=== PATIENT | male | born 1935 | race Hispanic/Latino ===

== ENCOUNTER 2017-02-07 17:46 | Inpatient (IN) | payer MEDICARE ==
--- NOTE | 2017-02-07 18:12 | ED PDOC ---
Arrival/HPI - General Chief Complaint: Abdominal Pain Time Seen by Provider: 02/07/17 17:48 Historian: Patient - History of Present Illness Narrative History of Present Illness (Text): 02/07/17 18:01 A 81 year old male, whose past medical history includes colon cancer with resection, chemotherapy, now in remission, peptic ulcer and B12 insufficiency, presents to the emergency department for difficulty eating over the past 9 months. Patient reports he has been experiencing difficulty swallowing. He notes pain down his esophagus and states his food does not go down easily. Patient reports he has attempted to stay hydrated and nourished but has not been successful. He has lost 55 pounds over this course. Patient notes generalized weakness and nausea. He denies any fever, chills, vomiting, diarrhea , abdominal pain, chest pain, shortness of breath or any other complaints at this time. PMD: Jefferson Tovar Time/Duration: Other (9 months) Symptom Course: Worsening Context: Home Past Medical History - Provider Review Nursing Documentation Reviewed: Yes - Infectious Disease Hx of Infectious Diseases: None - Tetanus Immunization Tetanus Immunization: Unknown - Cardiac Hx Pacemaker: No - Pulmonary Hx Respiratory Disorders: No - Neurological Hx Neurological Disorder: No (NEUROPATHY) - HEENT Hx HEENT Disorder: (WEARS RX GLASSES) Hx Glaucoma: Yes - Renal Hx Renal Disorder: No - Endocrine/Metabolic Hx Endocrine Disorders: No - Hematological/Oncological Hx Blood Transfusions: No Hx Blood Transfusion Reaction: No - Integumentary Hx Dermatological Disorder: Yes (THROMBOPLEBITIS LEFT LEG) - Musculoskeletal/Rheumatological Hx Musculoskeletal Disorders: Yes Hx Falls: No - Gastrointestinal Hx Gastrointestinal Disorders: No (COLON SURGERY,CONSTIPATION) Hx Gastrointestinal Ulcer: Yes (1978) Other/Comment: Colon CA Hx - Genitourinary/Gynecological Hx Genitourinary Disorders: No - Psychiatric Hx Depression: No Hx Emotional Abuse: No Hx Physical Abuse: No Hx Substance Use: No - Anesthesia Hx Anesthesia Reactions: No Hx Malignant Hyperthermia: No - Suicidal Assessment Feels Threatened In Home Enviroment: No Family/Social History - Physician Review Nursing Documentation Reviewed: Yes Family/Social History: No Known Family HX Smoking Status: Former Smoker Hx Alcohol Use: No Hx Substance Use: No Hx Substance Use Treatment: No Allergies/Home Meds Allergies/Adverse Reactions: Allergies No Known Allergies Allergy (Verified 02/07/17 18:00) Home Medications: Home Meds Medication Instructions Recorded Confirmed Brinzolamide/Brimonidine Tart 1 drop OU BID 06/21/16 07/12/16 [Simbrinza 0.2%-1% 8 ml] Travoprost [Travatan Z 5 ml] 1 drop OU HS 06/21/16 07/12/16 traMADol [Ultram] 50 mg PO DAILY PRN 06/21/16 07/12/16 Furosemide [Lasix] 20 mg PO 07/12/16 Review of Systems - Physician Review All systems were reviewed & negative as marked: Yes - Review of Systems Constitutional: absent: Fevers, Night Sweats ENT: Other (Difficultly swallowing and pain in esophagus) Respiratory: absent: SOB Cardiovascular: absent: Chest Pain Gastrointestinal: Nausea, Appetite Changes (Difficulty eating). absent: Abdominal Pain, Diarrhea, Vomiting Physical Exam Vital Signs Temp Pulse Resp BP Pulse Ox 02/07/17 17:48 98.1 F 72 18 164/83 H 100 Temperature: Afebrile Blood Pressure: Hypotensive Pulse: Regular Respiratory Rate: Normal Appearance: Positive for: Cachectic, Other (Well hydrated) - Systems Exam Head: Present: Atraumatic, Normocephalic Pupils: Present: PERRL Extroacular Muscles: Present: EOMI Conjunctiva: Present: Normal Mouth: Present: Moist Mucous Membranes Pharnyx: Present: Normal. No: ERYTHEMA, EXUDATE, TONSILS ENLARGED, Peritonsilar Swelling, Uvular Deviation, Muffled/Hoarse Voice, Strider, Soft Palate/Uvular Edema Neck: Present: Normal Range of Motion Respiratory/Chest: Present: Clear to Auscultation, Good Air Exchange. No: Respiratory Distress, Accessory Muscle Use Cardiovascular: Present: Regular Rate and Rhythm, Normal S1, S2. No: Murmurs Abdomen: Present: Normal Bowel Sounds. No: Tenderness, Distention, Peritoneal Signs Back: Present: Normal Inspection Upper Extremity: Present: Normal Inspection. No: Cyanosis, Edema Lower Extremity: Present: Normal Inspection. No: Edema Neurological: Present: GCS=15, CN II-XII Intact, Speech Normal Skin: Present: Warm, Dry, Normal Color. No: Rashes Psychiatric: Present: Alert, Oriented x 3, Normal Insight, Normal Concentration Medical Decision Making ED Course and Treatment: 02/07/17 18:01 Impression: A 81 year old male with difficulty eating/swallowing. Patient notes pain, nausea and weight loss. Differential Diagnosis included but are not limited to: Failure to thrive vs. Dehydration vs. Electrolyte abnormalities vs. Esophageal structure Plan: -- Labs -- Urinalysis -- Reassess and disposition Prior Visits: Notes and results from previous visits were reviewed. Patient last seen in the ED on 07/12/16 and hospitalized for shortness of breath and lung nodule Progress Notes: 02/07/17 18:20 EKG shows sinus tachycardia at [address]-segment elevations in V3 measuring less than 1 ml, ST-segment depressions in lateral leads. Interpreted by me. 02/07/17 19:03 Labs pending. Signed out case to Dr. Russell to f/u labs, and admit to Dr. Gaines's service. - Lab Interpretations I have reviewed the lab results: Yes - Scribe Statement The provider has reviewed the documentation as recorded by the Scribe Keisha Pro Provider Scribe Attestation: All medical record entries made by the Scribe were at my direction and personally dictated by me. I have reviewed the chart and agree that the record accurately reflects my personal performance of the history, physical exam, medical decision making, and the department course for this patient. I have also personally directed, reviewed, and agree with the discharge instructions and disposition. Disposition/Present on Arrival - Present on Arrival Any Indicators Present on Arrival: No History of DVT/PE: No History of Uncontrolled Diabetes: No Urinary Catheter: No History of Decub. Ulcer: No History Surgical Site Infection Following: None - Disposition Have Diagnosis and Disposition been Completed?: Yes Diagnosis: Dysphagia, FTT (failure to thrive) in adult Disposition Time: 19:04 Condition: FAIR Forms: [employer] (Malaysian)
[2017-02-07 18:57] LABS: HEMOGLOBIN 14.1 gm/dL (14.0-18.0); MEAN CORPUSCULAR HEMOGLOBIN 31.6 pg (25.0-35.0); MEAN PLATELET VOLUME 11.8 fl (7.0-11.0); RBC 4.46 10^6/uL (3.5-6.1); RED CELL DISTRIBUTION WIDTH 14.5 % (11.5-14.5); WHITE BLOOD COUNT 9.4 10^3/ul (4.5-11.0)
[2017-02-07 19:05] LABS: CALCIUM 9.7 mg/dL (8.4-10.5); MAGNESIUM 2.1 mg/dL (1.7-2.2)
[2017-02-07 19:06] LABS: PLATELET COUNT 209 10^3/uL (120.0-450.0)
[2017-02-07 19:15] LABS: URINE BILIRUBIN NEGATIVE (NEGATIVE); URINE BLOOD NEGATIVE (NEGATIVE); URINE GLUCOSE (UA) NEGATIVE (NEGATIVE); URINE LEUKOCYTE ESTERASE NEGATIVE Leu/uL (NEGATIVE); URINE NITRATE NEGATIVE (NEGATIVE); URINE PROTEIN NEGATIVE mg/dL (<30 mg/dL); URINE UROBILINOGEN 0.2 E.U./dL (<1 E.U./dL)
[2017-02-07 19:18] LABS: URINE APPEARANCE CLEAR (CLEAR); URINE COLOR YELLOW (YELLOW)
[2017-02-07 19:28] LABS: EOSINOPHIL 2 % (0.0-3.0); LYMPHOCYTE 11 % (22.0-35.0); MONOCYTE 5 % (1.0-6.0); NEUTROPHIL 82 % (50.0-70.0); PLATELET CLUMPS PRESENT
[2017-02-07] MEDS: Potassium Chl 10 mEq in D5-1/2 1,000 ML IV SCH (20:20)
[2017-02-07 22:59] VITALS: BMI 191268.7
--- NOTE | 2017-02-07 23:17 | HP ---
The patient's admission history and physical for Dr. Grider. CHIEF COMPLAINT: Worsening dysphagia. HISTORY OF PRESENT ILLNESS: The patient is an 81-year-old male, seen at [facility] on 02/02 for abdominal discomfort with the patient having had a x-ray of his chest and a CT scan of his abdomen and pelvis with the patient now reporting that his dysphagia over the past few months has worsened with a cough every time he tries to drink fluids. He also reports he has no appetite with abdominal discomfort more pronounced. He was on Megace for the past approximately a month with continued weight loss. The patient weighed 196 pounds approximately 1 year prior with his present weight of 152 pounds, approximately 42-pound loss in approximately 1 year's time. His evaluation via the emergency room to the hospital is prompted by conversation with his as the patient has mild cognitive impairment, possibly early dementia with the giving supporting details as to the worsening of his condition. He reportedly had a visit with Dr. Vick, ear nose and throat specialist 3 days prior and neglected to advise the doctor of the tests that were ordered by Dr. Grider including a CT scan of the abdomen and pelvis done on 01/25, which showed no evidence of metastatic disease in the abdomen and pelvis, but small airspace opacities in the lower lobe suspicious for an infectious process. He then had a emergency room CT scan of the abdomen and pelvis done in [facility] on 02/02, which was read as mild left upper quadrant ileus, status post gastric bypass surgery and rectal surgical resection, interstitial opacities in the lung bases, nonspecific distribution suggests chronic interstitial disease with fibrosis. However, underlying infiltrate is not completely excluded, prostate mildly prominent. His chest x-ray that day showed hyperaeration consistent COPD increased coarse interstitial opacities bilaterally suggestive of chronic interstitial lung disease, underlying infiltrate not completely excluded, including upper lung bases. These reports will be scanned into the medical record as they are from different facilities for review by consultants. The patient also is followed by Dr. Maxwell, pulmonary sales and service consultant with recently being treated with Simbrinza for his respiratory issues. At present his reports that the patient's p.o. intake is very poor despite Megace with occasional vomiting and coughing episodes after drinking liquids. PAST MEDICAL HISTORY: Significant for colon cancer with resection with chemotherapy, in remission. History of gastrojejunostomy, status post perforated peptic ulcer. B12 deficiency, pulmonary fibrosis with bronchiectasis. Glaucoma along with degenerative joint disease, BPH, hyperlipidemia, hypertension not being treated at this point, peripheral neuropathy. ALLERGIES: NO KNOWN ALLERGIES. MEDICATIONS: Include Simbrinza, folic acid, Travatan eye drops, Lyrica, vitamin D, vitamin B12, tramadol, Uloric, Megace, and famotidine recently prescribed. Carafate was also prescribed, however, he did not get this due to cost of the liquid version of the medicine. FAMILY HISTORY AND SOCIAL HISTORY: The patient is a former smoker. Denies alcohol use. Worked for [employer], now retired. Otherwise noncontributory. REVIEW OF SYSTEMS: Essentially negative except as above again with the patient now with mild cognitive impairment/early dementia with giving supporting details. It should be noted that the patient was recently seen in the emergency room at [facility] on 02/02/2017. PHYSICAL EXAMINATION GENERAL: He appears gaunt, mildly cachectic. He is awake and alert and oriented. VITAL SIGNS: For this patient today include temperature 97.6, pulse 80, respirations 12, blood pressure 121/71, weight 152 pounds, height 6 feet 2 inches tall, pulse ox 95%. HEENT: Unremarkable. NECK: Supple. HEART: Regular rate. LUNGS: Decreased breath sounds, occasional rhonchi at the bases. ABDOMEN: Soft with minimally tender to general palpation to the mid epigastrium. EXTREMITIES: No edema. SKIN: Warm and dry. NEUROLOGIC: Awake and alert. LABORATORY DATA: The patient's labs were done to include white blood cell count of 9.4, hemoglobin 14.1, hematocrit 41.5, platelet count of 209,000. His chem panel showed a BUN of 32, creatinine 1.7, lipase of 200. Urinalysis was negative for blood sugar, protein. It should be noted that the patient did have scans as reported earlier as above. The patient also was seen by Dr. Aries Winchester for a lung nodule in 07/[address]-guided biopsy, at that time, as a CT scan of the chest done in 07/2016 showed significant interval improvement in the patient's left upper linear opacity with the biopsy not performed at that time. ASSESSMENT: Assessment for this patient is that of worsening dysphagia, rule out aspiration, weight loss unexplained, failure to thrive, recent vomiting, early dementia, history of cancer of the colon, status post resection with adjuvant chemotherapy 5-FU based regimen in remission, B12 deficiency, history of bronchiectasis, pulmonary fibrosis, history of gastrojejunostomy, status post perforated peptic ulcer. Glaucoma. Chronic kidney disease. Assessment and plan as above. PLAN: For this patient, after conversation with Dr. Grider, we will admit to the medical floor with evaluation with Dr. Vick with consideration for EGD, barium swallow, swallowing evaluation. We will make the patient n.p.o. except for his meds with sips of water. Start low-flow IV fluids with continuation of present medical regimen. We will ask for consult with Dr. Vick, gastrointestinal; Dr. Gallagher, renal; and Dr. Maxwell, pulmonary with the reports described above to be scanned into the [facility] computer system for review from [facility] and from [facility] [place]. We will monitor clinically with labs with further workup as indicated. Jefferson Chaudhry MD
[2017-02-08] MEDS ORDERED: Albuterol-Ipratrop 3 mg / 0.5 (3 ml) UD IH PRN (06:56)
[2017-02-08 07:36] LABS: BASO # 0.02 K/mm3 (0.0-2.0); BASO % 0.3 % (0.0-3.0); EOS # 0.2 (0.0-0.7); EOS % 2.3 % (1.5-5.0); GRAN # 5.81 (1.4-6.5); GRAN % 73.8 % (50.0-68.0); HEMOGLOBIN 13.6 gm/dL (14.0-18.0); LYMPH # 1.2 (1.2-3.4); LYMPH % 15.5 % (22.0-35.0); MEAN CORPUSCULAR HEMOGLOBIN 31.2 pg (25.0-35.0); MEAN CORPUSCULAR HGB CONC 33.9 g/dl (31.0-37.0); MEAN PLATELET VOLUME 12.1 fl (7.0-11.0); MONO # 0.6 (0.1-0.6); MONO % 8.1 % (1.0-6.0); PLATELET COUNT 220 10^3/uL (120.0-450.0); RBC 4.36 10^6/uL (3.5-6.1); RED CELL DISTRIBUTION WIDTH 14.2 % (11.5-14.5); WHITE BLOOD COUNT 7.9 10^3/ul (4.5-11.0)
--- NOTE | 2017-02-08 07:47 | CON ---
DATE: 02/08/2017 REFERRING PHYSICIAN: Dr. Chaudhry. REASON FOR CONSULTATION: Cough. HISTORY OF PRESENT ILLNESS: The patient is an 81-year-old male, with past medical history significant for chronic obstructive pulmonary disease, colon cancer, status post resective surgery, who presents with progressive dysphagia over the past month. The patient also states that he coughs when he drinks clear liquids. He was thus admitted for additional evaluation. The patient is not short of breath at rest. He does note some mild occasional dyspnea on exertion. As above, he does cough "at times," especially when he drinks thin liquids. He denies significant sputum production. There is no history of chest pain, coughing up of blood or chest pain - made worse with deep respirations. There is no history of temperatures,chills or infectious exposure. There is no history of night sweats. There is a history of weight loss with poor oral intake. No history of leg or calf pains. No history of syncope or diaphoresis. No history of recent trouble or trauma. REVIEW OF SYSTEMS: No history of nausea, vomiting, or diarrhea. No history of acute urinary symptoms. No new neurological, musculoskeletal complaints. Rest of the review of systems negative. ALLERGIES: NO KNOWN ALLERGIES. FAMILY HISTORY: No inheritable diseases. SOCIAL HISTORY: Positive for tobacco, negative for alcohol. HOME MEDICATIONS: Include Ultram, Travoprost, Lasix. PHYSICAL EXAMINATION GENERAL: The patient is not short of breath at rest. He is not using accessory muscles for breathing. VITAL SIGNS: Temperature 98.3, pulse 89, respirations 18/20, blood pressure 155/89. Oxygen saturation on room air is 99 to 100%. HEENT: Normocephalic and atraumatic. No JVD. CARDIOVASCULAR: Systolic ejection murmur at the lower left sternal border. No S3 gallop. LUNGS: Decreased breath sounds at the bases. Very minimal rhonchi. No wheezing. GI: Abdomen is soft, nontender, nondistended. Bowel sounds are positive. EXTREMITIES: No clubbing, cyanosis or edema. Calves are nontender to palpation. SKIN: No acute rash. NEUROLOGIC: Limited at the present time. LABORATORY DATA: CBC: White count 9.4, hemoglobin 14.1, hematocrit 41.5, platelets of 209. Complete metabolic profile: BUN 32, creatinine 1.7. Rest of the metabolic profile is within normal limits. The last chest film in the computer is that of a CAT scan done on 07/12/2016. The CAT scan does show significant interval improvement of the patient's left upper lobe linear opacity. The biopsy was not done. IMPRESSION: 1. Dysphagia. 2. Rule out aspiration. 3. Weight loss. 4. Renal insufficiency. PLAN: The patient presents to [facility] with main complaint of trouble swallowing over the past month. As above, his appetite is poor and he has lost considerable weight. In addition, the patient does complain of a cough when drinking thin liquids. His currently n.p.o. I will also order aspiration precautions. On physical exam, there is only very minimal bronchospasm noted. I will start the patient on DuoNeb treatments and inhaled steroids. He does have a history of smoking and chronic obstructive pulmonary disease. I will also order a repeat chest x-ray - for further evaluation. Consultations with GI and renal have been ordered. Additional pulmonary intervention will be based on the above results, as well as the clinical status of the patient. I will discuss the above with Dr. Chaudhry this morning. Thank you very much for this pulmonary consultation. Wyatt Martínez MD MTDD
[2017-02-08 08:01] LABS: ALBUMIN 3.4 g/dL (3.0-4.8); CALCIUM 9.3 mg/dL (8.4-10.5)
[2017-02-08] MEDS: Albuterol-Ipratrop 3 mg / 0.5 (3 ml) UD IH SCH ×3 (08:14→20:00)
[2017-02-08] MEDS: Budesonide 0.5 mg/2 ml Inhal Susp UD IH SCH ×2 (08:14→20:00)
[2017-02-08] MEDS ORDERED: ULORIC PO SCH (10:00)
[2017-02-08] MEDS ORDERED: TRAVATAN EYE BOTHEYES SCH (10:00)
[2017-02-08] MEDS: Megestrol Acetate 40 mg/ml Cup PO SCH (10:05)
[2017-02-08] MEDS: Sucralfate 1 gm/10 ml Oral Susp UD PO SCH ×5 (10:05→23:04)
[2017-02-08] MEDS ORDERED: Barium Sulfate for Susp 96% w/w 176g Bottle PR ONE (10:53)
--- NOTE | 2017-02-08 11:37 | RAD ---
HISTORY: Dysphagia. COMPARISON: None. TECHNIQUE: Single contrast esophagram was performed. FINDINGS: Patient tolerated procedure well. ESOPHAGUS: Esophageal mucosa appeared preserved. No evidence of stricture or mass lesion. HIATAL HERNIA: Surgical clips are seen around the distal esophagus at the level of the diaphragm. There is no hiatal hernia GASTROESOPHAGEAL REFLUX: Not demonstrated. OTHER FINDINGS: None. IMPRESSION: Unremarkable esophagram.
--- NOTE | 2017-02-08 11:55 | RAD ---
HISTORY: COMPARISON: 07/12/2016. TECHNIQUE: Chest PA and lateral FINDINGS: LINES AND TUBES: None. LUNG AND PLEURA: The lungs are hyperinflated and there is peribronchial thickening with chronic changes in both lower lobes. . There are no pleural effusions or pneumothorax. HEART AND MEDIASTINUM: The heart is not enlarged. The hilar and mediastinal contours are within normal limits. SKELETAL STRUCTURES: There is diffuse bone demineralization and old fracture deformities in right posterior 8th and 9th ribs. VISUALIZED UPPER ABDOMEN: Normal. OTHER FINDINGS: None. IMPRESSION: COPD. No acute findings.
--- NOTE | 2017-02-08 13:48 | CON ---
GASTROENTEROLOGY CONSULTATION DATE OF CONSULTATION: 02/08/2017 REQUESTING PHYSICIAN: Jefferson Chaudhry MD REASON FOR CONSULTATION: I have been asked to see this 81-year-old male with numerous medical problems including a history of colorectal cancer, chronic interstitial lung disease, history of partial gastrectomy for peptic ulcer disease many years ago who for several weeks has had poor oral intake secondary to loss of appetite and some vague discomfort in his chest with swallowing. He has had interment vomiting, the patient has had multiple CAT scans of the abdomen with a most recent CAT scan from [facility] showing a nonspecific dilatation of small-bowel loops in the left upper quadrant. I saw the patient in the office last week and for similar symptoms and I had the discussion with the patient and was decided to treat the patient conservatively. I have recommended Carafate suspension, however, this medication was not covered by his insurance. He is now admitted with failure to thrive, poor oral intake and some difficulty with swallowing. He has had some intermittent vomiting. The patient also has some early dementia. PAST MEDICAL HISTORY: As above, again he has a history of pulmonary interstitial fibrosis, bronchiectasis, mild dementia, and colon cancer. Of note, the patient recent had a colonoscopy with removal of a large adenoma in his cecum. He also has had a subtotal gastrectomy with gastrojejunostomy for perforated peptic ulcer. SOCIAL HISTORY: The patient is a former cigarette smoking, he quit years ago. He denies alcohol use. FAMILY HISTORY: Noncontributory. REVIEW OF SYSTEMS: A 14-point review of systems is notable for some pain with swallowing, poor oral intake, nausea, and vomiting. PHYSICAL EXAMINATION GENERAL: Elderly male appearing chronically ill and in no acute distress. VITAL SIGNS: Reveal a temperature of 98.3, blood pressure of 155/89, and heart rate of 89. HEENT: Reveal bitemporal wasting. Oral mucosa is slightly dry. NECK: Supple. LUNGS: Chest reveal scattered rhonchi with distant breath sounds. HEART: Exam reveals a regular rate and rhythm. ABDOMEN: Soft and nontender. He has a well-healed scars in his upper and lower abdomen. There is no palpable mass. EXTREMITIES: Show no edema. LABORATORY DATA: Reveals white blood cell count of 7.9 and hemoglobin of 13.6. Chemistries reveal chloride of 108, BUN of 27, and creatinine of 1.5. IMPRESSION: This is an 81-year-old male with several weeks to months poor oral intake secondary to poor appetite several days of some discomfort with swallowing, nausea, vomiting, history of subtotal gastrectomy, and perforated ulcer disease with recent CT-scan of the abdomen and pelvis showing some mild nonspecific dilatation of small bowel loops in the left upper quadrant possibly secondary to prior gastric surgery with failure to thrive, dehydration, prerenal azotemia and again some substantial discomfort in his chest while swallowing. The patient may have component of oropharyngeal dysphagia. RECOMMENDATION: 1. We will get a swallowing evaluation. 2. We will start the patient on Carafate suspension 1 gram four times day. 3. The patient states that he is hungry at this time and would like to try and eat, we will put on a soft mechanical diet. 4. I will schedule the patient for an upper endoscopy early next week. Ej Tavarez MD
[2017-02-08] MEDS: ULORIC 40 MG PO SCH (14:06)
[2017-02-08] MEDS: Potassium Chl 10 mEq in D5-1/2 1,000 ML IV SCH (14:06)
[2017-02-08] MEDS ORDERED: POLYETHYLENE GLYCOL 3350 17 GM/Dose PACKET PO PRN (17:16)
--- NOTE | 2017-02-08 22:46 | CON ---
DATE: 02/08/2017 REASON FOR CONSULTATION: Chronic kidney disease, stage III. HISTORY OF PRESENT ILLNESS: An 81-year-old male, was seen at [facility] on 02/02/2017 with abdominal discomfort. The patient reporting difficulty swallowing. Also complaining of 50-pound weight loss over the last 1 year. As per the history from the chart, the patient has been complaining of poor intake, weight loss, difficulty swallowing. PAST MEDICAL AND SURGICAL HISTORY: No history of hypertension, no history of diabetes, the patient has a history of elevated uric acid. FAMILY HISTORY: Noncontributory. SOCIAL HISTORY: No smoking, no alcohol use, no IV drug abuse. ALLERGIES: NO KNOWN DRUG ALLERGIES. MEDICATIONS AT HOME: Had been Uloric, Pepcid, Lyrica, Megace and tramadol. REVIEW OF SYSTEMS: All systems are reviewed. Pertinent positives are mentioned in the history of presenting illness, rest unremarkable. PHYSICAL EXAMINATION: GENERAL: Elderly thinly-built male, sitting in chair. VITAL SIGNS: Blood pressure 151/84, heart rate 69, respiratory rate 20, and temperature 98.1. HEENT: Normocephalic, atraumatic. NECK: Supple. No JVD. LUNGS: Bilateral equal air entry and bilateral breath sounds, no rales. CARDIAC: S1 and S2, regular rate and rhythm. No murmur, no rub. ABDOMEN: Soft, nondistended, nontender, bowel sounds present. EXTREMITIES: No lower extremity edema. INTAKE AND OUTPUT: Not charted. LABORATORY DATA: WBC 7.9, hemoglobin 13.6, hematocrit 40 and platelets 220. Sodium 142, potassium 4.6, chloride 108, CO2 of 23, BUN 27, creatinine 1.5, glucose 104, calcium 9.3, AST 20, ALT 20 and albumin 3.4. Urinalysis; yellow, clear, pH 6.0, specific gravity 1.025, protein negative, ketones negative, blood negative, leukocyte esterase negative. ASSESSMENT: An 81-year-old male with history of poor appetite, poor p.o. intake, weight loss, remote history of colon cancer, history of subtotal gastrectomy for perforated ulcer, and chronic kidney disease stage II/III. 1. Stable chronic kidney disease. 2. Mild prerenal azotemia. 3. /weight loss. 4. Elevated blood pressure readings, no history of hypertension. PLAN: 1. Push p.o. intake. 2. Continue to monitor blood pressure. 3. May need antihypertensive. 4. Workup as per GI. Sherie Gallagher MD
[2017-02-08] MEDS: Latanoprost 2.5 ml Opht Soln OU SCH (23:05)
[2017-02-09] MEDS: Potassium Chl 10 mEq in D5-1/2 1,000 ML IV SCH (02:40)
[2017-02-09] MEDS: Albuterol-Ipratrop 3 mg / 0.5 (3 ml) UD IH SCH ×4 (02:55→21:05)
[2017-02-09] MEDS: Pantoprazole 40 mg EC Tab PO SCH (06:35)
[2017-02-09] MEDS: Sucralfate 1 gm/10 ml Oral Susp UD PO SCH ×3 (06:35→21:52)
--- NOTE | 2017-02-09 07:22 | PN ---
DATE: 02/09/2017 SUBJECTIVE: The patient appears comfortable this morning. He is not short of breath at rest. PHYSICAL EXAMINATION VITAL SIGNS: Temperature 97.9, pulse 70, respirations 18/20, blood pressure 143/74. Oxygen saturation on room air is 99%. HEENT: Normocephalic and atraumatic. NECK: No JVD. CARDIOVASCULAR: Systolic ejection murmur at the lower left sternal border. No S3 gallop. LUNGS: Decreased breath sounds at the bases. No rhonchi or wheezing this morning. GI: Abdomen is soft, nontender, nondistended. Bowel sounds are positive. EXTREMITIES: No clubbing, cyanosis, or edema. Calves are nontender to palpation. SKIN: No acute rash. NEUROLOGIC: Limited at the present time. PERTINENT LABORATORY DATA: Chest x-ray was done yesterday and reviewed. The chest x-ray is consistent with chronic obstructive pulmonary disease. There are no acute findings. IMPRESSION: 1. Dysphagia. 2. Rule out aspiration. 3. Chronic obstructive pulmonary disease. 4. Weight loss. 5. Renal insufficiency. PLAN: The patient appears comfortable this morning. He is not short of breath at rest. He does state to feeling better this morning. On physical exam, his lungs are now clear. Oxygen saturation on room air is 99%. I will continue the current nebulizer treatments and inhaled steroids for now. I did review the chest x-ray as above. There are no acute findings. GI and renal evaluations are noted. Oncology evaluation is ongoing. I will discuss the above with the attending physician. Wyatt Martínez MD MTDKaiden
[2017-02-09] MEDS: Budesonide 0.5 mg/2 ml Inhal Susp UD IH SCH ×2 (07:43→21:05)
[2017-02-09] MEDS: Megestrol Acetate 40 mg/ml Cup PO SCH (09:35)
--- NOTE | 2017-02-09 10:40 | PN ---
DATE: SUBJECTIVE: The patient is currently sitting up in bed, eating breakfast on 5R. He has no complaints. IV are infusing. The patient states that he has lost 50 pounds in recent times. He states his appetite has significantly decreased. He is undergoing full GI workup. His esophagogram was negative. PHYSICAL EXAMINATION: INTAKE/OUTPUT: Intake 3240 and output 600 mL. VITAL SIGNS: Blood pressure 134/69, temperature 98.3, respiratory rate 20 with a pulse of 80, and pulse oximetry 97%. HEENT: Shows him to be normocephalic and atraumatic. Conjunctivae are pale. Sclerae are nonicteric. NECK: Supple. No neck vein distention. CHEST: Clear to auscultation and percussion. No rales. No rhonchi. No wheezing. CARDIOVASCULAR: Shows a regular rate and rhythm without audible murmurs, rubs or gallops. ABDOMEN: Soft. Bowel sounds are normal. No rebound. No guarding. No masses. No tenderness. EXTREMITIES: Show no lower extremity cyanosis, clubbing, or edema. LABORATORY DATA NAD IMAGING: Admitting chest x-ray showed COPD with no acute infiltrates. Admitting esophagogram was negative. Laboratories, hemoglobin 13.6, white blood cell count of 7.9, and platelet count of 220,000. Chemistry show a BUN of 27 with a creatinine of 1.5. These are his baseline levels. The patient does have chronic kidney disease stage II suspect. Chloride 108 with a CO2 of 23, sodium 142 with a potassium 4.6. Calcium, phosphorous, and magnesium were normal. Lipase was normal. Albumin was 3.4. Liver enzymes are normal. The patient's urine screen is negative. MEDICATIONS: List reviewed. The patient is currently on Carafate, Colace, DuoNeb, folic acid, Lyrica, Megace, MiraLax, Pepcid, IV fluid hydration with potassium, Protonix, Pulmicort, Tylenol, Uloric, and Xalatan. ASSESSMENT: 1. A 50-pound weight loss in a patient decreased oral intake. This is in the setting of remote history of colon cancer. He is status post perforated peptic ulcer with gastrojejunostomy. The patient is being evaluated by GI and by Hematology/Oncology. 2. History of chronic kidney disease stage II, currently stable. BUN is back to baseline levels. Creatinine is stable at 1.5. 3. History of hypertension in the past with significant weight loss. The patient appears to be normotensive. 4. History of pulmonary fibrosis and bronchiectasis by history. This appears to be stable. 5. History of benign prostatic hypertrophy. This appears to be stable. 6. History of peripheral neuropathy on medications, stable. 7. History of hyperlipidemia, likely improved with significant weight loss. 8. History of gout. No recent attacks. 9. History of chronic obstructive pulmonary disease. PLAN: 1. From my standpoint, IV fluids may be discontinued. The patient will try and increase his p.o. solid foods and fluid intake. 2. GI workup in progress. 3. At present with significant weight loss. Blood pressure medication is not necessary, but we will continue to monitor blood pressures along with you. 4. Continue to monitor accurate I's and O's and follow laboratories on a routine basis. Felix Scott MD
[2017-02-09] MEDS: Latanoprost 2.5 ml Opht Soln OU SCH (23:30)
--- NOTE | 2017-02-09 23:59 | CP.PCM.PN ---
Subjective - Date & Time of Evaluation Date of Evaluation: 02/08/17 Time of Evaluation: 21:00 - Subjective Subjective: No acute events. Tolerating PO intake w/o issue. Has not had a BM in a few days 12 ROs otherwise negative Pain: denies Objective - Vital Signs/Intake and Output Vital Signs (last 24 hours): Temp Pulse Resp BP Pulse Ox 97.2 F L 110 H 20 111/57 L 99 02/09/17 16:46 02/09/17 16:46 02/09/17 16:46 02/09/17 16:46 02/09/17 16:46 Intake and Output: 02/09/17 02/10/17 18:59 06:59 Intake Total 300 Output Total 250 Balance 50 - Medications Medications: Current Medications Acetaminophen (Tylenol 325mg Tab) 650 mg PO Q4 PRN PRN Reason: Pain, Mild (1-3) Albuterol/Ipratropium (Duoneb 3 Mg/0.5 Mg (3 Ml) Ud) 3 ml IH [id number] [facility] Last Admin: 02/09/17 21:05 Dose: 3 ml Albuterol/Ipratropium (Duoneb 3 Mg/0.5 Mg (3 Ml) Ud) 3 ml IH Q2H PRN PRN Reason: Shortness of Breath Budesonide (Pulmicort Respules) 0.5 mg IH [id number] [facility] Last Admin: 02/09/17 21:05 Dose: 0.5 mg Docusate Sodium (Colace) 100 mg PO DAILY [facility] Last Admin: 02/09/17 09:34 Dose: 100 mg Famotidine (Pepcid) 40 mg PO DAILY [facility] Last Admin: 02/09/17 09:35 Dose: 40 mg Folic Acid (Folic Acid) 1 mg PO DAILY [facility] Last Admin: 02/09/17 09:34 Dose: 1 mg Latanoprost (Xalatan Opht) 0 ml OU HS [facility] Last Admin: 02/08/17 23:05 Dose: 2.5 ml Megestrol Acetate (Megace) 200 mg PO DAILY [facility] Last Admin: 02/09/17 09:35 Dose: 200 mg Non-Formulary Medication (Uloric) 40 mg PO DAILY [facility] Last Admin: 02/08/17 14:06 Dose: Not Given Pantoprazole Sodium (Protonix Ec Tab) 40 mg PO 0600 [facility] Last Admin: 02/09/17 06:35 Dose: 40 mg Polyethylene Glycol (Miralax) 17 gm PO DAILY PRN PRN Reason: Constipation Last Admin: 02/09/17 15:27 Dose: 17 gm Polyethylene Glycol (Miralax) 17 gm PO ONCE ONE Stop: 02/10/17 20:31 Pregabalin (Lyrica) 25 mg PO Q12 [facility] Last Admin: 02/09/17 21:20 Dose: 25 mg Sucralfate (Carafate Oral Susp) 1 gm PO ACHS [facility] Last Admin: 02/09/17 21:52 Dose: 1 gm - Labs Labs: 02/08/17 07:00 02/08/17 07:00 - Constitutional Appears: Well - Respiratory Exam Respiratory Exam: Clear to Ausculation Bilateral, NORMAL BREATHING PATTERN - Cardiovascular Exam Cardiovascular Exam: REGULAR RHYTHM, +S1, +S2. absent: Murmur - GI/Abdominal Exam GI & Abdominal Exam: Soft, Normal Bowel Sounds. absent: Tenderness - Extremities Exam Extremities Exam: Full ROM, Normal Capillary Refill, Normal Inspection. absent : Joint Swelling, Pedal Edema Assessment and Plan - Assessment and Plan (Free Text) Assessment: Mr. Kahn is a 81 y/o rhonda with pmhx significant for localized colorectal cancer s/p hemicolectomy and adjuvant FOLFOX who presents with abdominal pain, weight loss, and dypshagia. Patient improving with IV hydration and dysphagia soft diet. Barium swallow test unremarkable. Appreciate Gi recommendations and patient to be evaluated with endoscopy -continue fluids for now -encoruage PO hydration -start on bowel regimen; daily colace; prn miralax -EGD next week -dypshagia soft diet Saurav Grider MD Oncology service p: [phone]
--- NOTE | 2017-02-10 00:01 | CP.PCM.PN ---
Subjective - Date & Time of Evaluation Date of Evaluation: 02/09/17 Time of Evaluation: 17:00 - Subjective Subjective: Still no BM. Just had miralax one hour before. tolerating PO intake with dysphagia soft diet. STill not taking adequate PO hydration. hates water and prefers apple juice 12 ROS otherwise negative Pain denies Objective - Vital Signs/Intake and Output Vital Signs (last 24 hours): Temp Pulse Resp BP Pulse Ox 97.2 F L 110 H 20 111/57 L 99 02/09/17 16:46 02/09/17 16:46 02/09/17 16:46 02/09/17 16:46 02/09/17 16:46 Intake and Output: 02/09/17 02/10/17 18:59 06:59 Intake Total 300 Output Total 250 Balance 50 - Medications Medications: Current Medications Acetaminophen (Tylenol 325mg Tab) 650 mg PO Q4 PRN PRN Reason: Pain, Mild (1-3) Albuterol/Ipratropium (Duoneb 3 Mg/0.5 Mg (3 Ml) Ud) 3 ml IH [id number] [facility] Last Admin: 02/09/17 21:05 Dose: 3 ml Albuterol/Ipratropium (Duoneb 3 Mg/0.5 Mg (3 Ml) Ud) 3 ml IH Q2H PRN PRN Reason: Shortness of Breath Budesonide (Pulmicort Respules) 0.5 mg IH [id number] [facility] Last Admin: 02/09/17 21:05 Dose: 0.5 mg Docusate Sodium (Colace) 100 mg PO DAILY [facility] Last Admin: 02/09/17 09:34 Dose: 100 mg Famotidine (Pepcid) 40 mg PO DAILY [facility] Last Admin: 02/09/17 09:35 Dose: 40 mg Folic Acid (Folic Acid) 1 mg PO DAILY [facility] Last Admin: 02/09/17 09:34 Dose: 1 mg Latanoprost (Xalatan Opht) 0 ml OU HS [facility] Last Admin: 02/08/17 23:05 Dose: 2.5 ml Megestrol Acetate (Megace) 200 mg PO DAILY [facility] Last Admin: 02/09/17 09:35 Dose: 200 mg Non-Formulary Medication (Uloric) 40 mg PO DAILY [facility] Last Admin: 02/08/17 14:06 Dose: Not Given Pantoprazole Sodium (Protonix Ec Tab) 40 mg PO 0600 [facility] Last Admin: 02/09/17 06:35 Dose: 40 mg Polyethylene Glycol (Miralax) 17 gm PO DAILY PRN PRN Reason: Constipation Last Admin: 02/09/17 15:27 Dose: 17 gm Polyethylene Glycol (Miralax) 17 gm PO ONCE ONE Stop: 02/10/17 20:31 Pregabalin (Lyrica) 25 mg PO Q12 [facility] Last Admin: 02/09/17 21:20 Dose: 25 mg Sucralfate (Carafate Oral Susp) 1 gm PO ACHS [facility] Last Admin: 02/09/17 21:52 Dose: 1 gm - Labs Labs: 02/08/17 07:00 02/08/17 07:00 - Constitutional Appears: Well - Respiratory Exam Respiratory Exam: Clear to Ausculation Bilateral, NORMAL BREATHING PATTERN - Cardiovascular Exam Cardiovascular Exam: REGULAR RHYTHM, +S1, +S2. absent: Murmur - GI/Abdominal Exam GI & Abdominal Exam: Soft, Normal Bowel Sounds. absent: Tenderness - Extremities Exam Extremities Exam: Full ROM, Normal Capillary Refill, Normal Inspection. absent : Joint Swelling, Pedal Edema Assessment and Plan - Assessment and Plan (Free Text) Assessment: Mr. Kahn is a 81 y/o rhonda with pmhx significant for localized colorectal cancer s/p hemicolectomy and adjuvant FOLFOX who presents with abdominal pain, weight loss, and dypshagia. Patient improving with IV hydration and dysphagia soft diet. Barium swallow test unremarkable. Appreciate Gi recommendations and patient to be evaluated with endoscopy -ok to D/C fluids for now -encourage PO hydration -start on bowel regimen; daily colace; prn miralax -EGD on saturday (should be made NPO on midnight before) -continue dypshagia soft diet Saurav Grider MD Oncology service p: [phone]
[2017-02-10] MEDS: Albuterol-Ipratrop 3 mg / 0.5 (3 ml) UD IH SCH ×4 (02:50→21:24)
[2017-02-10 07:58] LABS: MEAN CELL VOLUME 92.4 fL (80.0-105.0); MEAN CORPUSCULAR HGB CONC 33.5 g/dl (31.0-37.0); MEAN PLATELET VOLUME 12.3 fl (7.0-11.0); RBC 4.2 10^6/uL (3.5-6.1); RED CELL DISTRIBUTION WIDTH 14.8 % (11.5-14.5); WHITE BLOOD COUNT 11.5 10^3/ul (4.5-11.0)
[2017-02-10 08:21] LABS: ALB/GLOB RATIO 0.9 (1.1-1.8); ALBUMIN 3.2 g/dL (3.0-4.8); ALT/SGPT 16 U/L (7-56); AST/SGOT 21 U/L (15-59); BLOOD UREA NITROGEN 26 mg/dL (7-21); GFR AFRICAN-AMERICAN > 60; GFR NON-AFRICAN AMERICAN 53
[2017-02-10] MEDS: Budesonide 0.5 mg/2 ml Inhal Susp UD IH SCH ×2 (08:41→21:24)
[2017-02-10] MEDS: Sucralfate 1 gm/10 ml Oral Susp UD PO SCH ×2 (08:46→22:32)
[2017-02-10] MEDS: Pantoprazole 40 mg EC Tab PO SCH (08:46)
[2017-02-10] MEDS: Megestrol Acetate 40 mg/ml Cup PO SCH (10:10)
[2017-02-10] MEDS ORDERED: POLYETHYLENE GLYCOL 3350 17 GM/Dose PACKET PO ONE (20:30)
[2017-02-10] MEDS: Latanoprost 2.5 ml Opht Soln OU SCH (22:30)
[2017-02-11] MEDS: Albuterol-Ipratrop 3 mg / 0.5 (3 ml) UD IH SCH ×3 (03:29→14:17)
[2017-02-11 08:15] LABS: ALB/GLOB RATIO 0.9 (1.1-1.8); ALBUMIN 3.4 g/dL (3.0-4.8); CALCIUM 9.1 mg/dL (8.4-10.5)
[2017-02-11] MEDS: Budesonide 0.5 mg/2 ml Inhal Susp UD IH SCH (08:22)
--- NOTE | 2017-02-11 08:23 | PN ---
DATE: 02/11/2017 PULMONARY NOTE SUBJECTIVE: The patient appears comfortable this morning. He is not short of breath at rest. PHYSICAL EXAMINATION: VITAL SIGNS: Temperature is 98.0, pulse 88, respirations 18, blood pressure 144/76. Oxygen saturation on room air is 98%. HEENT: Normocephalic and atraumatic. NECK: No JVD. CARDIOVASCULAR: Systolic ejection murmur at the lower left sternal border. No S3 gallop. LUNGS: Clear bilaterally. EXTREMITIES: No clubbing, cyanosis, or edema. Calves are nontender to palpation. GASTROINTESTINAL: Abdomen is soft, nontender, nondistended. Bowel sounds are positive. SKIN: No acute rash. NEUROLOGIC: Limited at the present time. IMPRESSION: 1. Dysphagia. 2. Rule out aspiration. 3. Chronic obstructive pulmonary disease. 4. Weight loss. 5. Renal insufficiency. PLAN: The patient appears very comfortable this morning. He is not short of breath at rest. He does state to feeling much better overall. In addition, he does state that he is coughing much less. On physical exam, his lungs are now clear. Oxygen saturation on room air is between 98% to 99%. I will continue with the current nebulizer treatments and inhaled steroids for now. GI evaluation is ongoing. Oncology evaluation is also noted. Clinical status of the patient has improved. I will discuss the above with the attending physician. Wyatt Martínez MD MTDD
[2017-02-11 08:24] LABS: HEMOGLOBIN 13.4 gm/dL (14.0-18.0); MEAN CELL VOLUME 92.3 fL (80.0-105.0); MEAN CORPUSCULAR HEMOGLOBIN 31.4 pg (25.0-35.0); RBC 4.27 10^6/uL (3.5-6.1); RED CELL DISTRIBUTION WIDTH 14.9 % (11.5-14.5); WHITE BLOOD COUNT 10.5 10^3/ul (4.5-11.0)
[2017-02-11] MEDS: Sucralfate 1 gm/10 ml Oral Susp UD PO SCH ×2 (09:16→12:08)
[2017-02-11] MEDS: Pantoprazole 40 mg EC Tab PO SCH (09:19)
[2017-02-11] MEDS: Megestrol Acetate 40 mg/ml Cup PO SCH (09:19)
[2017-02-11] MEDS: ULORIC 40 MG PO SCH (09:20)
[2017-02-11] MEDS ORDERED: Propofol 10 mg/ml Inj (20 ML) ONE (10:07)
[2017-02-11] MEDS ORDERED: Sodium Chloride 0.9% 1,000 ML IV SCH (10:15)
[2017-02-11] MEDS ORDERED: Lidocaine 1% Inj (20ml) ONE (10:21)
[2017-02-11 10:57] VITALS: TEMP 98.1
[2017-02-11 10:58] VITALS: RESP 17; O2SAT 100
[2017-02-11 11:10] VITALS: BP 138/76; PULSE 94
--- NOTE | 2017-02-11 13:15 | CP.PCM.DIS ---
Provider - Provider Date of Admission: 02/07/17 19:30 Attending physician: Jefferson Chaudhry MD Consults: GI, Renal, Pulm Time Spent in preparation of Discharge (in minutes): 40 Hospital Course - Lab Results Lab Results: Most Recent Lab Values WBC 10.5 10^3/ul (4.5-11.0) 02/11/17 07:35 RBC 4.27 10^6/uL (3.5-6.1) 02/11/17 07:35 Hgb 13.4 gm/dL (14.0-18.0) L 02/11/17 07:35 Hct 39.4 % (42.0-52.0) L 02/11/17 07:35 MCV 92.3 fL (80.0-105.0) 02/11/17 07:35 MCH 31.4 pg (25.0-35.0) 02/11/17 07:35 MCHC 34.0 g/dl (31.0-37.0) 02/11/17 07:35 RDW 14.9 % (11.5-14.5) H 02/11/17 07:35 Plt Count 167 10^3/uL (120.0-450.0) 02/11/17 07:35 MPV 13.0 fl (7.0-11.0) H 02/11/17 07:35 Gran % 73.8 % (50.0-68.0) H 02/08/17 07:00 Lymph % (Auto) 15.5 % (22.0-35.0) L 02/08/17 07:00 Stevens % (Auto) 8.1 % (1.0-6.0) H 02/08/17 07:00 Eos % (Auto) 2.3 % (1.5-5.0) 02/08/17 07:00 Baso % (Auto) 0.3 % (0.0-3.0) 02/08/17 07:00 Gran # 5.81 (1.4-6.5) 02/08/17 07:00 Lymph # 1.2 (1.2-3.4) 02/08/17 07:00 Stevens # 0.6 (0.1-0.6) 02/08/17 07:00 Eos # 0.2 (0.0-0.7) 02/08/17 07:00 Baso # 0.02 K/mm3 (0.0-2.0) 02/08/17 07:00 Neutrophils % (Manual) 82 % (50.0-70.0) H 02/07/17 18:30 Lymphocytes % (Manual) 11 % (22.0-35.0) L 02/07/17 18:30 Monocytes % (Manual) 5 % (1.0-6.0) 02/07/17 18:30 Eosinophils % (Manual) 2 % (0.0-3.0) 02/07/17 18:30 Plt Clumps, EDTA Present 02/07/17 18:30 Sodium 140 mmol/L (132-148) 02/11/17 07:35 Potassium 4.4 mmol/L (3.6-5.0) 02/11/17 07:35 Chloride 105 mmol/L (95-110) 02/11/17 07:35 Carbon Dioxide 24 mmol/L (21-33) 02/11/17 07:35 Anion Gap 15 (10-20) 02/11/17 07:35 BUN 34 mg/dL (7-21) H 02/11/17 07:35 Creatinine 1.4 mg/dL (0.5-1.4) 02/11/17 07:35 Est GFR ( Amer) 59 02/11/17 07:35 Est GFR (Non-Af Amer) 49 02/11/17 07:35 Random Glucose 99 mg/dL (70-110) 02/11/17 07:35 Calcium 9.1 mg/dL (8.4-10.5) 02/11/17 07:35 Phosphorus 3.0 mg/dL (2.5-4.5) 02/10/17 07:00 Magnesium 2.0 mg/dL (1.7-2.2) 02/10/17 07:00 Total Bilirubin 0.8 mg/dL (0.2-1.3) 02/11/17 07:35 AST 22 U/L (15-59) 02/11/17 07:35 ALT 13 U/L (7-56) 02/11/17 07:35 Alkaline Phosphatase 95 U/L (38-133) 02/11/17 07:35 Total Protein 7.0 g/dL (5.8-8.3) 02/11/17 07:35 Albumin 3.4 g/dL (3.0-4.8) 02/11/17 07:35 Globulin 3.6 gm/dL 02/11/17 07:35 Albumin/Globulin Ratio 0.9 (1.1-1.8) L 02/11/17 07:35 Lipase 200 U/L (23-300) 02/07/17 18:30 Urine Color Yellow (YELLOW) 02/07/17 19:00 Urine Appearance Clear (CLEAR) 02/07/17 19:00 Urine pH 6.0 (4.7-8.0) 02/07/17 19:00 Ur Specific [place] 1.025 (1.005-1.035) 02/07/17 19:00 Urine Protein Negative mg/dL (<30 mg/dL) 02/07/17 19:00 Urine Glucose (UA) Negative mg/dL (NEGATIVE) 02/07/17 19:00 Urine Ketones Negative mg/dL (NEGATIVE) 02/07/17 19:00 Urine Blood Negative (NEGATIVE) 02/07/17 19:00 Urine Nitrate Negative (NEGATIVE) 02/07/17 19:00 Urine Bilirubin Negative (NEGATIVE) 02/07/17 19:00 Urine Urobilinogen 0.2 E.U./dL (<1 E.U./dL) 02/07/17 19:00 Ur Leukocyte Esterase Negative Karla/uL (NEGATIVE) 02/07/17 19:00 - Hospital Course Hospital Course: 81M with pmh of colon cancer with resection, chemotherapy, now in remission, peptic ulcer and B12 insufficiency, presents to the ED for difficulty eating over the past 9 months. Patient reports he has been experiencing difficulty swallowing. In the ED basic labwork and CXR was done. CXR showed COPD with no acute findings. Pt was admitted for failure to thrive, weight loss and dysphagia. Pt was started on fluids. Renal was consulted for CKD, Pulm was consulted for COPD and aspiration?, GI consulted for dysphagia. GI recommended an EGD. EGD was done and showed monilial esophagitis and gastroparesis. GI recommended low fiber diet, Started pt on Prilosec 40mg daily, Reglan 10mg PO AC and HS, and Diflucan 100mg x 14days and pt was cleared for d/c with follow up with in 1 month. Pt is now tolerating diet - ate his lunch. Denies any abd pain nausea or vomiting. Pt eager to go home. Pt instructed to follow up with Dr Tavarez with in [address] Grider with in 1 week. Denies any walker, dizziness , f/c, sob, cp, palpitations, abd pain, n/v/d. Discharge Exam - Head Exam Head Exam: NORMAL INSPECTION, NORMOCEPHALIC - Eye Exam Eye Exam: EOMI, Normal appearance, PERRL Pupil Exam: NORMAL ACCOMODATION, PERRL - ENT Exam ENT Exam: Mucous Membranes Moist - Respiratory Exam Respiratory Exam: Clear to PA & Lateral. absent: Rales, Wheezes - Cardiovascular Exam Cardiovascular Exam: REGULAR RHYTHM, RRR, +S1, +S2 - GI/Abdominal Exam GI & Abdominal Exam: Normal Bowel Sounds, Soft. absent: Tenderness - Neurological Exam Neurological exam: Alert, CN II-XII Intact, Oriented x3 - Psychiatric Exam Psychiatric exam: Normal Affect, Normal Mood - Skin Skin Exam: Dry, Intact, Normal Color, Warm Discharge Plan - Discharge Medications Prescriptions: Fluconazole [Diflucan] 100 mg PO DAILY #14 tab Metoclopramide [Reglan] 10 mg PO 0600,1130,1630,2200 #120 tab Pantoprazole [Protonix EC Tab] 40 mg PO 0600 #30 ect - Follow Up Plan Condition: IMPROVED Disposition: HOME/ ROUTINE Additional Instructions: Follow up with Dr Tavarez with in 1 month. Follow up with Dr Grider with in 1 week. Take your medication as prescribed. If your symptoms worsen come back to the ED.
--- NOTE | 2017-02-11 16:45 | PN ---
DATE: 02/11/2017 SUBJECTIVE: The patient is seen, sitting in chair. He is awake, he is alert, he is comfortable. He reports he had an endoscopy done. He feels well. PHYSICAL EXAMINATION: GENERAL: Elderly male, sitting in chair. VITAL SIGNS: Blood pressure 138/76, heart rate 94, respiratory rate 17, and temperature 98.1. HEENT: Normocephalic, atraumatic. NECK: Supple. No JVD. LUNGS: Bilateral equal air entry. No rales. CARDIAC: S1 and S2, regular rate and rhythm. No murmur, no rub. ABDOMEN: Soft, nondistended, nontender, bowel sounds present. EXTREMITIES: No lower extremity edema. INTAKE AND OUTPUT: . LABORATORY DATA: WBC 10.5, hemoglobin 13, hematocrit 39 and platelets 167. Sodium 140, potassium 4.4, chloride 105, CO2 of 24, BUN 34, creatinine 1.4, glucose 99, calcium 9.1. AST 22, ALT 13 and albumin 3.4. MEDICATIONS: Carafate, Colace, Diflucan, Diprivan, fentanyl, folic acid, lidocaine, pregabalin, Megace, MiraLax, Pepcid, Protonix, Uloric. ASSESSMENT: 1. History of difficulty swallowing, weight loss. 2. Remote history of gastric cancer, peptic ulcer disease. 3. Chronic kidney disease stage III. 4. Now found to have Abbie esophagitis. PLAN: 1. Agree with antifungals. 2. Stable renal function. 3. Discharge planning. Sherie Gallagher MD
== END 2017-02-11 15:59 | disposition home or self-care (01) | DRG 369 ==
LOC: ED 17:46 → ERH 19:30 → 5RSO 21:17 → OBSVTOIN 02-09 12:25
PROVIDERS: ADMIT Family Medicine; ATTEND Family Medicine
PROC: 3E0F7GC Introduction of Other Therapeutic Substance into Respiratory Tract, Via Natural or Artificial Opening (ICD-10-PCS; 2017-02-08)
PROC: 0DB68ZX Excision of Stomach, Via Natural or Artificial Opening Endoscopic, Diagnostic (ICD-10-PCS; 2017-02-11)
PROC: 0DB58ZX Excision of Esophagus, Via Natural or Artificial Opening Endoscopic, Diagnostic (ICD-10-PCS; principal; 2017-02-11 10:00)
DX: B37.81 Candidal esophagitis (principal); R62.7 Adult failure to thrive; R13.12 Dysphagia, oropharyngeal phase; J84.9 Interstitial pulmonary disease, unspecified; J84.10 Pulmonary fibrosis, unspecified; K31.84 Gastroparesis; F03.90 Unspecified dementia, unspecified severity, without behavioral disturbance, psychotic disturbance, mood disturbance, and anxiety; G62.9 Polyneuropathy, unspecified; J44.9 Chronic obstructive pulmonary disease, unspecified; E53.8 Deficiency of other specified B group vitamins; I12.9 Hypertensive chronic kidney disease with stage 1 through stage 4 chronic kidney disease, or unspecified chronic kidney disease; N18.3 Chronic kidney disease, stage 3 (moderate); R63.4 Abnormal weight loss; R63.3 Feeding difficulties; N40.0 Benign prostatic hyperplasia without lower urinary tract symptoms; E78.5 Hyperlipidemia, unspecified; M10.9 Gout, unspecified; M19.90 Unspecified osteoarthritis, unspecified site; H40.9 Unspecified glaucoma; Z87.891 Personal history of nicotine dependence; Z85.048 Personal history of other malignant neoplasm of rectum, rectosigmoid junction, and anus; Z87.11 Personal history of peptic ulcer disease; Z90.3 Acquired absence of stomach [part of]; Z98.84 Bariatric surgery status; Z90.49 Acquired absence of other specified parts of digestive tract; Z92.21 Personal history of antineoplastic chemotherapy

== ENCOUNTER 2017-03-14 20:58 | Emergency (ER) | payer MEDICARE ==
[2017-03-14 20:58] VITALS: BMI 191268.7
--- NOTE | 2017-03-14 21:31 | ED PDOC ---
Arrival/HPI - General Chief Complaint: Male Genitourinary Time Seen by Provider: 03/14/17 21:23 Historian: Patient - History of Present Illness Narrative History of Present Illness (Text): 03/14/17 21:27 Grant Kahn is an 81 year old male who presents to the ED complaining of urinary retention. Patient states he has been unable to urinate for 3 days. Patient recently had his Means catheter discontinued and removed by his urologist. Patient states he has been unable to void since then and was sent in by his urologist. Patient denies any fever, chills, nausea, vomiting, diarrhea, or any other complaints. Urologist: Dr. Scott Time/Duration: < week (3 days) Symptom Onset: Gradual Symptom Course: Unchanged Activities at Onset: Light Context: Home Past Medical History - Provider Review Nursing Documentation Reviewed: Yes - Infectious Disease Hx of Infectious Diseases: None - Tetanus Immunization Tetanus Immunization: Unknown - Cardiac Hx Cardiac Disorders: No - Pulmonary Hx Chronic Obstructive Pulmonary Disease (COPD): Yes - Neurological Hx Neurological Disorder: No - HEENT Hx Glaucoma: Yes - Renal Hx Renal Disorder: No - Endocrine/Metabolic Hx Endocrine Disorders: No - Hematological/Oncological Hx Blood Disorders: No - Integumentary Hx Dermatological Disorder: Yes (THROMBOPLEBITIS LEFT LEG) - Musculoskeletal/Rheumatological Hx Musculoskeletal Disorders: Yes Other/Comment: USES CANE - Gastrointestinal Hx Gastroesophageal Reflux: Yes - Genitourinary/Gynecological Hx Genitourinary Disorders: No - Psychiatric Hx Anxiety: Yes Hx Substance Use: No - Anesthesia Hx Anesthesia Reactions: No Hx Malignant Hyperthermia: No - Suicidal Assessment Feels Threatened In Home Enviroment: No Family/Social History - Physician Review Nursing Documentation Reviewed: Yes Family/Social History: Unknown Family HX Smoking Status: Former Smoker Hx Alcohol Use: No Hx Substance Use: No Hx Substance Use Treatment: No Allergies/Home Meds Allergies/Adverse Reactions: Allergies No Known Allergies Allergy (Verified 03/14/17 21:06) Home Medications: Home Meds Medication Instructions Recorded Confirmed Brinzolamide/Brimonidine Tart 1 drop OU BID 06/21/16 03/14/17 [Simbrinza 1%-0.2% Eye Drops] Travoprost [Travatan Z] 1 drop OU HS 06/21/16 03/14/17 Pregabalin [Lyrica] 0.5 tsp PO BID 02/08/17 03/14/17 Timolol [Betimol] 1 drop OS DAILY 02/08/17 03/14/17 Fluticasone/Vilanterol [Breo 1 puff NEB DAILY 03/14/17 03/14/17 Ellipta 100-25 Mcg INH] Fluticasone/Vilanterol [Breo 1 puff NEB HS 03/14/17 03/14/17 Ellipta 200-25 Mcg INH] Review of Systems - Physician Review All systems were reviewed & negative as marked: Yes - Review of Systems Constitutional: Normal. absent: Fevers Eyes: Normal ENT: Normal Respiratory: Normal. absent: SOB, Cough Cardiovascular: Normal. absent: Chest Pain Gastrointestinal: absent: Vomiting Genitourinary Male: Urinary Output Changes (+unable to void). absent: Dysuria, Frequency, Hematuria Musculoskeletal: Normal. absent: Back Pain, Neck Pain Skin: Normal. absent: Rash Neurological: Normal Endocrine: Normal Hemo/Lymphatic: Normal Psychiatric: Normal Physical Exam Vital Signs Reviewed: Yes Vital Signs Temp Pulse Resp BP Pulse Ox 03/14/17 21:15 98.0 F 76 16 146/84 99 Temperature: Afebrile Blood Pressure: Normal Pulse: Regular Respiratory Rate: Normal Appearance: Positive for: Well-Appearing, Non-Toxic, Comfortable Pain Distress: None Mental Status: Positive for: Alert and Oriented X 3 - Systems Exam Head: Present: Atraumatic, Normocephalic Pupils: Present: PERRL Extroacular Muscles: Present: EOMI Conjunctiva: Present: Normal Mouth: Present: Moist Mucous Membranes Neck: Present: Normal Range of Motion Respiratory/Chest: Present: Clear to Auscultation, Good Air Exchange. No: Respiratory Distress, Accessory Muscle Use Cardiovascular: Present: Regular Rate and Rhythm, Normal S1, S2. No: Murmurs Abdomen: Present: Tenderness (Mild suprapubic tenderness), Normal Bowel Sounds. No: Distention, Peritoneal Signs Back: Present: Normal Inspection Upper Extremity: Present: Normal Inspection. No: Cyanosis, Edema Lower Extremity: Present: Normal Inspection. No: Edema Neurological: Present: GCS=15, CN II-XII Intact, Speech Normal Skin: Present: Warm, Dry, Normal Color. No: Rashes Psychiatric: Present: Alert, Oriented x 3, Normal Insight, Normal Concentration Medical Decision Making ED Course and Treatment: 03/14/17 21:27 Impression: 81 year old male complaining of urinary retention for 3 days. Plan: -- Labs -- UA -- Means -- Reassess and disposition Progress Notes: 03/14/17 23:18 Labs reviewed, hemoglobin dropped from previous. Requested rectal exam to r/o bleed as pt has a history colon cancer. pt refuses, but denies gi bleeding. Pt states he is unable to stay as he has to return home to care for a handicap family member. Requesting to go home. Pt given leg bag and instructed to follow up with physician/clinic in 1-2 days or return if symptoms persist/worsen or new concerning symptoms arise. do not wish to wait in emergency room for ua. - Lab Interpretations Lab Results: 03/14/17 22:36 03/14/17 22:36 Lab Results 03/14/17 22:36: Sodium 141, Potassium 4.2, Chloride 103, Carbon Dioxide 30, Anion Gap 12, BUN 32 H, Creatinine 1.7 H, Est GFR ( Amer) 47, Est GFR ( Non-Af Amer) 39, Random Glucose 111 H, Calcium 9.0, Total Bilirubin 0.8, AST 25 , ALT 25, Alkaline Phosphatase 83, Total Protein 6.7, Albumin 3.1, Globulin 3.6 , Albumin/Globulin Ratio 0.9 L 03/14/17 22:36: PT 11.7, INR 1.08, APTT 29.2 03/14/17 22:36: WBC 6.9 D, RBC 3.39 L, Hgb 10.4 L, Hct 32.0 L, MCV 94.4, MCH 30.7, MCHC 32.5, RDW 15.1 H, Plt Count 188, MPV 11.6 H, Gran % 80.9 H, Lymph % ( Auto) 11.6 L, [place] % (Auto) 6.1 H, Eos % (Auto) 1.3 L, Baso % (Auto) 0.1, Gran # 5.60, Lymph # 0.8 L, [place] # 0.4, Eos # 0.1, Baso # 0.01 I have reviewed the lab results: Yes - Scribe Statement The provider has reviewed the documentation as recorded by the Scribe Radha Kris All medical record entries made by the Tonyibclarke were at my direction and personally dictated by me. I have reviewed the chart and agree that the record accurately reflects my personal performance of the history, physical exam, medical decision making, and the department course for this patient. I have also personally directed, reviewed, and agree with the discharge instructions and disposition. Disposition/Present on Arrival - Present on Arrival Any Indicators Present on Arrival: No History of DVT/PE: No History of Uncontrolled Diabetes: No Urinary Catheter: No History of Decub. Ulcer: No History Surgical Site Infection Following: None - Disposition Have Diagnosis and Disposition been Completed?: Yes Diagnosis: Urinary retention, Anemia Disposition: HOME/ ROUTINE Disposition Time: 11:00 Condition: STABLE Discharge Instructions (ExitCare): Urinary Retention in Men (ED), Anemia (ED) Additional Instructions: please follow up with your urologist. please discuss your lab results (anemia) with your pmd, return to emergency room with worsening symptoms or concerns. Referrals: Liana Ogden DO [Primary Care Provider] - Follow up with primary Jefferson Chaudhry MD [Staff Provider] - Follow up with primary Jonn Scott MD [Staff Provider] - Follow up with primary Forms: [employer] (Chinese)
[2017-03-14 22:47] LABS: BASO # 0.01 K/mm3 (0.0-2.0); BASO % 0.1 % (0.0-3.0); EOS # 0.1 (0.0-0.7); EOS % 1.3 % (1.5-5.0); GRAN # 5.6 (1.4-6.5); GRAN % 80.9 % (50.0-68.0); LYMPH # 0.8 (1.2-3.4); LYMPH % 11.6 % (22.0-35.0); MEAN CELL VOLUME 94.4 fl (80.0-105.0); MEAN CORPUSCULAR HEMOGLOBIN 30.7 pg (25.0-35.0); MEAN CORPUSCULAR HGB CONC 32.5 g/dl (31.0-37.0); MEAN PLATELET VOLUME 11.6 fl (7.0-11.0); MONO # 0.4 (0.1-0.6); MONO % 6.1 % (1.0-6.0); RED CELL DISTRIBUTION WIDTH 15.1 % (11.5-14.5); WHITE BLOOD COUNT 6.9 10^3/ul (4.5-11.0)
[2017-03-14 22:55] LABS: INR 1.08 (0.93-1.08); PARTIAL THROMBOPLASTIN TIME 29.2 Seconds (23.7-30.8)
[2017-03-14 23:14] LABS: ALB/GLOB RATIO 0.9 (1.1-1.8); BILIRUBIN,TOTAL 0.8 mg/dL (0.2-1.3); POTASSIUM 4.2 mmol/L (3.6-5.0); TOTAL PROTEIN 6.7 g/dL (5.8-8.3)
[2017-03-15 00:41] VITALS: BP 146/84; PULSE 76; RESP 16; TEMP 98; O2SAT 99
== END 2017-03-14 23:58 | disposition home or self-care (01) ==
LOC: ED 20:58
DX: R33.9 Retention of urine, unspecified (principal); D64.9 Anemia, unspecified

== ENCOUNTER 2017-03-19 12:33 | Inpatient (IN) | payer MEDICARE ==
[2017-03-19 14:09] LABS: BASO # 0.01 K/mm3 (0.0-2.0); BASO % 0.2 % (0.0-3.0); EOS # 0.2 (0.0-0.7); EOS % 2.5 % (1.5-5.0); GRAN # 4.99 (1.4-6.5); GRAN % 77.3 % (50.0-68.0); HEMATOCRIT 33.6 % (42.0-52.0); LYMPH # 0.9 (1.2-3.4); LYMPH % 13.5 % (22.0-35.0); MEAN CELL VOLUME 95.2 fl (80.0-105.0); MEAN CORPUSCULAR HEMOGLOBIN 30.9 pg (25.0-35.0); MEAN CORPUSCULAR HGB CONC 32.4 g/dl (31.0-37.0); MEAN PLATELET VOLUME 11.3 fl (7.0-11.0); MONO # 0.4 (0.1-0.6); MONO % 6.5 % (1.0-6.0); RED CELL DISTRIBUTION WIDTH 14.8 % (11.5-14.5); VENOUS BLOOD GAS BASE EXCESS 4.1 mmol/L (0.0-2.0); VENOUS BLOOD PH 7.35 (7.32-7.43); WHITE BLOOD COUNT 6.5 10^3/ul (4.5-11.0)
--- NOTE | 2017-03-19 14:19 | ED PDOC ---
Arrival/HPI - General Chief Complaint: Shortness Of Breath Time Seen by Provider: 03/19/17 12:51 Historian: Patient, Spouse - History of Present Illness Narrative History of Present Illness (Text): 03/19/17 12:03 A 81 year old male, whose past medical history includes colon cancer (no longer on chemotherapy), heptic ulcer, and large prostate, arrives to the ER with and presents to the emergency department complaining of shortness of breath and difficulty ambulating. Patient reports when his mouth feels dry, he tries to drink fluids but has had difficulty. Patient's states during February, patient has gone to [facility] [place] times and would have severe cough, but not it is not as bad as before. Patient notes he coughs mostly when he attempts to drink fluids, but denies of any fever, kidney problems, leg swelling, or any other complaints. Also, patient's mentions patient uses a nebulizer at home for COPD, and patient states he does not take any blood thinners. PMD: Dr. Gaston Oncologist: Dr. Grider Urologist: Dr. Scott Symptom Onset: Gradual Symptom Course: Unchanged Context: Walking, Home Past Medical History - Provider Review Nursing Documentation Reviewed: Yes - Infectious Disease Hx of Infectious Diseases: None - Tetanus Immunization Tetanus Immunization: Unknown - Cardiac Hx Cardiac Disorders: No - Pulmonary Hx Respiratory Disorders: Yes Hx Chronic Obstructive Pulmonary Disease (COPD): Yes - Neurological Hx Neurological Disorder: No - HEENT Hx HEENT Disorder: Yes Hx Glaucoma: Yes - Renal Hx Renal Disorder: No - Endocrine/Metabolic Hx Endocrine Disorders: No - Hematological/Oncological Hx Blood Disorders: No - Integumentary Hx Dermatological Disorder: Yes (THROMBOPLEBITIS LEFT LEG) - Musculoskeletal/Rheumatological Hx Musculoskeletal Disorders: Yes Other/Comment: USES CANE - Gastrointestinal Hx Gastrointestinal Disorders: Yes Hx Gastroesophageal Reflux: Yes - Genitourinary/Gynecological Hx Genitourinary Disorders: Yes Hx Prostate Problems: Yes Other/Comment: caldwell leg bag - Psychiatric Hx Psychophysiologic Disorder: Yes Hx Anxiety: Yes Hx Substance Use: No - Anesthesia Hx Anesthesia: Yes Hx Anesthesia Reactions: No Hx Malignant Hyperthermia: No - Suicidal Assessment Feels Threatened In Home Enviroment: No Family/Social History - Physician Review Nursing Documentation Reviewed: Yes Family/Social History: No Known Family HX Smoking Status: Former Smoker Hx Alcohol Use: No Hx Substance Use: No Hx Substance Use Treatment: No Allergies/Home Meds Allergies/Adverse Reactions: Allergies No Known Allergies Allergy (Verified 03/14/17 21:06) Home Medications: Home Meds Medication Instructions Recorded Confirmed Albuterol 0.5% [Albuterol 0.5% 1 ml IH PRN PRN 03/19/17 03/19/17 Inhal Trudy (2.5 mg/0.5 ml) UD] Fluticasone/Vilanterol [Breo 1 puff IH DAILY 03/19/17 03/19/17 Ellipta 100-25 Mcg INH] Megestrol [Megace] 1 tab PO DAILY 03/19/17 03/19/17 Tamsulosin [Flomax] 1 tab PO DAILY 03/19/17 03/19/17 Review of Systems - Physician Review All systems were reviewed & negative as marked: Yes - Review of Systems Constitutional: Fatigue (difficulty ambulating). absent: Fevers Respiratory: SOB (worsens when tring to ambulate), Cough (mostly when attempting to drink fluids) Gastrointestinal: Appetite Changes. absent: Other (no kidney problems) Musculoskeletal: absent: Other (no leg swelling) Physical Exam Vital Signs Reviewed: Yes Vital Signs Temp Pulse Resp BP Pulse Ox 03/19/17 15:54 79 18 137/47 L 96 03/19/17 13:05 80 20 147/60 98 03/19/17 12:33 98 F 68 18 121/80 97 Temperature: Afebrile Blood Pressure: Normal Pulse: Regular Respiratory Rate: Normal Appearance: Positive for: Cachectic Pain Distress: None Mental Status: Positive for: Alert and Oriented X 3 - Systems Exam Head: Present: Atraumatic, Normocephalic Pupils: Present: PERRL Extroacular Muscles: Present: EOMI Conjunctiva: Present: Normal Mouth: Present: Dry Neck: Present: Normal Range of Motion Respiratory/Chest: Present: Clear to Auscultation, Good Air Exchange. No: Respiratory Distress, Accessory Muscle Use Cardiovascular: Present: Regular Rate and Rhythm, Normal S1, S2. No: Murmurs Abdomen: Present: Normal Bowel Sounds. No: Tenderness, Distention, Peritoneal Signs Genitourinary Male: Present: Other (yellow urine from caldwell bag) Back: Present: Normal Inspection Upper Extremity: Present: Normal Inspection. No: Cyanosis, Edema Lower Extremity: Present: Normal Inspection. No: Edema, Swelling Neurological: Present: GCS=15, CN II-XII Intact, Speech Normal Skin: Present: Warm, Dry, Normal Color. No: Rashes Psychiatric: Present: Alert, Oriented x 3, Normal Insight, Normal Concentration Medical Decision Making ED Course and Treatment: 03/19/17 12:10 Impression: 81 year old male with shortness of breath and difficulty ambulating. Physical exam shows dry mucous membranes; appears cachectic; yellow urine in caldwell bag. Differential Diagnosis included but are not limited to: COPD vs. PE vs. CHF Plan: -- EKG -- Chest X-ray -- Angio Chest CT -- Labs -- Blood Culture -- O2 Nasal Cannula -- Reassess and disposition Prior Visits: Notes and results from previous visits were reviewed. Patient was last seen in the emergency department on 03/14/2017 for urinary retention. Patient was discharged home. Progress Notes: EKG: Ordered, reviewed, and independently interpreted the EKG. Rate : 97 BPM Rhythm : NSR Interpretation : Right Bundle Branch Block, frequent PVCs. Comparison : No previous EKG for comparison. 03/19/17 16:[address] Grider. Awaiting call back. 03/19/17 16:[address] shows NO PE but does show b/l infiltrates. Treated with Cefepime and Vancomycin since recent hospitilization. Case discussed with Dr. Grider who agrees to tx for PNA and admit under his service. Patient comfortable and is feeling better at rest. - Critical Care Critical Care Minutes: 30 minutes - Lab Interpretations Lab Results: 03/19/17 13:50 03/19/17 13:50 Lab Results 03/19/17 13:50: Sodium 144, Chloride 107, Potassium 4.2, Carbon Dioxide 29, Anion Gap 12, BUN 31 H, Creatinine 1.4, Est GFR ( Amer) 59, Est GFR (Non- Af Amer) 49, Random Glucose 74, Calcium 8.8, Total Bilirubin 0.5, AST 30, ALT 32 , Alkaline Phosphatase 86, Lactate Dehydrogenase 353, Total Creatine Kinase < 20 L, Troponin I < 0.01, NT-Pro-B Natriuret Pep 870 H, Total Protein 6.4, Albumin 3.1, Globulin 3.3, Albumin/Globulin Ratio 0.9 L 03/19/17 13:50: pO2 28 L, VBG pH 7.35, VBG pCO2 56.0, VBG HCO3 30.9 H, VBG Total CO2 32.6 H, VBG O2 Sat (Calc) 54.2, VBG Base Excess 4.1 H, VBG Potassium 4.2, Sodium 143.0, Chloride 109.0 H, Glucose 76, Lactate 1.2, FiO2 21.0, Venous Blood Potassium 4.2 03/19/17 13:50: PT 10.9, INR 1.01, APTT 27.3, D-Dimer, Quantitative 2.06 H 03/19/17 13:50: WBC 6.5, RBC 3.53, Hgb 10.9 L, Hct 33.6 L, MCV 95.2, MCH 30.9, MCHC 32.4, RDW 14.8 H, Plt Count 199, MPV 11.3 H, Gran % 77.3 H, Lymph % (Auto) 13.5 L, [place] % (Auto) 6.5 H, Eos % (Auto) 2.5, Baso % (Auto) 0.2, Gran # 4.99, Lymph # 0.9 L, [place] # 0.4, Eos # 0.2, Baso # 0.01 I have reviewed the lab results: Yes Interpretation: Abnormal lab values (dimer elevated) - RAD Interpretation Radiology Orders: 03/19/17 13:05 ANGIO CHEST PE PROTOCOL [CT] Stat 03/19/17 13:08 CHEST PORTABLE [RAD] Stat Jig Operator: ED Physician - Medication Orders Current Medication Orders: Cefepime HCl (Maxipime 2gm) 2 gm in 100 mls @ 100 mls/hr IVPB STAT STA PRN Reason: Protocol Stop: 03/19/17 17:35 Sodium Chloride (Sodium Chloride 0.9%) 1,000 mls @ 150 mls/hr IV [id number] CORINE Vancomycin HCl (Vancomycin 1gm) 1 gm in 250 mls @ 167 mls/hr IVPB STAT STA PRN Reason: Protocol Stop: 03/19/17 18:05 - Scribe Statement The provider has reviewed the documentation as recorded by the Melina Kuhn Provider Scribe Attestation: All medical record entries made by the Scribe were at my direction and personally dictated by me. I have reviewed the chart and agree that the record accurately reflects my personal performance of the history, physical exam, medical decision making, and the department course for this patient. I have also personally directed, reviewed, and agree with the discharge instructions and disposition. Disposition/Present on Arrival - Present on Arrival Any Indicators Present on Arrival: No History of DVT/PE: No History of Uncontrolled Diabetes: No Urinary Catheter: No History of Decub. Ulcer: No History Surgical Site Infection Following: None - Disposition Have Diagnosis and Disposition been Completed?: Yes Diagnosis: Pneumonia Disposition: HOSPITALIZED Disposition Time: 16:35 Patient Plan: Admission Condition: FAIR Referrals: Liana Ogden DO [Primary Care Provider] - Follow up with primary Forms: [email or web address] ([place])
[2017-03-19 14:23] LABS: INR 1.01 (0.93-1.08); PARTIAL THROMBOPLASTIN TIME 27.3 Seconds (23.7-30.8)
[2017-03-19 14:24] LABS: ALB/GLOB RATIO 0.9 (1.1-1.8); ALKALINE PHOSPHATASE 86 U/L (38-126); ALT/SGPT 32 U/L (7-56); AST/SGOT 30 U/L (17-59); BILIRUBIN,TOTAL 0.5 mg/dL (0.2-1.3); BLOOD UREA NITROGEN 31 mg/dL (7-21); CALCIUM 8.8 mg/dL (8.4-10.5); CARBON DIOXIDE 29 mmol/L (21-33); CHLORIDE 107 mmol/L (98-107); GFR AFRICAN-AMERICAN 59; GLUCOSE,RANDOM 74 mg/dL (70-110); POTASSIUM 4.2 mmol/L (3.6-5.0); SODIUM 144 mmol/L (132-148); TOTAL PROTEIN 6.4 g/dL (5.8-8.3)
[2017-03-19 14:30] LABS: D DIMER 2.06 mg/L FEU (0-0.50)
[2017-03-19 14:37] LABS: TROPONIN I < 0.01 ng/mL
--- NOTE | 2017-03-19 16:05 | CT ---
PROCEDURE: CT Chest with contrast (Pulmonary Angiogram) HISTORY: sob r/o PE COMPARISON: None available. TECHNIQUE: Axial computed tomography images were obtained of the chest in the pulmonary arterial phase of enhancement. Coronal and sagittal reformatted images were created and reviewed. Intravenous contrast dose: 100 cc of Omni 350 Radiation dose: Total exam DLP = 273 mGy-cm. This CT exam was performed using one or more of the following dose reduction techniques: Automated exposure control, adjustment of the mA and/or kV according to patient size, and/or use of iterative reconstruction technique. FINDINGS: PULMONARY ARTERIES: Unremarkable. No pulmonary embolism. AORTA: No acute findings. No thoracic aortic aneurysm. LUNGS: Patchy nodular densities are seen in both lungs especially in the lower lobes posteriorly. These are most likely inflammatory in origin. A more focal lesion is seen in the right upper lobe adjacent to the major fissure. This can be seen on image 55 series 4. Followup may be indicated. PLEURAL SPACES: Unremarkable. No effusion or pneuomothorax. HEART: Unremarkable. No cardiomegaly. No significant pericardial effusion. LYMPH NODES: No lymphadenopathy. BONES, CHEST WALL: Unremarkable. No fracture or destructive lesion OTHER FINDINGS: Unremarkable. IMPRESSION: No evidence of pulmonary embolus. Patchy nodular densities are seen in both lungs especially in the lower lobes posteriorly. These are most likely inflammatory in origin. A more focal lesion is seen in the right upper lobe adjacent to the major fissure. Followup may be indicated.
--- NOTE | 2017-03-19 16:06 | RAD ---
HISTORY: Sob r/o pna COMPARISON: 02/08/2017 FINDINGS: LUNGS: Patchy infiltrates are seen at both lung bases. This is similar to the previous study PLEURA: No significant pleural effusion identified, no pneumothorax apparent. CARDIOVASCULAR: Normal. OSSEOUS STRUCTURES: No significant abnormalities. VISUALIZED UPPER ABDOMEN: Normal. OTHER FINDINGS: None. IMPRESSION: Patchy infiltrates at both lung bases.
[2017-03-19] MEDS ORDERED: Cefepime IV 2 gm in NS 2 GM/100 ML BAG IVPB STA (16:36)
[2017-03-19] MEDS ORDERED: Vancomycin 1gm in NS 250ml 1 GM/250 ML BAG IVPB STA (16:36)
[2017-03-19] MEDS ORDERED: Sodium Chloride 0.9% 1,000 ML IV SCH (16:45)
[2017-03-19] MEDS: Sodium Chloride 0.9% 1,000 ML IV SCH (21:43)
[2017-03-19] MEDS ORDERED: Meropenem 1g/NS 100mL IVPB 1 GM/100 ML PIGGYBACK IVPB SCH (22:00)
[2017-03-20 00:04] VITALS: BMI 17.2
[2017-03-20] MEDS ORDERED: Pneumococcal 23-Valent Vaccine IM ONE (00:04)
[2017-03-20 01:03] LABS: URINE BILIRUBIN NEGATIVE (NEGATIVE); URINE BLOOD NEGATIVE (NEGATIVE); URINE GLUCOSE (UA) NEGATIVE (NEGATIVE); URINE KETONE NEGATIVE (NEGATIVE); URINE LEUKOCYTE ESTERASE NEGATIVE Leu/uL (NEGATIVE); URINE PROTEIN NEGATIVE mg/dL (<30 mg/dL); URINE UROBILINOGEN 0.2 E.U./dL (<1 E.U./dL)
[2017-03-20 01:10] LABS: URINE APPEARANCE CLEAR (CLEAR); URINE COLOR YELLOW (YELLOW)
[2017-03-20] MEDS: Sodium Chloride 0.9% 1,000 ML IV SCH ×2 (04:30→10:25)
[2017-03-20] MEDS: Pantoprazole 40 mg EC Tab PO SCH (05:38)
[2017-03-20 06:25] LABS: BASO # 0.03 K/mm3 (0.0-2.0); BASO % 0.5 % (0.0-3.0); EOS # 0.3 (0.0-0.7); EOS % 4.7 % (1.5-5.0); GRAN # 3.92 (1.4-6.5); GRAN % 68.1 % (50.0-68.0); HEMATOCRIT 32.6 % (42.0-52.0); LYMPH # 1.1 (1.2-3.4); LYMPH % 18.9 % (22.0-35.0); MEAN CORPUSCULAR HEMOGLOBIN 29.7 pg (25.0-35.0); MEAN CORPUSCULAR HGB CONC 31.3 g/dl (31.0-37.0); MEAN PLATELET VOLUME 11.9 fl (7.0-11.0); MONO # 0.5 (0.1-0.6); MONO % 7.8 % (1.0-6.0); RED CELL DISTRIBUTION WIDTH 14.8 % (11.5-14.5); WHITE BLOOD COUNT 5.8 10^3/ul (4.5-11.0)
[2017-03-20 06:56] LABS: ALB/GLOB RATIO 0.8 (1.1-1.8); ALKALINE PHOSPHATASE 79 U/L (38-126); ALT/SGPT 37 U/L (7-56); AST/SGOT 31 U/L (17-59); BILIRUBIN,TOTAL 0.8 mg/dL (0.2-1.3); BLOOD UREA NITROGEN 24 mg/dL (7-21); CALCIUM 8.4 mg/dL (8.4-10.5); CARBON DIOXIDE 27 mmol/L (21-33); CHLORIDE 108 mmol/L (95-110); GFR AFRICAN-AMERICAN > 60; GLUCOSE,RANDOM 72 mg/dL (70-110); POTASSIUM 4.1 mmol/L (3.6-5.0); SODIUM 142 mmol/L (132-148); TOTAL PROTEIN 5.9 g/dL (5.8-8.3)
[2017-03-20] MEDS: Acetylcysteine 20% Inhal Soln (4ml) IH SCH ×2 (07:59→19:50)
[2017-03-20] MEDS: Arformoterol 15 mcg/2 ml Inh Sol IH SCH ×2 (07:59→19:50)
[2017-03-20] MEDS: Budesonide 0.5 mg/2 ml Inhal Susp UD IH SCH ×2 (07:59→19:50)
--- NOTE | 2017-03-20 08:14 | HP ---
HISTORY OF PRESENT ILLNESS: One of the several admissions for this 81-year-old male who was admitted through the emergency room with chief complaints of shortness of breath, difficulty ambulating. The patient's who is accompanying him tell us that his mouth has been feeling dry, tries to drink fluids, he ends up with severe coughing. Recently, he had been admitted to [facility] x3, would get severe cough, but it is not as bad as before. He was supposed to have had positive workup from the pulmonary point of view including a bronchoscopy by Dr. Harper at [facility]. The details of which are unclear at this time as Dr. Harper is on vacation. The patient notes he coughs mostly when he attempts to drink fluids. Denies any fever. Denies any leg swelling or any other complaints. No history of hemoptysis. No history of hematemesis. No history of melena. The patient had been admitted to [facility] just less than 4 weeks ago with progressive difficulty in swallowing liquids, specifically with progressive weight loss of more than 50 pounds since 07/2016. The patient had been set up for workup including a CT-guided biopsy of some abnormalities picked up on a PET CT scan as the concern was very strong for a new primary with a history of the patient of having had colon cancer stage III for which he was treated with chemotherapy after resection, maybe 17 years ago. The patient's weight loss started somewhere in 06/2016, has been progressively worsening. More recently, he has been coughing, having difficulty in swallowing liquids. Along with the weight loss, he has got a lot of coughing as well, especially when he attempts to drink any fluids. The patient had an endoscopy done by Dr. Tavarez during last admission, which showed the patient had Billroth type 2 surgery and gastroparesis with gastric Leoncio-en-[id number]. Along with that, he was noted to have monilial esophagitis for which he was put on antifungal drugs, placed on small amounts of Reglan. Discharged for further followup as an outpatient. Endoscopy appeared to reveal anything intramucosally or within the intestine itself, especially as far as the esophagus and the stomach are concerned. Prior to that the patient had a colonoscopy as an outpatient and had a polyp removed which was benign. The patient has B12 deficiency. Along with that, he has been documented to have interstitial lung disease in the past. He is not a smoker and reason for the Billroth 2 is that the patient had a perforated peptic ulcer many years ago in the 70s for which he had to have the surgery. PAST MEDICAL HISTORY: Also significant for the fact that he had enlarged prostate and he sees Dr. Scott for the same along with the fact that he is seeing Dr. Maxwell for his breathing issues and coughing as an outpatient few times in the past. He was also seen by Dr. Martínez during the last admission while he was in the hospital. The patient has been known to have these chronic interstitial changes in the lungs that were picked up with the PET CT scan and the CAT scan during last admission when he had both CAT scan of the chest, CAT scan of the abdomen and pelvis. Cause for these interstitial changes are unclear. He was empirically treated with antibiotics as well during the hospital stay. REVIEW OF SYSTEMS: A 12-system review of systems was done. They were all negative except for mentioned in the HPI. FAMILY HISTORY: There is no significant family history. SOCIAL HISTORY: The patient is a former smoker, has not smoked in more than 2 decades. No history of alcohol abuse. No history of substance abuse. ALLERGIES: THE PATIENT HAS NO KNOWN ALLERGIES. HOME MEDICATIONS: Include albuterol inhalation p.r.n. He is on Breo Ellipta 1 puff inhaled daily. He is on Megace 1 teaspoon daily. He is on Flomax 1 tablet daily for his prostate. PHYSICAL EXAMINATION: GENERAL: Reveals the patient to be pale, ill looking. VITAL SIGNS: T-max is 98.4, pulse is 68, respirations 18, blood pressure is 121/80, pulse ox of 97%. HEENT: Head is normocephalic and atraumatic. Temporal muscle wasting is noted. Conjunctivae are pale. Sclerae are anicteric. Pupils are equally reactive to light and accommodation. Examination of the oropharynx reveals the mouth to be dry. Tongue is coated. No oropharyngeal lesions are noted. No ulcerations are noted. LUNGS: Reveal it to be clear to percussion and auscultation. The patient is in no respiratory distress or using the accessory muscles at this time. HEART: Reveals PMI to be in the fifth intercostal space inside the mid clavicular line. S1 and S2 are normal. No gallop or murmur is heard. ABDOMEN: Soft, nontender. Bowel sounds are present. No rebound, rigidity or guarding is noted. GENITOURINARY: That of a male. The patient has yellow urine from the Means bag. BACK: Reveals normal inspection. EXTREMITIES: Upper and lower extremities reveals no cyanosis, clubbing or edema. NEUROLOGICAL: The patient is awake, alert, oriented. Speech is normal. Affect is normal. SKIN: Turgor is normal. No skin lesions are noted. PSYCHIATRIC: The patient is awake, alert, and oriented with normal concentration. LABORATORY DATA: From today was reviewed as well reveals a white count of 6.5, hemoglobin 10.9, hematocrit 33.6, platelet count of 199,000. Sodium is 144, potassium is 4.2, chloride 107, CO2 29, BUN 31, creatinine 1.4, blood sugar is 74. Chest x-ray was done followed by CT of the chest which showed no PE, showed bibasilar infiltrates. The patient received one dose of cefepime and vancomycin. Had been treated with cefepime and vancomycin since recent hospitalization. We need to plan of treating him again while he is in the hospital pending ID and Pulmonary evaluation. EKG reviewed, done in the ER shows normal sinus rhythm, left bundle branch block, frequent PVCs. No other major abnormalities seen. ASSESSMENT: This is an 81-year-old male admitted with progressive shortness of breath, difficulty in ambulation with some dryness of the mouth, chronic obstructive pulmonary disease with progressive dysphagia, weight loss, difficulty in swallowing, especially liquids, question is if he has no mechanical findings on the recent endoscopy done by Dr. Tavarez,one will have to look for other issues that is affecting the first phase of deglutition. We will have to get a swallowing study as well to make sure he is not aspirating based on his inability to take liquids at this time. We will get Neurology to evaluate the patient as well in addition to have Pulmonary and ID see the patient. The patient has been started already on IV fluids. We will follow the patient very carefully and make appropriate adjustments over the next 24 hours. Discussed in detail with the patient's family. The patient has been already started on cefepime, given one dose stat and vancomycin given one dose stat pending further assessment as far as the infection is concerned. We will start him on IV fluids as well. Routine post exam instructions given to the patient. Lissy Grider MD [facility] # [id number]
--- NOTE | 2017-03-20 08:29 | CON ---
DATE: 03/19/2017 PULMONARY CONSULTATION REFERRING PHYSICIAN: Dr. Grider. REASON FOR CONSULT: Pneumonia, cough, shortness of breath, and weight loss. HISTORY OF PRESENT ILLNESS: This is an 81-year-old gentleman, who has a known history of colon cancer in the remote past, history of BPH, history of gastric ulcer and with partial gastrectomy in the remote past. Other issues are chronic obstructive lung disease, history of left leg thrombophlebitis, history of GERD, and also some anxiety disorder, been losing weight from the last couple of months. He had multiple visits to ER, also had a few visits to [facility] and at one point had a difficulty swallowing. I believe he has upper endoscopy done which was nondiagnostic. Also had a bronchoscopy done at [facility], report is unknown according to the patient. He was not told about any abnormal things. His is at bedside. Also, spoke to Dr. Grider. From the last couple of days, he has been having cough and shortness of breath. No fever. No nausea, no vomiting. No diarrhea. No leg pain or leg swelling. PAST MEDICAL HISTORY: As per history of present illness. SOCIAL HISTORY: Stopped smoking many years ago. Denies any alcohol use. FAMILY HISTORY: No significant cardiopulmonary disease reported. ALLERGIES: None known. MEDICATIONS: He is placed on doxycycline 100 mg twice a day, also meropenem 1 g IV q. 12 hours, IV fluid, normal saline 100 mL/hr. Home medications include Flomax, Megace, Breo, and nebulizer treatment. REVIEW OF SYSTEMS: No headache. Has some rhinitis, cough, and sputum production. No hemoptysis. No chest pain. No nausea, no vomiting, no dysuria, no leg pain or leg swelling. PHYSICAL EXAMINATION: GENERAL: Lying in the bed, in mild distress secondary to cough. VITAL SIGNS: Temperature 98, heart rate 75, respiratory rate is 20, blood pressure 137/61, pulse ox 100% on nasal cannula. HEENT: Moist mucous membrane. . NECK: Supple. No JVD. LUNGS: Has a few crackles at bases, scattered rhonchi. HEART: S1 and S2. ABDOMEN: Soft, nontender. No organomegaly. EXTREMITIES: There is no edema. NEUROLOGICAL: Awake, alert, follow simple commands. LABORATORY DATA: Shows hemoglobin 10.9, hematocrit 33.6, WBC 6.5, platelet count is 199. INR 1.01, PTT 27. D-dimer is 2.06. Has VBG done which shows pH 7.35, pCO2 is 56, O2 is 28 that is on room air. Sodium 144, potassium 4.2, chloride 107, bicarbonate 29, BUN 31, creatinine 1.4, glucose 74, calcium 8.8. Total bilirubin 0.5, AST 30, ALT 32, alkaline phosphatase is 86. LDH 353. Troponin is less than 0.01. ProBNP is 70. Albumin 3.1. CAT scan of the chest done which is negative for PE, shows patchy nodular densities, are seen in both lungs, especially in the lower lobe posteriorly. There is a focal lesion seen in the right upper lobe adjacent to the major fissure. IMPRESSION AND PLAN: Multilobar infiltrate, some of which are nodular and also patchy, history of chronic obstructive lung disease, also has a history of partial gastrectomy in the remote past, history of gastroesophageal reflux disease, weight loss of 40 to 50 pounds for the last couple of months, poor appetite, has some seems like oropharyngeal dysphagia, there may be a component of aspiration. Case discussed with Dr. Grider. I spoke with the patient's at bedside. I agree with the present management. Continue antibiotics. We will add IV and inhaled bronchodilator, Daliresp 500 mcg daily. I will also on a trial basis put him on Reglan 10 mg a.c. and at bedtime for 48 hours and see how he does. Gastric prophylaxis. DVT prophylaxis. Infectious Disease workup. If the patient does not improve, may need to consider further invasive workup. I will also suggest to get speech therapy to evaluate for oropharyngeal dysphagia. Keep head at 45 degrees. Gastric and DVT prophylaxis. Thank you and we will follow with you. Andrea Page MD
--- NOTE | 2017-03-20 10:17 | CARD ---
APPROVED REPORT EKG Measurement Heart [id number] IN [id number] <Conclusion> Sinus rhythm with short IN with frequent premature ventricular complexes and premature atrial complexes Right bundle branch block Abnormal ECG
[2017-03-20] MEDS: MethylPREDNISolone 40 mg Vial IVP SCH ×2 (10:24→21:31)
[2017-03-20] MEDS: Meropenem 1g/NS 100mL IVPB 1 GM/100 ML PIGGYBACK IVPB SCH ×2 (10:24→21:32)
[2017-03-20] MEDS: Enoxaparin 40 mg Syringe SC SCH (10:25)
--- NOTE | 2017-03-20 13:24 | CON ---
REQUESTING PHYSICIAN: Dr. Grider. REASON FOR CONSULTATION: I have been asked to see this 81-year-old male with known history of colon cancer, stage III, diagnosed over 15 years ago treated with adjuvant chemotherapy who has recently had an abnormal radiographic imaging of the chest with an abnormal PET scan who has had problems with difficulty swallowing, oropharyngeal dysphagia, nausea, vomiting, recently having had an upper endoscopy about 4 weeks ago which showed Abbie esophagitis, a stomach anatomy consistent with a partial gastrectomy with Billroth II for peptic ulcer disease many years ago with gastroparesis who is now admitted with shortness of breath and expectorating greenish phlegm. The patient states that he has been coughing after trying to drink liquids. He also has had poor appetite. He denies any nausea, vomiting, abdominal pain, hematemesis, rectal bleeding, or melena. The patient has had some failure to thrive over the last 2 months with weight loss of over 50 pounds in the last 9 months. PAST MEDICAL HISTORY: As above. Again, he has a history of interstitial lung disease, colon cancer over 15 years ago, gastroparesis, Abbie esophagitis, bronchiectasis, dementia. PAST SURGICAL HISTORY: Notable for subtotal gastrectomy with Billroth II anastomosis colon resection for cancer. SOCIAL HISTORY: The patient is a former cigarette smoker having quit many years ago. He denies alcohol use. FAMILY HISTORY: Noncontributory. REVIEW OF SYSTEMS: A 14-point review of systems is notable for post prandial cough after swallowing liquids, anorexia, weight loss. No nausea, vomiting, abdominal pain. PHYSICAL EXAMINATION: GENERAL: Elderly, emaciated-appearing male, sitting in bed in no distress. VITAL SIGNS: Reveal temperature of 97.3, blood pressure 134/93, heart rate 74. HEENT: Reveal bitemporal wasting. Sclerae white. Conjunctivae pale. NECK: Supple. CHEST: Reveal scattered rhonchi. HEART: Reveals a regular rate and rhythm. ABDOMEN: Soft, nontender. Multiple scars. No mass. EXTREMITIES: Show no edema. LABORATORY DATA: Reveal white blood cell count 5.8, hemoglobin 10.2. Chemistries reveal BUN 24, creatinine 1.3. IMPRESSION: An 81-year-old male admitted to the hospital with cough, shortness of breath with what appears to be aspiration of liquids due to oropharyngeal dysphagia. He had an upper endoscopy about a month ago which showed Abbie esophagitis and gastroparesis and a stomach which appeared to be a subtotal gastrectomy with Billroth II anastomosis. He also had an esophagram several weeks ago which was normal. He is currently being worked up for interstitial lung infiltrates with a positive CT scan concerning for a malignancy in his lungs. RECOMMENDATIONS: 1. Obtain a swallowing evaluation which has already been ordered. 2. Continue pantoprazole and Reglan. 3. Soft mechanical diet as tolerated. No further invasive GI testing is planned at this time. Ej Tavarez MD
--- NOTE | 2017-03-20 14:11 | CP.PCM.CON ---
<Jamil Diaz - Last Filed: 03/20/17 15:01> History of Present Illness - History of Present Illness History of Present Illness: Neurology Consult Note for Dr. Scanlon Service Consulted for Swallow disturbance disorder HPI: This is an 81 yo M with PMH of Colon Cancer s/p chemo and resection (17 yrs ago), Peptic ulcer, large prostate, COPD, Glaucoma, thrombophlebitis, GERD, and chronic caldwell who presented to [facility] with complaint of persisting shortness of breath, difficulty ambulating, and coughing when trying to drink fluids. As per patient and prior charting, he has been having progressively worsening swallowing for ~1 month, and was seen for this cough at [facility] 3 times without resolution. Patient reports this cough with fluids only happens with thin liquids like water, he has no trouble drinking thicker liquids like Ensure shakes, and swallows regular food without difficulty. He has also been experiencing unintentional weight loss of > 50 lbs since Jun 2016. Recent bronchoscopy done as outpatient by Dr. Harper, results unknown. As per PMD, there is concern of a new primary cancer due to these symptoms and unintentional weight loss. In the ED, patient had a CTA Chest which was negative for PE but notable for bilateral multilobar pneumonia, and given his dysphagia sx with PO liquid intake, there is concern for possible aspiration pneumonia. Patient denies chest pain, difficulty speaking, current shortness of breath, vision changes, or focal weakness. All other ROS in 12-point system review negative. PMH: as above PSH: colonic resection for colon cancer FHx: denies SHx: admits prior tobacco use, denies EtOH or illicits PMD: Dr. Ogden Review of Systems - Review of Systems All systems: reviewed and no additional remarkable complaints except (as per HPI ) Past Patient History - Infectious Disease Hx of Infectious Diseases: None - Tetanus Immunizations Tetanus Immunization: Unknown - Past Social History Smoking Status: Former Smoker - CARDIAC Hx Cardiac Disorders: No - PULMONARY Hx Respiratory Disorders: Yes Hx Chronic Obstructive Pulmonary Disease (COPD): Yes (HOME NEBULIZER) Hx Pneumonia: Yes (03-19-17) - NEUROLOGICAL Hx Neurological Disorder: Yes - HEENT Hx HEENT Problems: Yes Hx Glaucoma: Yes - RENAL Hx Chronic Kidney Disease: No - ENDOCRINE/METABOLIC Hx Endocrine Disorders: No - HEMATOLOGICAL/ONCOLOGICAL Hx Blood Disorders: Yes Hx Anemia: Yes - INTEGUMENTARY Hx Dermatological Problems: Yes (THROMBOPLEBITIS LEFT LEG) - MUSCULOSKELETAL/RHEUMATOLOGICAL Hx Musculoskeletal Disorders: Yes Hx Falls: Yes Other/Comment: USES CANE - GASTROINTESTINAL Hx Gastrointestinal Disorders: Yes Hx Gastroesophageal Reflux: Yes HX Swallowing Problems: Yes - GENITOURINARY/GYNECOLOGICAL Hx Genitourinary Disorders: Yes Hx Prostate Problems: Yes Other/Comment: caldwell leg bag-URINARY RETENTION - PSYCHIATRIC Hx Psychophysiologic Disorder: Yes Hx Anxiety: Yes Hx Substance Use: No - SURGICAL HISTORY Hx Surgeries: Yes (colon resection) - ANESTHESIA Hx Anesthesia: Yes Hx Anesthesia Reactions: No Hx Malignant Hyperthermia: No Meds Allergies/Adverse Reactions: Allergies Allergy/AdvReac Type Severity Reaction Status Date / Time No Known Allergies Allergy Verified 03/19/17 23:29 - Medications Medications: Current Medications Acetylcysteine (Acetylcysteine 20%) 4 ml IH [id number] [facility] Last Admin: 03/20/17 07:59 Dose: 4 ml Arformoterol Tartrate (Brovana) 15 mcg IH [id number] [facility] Last Admin: 03/20/17 07:59 Dose: 15 mcg Benzonatate (Tessalon Perles) 100 mg PO TID [facility] Last Admin: 03/20/17 13:30 Dose: 100 mg Budesonide (Pulmicort Respules) 0.5 mg IH [id number] [facility] Last Admin: 03/20/17 07:59 Dose: 0.5 mg Enoxaparin Sodium (Lovenox) 40 mg SC DAILY [facility] PRN Reason: Protocol Last Admin: 03/20/17 10:25 Dose: 40 mg Doxycycline Hyclate 100 mg/ (Sodium Chloride) 100 mls @ 100 mls/hr IVPB Q12 [facility] PRN Reason: Protocol Stop: 03/28/17 22:01 Last Admin: 03/20/17 13:25 Dose: 100 mls/hr Sodium Chloride (Sodium Chloride 0.9%) 1,000 mls @ 100 mls/hr IV .Q10H [facility] Last Admin: 03/20/17 10:25 Dose: 100 mls/hr Meropenem 1g/NS 100mL IVPB (Meropenem 1g/Ns 100ml Ivpb) 1 gm in 100 mls @ 100 mls/hr IVPB Q12 [facility] PRN Reason: Protocol Stop: 06/27/17 10:01 Last Admin: 03/20/17 10:24 Dose: 100 mls/hr Methylprednisolone (Solu-Medrol) 40 mg IVP Q12 [facility] Last Admin: 03/20/17 10:24 Dose: 40 mg Metoclopramide HCl (Reglan) 10 mg PO 0600,1130,1630,2200 [facility] Last Admin: 03/20/17 11:36 Dose: 10 mg Pantoprazole Sodium (Protonix Ec Tab) 40 mg PO 0600 [facility] Last Admin: 03/20/17 05:38 Dose: 40 mg Roflumilast (Daliresp) 500 mcg PO DAILY [facility] Last Admin: 03/20/17 10:25 Dose: 500 mcg Tamsulosin HCl (Flomax) 0.4 mg PO DAILY [facility] Last Admin: 03/20/17 10:25 Dose: 0.4 mg Physical Exam - Constitutional Appears: Well, Non-toxic, No Acute Distress - Head Exam Head Exam: ATRAUMATIC, NORMAL INSPECTION, NORMOCEPHALIC - Eye Exam Eye Exam: EOMI, Normal appearance. absent: Conjunctival injection, Scleral icterus Pupil Exam: absent: Irregular, Unequal - ENT Exam ENT Exam: Mucous Membranes Moist - Neck Exam Neck exam: Positive for: Full Rom - Respiratory Exam Respiratory Exam: Clear to Auscultation Bilateral, NORMAL BREATHING PATTERN. absent: Accessory Muscle Use, Chest Wall Tenderness, Decreased Breath Sounds, Rales, Rhonchi, Wheezes - Cardiovascular Exam Cardiovascular Exam: REGULAR RHYTHM, RRR, +S1, +S2. absent: Bradycardia, Tachycardia, Irregular Rhythm, JVD, +S4 - GI/Abdominal Exam GI & Abdominal Exam: Normal Bowel Sounds, Soft. absent: Diminished Bowel Sounds , Distended, Firm, Hyperactive Bowel Sounds, Hypoactive Bowel Sounds, Rigid, Tenderness - Extremities Exam Extremities exam: Negative for: calf tenderness, pedal edema, tenderness - Neurological Exam Additional comments: Awake and alert, following all commands appropriately, moving all extremities spontaneously Motor and sensory grossly intact - Psychiatric Exam Psychiatric exam: Normal Affect, Normal Mood - Skin Skin Exam: Dry, Intact, Normal Color, Warm Results - Vital Signs Recent Vital Signs: Last Vital Signs Temp 97.3 F L 03/20/17 06:00 Pulse 74 03/20/17 08:09 Resp 20 03/20/17 06:00 BP 134/93 H 03/20/17 06:00 Pulse Ox 100 03/20/17 06:00 - Labs Result Diagrams: 03/20/17 06:10 03/20/17 06:10 Labs: Laboratory Results - last 24 hr 03/20/17 03/20/17 03/20/17 00:30 06:10 06:10 WBC 5.8 RBC 3.43 L Hgb 10.2 L Hct 32.6 L MCV 95.0 MCH 29.7 MCHC 31.3 RDW 14.8 H Plt Count 128 MPV 11.9 H Gran % 68.1 H Lymph % (Auto) 18.9 L [place] % (Auto) 7.8 H Eos % (Auto) 4.7 Baso % (Auto) 0.5 Gran # 3.92 Lymph # 1.1 L [place] # 0.5 Eos # 0.3 Baso # 0.03 Sodium 142 Potassium 4.1 Chloride 108 Carbon Dioxide 27 Anion Gap 11 BUN 24 H Creatinine 1.3 Est GFR ( Amer) > 60 Est GFR (Non-Af Amer) 53 Random Glucose 72 Calcium 8.4 Total Bilirubin 0.8 AST 31 ALT 37 Alkaline Phosphatase 79 Total Protein 5.9 Albumin 2.7 L Globulin 3.2 Albumin/Globulin Ratio 0.8 L Urine Color Yellow Urine Appearance Clear Urine pH 7.0 Ur Specific [place] 1.010 Urine Protein Negative Urine Glucose (UA) Negative Urine Ketones Negative Urine Blood Negative Urine Nitrate Negative Urine Bilirubin Negative Urine Urobilinogen 0.2 Ur Leukocyte Esterase Negative Assessment & Plan - Assessment and Plan (Free Text) Assessment: This is an 81 yo M with PMH of Colon Cancer s/p chemo and resection ( 17 yrs ago), Peptic ulcer, large prostate, COPD, Glaucoma, thrombophlebitis, GERD, and chronic caldwell who presented to [facility] with complaint of persisting shortness of breath, difficulty ambulating, and coughing when trying to drink fluids. Neuro was consulted for his dysfunctional swallowing. His dysphagia is less likely central in nature, especially if this is a recurrence of colon cancer as brain is a less common site of metastasis in colon cancer. Patient would benefit from a Speech and swallow eval and a Modified Barium swallow study to further assess his dysphagia. We will obtain a MRI brain to rule out central lesion as cause of dysphagia. Plan: 1) Speech/Swallow eval 2) Modified Barium study 3) MRI brain, f/u 4) PT/OT 5) Continue current medical management as per PMD Patient seen, reviewed, and discussed with attending, Dr. Scanlon. <Chad Scanlon - Last Filed: 03/20/17 15:28> Meds - Medications Medications: Current Medications Acetylcysteine (Acetylcysteine 20%) 4 ml IH [id number] [facility] Last Admin: 03/20/17 07:59 Dose: 4 ml Arformoterol Tartrate (Brovana) 15 mcg IH [id number] [facility] Last Admin: 03/20/17 07:59 Dose: 15 mcg Benzonatate (Tessalon Perles) 100 mg PO TID [facility] Last Admin: 03/20/17 13:30 Dose: 100 mg Budesonide (Pulmicort Respules) 0.5 mg IH [id number] [facility] Last Admin: 03/20/17 07:59 Dose: 0.5 mg Enoxaparin Sodium (Lovenox) 40 mg SC DAILY [facility] PRN Reason: Protocol Last Admin: 03/20/17 10:25 Dose: 40 mg Doxycycline Hyclate 100 mg/ (Sodium Chloride) 100 mls @ 100 mls/hr IVPB Q12 [facility] PRN Reason: Protocol Stop: 03/28/17 22:01 Last Admin: 03/20/17 13:25 Dose: 100 mls/hr Sodium Chloride (Sodium Chloride 0.9%) 1,000 mls @ 100 mls/hr IV .Q10H [facility] Last Admin: 03/20/17 10:25 Dose: 100 mls/hr Meropenem 1g/NS 100mL IVPB (Meropenem 1g/Ns 100ml Ivpb) 1 gm in 100 mls @ 100 mls/hr IVPB Q12 [facility] PRN Reason: Protocol Stop: 06/27/17 10:01 Last Admin: 03/20/17 10:24 Dose: 100 mls/hr Methylprednisolone (Solu-Medrol) 40 mg IVP Q12 [facility] Last Admin: 03/20/17 10:24 Dose: 40 mg Metoclopramide HCl (Reglan) 10 mg PO 0600,1130,1630,2200 [facility] Last Admin: 03/20/17 11:36 Dose: 10 mg Pantoprazole Sodium (Protonix Ec Tab) 40 mg PO 0600 [facility] Last Admin: 03/20/17 05:38 Dose: 40 mg Roflumilast (Daliresp) 500 mcg PO DAILY [facility] Last Admin: 03/20/17 10:25 Dose: 500 mcg Tamsulosin HCl (Flomax) 0.4 mg PO DAILY [facility] Last Admin: 03/20/17 10:25 Dose: 0.4 mg Results - Vital Signs Recent Vital Signs: Last Vital Signs Temp 97.3 F L 03/20/17 06:00 Pulse 74 03/20/17 08:09 Resp 20 03/20/17 06:00 BP 134/93 H 03/20/17 06:00 Pulse Ox 100 03/20/17 06:00 - Labs Result Diagrams: 03/20/17 06:10 03/20/17 06:10 Labs: Laboratory Results - last 24 hr 03/20/17 03/20/17 03/20/17 00:30 06:10 06:10 WBC 5.8 RBC 3.43 L Hgb 10.2 L Hct 32.6 L MCV 95.0 MCH 29.7 MCHC 31.3 RDW 14.8 H Plt Count 128 MPV 11.9 H Gran % 68.1 H Lymph % (Auto) 18.9 L [place] % (Auto) 7.8 H Eos % (Auto) 4.7 Baso % (Auto) 0.5 Gran # 3.92 Lymph # 1.1 L [place] # 0.5 Eos # 0.3 Baso # 0.03 Sodium 142 Potassium 4.1 Chloride 108 Carbon Dioxide 27 Anion Gap 11 BUN 24 H Creatinine 1.3 Est GFR ( Amer) > 60 Est GFR (Non-Af Amer) 53 Random Glucose 72 Calcium 8.4 Total Bilirubin 0.8 AST 31 ALT 37 Alkaline Phosphatase 79 Total Protein 5.9 Albumin 2.7 L Globulin 3.2 Albumin/Globulin Ratio 0.8 L Urine Color Yellow Urine Appearance Clear Urine pH 7.0 Ur Specific [place] 1.010 Urine Protein Negative Urine Glucose (UA) Negative Urine Ketones Negative Urine Blood Negative Urine Nitrate Negative Urine Bilirubin Negative Urine Urobilinogen 0.2 Ur Leukocyte Esterase Negative Attending/Attestation - Attestation I have personally seen and examined this patient.: Yes I have fully participated in the care of the patient.: Yes I have reviewed all pertinent clinical information: Yes Notes (Text): 03/20/17 15:28 THERE IS A COMPONENT OF GASTROPARESIS AND [place] ESOPHAGITIS TO HIS DYSPHAGIA, .
--- NOTE | 2017-03-20 18:17 | CP.PCM.CON ---
History of Present Illness - History of Present Illness History of Present Illness: 81 year old male with PMH of colon cancer on chemotherapy S/P resection, peptic ulcer disease, BPH, COPD, glaucoma, GERD, chronic caldwell catheter use was brought in because of progressively worsening dysphagia, weight loss, as well as cough and SOB for the past few days. There has been no fever, patient does continue to have cough and SOB even at rest, no vomiting, no diarrhea, no abdominal pain, no headache or dizziness. CT chest has been done which shows multifocal infiltrates. Infectious Diseases consult is requested to further evaluate and manage. Review of Systems - Review of Systems All systems: reviewed and no additional remarkable complaints except (as per HPI ) Past Patient History - Infectious Disease Hx of Infectious Diseases: None - Tetanus Immunizations Tetanus Immunization: Unknown - Past Social History Smoking Status: Former Smoker - CARDIAC Hx Cardiac Disorders: No - PULMONARY Hx Respiratory Disorders: Yes Hx Chronic Obstructive Pulmonary Disease (COPD): Yes (HOME NEBULIZER) Hx Pneumonia: Yes (03-19-17) - NEUROLOGICAL Hx Neurological Disorder: Yes - HEENT Hx HEENT Problems: Yes Hx Glaucoma: Yes - RENAL Hx Chronic Kidney Disease: No - ENDOCRINE/METABOLIC Hx Endocrine Disorders: No - HEMATOLOGICAL/ONCOLOGICAL Hx Blood Disorders: Yes Hx Anemia: Yes - INTEGUMENTARY Hx Dermatological Problems: Yes (THROMBOPLEBITIS LEFT LEG) - MUSCULOSKELETAL/RHEUMATOLOGICAL Hx Musculoskeletal Disorders: Yes Hx Falls: Yes Other/Comment: USES CANE - GASTROINTESTINAL Hx Gastrointestinal Disorders: Yes Hx Gastroesophageal Reflux: Yes HX Swallowing Problems: Yes - GENITOURINARY/GYNECOLOGICAL Hx Genitourinary Disorders: Yes Hx Prostate Problems: Yes Other/Comment: caldwell leg bag-URINARY RETENTION - PSYCHIATRIC Hx Psychophysiologic Disorder: Yes Hx Anxiety: Yes Hx Substance Use: No - SURGICAL HISTORY Hx Surgeries: Yes (colon resection) - ANESTHESIA Hx Anesthesia: Yes Hx Anesthesia Reactions: No Hx Malignant Hyperthermia: No Meds Allergies/Adverse Reactions: Allergies Allergy/AdvReac Type Severity Reaction Status Date / Time No Known Allergies Allergy Verified 03/19/17 23:29 - Medications Medications: Current Medications Acetylcysteine (Acetylcysteine 20%) 4 ml IH [id number] [facility] Last Admin: 03/20/17 07:59 Dose: 4 ml Arformoterol Tartrate (Brovana) 15 mcg IH [id number] [facility] Last Admin: 03/20/17 07:59 Dose: 15 mcg Benzonatate (Tessalon Perles) 100 mg PO TID [facility] Last Admin: 03/20/17 17:52 Dose: 100 mg Budesonide (Pulmicort Respules) 0.5 mg IH [id number] [facility] Last Admin: 03/20/17 07:59 Dose: 0.5 mg Enoxaparin Sodium (Lovenox) 40 mg SC DAILY [facility] PRN Reason: Protocol Last Admin: 03/20/17 10:25 Dose: 40 mg Doxycycline Hyclate 100 mg/ (Sodium Chloride) 100 mls @ 100 mls/hr IVPB Q12 [facility] PRN Reason: Protocol Stop: 03/28/17 22:01 Last Admin: 03/20/17 13:25 Dose: 100 mls/hr Sodium Chloride (Sodium Chloride 0.9%) 1,000 mls @ 100 mls/hr IV .Q10H [facility] Last Admin: 03/20/17 10:25 Dose: 100 mls/hr Meropenem 1g/NS 100mL IVPB (Meropenem 1g/Ns 100ml Ivpb) 1 gm in 100 mls @ 100 mls/hr IVPB Q12 [facility] PRN Reason: Protocol Stop: 06/27/17 10:01 Last Admin: 03/20/17 10:24 Dose: 100 mls/hr Methylprednisolone (Solu-Medrol) 40 mg IVP Q12 [facility] Last Admin: 03/20/17 10:24 Dose: 40 mg Metoclopramide HCl (Reglan) 10 mg PO 0600,1130,1630,2200 [facility] Last Admin: 03/20/17 17:55 Dose: 10 mg Pantoprazole Sodium (Protonix Ec Tab) 40 mg PO 0600 [facility] Last Admin: 03/20/17 05:38 Dose: 40 mg Roflumilast (Daliresp) 500 mcg PO DAILY [facility] Last Admin: 03/20/17 10:25 Dose: 500 mcg Tamsulosin HCl (Flomax) 0.4 mg PO DAILY [facility] Last Admin: 03/20/17 10:25 Dose: 0.4 mg Physical Exam - Constitutional Appears: Chronically Ill - Head Exam Head Exam: NORMAL INSPECTION - Respiratory Exam Respiratory Exam: Decreased Breath Sounds - Cardiovascular Exam Cardiovascular Exam: +S1, +S2 - GI/Abdominal Exam GI & Abdominal Exam: Soft. absent: Tenderness Results - Vital Signs Recent Vital Signs: Last Vital Signs Temp 98.6 F 03/20/17 16:00 Pulse 74 03/20/17 16:00 Resp 19 03/20/17 16:00 BP 147/70 03/20/17 16:00 Pulse Ox 100 03/20/17 16:00 - Labs Result Diagrams: 03/20/17 06:10 03/20/17 06:10 Labs: Laboratory Results - last 24 hr 03/20/17 03/20/17 03/20/17 00:30 06:10 06:10 WBC 5.8 RBC 3.43 L Hgb 10.2 L Hct 32.6 L MCV 95.0 MCH 29.7 MCHC 31.3 RDW 14.8 H Plt Count 128 MPV 11.9 H Gran % 68.1 H Lymph % (Auto) 18.9 L [place] % (Auto) 7.8 H Eos % (Auto) 4.7 Baso % (Auto) 0.5 Gran # 3.92 Lymph # 1.1 L [place] # 0.5 Eos # 0.3 Baso # 0.03 Sodium 142 Potassium 4.1 Chloride 108 Carbon Dioxide 27 Anion Gap 11 BUN 24 H Creatinine 1.3 Est GFR ( Amer) > 60 Est GFR (Non-Af Amer) 53 Random Glucose 72 Calcium 8.4 Total Bilirubin 0.8 AST 31 ALT 37 Alkaline Phosphatase 79 Total Protein 5.9 Albumin 2.7 L Globulin 3.2 Albumin/Globulin Ratio 0.8 L Urine Color Yellow Urine Appearance Clear Urine pH 7.0 Ur Specific [place] 1.010 Urine Protein Negative Urine Glucose (UA) Negative Urine Ketones Negative Urine Blood Negative Urine Nitrate Negative Urine Bilirubin Negative Urine Urobilinogen 0.2 Ur Leukocyte Esterase Negative Assessment & Plan - Assessment and Plan (Free Text) Plan: Assessment Consider multifocal healthcare-associated pneumonia in this patient with dysphagia colon cancer on chemotherapy S/P resection peptic ulcer disease BPH COPD glaucoma GERD chronic caldwell catheter use Plan Started patient on Doxycycline and Merrem pending blood, sputum cx, urine Legionella Ag, PCT; reviewed CT chest and Pulmonary evaluation and recommendations Follow up GI recommendations for the dysphagia will monitor clinically
--- NOTE | 2017-03-20 20:02 | PN ---
REFERRING PHYSICIAN: Dr. Grider. SUBJECTIVE: He is out of bed to chair, feels little better, still has a cough, sputum production. Appetite was better today. No nausea, no vomiting, no abdominal pain. No leg pain or leg swelling. OBJECTIVE: GENERAL: In no acute distress. VITAL SIGNS: Temperature is 98, heart rate 74, respiratory rate is 20, blood pressure 134/93, pulse ox 100% on 2 L nasal cannula. HEENT: Moist mucous membrane. Small oral cavity. NECK: Supple. No JVD. LUNGS: Has a few crackles at the bases, scattered rhonchi. HEART: S1 and S2. ABDOMEN: Soft, nontender. No organomegaly. EXTREMITIES: There is no edema. NEUROLOGIC: Awake and alert. Follows simple commands. MEDICATIONS: He is on Mucomyst 20% inhaled twice a day, Brovana inhaled twice a day, Daliresp 500 mcg daily, doxycycline 100 mg twice a day, Flomax 0.4 mg daily, Lovenox 40 mg subcu daily, meropenem 1 g IV q. 12 hours, Protonix 40 mg daily, Pulmicort inhaler twice a day, Reglan 10 mg before meals and at bedtime, IV fluid, normal saline 100 mL/hour, Solu-Medrol 40 mg q. 12 hours, Tessalon Perles 100 mg three times a day. LABORATORY DATA: Shows hemoglobin 10.2, hematocrit 32.6, WBC 5.8, and platelet count is 128. Sodium 142, potassium 4.1, chloride 108, bicarbonate 27, BUN 24, creatinine 1.3. Glucose 72, calcium 8.4, total bilirubin 0.8. AST 31, ALT 37, alkaline phosphatase 79. Albumin is 2.7. Procalcitonin is 0.12. IMPRESSION AND PLAN: Multilobe infiltrate, some of which are nodular from the last year or 2, changing the site with this patchy infiltrate, has a component of chronic obstructive lung disease, history of partial gastrectomy, also has a strong history of GERD, lost 40 to 50 pounds, with a procalcitonin negative. We have to rethink about carrying ambiguous aspiration causing atelectasis and infiltrate without really significant inflammation like pneumonia. We will also share CAT scan with Dr. Aries Winchester. See if we can biopsy one of those nodules. According to the patient, he had bronchoscopy done at [facility] which was nondiagnostic. I still believe he has a GERD and chronic aspiration. Waiting for speech therapy to evaluate the patient. For now, continue antibiotics, continue IV and inhaled bronchodilator. Continue Reglan. Gastric prophylaxis. Fall precaution. DVT prophylaxis. Thank you and we will follow with you. Andrea Page MD
--- NOTE | 2017-03-21 00:18 | CP.PCM.PN ---
Subjective - Date & Time of Evaluation Date of Evaluation: 03/21/17 Time of Evaluation: 00:17 - Subjective Subjective: hypnotic Objective - Vital Signs/Intake and Output Vital Signs (last 24 hours): Temp Pulse Resp BP Pulse Ox 98.6 F 74 19 147/70 100 03/20/17 16:00 03/20/17 16:00 03/20/17 16:00 03/20/17 16:00 03/20/17 16:00 Intake and Output: 03/20/17 03/21/17 18:59 06:59 Intake Total 1060 240 Output Total 550 600 Balance 510 -360 - Medications Medications: Current Medications Acetylcysteine (Acetylcysteine 20%) 4 ml IH [id number] [facility] Last Admin: 03/20/17 19:50 Dose: 4 ml Arformoterol Tartrate (Brovana) 15 mcg IH [id number] [facility] Last Admin: 03/20/17 19:50 Dose: 15 mcg Benzonatate (Tessalon Perles) 100 mg PO TID [facility] Last Admin: 03/20/17 17:52 Dose: 100 mg Budesonide (Pulmicort Respules) 0.5 mg IH [id number] [facility] Last Admin: 03/20/17 19:50 Dose: 0.5 mg Enoxaparin Sodium (Lovenox) 40 mg SC DAILY [facility] PRN Reason: Protocol Last Admin: 03/20/17 10:25 Dose: 40 mg Doxycycline Hyclate 100 mg/ (Sodium Chloride) 100 mls @ 100 mls/hr IVPB Q12 [facility] PRN Reason: Protocol Stop: 03/28/17 22:01 Last Admin: 03/20/17 21:55 Dose: 100 mls/hr Sodium Chloride (Sodium Chloride 0.9%) 1,000 mls @ 100 mls/hr IV .Q10H [facility] Last Admin: 03/20/17 10:25 Dose: 100 mls/hr Meropenem 1g/NS 100mL IVPB (Meropenem 1g/Ns 100ml Ivpb) 1 gm in 100 mls @ 100 mls/hr IVPB Q12 [facility] PRN Reason: Protocol Stop: 06/27/17 10:01 Last Admin: 03/20/17 21:32 Dose: 100 mls/hr Methylprednisolone (Solu-Medrol) 40 mg IVP Q12 [facility] Last Admin: 03/20/17 21:31 Dose: 40 mg Metoclopramide HCl (Reglan) 10 mg PO 0600,1130,1630,2200 [facility] Last Admin: 03/20/17 21:31 Dose: 10 mg Pantoprazole Sodium (Protonix Ec Tab) 40 mg PO 0600 [facility] Last Admin: 03/20/17 05:38 Dose: 40 mg Roflumilast (Daliresp) 500 mcg PO DAILY [facility] Last Admin: 03/20/17 10:25 Dose: 500 mcg Tamsulosin HCl (Flomax) 0.4 mg PO DAILY [facility] Last Admin: 03/20/17 10:25 Dose: 0.4 mg - Labs Labs: 03/20/17 06:10 03/20/17 06:10 PT 10.9 Seconds (9.9-11.8) 03/19/17 13:50 INR 1.01 (0.93-1.08) 03/19/17 13:50 APTT 27.3 Seconds (23.7-30.8) 03/19/17 13:50
--- NOTE | 2017-03-21 00:22 | CP.PCM.PN ---
Subjective - Date & Time of Evaluation Date of Evaluation: 03/21/17 Time of Evaluation: 00:19 - Subjective Subjective: S:Patient was seen because he requested a sleeping pill. Has no other complaints now.l Medical record was reviewed. O: Last Vital Signs 3 Temp 98.6 F 03/20/17 16:00 Pulse 74 03/20/17 16:00 Resp 19 03/20/17 16:00 BP 147/70 03/20/17 16:00 Pulse Ox 100 03/20/17 16:00 Awake,alert, not in distress. LUNGS: Normal breathing pattern. NEURO:Speech normal. A:Adjustment insomnia.l P:Ambien 10 mg PO now. Objective - Vital Signs/Intake and Output Vital Signs (last 24 hours): Temp Pulse Resp BP Pulse Ox 98.6 F 74 19 147/70 100 03/20/17 16:00 03/20/17 16:00 03/20/17 16:00 03/20/17 16:00 03/20/17 16:00 Intake and Output: 03/20/17 03/21/17 18:59 06:59 Intake Total 1060 240 Output Total 550 600 Balance 510 -360 - Medications Medications: Current Medications Acetylcysteine (Acetylcysteine 20%) 4 ml IH [id number] [facility] Last Admin: 03/20/17 19:50 Dose: 4 ml Arformoterol Tartrate (Brovana) 15 mcg IH [id number] [facility] Last Admin: 03/20/17 19:50 Dose: 15 mcg Benzonatate (Tessalon Perles) 100 mg PO TID [facility] Last Admin: 03/20/17 17:52 Dose: 100 mg Budesonide (Pulmicort Respules) 0.5 mg IH [id number] [facility] Last Admin: 03/20/17 19:50 Dose: 0.5 mg Enoxaparin Sodium (Lovenox) 40 mg SC DAILY [facility] PRN Reason: Protocol Last Admin: 03/20/17 10:25 Dose: 40 mg Doxycycline Hyclate 100 mg/ (Sodium Chloride) 100 mls @ 100 mls/hr IVPB Q12 [facility] PRN Reason: Protocol Stop: 03/28/17 22:01 Last Admin: 03/20/17 21:55 Dose: 100 mls/hr Sodium Chloride (Sodium Chloride 0.9%) 1,000 mls @ 100 mls/hr IV .Q10H [facility] Last Admin: 03/20/17 10:25 Dose: 100 mls/hr Meropenem 1g/NS 100mL IVPB (Meropenem 1g/Ns 100ml Ivpb) 1 gm in 100 mls @ 100 mls/hr IVPB Q12 [facility] PRN Reason: Protocol Stop: 06/27/17 10:01 Last Admin: 03/20/17 21:32 Dose: 100 mls/hr Methylprednisolone (Solu-Medrol) 40 mg IVP Q12 [facility] Last Admin: 03/20/17 21:31 Dose: 40 mg Metoclopramide HCl (Reglan) 10 mg PO 0600,1130,1630,2200 [facility] Last Admin: 03/20/17 21:31 Dose: 10 mg Pantoprazole Sodium (Protonix Ec Tab) 40 mg PO 0600 [facility] Last Admin: 03/20/17 05:38 Dose: 40 mg Roflumilast (Daliresp) 500 mcg PO DAILY [facility] Last Admin: 03/20/17 10:25 Dose: 500 mcg Tamsulosin HCl (Flomax) 0.4 mg PO DAILY [facility] Last Admin: 03/20/17 10:25 Dose: 0.4 mg Zolpidem Tartrate (Ambien) 10 mg PO STAT [facility] PRN Reason: Protocol Stop: 03/21/17 00:19 - Labs Labs: 03/20/17 06:10 03/20/17 06:10 PT 10.9 Seconds (9.9-11.8) 03/19/17 13:50 INR 1.01 (0.93-1.08) 03/19/17 13:50 APTT 27.3 Seconds (23.7-30.8) 03/19/17 13:50
[2017-03-21] MEDS: Sodium Chloride 0.9% 1,000 ML IV SCH (02:30)
[2017-03-21] MEDS: Pantoprazole 40 mg EC Tab PO SCH (05:30)
[2017-03-21] MEDS: Arformoterol 15 mcg/2 ml Inh Sol IH SCH ×2 (07:40→19:55)
[2017-03-21] MEDS: Budesonide 0.5 mg/2 ml Inhal Susp UD IH SCH ×2 (07:40→19:55)
[2017-03-21] MEDS: Acetylcysteine 20% Inhal Soln (4ml) IH SCH ×2 (07:40→19:55)
[2017-03-21] MEDS: Enoxaparin 40 mg Syringe SC SCH (09:21)
[2017-03-21] MEDS: Meropenem 1g/NS 100mL IVPB 1 GM/100 ML PIGGYBACK IVPB SCH ×2 (09:22→21:53)
[2017-03-21] MEDS: MethylPREDNISolone 40 mg Vial IVP SCH ×3 (09:23→23:50)
--- NOTE | 2017-03-21 10:37 | MRI ---
PROCEDURE: MRI BRAIN WITHOUT CONTRAST HISTORY: dysphagia COMPARISON: None. TECHNIQUE: Multiplanar, multisequence MR images of the brain were obtained without intravenous contrast enhancement. FINDINGS: HEMORRHAGE: None DWI: No evidence of an acute or early subacute infarction. BRAIN PARENCHYMA: Diffuse cerebral atrophy and chronic microangiopathy are identified with likely small bilateral chronic lacune is at the thalami and likely also at the inferior diandra bilaterally. There is no mass effect or suspicious extra-axial fluid collection appreciated in the midline brain anatomy exclusive of the diandra is unremarkable including the corpus callosum and craniocervical junction. There is no suspicious extra-axial fluid collection identified. VENTRICLES: Unremarkable. No hydrocephalus. CRANIUM: Unremarkable. ORBITS: Grossly unremarkable. PARANASAL SINUSES/MASTOIDS: Limited right mastoiditis identified. VASCULAR SYSTEM: Skull base flow voids intact. OTHER FINDINGS: None. IMPRESSION: 1. No acute or subacute brain infarction identified this time. Instead, chronic lacune is are minimal at the bilateral thalami and likely inferior diandra. 2. Age-appropriate atrial related neuro degenerative changes are identified.
--- NOTE | 2017-03-21 10:48 | PN ---
DATE: 03/21/2017 SUBJECTIVE: The patient is lying in bed comfortable. He continues to have occasional cough with frothy phlegm. He denies any nausea, vomiting, or abdominal pain. He states that his appetite has improved somewhat. PHYSICAL EXAMINATION: VITAL SIGNS: Reveal temperature of 98.6, blood pressure 147/70, heart rate of 74. HEENT: Reveal sclerae to be white. Conjunctivae pink. NECK: Supple. CHEST: Reveal scattered rhonchi. HEART: Reveals regular rate and rhythm. ABDOMEN: Soft. Multiple well-healed scars. Nontender. No mass. EXTREMITIES: Show no edema. LABORATORY DATA: Reveal white blood cell count 5.8, hemoglobin 10.2. Chemistries reveal BUN 24, creatinine 1.3. AST, ALT, and alk phos were all normal. Swallowing eval shows oropharyngeal dysphagia to thin liquids. RECOMMENDATIONS: 1. [place]-thick liquids. 2. Continue supportive treatment with PPI and Reglan. 3. Further workup for lung lesions as per Oncology and Pulmonary. Ej Tavarez MD
[2017-03-21] MEDS ORDERED: POLYETHYLENE GLYCOL 3350 17 GM/Dose PACKET PO ONE (11:52)
--- NOTE | 2017-03-21 14:01 | PN ---
DATE: 03/21/2017 SUBJECTIVE: The patient was seen earlier today. He states that he still has difficulty swallowing. He has some cough, mild shortness of breath, but he has not had any fever. PHYSICAL EXAMINATION: VITAL SIGNS: Temperature is 97.3, blood pressure is 147/70, respiratory rate of 20, and heart rate of 74. HEENT: Unremarkable. NECK: Supple. LUNGS: Decreased breath sounds. HEART: Normal S1 and S2. ABDOMEN: Soft and nontender. LABORATORY DATA: Reveals a white count of 5.8, hemoglobin of 10, and platelets of 128. Coagulation is noted. Chemistry reveals a BUN of 24, creatinine of 1.3, and procalcitonin is 0.12. Urinalysis is noted. Microbiology reveals blood cultures are negative. Urine cultures are Gram-positive cocci. Review of orders on IV doxycycline and IV meropenem and Solu-Medrol. Urinalysis is negative, although the urine culture is positive. The patient had an MRI noted. ASSESSMENT AND PLAN: This is an 81-year-old male with colon cancer, on chemotherapy, status post resection, history of peptic ulcer disease, benign prostatic hyperplasia, chronic obstructive pulmonary disease, glaucoma, gastroesophageal reflux disease, chronic Means catheter, and with multifocal healthcare-associated pneumonia with dysphagia colon cancer, status post resection, on chemotherapy, peptic ulcer disease, on doxycycline and meropenem day #2. Workup in progress. The patient is very weak and cachectic and chronically ill. Tonny Edmond MD
[2017-03-21] MEDS: POLYETHYLENE GLYCOL 3350 17 GM/Dose PACKET PO SCH (17:56)
--- NOTE | 2017-03-21 18:33 | CP.PCM.PN ---
<Jamil Diaz - Last Filed: 03/21/17 18:18> Subjective - Date & Time of Evaluation Date of Evaluation: 03/21/17 Time of Evaluation: 09:30 - Subjective Subjective: Neurology Progress Note for Dr. Scanlon Service Patient seen and examined at bedside. No acute complaints at time of exam. MRI of brain obtained, negative for acute or subacute infarct. Seen by speech therapy, who recommends finely-chopped diet with nectar-thick liquids. Objective - Vital Signs/Intake and Output Vital Signs (last 24 hours): Temp Pulse Resp BP Pulse Ox 97.7 F 86 20 136/76 98 03/21/17 16:00 03/21/17 16:00 03/21/17 16:00 03/21/17 16:00 03/21/17 16:00 Intake and Output: 03/21/17 03/21/17 06:59 18:59 Intake Total 1440 360 Output Total 850 475 Balance 590 -115 - Medications Medications: Current Medications Acetylcysteine (Acetylcysteine 20%) 4 ml IH [id number] [facility] Last Admin: 03/21/17 07:40 Dose: 4 ml Arformoterol Tartrate (Brovana) 15 mcg IH [id number] [facility] Last Admin: 03/21/17 07:40 Dose: 15 mcg Benzonatate (Tessalon Perles) 100 mg PO TID [facility] Last Admin: 03/21/17 17:56 Dose: 100 mg Budesonide (Pulmicort Respules) 0.5 mg IH [id number] [facility] Last Admin: 03/21/17 07:40 Dose: 0.5 mg Docusate Sodium (Colace Liquid) 100 mg PO TID [facility] Last Admin: 03/21/17 17:56 Dose: 100 mg Enoxaparin Sodium (Lovenox) 40 mg SC DAILY [facility] PRN Reason: Protocol Last Admin: 03/21/17 09:21 Dose: 40 mg Doxycycline Hyclate 100 mg/ (Sodium Chloride) 100 mls @ 100 mls/hr IVPB Q12 [facility] PRN Reason: Protocol Stop: 03/28/17 22:01 Last Admin: 03/21/17 11:24 Dose: 100 mls/hr Sodium Chloride (Sodium Chloride 0.9%) 1,000 mls @ 100 mls/hr IV .Q10H [facility] Last Admin: 03/21/17 02:30 Dose: 100 mls/hr Meropenem 1g/NS 100mL IVPB (Meropenem 1g/Ns 100ml Ivpb) 1 gm in 100 mls @ 100 mls/hr IVPB Q12 [facility] PRN Reason: Protocol Stop: 06/27/17 10:01 Last Admin: 03/21/17 09:22 Dose: 100 mls/hr Megestrol Acetate (Megace) 40 mg PO BID [facility] Last Admin: 03/21/17 17:56 Dose: 40 mg Methylprednisolone (Solu-Medrol) 40 mg IVP Q12 [facility] Last Admin: 03/21/17 09:23 Dose: 40 mg Metoclopramide HCl (Reglan) 10 mg PO 0600,1130,1630,2200 [facility] Last Admin: 03/21/17 17:56 Dose: 10 mg Pantoprazole Sodium (Protonix Ec Tab) 40 mg PO 0600 [facility] Last Admin: 03/21/17 05:30 Dose: 40 mg Polyethylene Glycol (Miralax) 17 gm PO BID [facility] Last Admin: 03/21/17 17:56 Dose: 17 gm Roflumilast (Daliresp) 500 mcg PO DAILY [facility] Last Admin: 03/21/17 09:20 Dose: 500 mcg Tamsulosin HCl (Flomax) 0.4 mg PO DAILY [facility] Last Admin: 03/21/17 09:20 Dose: 0.4 mg - Labs Labs: 03/20/17 06:10 03/20/17 06:10 PT 10.9 Seconds (9.9-11.8) 03/19/17 13:50 INR 1.01 (0.93-1.08) 03/19/17 13:50 APTT 27.3 Seconds (23.7-30.8) 03/19/17 13:50 - Additional Findings Additional findings: - Constitutional Appears: Well, Non-toxic, No Acute Distress - Head Exam Head Exam: ATRAUMATIC, NORMAL INSPECTION, NORMOCEPHALIC - Eye Exam Eye Exam: EOMI, Normal appearance. absent: Conjunctival injection, Scleral icterus - ENT Exam ENT Exam: Mucous Membranes Moist - Neck Exam Neck exam: Positive for: Full Rom - Respiratory Exam Respiratory Exam: Clear to Auscultation Bilateral, NORMAL BREATHING PATTERN. absent: Accessory Muscle Use, Chest Wall Tenderness, Decreased Breath Sounds, Rales, Rhonchi, Wheezes - Cardiovascular Exam Cardiovascular Exam: REGULAR RHYTHM, RRR, +S1, +S2. absent: Bradycardia, Tachycardia, Irregular Rhythm, JVD, +S4 - GI/Abdominal Exam GI & Abdominal Exam: Normal Bowel Sounds, Soft. absent: Diminished Bowel Sounds , Distended, Firm, Hyperactive Bowel Sounds, Hypoactive Bowel Sounds, Rigid, Tenderness - Extremities Exam Extremities exam: Negative for: calf tenderness, pedal edema, tenderness - Neurological Exam Awake and alert, following all commands appropriately, moving all extremities spontaneously Motor and sensory grossly intact - Psychiatric Exam Psychiatric exam: Normal Affect, Normal Mood - Skin Skin Exam: Dry, Intact, Normal Color, Warm Assessment and Plan - Assessment and Plan (Free Text) Assessment: This is an 81 yo M with PMH of Colon Cancer s/p chemo and resection ( 17 yrs ago), Peptic ulcer, large prostate, COPD, Glaucoma, thrombophlebitis, GERD, and chronic caldwell who presented to [facility] with complaint of persisting shortness of breath, difficulty ambulating, and coughing when trying to drink fluids. Neuro was consulted for his dysfunctional swallowing. MRI is negative for acute or subacute lesion, so his dysphagia is not central in origin. Patient would benefit from a Speech and swallow eval and a Modified Barium swallow study to further assess his dysphagia. Plan: 1) Speech/Swallow eval; recs finely chopped with nectar-thick liquids 2) Modified Barium study 3) PT/OT 4) Continue current medical management as per PMD Patient seen, reviewed, and discussed with attending, Dr. Scanlon. <Chad Scanlon - Last Filed: 03/22/17 12:55> Objective - Vital Signs/Intake and Output Vital Signs (last 24 hours): Temp Pulse Resp BP Pulse Ox 97.6 F 80 20 120/60 100 03/22/17 07:54 03/22/17 07:54 03/22/17 07:54 03/22/17 07:54 03/22/17 07:54 Intake and Output: 03/22/17 03/22/17 06:59 18:59 Intake Total 500 Output Total 1600 Balance -1100 - Medications Medications: Current Medications Acetylcysteine (Acetylcysteine 20%) 4 ml IH [id number] [facility] Last Admin: 03/22/17 07:54 Dose: 4 ml Arformoterol Tartrate (Brovana) 15 mcg IH [id number] [facility] Last Admin: 03/22/17 07:54 Dose: 15 mcg Benzonatate (Tessalon Perles) 100 mg PO TID [facility] Last Admin: 03/22/17 11:03 Dose: 100 mg Budesonide (Pulmicort Respules) 0.5 mg IH [id number] [facility] Last Admin: 03/22/17 07:54 Dose: 0.5 mg Docusate Sodium (Colace Liquid) 100 mg PO TID [facility] Last Admin: 03/22/17 11:01 Dose: 100 mg Enoxaparin Sodium (Lovenox) 40 mg SC DAILY [facility] PRN Reason: Protocol Last Admin: 03/22/17 11:02 Dose: 40 mg Doxycycline Hyclate 100 mg/ (Sodium Chloride) 100 mls @ 100 mls/hr IVPB Q12 [facility] PRN Reason: Protocol Stop: 03/28/17 22:01 Last Admin: 03/22/17 11:06 Dose: 100 mls/hr Sodium Chloride (Sodium Chloride 0.9%) 1,000 mls @ 100 mls/hr IV .Q10H [facility] Last Admin: 03/22/17 11:04 Dose: 100 mls/hr Meropenem 1g/NS 100mL IVPB (Meropenem 1g/Ns 100ml Ivpb) 1 gm in 100 mls @ 100 mls/hr IVPB Q12 [facility] PRN Reason: Protocol Stop: 06/27/17 10:01 Last Admin: 03/22/17 11:04 Dose: 100 mls/hr Megestrol Acetate (Megace) 200 mg PO DAILY [facility] Last Admin: 03/22/17 11:03 Dose: 200 mg Methylprednisolone (Solu-Medrol) 40 mg IVP Q12 [facility] Last Admin: 03/22/17 11:05 Dose: 40 mg Metoclopramide HCl (Reglan) 10 mg PO 0600,1130,1630,2200 [facility] Last Admin: 03/22/17 11:02 Dose: 10 mg Pantoprazole Sodium (Protonix Ec Tab) 40 mg PO 0600 [facility] Last Admin: 03/22/17 05:29 Dose: 40 mg Polyethylene Glycol (Miralax) 17 gm PO BID [facility] Last Admin: 03/22/17 11:19 Dose: Not Given Roflumilast (Daliresp) 500 mcg PO DAILY [facility] Last Admin: 03/22/17 11:01 Dose: 500 mcg Tamsulosin HCl (Flomax) 0.4 mg PO DAILY [facility] Last Admin: 03/22/17 11:02 Dose: 0.4 mg - Labs Labs: 03/22/17 06:40 03/22/17 06:40 PT 10.9 Seconds (9.9-11.8) 03/19/17 13:50 INR 1.01 (0.93-1.08) 03/19/17 13:50 APTT 27.3 Seconds (23.7-30.8) 03/19/17 13:50 Attending/Attestation - Attestation I have personally seen and examined this patient.: Yes I have fully participated in the care of the patient.: Yes I have reviewed all pertinent clinical information, including history, physical exam and plan: Yes
--- NOTE | 2017-03-22 04:57 | PN ---
DATE: 03/21/2017 This is the patient's hospital visit on the medical floor. For Dr. Grider. SUBJECTIVE: The patient is an 81-year-old male, seen sitting up in bed, now being treated as per application development consultant's recommendations for multifocal healthcare-associated pneumonia with dysphagia with the patient noted to have significant constipation for which we will give Fleets enema after conversation with Dr. Grider and consideration for Amitiza, to be obtained from an outpatient pharmacy as it is not on formulary of this facility. With this, the patient is otherwise in no acute distress. With this medication continuing including IV antibiotics and Megace for stimulation of his appetite which has been significantly compromised. OBJECTIVE/PHYSICAL EXAMINATION VITAL SIGNS: Include a temperature of 97.7, pulse 86, respirations 20, blood pressure 136/76 and pulse oximetry 98%. HEENT: Unremarkable. Temporal muscle wasting is noted. NECK: Supple. HEART: Regular rate. LUNGS: Clear. ABDOMEN: Scaphoid, soft, nontender. EXTREMITIES: No edema. SKIN: Warm and dry. NEUROLOGIC: Awake, alert and oriented. LABORATORY DATA: The patient's labs were done yesterday with a white blood cell count 5.8; hemoglobin 10.2; hematocrit 32.6 and platelet count 128,000 with a chem metabolic panel completely within normal range except for BUN of 24, creatinine of 1.3, albumin is 2.7. Procalcitonin is 0.12. His Legionella pneumophila antigen was negative. The patient had an MRI of the brain earlier today. It was read as no acute or subacute brain infarction identified at this time, instead chronic lacunae, are minimal at the bilateral thalami and likely inferior diandra, age-appropriate/related neurodegenerative changes are identified. ASSESSMENT: For this patient is that of pneumonia; stage III carcinoma of the colon, history; history of monilial esophagitis; peptic ulcer disease; chronic obstructive pulmonary disease; gastroesophageal reflux disease; weight loss; ataxia and constipation. PLAN: For this patient after conversation with Dr. Grider is to continue his present medical regimen with antibiotics as listed with diet changed after swallowing evaluation was completed with the patient to now have finely chopped diet with nectar thick liquids along with his Reglan and other medications as listed by consultants' recommendations. We will monitor clinically and with labs, modified barium swallow is to be ordered for as per Dr. Grider with the patient be considered to transfer to TCU should he be stable. We will also give Fleets enema x1 with repeat if necessary with Amitiza 24 mcg p.o. b.i.d. p.r.n. constipation. Prognosis for this patient is guarded. Jefferson Chaudhry MD
[2017-03-22] MEDS: Pantoprazole 40 mg EC Tab PO SCH (05:29)
[2017-03-22] MEDS: Sodium Chloride 0.9% 1,000 ML IV SCH ×2 (05:30→11:04)
[2017-03-22 07:28] LABS: GRAN # 8.45 (1.4-6.5); GRAN % 91.2 % (50.0-68.0); HEMATOCRIT 32.1 % (42.0-52.0); LYMPH # 0.6 (1.2-3.4); MEAN CELL VOLUME 92.8 fl (80.0-105.0); MEAN CORPUSCULAR HEMOGLOBIN 30.3 pg (25.0-35.0); MEAN CORPUSCULAR HGB CONC 32.7 g/dl (31.0-37.0); MEAN PLATELET VOLUME 12.4 fl (7.0-11.0); MONO # 0.3 (0.1-0.6); MONO % 2.8 % (1.0-6.0); PLATELET COUNT 140 10^3/uL (120.0-450.0); RED CELL DISTRIBUTION WIDTH 14.5 % (11.5-14.5); WHITE BLOOD COUNT 9.3 10^3/ul (4.5-11.0)
[2017-03-22 07:43] LABS: ALB/GLOB RATIO 0.8 (1.1-1.8); ALKALINE PHOSPHATASE 76 U/L (38-126); ALT/SGPT 48 U/L (7-56); AST/SGOT 57 U/L (17-59); BILIRUBIN,TOTAL 0.5 mg/dL (0.2-1.3); BLOOD UREA NITROGEN 25 mg/dL (7-21); CALCIUM 7.5 mg/dL (8.4-10.5); CARBON DIOXIDE 23 mmol/L (21-33); CHLORIDE 109 mmol/L (98-107); GFR AFRICAN-AMERICAN > 60; GLUCOSE,RANDOM 98 mg/dL (70-110); SODIUM 139 mmol/L (132-148); TOTAL PROTEIN 5.3 g/dL (5.8-8.3)
[2017-03-22] MEDS: Acetylcysteine 20% Inhal Soln (4ml) IH SCH ×2 (07:54→19:31)
[2017-03-22] MEDS: Budesonide 0.5 mg/2 ml Inhal Susp UD IH SCH ×2 (07:54→19:31)
[2017-03-22] MEDS: Arformoterol 15 mcg/2 ml Inh Sol IH SCH ×2 (07:54→19:31)
--- NOTE | 2017-03-22 08:25 | PN ---
PULMONARY PROGRESS NOTE DATE: 03/21/2017 REFERRING PHYSICIAN: Dr. Grider. SUBJECTIVE: Patient is lying in the bed, head up 45 degrees, feels better, decreased cough, decreased shortness of breath, appetite is still poor, no nausea, no leg pain or leg swelling. OBJECTIVE: GENERAL: No acute distress. VITAL SIGNS: Temperature 98, heart rate 75, respiratory rate 20, blood pressure 115/56, and pulse oximetry 100% on room air. HEENT: Moist mucous membranes. No ulcer or thrush. NECK: Supple. No JVD. LUNGS: Has a few scattered crackles at bases. HEART: S1 and S2. ABDOMEN: Soft, nontender. No organomegaly. EXTREMITIES: There is no edema. NEUROLOGICAL: Sleepy, arousable, follow simple commands. MEDICATIONS: He is on Mucomyst 20% inhaled twice a day, Brovana inhaled twice a day, getting Colace 100 mg three times a day, Daliresp 500 mcg daily, doxycycline 100 mg twice a day, Flomax 0.4 mg daily, Lovenox 40 mg subcutaneous daily, Megace 40 mg twice a day, meropenem 1 gm q. 12 hours, MiraLax 17 gm p.o. daily, Protonix 40 mg daily, Pulmicort inhaler twice a day, Reglan 10 mg before meals and at bedtime, IV fluid, normal saline 100 mL/hour, Solu-Medrol 40 mg q. 12 hours, Tessalon Perles q.8 hour. No new changes in medications reported since yesterday. LABORATORY DATA: Reviewed noted. Urine culture has Gram positive cocci. Had MRI of the brain done today, which shows no acute or subacute brain infarction identified in this study. Chronic lacunar are minimal at the bilateral thalami and inferior diandra, age appropriate, arterial related neuro degenerative changes. IMPRESSION AND PLAN: Multilobar pneumonia, probably aspiration, has a nodular infiltrate, oropharyngeal dysphagia, modified diet, may have a component of gastroesophageal reflux disease, history of partial gastrectomy in the past. Malnutrition, weight loss, we will continue bronchodilator, keep head up 45 degrees, continue antibiotics, gastroesophageal reflux disease precaution, continue Reglan for now, Protonix, gastric and deep venous thrombosis prophylaxis. Clinically, the patient is improving. Need to followup CAT scan to assure the stability of infiltrate. Out of bed to chair physical therapy. Thank you and we will follow with you. Andrea Page MD [facility] # [id number]
--- NOTE | 2017-03-22 09:26 | PN ---
DATE: 03/22/2017 SUBJECTIVE: The patient seen in bed, in no acute distress, was seen early this morning in room 363, bed 2. No fevers. PHYSICAL EXAMINATION: VITAL SIGNS: Temperature is 98, blood pressure is 120/60, respiratory rate of 20. HEENT: Unremarkable. NECK: Supple. LUNGS: Have decreased breath sounds. HEART: Normal S1 and S2. ABDOMEN: Soft, nontender. LABORATORY EXAMINATION: Reveals a white count of 9.3, hemoglobin of 10, and platelets of 140. BUN of 25, creatinine of 0.9, procalcitonin 0.12, and urine for Legionella antigen is negative. Microbiology has gram-positive cocci in the urine and blood cultures are negative. Gram-positive cocci greater than 100,000; however, again the urinalysis of no evidence of infection from the urinalysis point of view. The patient's MRI of the brain is noted. MEDICATIONS: Review of medications revealed the patient is on doxycycline and Solu-Medrol and meropenem. ASSESSMENT AND PLAN: This is an 81-year-old male with colon cancer, on chemotherapy, status post resection; peptic ulcer disease; benign prostatic hypertrophy; chronic obstructive lung disease; glaucoma; gastroesophageal reflux disease; chronic Means catheter; multifocal healthcare-associated pneumonia and dysphagia. On doxycycline and meropenem day #3 with cultures negative and normal procalcitonin, today is day #3. Would complete a short course of doxycycline and meropenem and may discontinue the meropenem within the next 24 hours and change to doxycycline p.o. if he is able to tolerate p.o. Tonny Edmond MD
[2017-03-22 10:47] LABS: NEUTROPHIL 92 % (50.0-70.0)
[2017-03-22 10:48] LABS: ANISOCYTOSIS SLIGHT; HYPOCHROMIA 1+; PLATELET ESTIMATE NORMAL (NORMAL); POLYCHROMASIA SLIGHT
[2017-03-22] MEDS: Enoxaparin 40 mg Syringe SC SCH (11:02)
[2017-03-22] MEDS: Megestrol Acetate 40 mg/ml Cup PO SCH (11:03)
[2017-03-22] MEDS: POLYETHYLENE GLYCOL 3350 17 GM/Dose PACKET PO SCH ×2 (11:04→11:19)
[2017-03-22] MEDS: Meropenem 1g/NS 100mL IVPB 1 GM/100 ML PIGGYBACK IVPB SCH ×2 (11:04→22:25)
[2017-03-22] MEDS: MethylPREDNISolone 40 mg Vial IVP SCH ×2 (11:05→22:23)
[2017-03-22] MEDS ORDERED: Barium Sulfate for Susp 96% w/w 176g Bottle PR ONE (13:30)
--- NOTE | 2017-03-22 16:49 | PN ---
DATE OF VISIT: 03/22/2017 This is the patient's hospital visit on the medical floor. For Dr. Grider. SUBJECTIVE: The patient is an 81-year-old male, seen sitting up in bed, reporting that he had 2 bowel movements, one last night, one today with the Fleet's enema's status effective. The patient now reports his cough persists with the patient being treated as per loans consultant's recommendations with antibiotics with consideration for aspiration pneumonia and persistent dysphagia with weight loss. The patient is for barium swallow today with Dr. Edmond recommending a short course of antibiotics with Amitiza prescribed for the patient for his constipation with this thing obtained from an outsourced pharmacy as it is not our formulae to be given as per Dr. Tavarez and Dr. Grider's recommendation. We will discontinue the MiraLax in the interim. OBJECTIVE PHYSICAL EXAMINATION VITAL SIGNS: Temperature 97.6, pulse 80, respirations 20, blood pressure 120/60, pulse ox 100%. HEENT: Sunken temples. He appears cachectic. Tongue is moist. NECK: Supple. HEART: Regular rate. LUNGS: Clear. ABDOMEN: Scaphoid, nontender. EXTREMITIES: No edema. SKIN: Warm and dry. NEUROLOGIC: Awake, alert. The patient is 6 feet 2 inches tall, weighs 145 pounds with weight loss noted from previous visits. LABORATORY DATA: The patient's labs were done. White blood cell count of 9.3, hemoglobin 10.5, hematocrit 32.1, platelet count of 140,000 with a chem metabolic panel within normal limits except for chloride of 109, BUN of 25, normal creatinine 0.9, calcium 7.5, total protein 5.3; otherwise, normal chem metabolic panel. The patient did have a modified barium swallow done today; however, the readings are not back yet with an MRI of his brain done yesterday reported as no acute or subacute brain infarcts identified, instead chronic lacunae, minimal at the bilateral thalami, likely inferior to diandra, age-appropriate neurodegenerative changes. ASSESSMENT: For this patient is that of pneumonia, stage III carcinoma of the colon history, history of monilial esophagitis, peptic ulcer disease, chronic obstructive pulmonary disease, gastroesophageal reflux disease, failure to thrive, ataxia, constipation. PLAN: Plan for this patient after conversation with Dr. Marni is to continue present medical regimen with the barium swallow pending with the change to Amitiza versus MiraLax for his constipation with Dr. Page to recommend plans for his persistent cough treatment. We will monitor clinically with labs. Jefferson Chaudhry MD
[2017-03-22] MEDS ORDERED: LUBIPROSTONE PO SCH (18:00)
--- NOTE | 2017-03-23 00:41 | PN ---
PULMONARY PROGRESS NOTE DATE: 03/22/2017 REFERRING PHYSICIAN: Dr. Grider. SUBJECTIVE: He is sitting side of the bed just come back after Barium swallow. Does not feel good, has been having cough and sputum production since the study done. No nausea. No vomiting. No diarrhea. No leg pain or leg swelling. OBJECTIVE: GENERAL: No acute distress. VITAL SIGNS: Temperature is 98, heart rate 103, respiratory rate 20, blood pressure 155/96, and pulse oximetry 97% on 2 liters nasal cannula. HEENT: Moist mucous membranes. No ulcer or thrush. NECK: Supple. No JVD. LUNGS: Has a scattered rhonchi and wheezing. HEART: S1 and S2. ABDOMEN: Soft and nontender. No organomegaly. EXTREMITIES: No edema. NEUROLOGICAL: Awake, alert, follow simple commands. MEDICATIONS: He is on Mucomyst 20% inhaled twice a day, Ambien 5 mg at bedtime p.r.n., Brovana 50 mcg inhaled twice a day, Colace 100 mg three times a day, Daliresp 500 mcg daily, doxycycline 100 mg twice a day, Flomax 0.4 mg daily, Lovenox 40 mg daily, Megace 200 mg daily, meropenem 1 gm daily, Pulmicort inhaler twice a day, Reglan 10 mg q.i.d., IV fluid, normal saline 60 mL/hour, Solu-Medrol 40 mg q. 12 hours, Tessalon Perles 100 mg three times a day. LABORATORY DATA: Shows hemoglobin 10.5, hematocrit 32.1, WBC 9.3, and platelet count is 140. Sodium 139, potassium 4.0, chloride 109, bicarbonate 23, BUN 25, creatinine 0.9, glucose is 98 and calcium is 7.5. AST 57, ALT 48, alkaline phosphatase is 76 and albumin is 2.4. Microbiology urine cultures has a VRE Enterococcus faecium. Blood culture have been negative. IMPRESSION AND PLAN: Multilobar pneumonia, Barium study suggestive of oropharyngeal dysphagia on a modified diet, history of gastroesophageal reflux disease, history of partial gastrectomy, malnourished, weight loss. Need to continue antibiotics, bronchodilator, gastric prophylaxis, deep venous thrombosis prophylaxis, speech therapy follow up, further respiration precaution. Follow up x-rays in few days to assure the stability of infiltrate. Thank you and we will follow with you. Andrea Page MD [facility] # [id number]
[2017-03-23] MEDS: Pantoprazole 40 mg EC Tab PO SCH (06:40)
[2017-03-23 07:39] LABS: HEMATOCRIT 36.5 % (42.0-52.0); MEAN CELL VOLUME 91.7 fl (80.0-105.0); MEAN CORPUSCULAR HEMOGLOBIN 30.4 pg (25.0-35.0); MEAN CORPUSCULAR HGB CONC 33.2 g/dl (31.0-37.0); MEAN PLATELET VOLUME 12.8 fl (7.0-11.0); RED CELL DISTRIBUTION WIDTH 14.5 % (11.5-14.5); WHITE BLOOD COUNT 10.3 10^3/ul (4.5-11.0)
[2017-03-23] MEDS: Arformoterol 15 mcg/2 ml Inh Sol IH SCH ×2 (07:51→21:00)
[2017-03-23] MEDS: Budesonide 0.5 mg/2 ml Inhal Susp UD IH SCH ×2 (07:51→21:00)
[2017-03-23] MEDS: Acetylcysteine 20% Inhal Soln (4ml) IH SCH ×2 (07:51→21:00)
[2017-03-23 08:00] LABS: ALB/GLOB RATIO 0.9 (1.1-1.8); ALKALINE PHOSPHATASE 89 U/L (38-126); ALT/SGPT 50 U/L (7-56); AST/SGOT 38 U/L (17-59); BILIRUBIN,TOTAL 0.8 mg/dL (0.2-1.3); BLOOD UREA NITROGEN 25 mg/dL (7-21); CALCIUM 8.6 mg/dL (8.4-10.5); CARBON DIOXIDE 23 mmol/L (21-33); CHLORIDE 105 mmol/L (95-110); GFR AFRICAN-AMERICAN > 60; GLUCOSE,RANDOM 117 mg/dL (70-110); POTASSIUM 4.6 mmol/L (3.6-5.0); SODIUM 137 mmol/L (132-148)
[2017-03-23] MEDS: Meropenem 1g/NS 100mL IVPB 1 GM/100 ML PIGGYBACK IVPB SCH ×2 (09:57→22:03)
[2017-03-23] MEDS: MethylPREDNISolone 40 mg Vial IVP SCH ×2 (09:57→22:03)
[2017-03-23] MEDS: Enoxaparin 40 mg Syringe SC SCH (09:58)
[2017-03-23] MEDS: Megestrol Acetate 40 mg/ml Cup PO SCH (09:58)
[2017-03-23] MEDS: LUBIPROSTONE PO SCH ×2 (10:02→18:39)
[2017-03-23] MEDS: guaiFENesin DM 200 mg-20 mg/10 ml UD PO PRN (13:29)
--- NOTE | 2017-03-23 17:00 | PN ---
DATE: 03/23/2017 SUBJECTIVE: The patient is in bed, in no acute distress. The patient is weak. No fevers and chills. PHYSICAL EXAMINATION: VITAL SIGNS: Temperature is 97, blood pressure is 150/80, respiratory rate of 22, heart rate of 103. HEENT: Unremarkable. NECK: Supple. LUNGS: Decreased breath sounds. HEART: Normal S1 and S2. ABDOMEN: Soft and nontender. LABORATORY DATA: Laboratory examination reveals the white count is 10.3, hemoglobin of 12, platelets of 139. BUN of 25, creatinine is 1.0. Urine is positive for VRE. Blood cultures are no growth. ASSESSMENT AND PLAN: This is an 81-year-old male with colon cancer, on chemotherapy status post resection, peptic ulcer disease, benign prostatic hypertrophy, chronic obstructive lung disease, glaucoma, gastroesophageal reflux disease, chronic Means catheter, multifocal healthcare associated pneumonia, and dysphagia, day #4 of doxycycline and meropenem and normal procalcitonin. Now, the patient is on meropenem and doxycycline, day #4. VRE in the urine most likely consistent with colonizing out of pathogen. The patient is also on Solu-Medrol. Tonny Edmond MD
--- NOTE | 2017-03-23 18:11 | CP.PCM.PN ---
Subjective - Date & Time of Evaluation Date of Evaluation: 03/23/17 Time of Evaluation: 16:00 - Subjective Subjective: [employer] Evangelist PGY-2 Responded to call for dobhoff placement. Viscous lidocaine was applied and the dobhoff tube was advanced to proper placement. Subsequent Chest xray demonstrated proper placement. Objective - Vital Signs/Intake and Output Vital Signs (last 24 hours): Temp Pulse Resp BP Pulse Ox 97.6 F 128 H 21 174/94 H 95 03/23/17 17:29 03/23/17 17:29 03/23/17 17:29 03/23/17 17:29 03/23/17 17:29 Intake and Output: 03/23/17 03/23/17 06:59 18:59 Intake Total 540 480 Output Total 300 500 Balance 240 -20 - Medications Medications: Current Medications Acetylcysteine (Acetylcysteine 20%) 4 ml IH [id number] [facility] Last Admin: 03/23/17 07:51 Dose: 4 ml Arformoterol Tartrate (Brovana) 15 mcg IH [id number] [facility] Last Admin: 03/23/17 07:51 Dose: 15 mcg Benzonatate (Tessalon Perles) 100 mg PO TID [facility] Last Admin: 03/23/17 13:29 Dose: 100 mg Budesonide (Pulmicort Respules) 0.5 mg IH [id number] [facility] Last Admin: 03/23/17 07:51 Dose: 0.5 mg Docusate Sodium (Colace Liquid) 100 mg PO TID [facility] Last Admin: 03/23/17 13:29 Dose: 100 mg Enoxaparin Sodium (Lovenox) 40 mg SC DAILY [facility] PRN Reason: Protocol Last Admin: 03/23/17 09:58 Dose: 40 mg Guaifenesin/Dextromethorphan (Robitussin Dm) 10 ml PO Q4H PRN PRN Reason: Cough Last Admin: 03/23/17 13:29 Dose: 10 ml Home Med (Home Med) 25 unit PO BID [facility] Last Admin: 03/23/17 10:02 Dose: 25 unit Doxycycline Hyclate 100 mg/ (Sodium Chloride) 100 mls @ 100 mls/hr IVPB Q12 [facility] PRN Reason: Protocol Stop: 03/28/17 22:01 Last Admin: 03/23/17 09:57 Dose: 100 mls/hr Meropenem 1g/NS 100mL IVPB (Meropenem 1g/Ns 100ml Ivpb) 1 gm in 100 mls @ 100 mls/hr IVPB Q12 [facility] PRN Reason: Protocol Stop: 06/27/17 10:01 Last Admin: 03/23/17 09:57 Dose: 100 mls/hr Sodium Chloride (Sodium Chloride 0.9%) 1,000 mls @ 60 mls/hr IV .[id number] [facility] Lidocaine HCl (Lidocaine 2% Viscous) 15 ml PO Q3H PRN PRN Reason: NG tube insertion Megestrol Acetate (Megace) 200 mg PO DAILY [facility] Last Admin: 03/23/17 09:58 Dose: 200 mg Methylprednisolone (Solu-Medrol) 40 mg IVP Q12 [facility] Last Admin: 03/23/17 09:57 Dose: 40 mg Metoclopramide HCl (Reglan) 10 mg PO 0600,1130,1630,2200 [facility] Last Admin: 03/23/17 12:22 Dose: 10 mg Pantoprazole Sodium (Protonix Ec Tab) 40 mg PO 0600 [facility] Last Admin: 03/23/17 06:40 Dose: 40 mg Roflumilast (Daliresp) 500 mcg PO DAILY [facility] Last Admin: 03/23/17 09:58 Dose: 500 mcg Tamsulosin HCl (Flomax) 0.4 mg PO DAILY [facility] Last Admin: 03/23/17 09:58 Dose: 0.4 mg Zolpidem Tartrate (Ambien) 5 mg PO HS PRN; Protocol PRN Reason: Insomnia Last Admin: 03/22/17 22:16 Dose: 5 mg - Labs Labs: 03/23/17 07:33 03/23/17 07:32 PT 10.9 Seconds (9.9-11.8) 03/19/17 13:50 INR 1.01 (0.93-1.08) 03/19/17 13:50 APTT 27.3 Seconds (23.7-30.8) 03/19/17 13:50
--- NOTE | 2017-03-23 18:19 | PN ---
DATE: 03/23/2017 PULMONARY PROGRESS NOTE REFERRING PHYSICIAN: Dr. Grdier. SUBJECTIVE: He is lying in the bed, has increased shortness of breath with cough and increased pulmonary secretions. Has a barium swallow done yesterday. I received message from speech therapy that he did not aspirate, but clinically, seems like he did aspirate, though maybe, there is no radiological finding of barium to the esophagus. There is no hemoptysis, no hematemesis, no hematuria, no diarrhea. The patient could not eat anything since yesterday evening. OBJECTIVE: GENERAL: [id number] distress secondary to cough. VITAL SIGNS: Temperature is 98, heart rate 103, respiratory rate 20, blood pressure 143/80, and pulse oximetry 99% on 2 liters nasal cannula. HEENT: Moist mucous membranes. Has a lot of pharyngeal secretion. NECK: Supple. LUNGS: Has a scattered rhonchi in both lung ahuja. HEART: S1 and S2. ABDOMEN: Soft and nontender. No organomegaly. EXTREMITIES: There is no edema. NEUROLOGICAL: Awake, alert, follow simple commands. MEDICATIONS: He is on Mucomyst 20% inhaled q. 12 hours, Ambien 5 mg at bedtime, Brovana 50 mcg inhaled twice a day, Colace 100 mg three times a day, Daliresp 500 mcg daily, getting doxycycline 100 mg twice a day, Flomax 0.4 mg daily, lidocaine patch to the affected area, Lovenox 40 mg daily, Megace 200 mg daily, getting meropenem 1 g IV q. 12 hours, Protonix 40 mg daily, Pulmicort inhaler twice a day, Reglan 10 mg q.i.d., Robitussin DM 10 mL q. 4 hours p.r.n., IV fluid, normal saline 60 mL/hour, Solu-Medrol 40 mg q. 12 hours, Tessalon Perles 100 mg three times a day. LABORATORY DATA: Shows hemoglobin 12.1, hematocrit 36.5, WBC 10.3, and platelet is 139. Sodium 137, potassium 4.6, chloride 105, bicarbonate 23, BUN 25, creatinine 1.0, glucose is 117 and calcium is 8.6. AST 38, ALT 50, alkaline phosphatase is 89 and albumin is 2.9. Microbiology: Blood culture reviewed. Sputum culture, there is no growth. Urine has VRE faecium. Has a barium swallow done, official report is still pending. IMPRESSION AND PLAN: Multilobar pneumonia, status post barium study, full report is still pending, but clinically, it seems like he is aspirating, gastroesophageal reflux disease, history of partial gastrectomy, malnourished, weight loss. Case discussed with patient's at bedside. Also spoke to nursing staff. We will keep the patient complete n.p.o. for now. Place Dobhoff feeding tube for all the nutrition and medication. Trying to separate if there is a component of aspiration, which I strongly feel is because reviewing the old CAT scan, many of the infiltrates are changing position in parenchyma at a different location at a different time suggest the need large amount of secretion with almost choking. Continue antibiotics. Continue Reglan. Continue steroids. P.r.n. mouth suction. Gastric prophylaxis, deep venous thrombosis prophylaxis. Keep head elevated at 45 degrees. Continue bronchodilator for pulmonary toilet. Followup labs in the morning. Thank you and we will follow with you. Andrea Page MD
--- NOTE | 2017-03-23 19:29 | PN ---
DATE: 03/23/2017 This is the patient's hospital visit on the medical floor. Dr. Grider. SUBJECTIVE: The patient is an 81-year-old male, seen lying in bed with a family member at the bedside with a persistent clearing of his throat with increased secretions, appreciate to while standing and speaking with the patient. With this, he was recommended to sit up in a 90 degree angle with significant improvement of his discomfort. A modified barium swallow was done earlier today, results are pending with the patient suffering from multilobar pneumonia with possibility of aspiration, being evaluated. PHYSICAL EXAMINATION VITAL SIGNS: Temperature 97.7, pulse 103, respirations 22, blood pressure 53753, pulse ox 99%. HEENT: Unremarkable. Temporal muscle wasting is noted. NECK: Supple. HEART: Tachy rate, regular rhythm. LUNGS: Scattered rhonchi, rare expiratory wheeze. ABDOMEN: Soft, scaphoid, nontender. EXTREMITIES: No edema. SKIN: Warm and dry. NEUROLOGIC: Awake and alert. LABORATORY DATA: The patient's labs were done. White blood cell count of 10.3; hemoglobin 12.1; hematocrit of 36.5; platelet count of 139,000. Chem metabolic panel within normal limits except for BUN of 25 and normal creatinine of 1.0. The patient's modified barium swallow was done yesterday, we are awaiting the reading. ASSESSMENT: For this patient is that of multilobar pneumonia, history of stage III carcinoma of colon, history of monilial esophagitis, peptic ulcer disease, gastroesophageal reflux disease, rule out aspiration pneumonia, chronic obstructive pulmonary disease, failure to thrive, ataxia, constipation which has now improved. PLAN: After conversation with Dr. Grider is to continue his present medical regimen which includes multilobar pneumonia, dysphagia, rule out aspiration. Modified diet. The patient has a history of partial gastrectomy. Again, plan will be to continue his present medical regimen with symptomatic relief of his cough and sputum production with Megace to continue for his appetite as the patient has significant weight loss with Reglan to continue as per Dr. Page along with his IV fluids and IV steroids. Prognosis for this patient is guarded. Jefferson Chaudhry MD
[2017-03-23] MEDS ORDERED: Metoprolol 1 mg/ml Inj IVP ONE (19:37)
[2017-03-23 20:17] LABS: BASO # 0.01 K/mm3 (0.0-2.0); BASO % 0.1 % (0.0-3.0); GRAN # 13.27 (1.4-6.5); GRAN % 90.7 % (50.0-68.0); HEMATOCRIT 37.7 % (42.0-52.0); LYMPH # 0.6 (1.2-3.4); LYMPH % 4.1 % (22.0-35.0); MEAN CELL VOLUME 92.9 fl (80.0-105.0); MEAN CORPUSCULAR HEMOGLOBIN 31.3 pg (25.0-35.0); MEAN CORPUSCULAR HGB CONC 33.7 g/dl (31.0-37.0); MEAN PLATELET VOLUME 11.8 fl (7.0-11.0); MONO # 0.8 (0.1-0.6); MONO % 5.1 % (1.0-6.0); RED CELL DISTRIBUTION WIDTH 14.7 % (11.5-14.5); WHITE BLOOD COUNT 14.6 10^3/ul (4.5-11.0)
[2017-03-23 20:27] LABS: ALKALINE PHOSPHATASE 101 U/L (38-126); ALT/SGPT 51 U/L (7-56); AST/SGOT 31 U/L (17-59); BILIRUBIN,TOTAL 0.8 mg/dL (0.2-1.3); BLOOD UREA NITROGEN 29 mg/dL (7-21); CALCIUM 8.8 mg/dL (8.4-10.5); CARBON DIOXIDE 22 mmol/L (21-33); CHLORIDE 106 mmol/L (98-107); GFR AFRICAN-AMERICAN > 60; GLUCOSE,RANDOM 213 mg/dL (70-110); PHOSPHOROUS 5.2 mg/dL (2.5-4.5); SODIUM 140 mmol/L (132-148); TOTAL PROTEIN 6.5 g/dL (5.8-8.3)
[2017-03-23 20:38] LABS: TROPONIN I 0.03 ng/mL
[2017-03-23] MEDS ORDERED: Sodium Chloride 0.45% 1,000 ML IV ONE (20:48)
[2017-03-23 21:40] LABS: ARTERIAL BLOOD GAS O2 CAPACITY 16.8 mL/dl (16-24); ARTERIAL BLOOD GAS O2 CONTENT 16.6 ML/dl (15-23); ARTERIAL BLOOD GAS PH 7.39 (7.35-7.45); ARTERIAL BLOOD HGB O2 SAT 97.2 % (95.0-98.0); CARBOXYHEMOGLOBIN 0.9 % (0.5-1.5); HHB 1.3 % (0-5); METHEMOGLOBIN 0.6 % (0.0-3.0)
[2017-03-24 01:52] LABS: TROPONIN I 0.05 ng/mL
--- NOTE | 2017-03-24 02:45 | CP.PCM.CON ---
<EvangelistArtemio - Last Filed: 03/24/17 02:28> History of Present Illness - History of Present Illness History of Present Illness: ICU Consult Note for Dr. Mckinney 81 M with a PMHx of Colon Cancer s/p chemo and resection PUD, COPD, thrombophlebitis, GERD, and chronic caldwell who presented to [facility] with complaint of persisting shortness of breath, difficulty ambulating, and productive cough admitted with CAP with b/l infiltrates on CXR. Pt has had trouble with oral intake with components of candidal esophagitis and gastroparesis. There were concerns of aspiration as the pt would consistently cough while attempting to eat. As per Dr. Page, recommended to place a dobhoff tube for further nutrition. A dobhoff tube was placed with proper placement however in removing the guidewire the pt was reported to stop breathing and became unresponsive. A code blue was called and pt was ultimately intubated. However, as per pt family - wanted removal of ET tube, a change in pt status was made and pt was declared DNR/DNI. Pt was placed on Bipap and was more responsive than previously with stable vitals. ICU was consulted for further management and close monitoring for possible deterioration of HD stability. Pt was seen and examined at bedside. No acute complaints at this time. Pt denied fever, chills, sob, chest pains,abdominal pains, n/v/d/c. PMH: Colon Cancer s/p chemo and resection PUD, COPD, thrombophlebitis, GERD, and chronic caldwell PSH: colonic resection, partial gastrectomy FHx: noncontributory SHx: admits prior tobacco use, denies EtOH or illicits Meds: albuterol, breo, megace 40mg daily, flomax 0.4 mg daily Allergies: NKDA DNR/DNI PMD: Dr. Ogden Review of Systems - Review of Systems Review of Systems: as per HPI otherwise negative Past Patient History - Infectious Disease Hx of Infectious Diseases: None - Tetanus Immunizations Tetanus Immunization: Unknown - Past Social History Smoking Status: Former Smoker - CARDIAC Hx Cardiac Disorders: No - PULMONARY Hx Pneumonia: Yes - NEUROLOGICAL Hx Neurological Disorder: Yes - HEENT Hx HEENT Problems: Yes Hx Glaucoma: Yes - RENAL Hx Chronic Kidney Disease: No - ENDOCRINE/METABOLIC Hx Endocrine Disorders: No - HEMATOLOGICAL/ONCOLOGICAL Hx Cancer: Yes (colon, with radiation.) - INTEGUMENTARY Hx Dermatological Problems: Yes (THROMBOPLEBITIS LEFT LEG) - MUSCULOSKELETAL/RHEUMATOLOGICAL Hx Musculoskeletal Disorders: Yes Hx Falls: Yes Other/Comment: USES CANE - GASTROINTESTINAL Hx Gastrointestinal Disorders: Yes Hx Gastroesophageal Reflux: Yes HX Swallowing Problems: Yes - GENITOURINARY/GYNECOLOGICAL Hx Genitourinary Disorders: Yes Hx Prostate Problems: Yes Other/Comment: caldwell leg bag-URINARY RETENTION - PSYCHIATRIC Hx Psychophysiologic Disorder: Yes Hx Anxiety: Yes Hx Substance Use: No - SURGICAL HISTORY Hx Surgeries: Yes (colon resection) - ANESTHESIA Hx Anesthesia: Yes Hx Anesthesia Reactions: No Hx Malignant Hyperthermia: No Meds Allergies/Adverse Reactions: Allergies Allergy/AdvReac Type Severity Reaction Status Date / Time No Known Allergies Allergy Verified 03/19/17 23:29 - Medications Medications: Current Medications Acetylcysteine (Acetylcysteine 20%) 4 ml IH [id number] [facility] Last Admin: 03/23/17 21:00 Dose: 4 ml Arformoterol Tartrate (Brovana) 15 mcg IH [id number] [facility] Last Admin: 03/23/17 21:00 Dose: 15 mcg Benzonatate (Tessalon Perles) 100 mg PO TID [facility] Last Admin: 03/23/17 18:40 Dose: Not Given Budesonide (Pulmicort Respules) 0.5 mg IH [id number] [facility] Last Admin: 03/23/17 21:00 Dose: 0.5 mg Docusate Sodium (Colace Liquid) 100 mg PO TID [facility] Last Admin: 03/23/17 18:39 Dose: Not Given Enoxaparin Sodium (Lovenox) 40 mg SC DAILY [facility] PRN Reason: Protocol Last Admin: 03/23/17 09:58 Dose: 40 mg Guaifenesin/Dextromethorphan (Robitussin Dm) 10 ml PO Q4H PRN PRN Reason: Cough Last Admin: 03/23/17 13:29 Dose: 10 ml Home Med (Home Med) 25 unit PO BID [facility] Last Admin: 03/23/17 18:39 Dose: Not Given Doxycycline Hyclate 100 mg/ (Sodium Chloride) 100 mls @ 100 mls/hr IVPB Q12 [facility] PRN Reason: Protocol Stop: 03/28/17 22:01 Last Admin: 03/23/17 22:12 Dose: 100 mls/hr Meropenem 1g/NS 100mL IVPB (Meropenem 1g/Ns 100ml Ivpb) 1 gm in 100 mls @ 100 mls/hr IVPB Q12 [facility] PRN Reason: Protocol Stop: 06/27/17 10:01 Last Admin: 03/23/17 22:03 Dose: 100 mls/hr Sodium Chloride (Sodium Chloride 0.9%) 1,000 mls @ 60 mls/hr IV .[id number] [facility] Megestrol Acetate (Megace) 200 mg PO DAILY [facility] Last Admin: 03/23/17 09:58 Dose: 200 mg Methylprednisolone (Solu-Medrol) 40 mg IVP Q12 [facility] Last Admin: 03/23/17 22:03 Dose: 40 mg Metoclopramide HCl (Reglan) 10 mg PO 0600,1130,1630,2200 [facility] Last Admin: 03/23/17 22:02 Dose: 10 mg Pantoprazole Sodium (Protonix Ec Tab) 40 mg PO 0600 [facility] Last Admin: 03/23/17 06:40 Dose: 40 mg Roflumilast (Daliresp) 500 mcg PO DAILY [facility] Last Admin: 03/23/17 09:58 Dose: 500 mcg Tamsulosin HCl (Flomax) 0.4 mg PO DAILY [facility] Last Admin: 03/23/17 09:58 Dose: 0.4 mg Zolpidem Tartrate (Ambien) 5 mg PO HS PRN; Protocol PRN Reason: Insomnia Last Admin: 03/22/17 22:16 Dose: 5 mg Physical Exam - Constitutional Appears: No Acute Distress - Head Exam Head Exam: ATRAUMATIC, NORMAL INSPECTION, NORMOCEPHALIC - Eye Exam Eye Exam: EOMI, Normal appearance, PERRL Pupil Exam: NORMAL ACCOMODATION, PERRL - ENT Exam ENT Exam: Mucous Membranes Moist, Normal Exam - Neck Exam Neck exam: Positive for: Normal Inspection - Respiratory Exam Respiratory Exam: Rhonchi, NORMAL BREATHING PATTERN - Cardiovascular Exam Cardiovascular Exam: REGULAR RHYTHM, +S1, +S2 - GI/Abdominal Exam GI & Abdominal Exam: Normal Bowel Sounds, Soft. absent: Tenderness - Extremities Exam Extremities exam: Positive for: normal inspection - Back Exam Back exam: NORMAL INSPECTION - Neurological Exam Neurological exam: Alert, CN II-XII Intact, Oriented x3, Reflexes Normal - Psychiatric Exam Psychiatric exam: Normal Affect, Normal Mood - Skin Skin Exam: Dry, Intact, Normal Color, Warm Results - Vital Signs Recent Vital Signs: Last Vital Signs Temp 98.2 F 03/24/17 00:41 Pulse 93 H 03/24/17 00:00 Resp 21 03/24/17 00:00 BP 137/97 H 03/23/17 20:36 Pulse Ox 100 03/24/17 00:00 - Labs Result Diagrams: 03/23/17 20:10 03/23/17 20:10 Labs: Laboratory Results - last 24 hr 03/21/17 03/23/17 03/23/17 06:30 07:32 07:33 WBC 10.3 RBC 3.98 Hgb 12.1 L Hct 36.5 L MCV 91.7 MCH 30.4 MCHC 33.2 RDW 14.5 Plt Count 139 MPV 12.8 H Gran % Lymph % (Auto) [place] % (Auto) Eos % (Auto) Baso % (Auto) Gran # Lymph # [place] # Eos # Baso # pCO2 pO2 HCO3 ABG pH ABG Total CO2 ABG O2 Saturation ABG O2 Content ABG Base Excess ABG Hemoglobin ABG Carboxyhemoglobin POC ABG HHb (Measured) ABG Methemoglobin ABG O2 Capacity Hgb O2 Saturation FiO2 Sodium 137 Potassium 4.6 Chloride 105 Carbon Dioxide 23 Anion Gap 14 BUN 25 H Creatinine 1.0 Est GFR ( Amer) > 60 Est GFR (Non-Af Amer) > 60 POC Glucose (mg/dL) Random Glucose 117 H Lactic Acid Calcium 8.6 Phosphorus Magnesium Total Bilirubin 0.8 AST 38 ALT 50 Alkaline Phosphatase 89 Lactate Dehydrogenase Total Creatine Kinase Troponin I Total Protein 6.0 Albumin 2.9 L Globulin 3.1 Albumin/Globulin Ratio 0.9 L Zinc 61 03/23/17 03/23/17 03/23/17 19:29 20:10 20:10 WBC 14.6 H D RBC 4.06 Hgb 12.7 L Hct 37.7 L MCV 92.9 MCH 31.3 MCHC 33.7 RDW 14.7 H Plt Count 234 MPV 11.8 H Gran % 90.7 H Lymph % (Auto) 4.1 L [place] % (Auto) 5.1 Eos % (Auto) 0.0 L Baso % (Auto) 0.1 Gran # 13.27 H Lymph # 0.6 L [place] # 0.8 H Eos # 0.0 Baso # 0.01 pCO2 pO2 HCO3 ABG pH ABG Total CO2 ABG O2 Saturation ABG O2 Content ABG Base Excess ABG Hemoglobin ABG Carboxyhemoglobin POC ABG HHb (Measured) ABG Methemoglobin ABG O2 Capacity Hgb O2 Saturation FiO2 Sodium 140 Potassium 4.0 Chloride 106 Carbon Dioxide 22 Anion Gap 16 BUN 29 H Creatinine 1.2 Est GFR ( Amer) > 60 Est GFR (Non-Af Amer) 58 POC Glucose (mg/dL) 264 H Random Glucose 213 H Lactic Acid Calcium 8.8 Phosphorus 5.2 H Magnesium 2.0 Total Bilirubin 0.8 AST 31 ALT 51 Alkaline Phosphatase 101 Lactate Dehydrogenase 453 Total Creatine Kinase 35 Troponin I 0.03 D Total Protein 6.5 Albumin 3.3 Globulin 3.2 Albumin/Globulin Ratio 1.0 L Zinc 03/23/17 03/23/17 03/24/17 20:10 21:30 01:00 WBC RBC Hgb Hct MCV MCH MCHC RDW Plt Count MPV Gran % Lymph % (Auto) [place] % (Auto) Eos % (Auto) Baso % (Auto) Gran # Lymph # [place] # Eos # Baso # pCO2 38 pO2 165.0 H HCO3 23.0 ABG pH 7.39 ABG Total CO2 24.2 ABG O2 Saturation 98.7 H ABG O2 Content 16.6 ABG Base Excess -1.7 ABG Hemoglobin 11.9 ABG Carboxyhemoglobin 0.9 POC ABG HHb (Measured) 1.3 ABG Methemoglobin 0.6 ABG O2 Capacity 16.8 Hgb O2 Saturation 97.2 FiO2 60.0 Sodium Potassium Chloride Carbon Dioxide Anion Gap BUN Creatinine Est GFR ( Amer) Est GFR (Non-Af Amer) POC Glucose (mg/dL) Random Glucose Lactic Acid 2.6 H Calcium Phosphorus Magnesium Total Bilirubin AST ALT Alkaline Phosphatase Lactate Dehydrogenase 477 Total Creatine Kinase 57 Troponin I 0.05 D Total Protein Albumin Globulin Albumin/Globulin Ratio Zinc Assessment & Plan - Assessment and Plan (Free Text) Assessment: 81 M admitted to the ICU with multilobar pna for close monitoring and HD stability s/p code blue Neuro: AAOx3 moving all extremities spontaneously Neruology consulted, Dr. Scanlon, following Pulm: multilobar pneumonia COPD aspiration precautions 02 sat >88% Bipap HOB>30, pulmonary toilet Iv methylprednisolone 40mg q12, brovana, pulmicort, acetylcysteine merrem, doxyxycline CVS: IVF NS@60ml/hr continue to monitor GI: NPO reglan GI ppx Renal: renal function stable strict i&os continue to monitor elytes and supplement as needed ID: afebrile, leukocytosis merrem and doxycycline, multilobar pna Dr. Edmond consulted, following Heme: Stage [address] Grider consulted, following Endo: maintian bg 140-180 GI DVT ppx reviewed Seen reviewed and discussed with attending <Ruddy Mckinney Q - Last Filed: 03/24/17 06:04> Meds - Medications Medications: Current Medications Acetylcysteine (Acetylcysteine 20%) 4 ml IH [id number] [facility] Last Admin: 03/23/17 21:00 Dose: 4 ml Arformoterol Tartrate (Brovana) 15 mcg IH [id number] [facility] Last Admin: 03/23/17 21:00 Dose: 15 mcg Benzonatate (Tessalon Perles) 100 mg PO TID [facility] Last Admin: 03/23/17 18:40 Dose: Not Given Budesonide (Pulmicort Respules) 0.5 mg IH [id number] [facility] Last Admin: 03/23/17 21:00 Dose: 0.5 mg Docusate Sodium (Colace Liquid) 100 mg PO TID [facility] Last Admin: 03/23/17 18:39 Dose: Not Given Enoxaparin Sodium (Lovenox) 40 mg SC DAILY [facility] PRN Reason: Protocol Last Admin: 03/23/17 09:58 Dose: 40 mg Guaifenesin/Dextromethorphan (Robitussin Dm) 10 ml PO Q4H PRN PRN Reason: Cough Last Admin: 03/23/17 13:29 Dose: 10 ml Home Med (Home Med) 25 unit PO BID [facility] Last Admin: 03/23/17 18:39 Dose: Not Given Doxycycline Hyclate 100 mg/ (Sodium Chloride) 100 mls @ 100 mls/hr IVPB Q12 [facility] PRN Reason: Protocol Stop: 03/28/17 22:01 Last Admin: 03/23/17 22:12 Dose: 100 mls/hr Meropenem 1g/NS 100mL IVPB (Meropenem 1g/Ns 100ml Ivpb) 1 gm in 100 mls @ 100 mls/hr IVPB Q12 [facility] PRN Reason: Protocol Stop: 06/27/17 10:01 Last Admin: 03/23/17 22:03 Dose: 100 mls/hr Sodium Chloride (Sodium Chloride 0.9%) 1,000 mls @ 60 mls/hr IV .[id number] [facility] Last Admin: 03/24/17 05:00 Dose: 60 mls/hr Megestrol Acetate (Megace) 200 mg PO DAILY [facility] Last Admin: 03/23/17 09:58 Dose: 200 mg Methylprednisolone (Solu-Medrol) 40 mg IVP Q12 [facility] Last Admin: 03/23/17 22:03 Dose: 40 mg Metoclopramide HCl (Reglan) 10 mg PO 0600,1130,1630,2200 [facility] Last Admin: 03/24/17 05:02 Dose: 10 mg Pantoprazole Sodium (Protonix Ec Tab) 40 mg PO 0600 [facility] Last Admin: 03/24/17 05:02 Dose: 40 mg Roflumilast (Daliresp) 500 mcg PO DAILY [facility] Last Admin: 03/23/17 09:58 Dose: 500 mcg Tamsulosin HCl (Flomax) 0.4 mg PO DAILY [facility] Last Admin: 03/23/17 09:58 Dose: 0.4 mg Zolpidem Tartrate (Ambien) 5 mg PO HS PRN; Protocol PRN Reason: Insomnia Last Admin: 03/22/17 22:16 Dose: 5 mg Results - Vital Signs Recent Vital Signs: Last Vital Signs Temp 98.2 F 03/24/17 00:41 Pulse 93 H 03/24/17 00:00 Resp 21 03/24/17 00:00 BP 137/97 H 03/23/17 20:36 Pulse Ox 100 03/24/17 00:00 - Labs Result Diagrams: 03/23/17 20:10 03/23/17 20:10 Labs: Laboratory Results - last 24 hr 03/21/17 03/23/17 03/23/17 06:30 07:32 07:33 WBC 10.3 RBC 3.98 Hgb 12.1 L Hct 36.5 L MCV 91.7 MCH 30.4 MCHC 33.2 RDW 14.5 Plt Count 139 MPV 12.8 H Gran % Lymph % (Auto) [place] % (Auto) Eos % (Auto) Baso % (Auto) Gran # Lymph # [place] # Eos # Baso # pCO2 pO2 HCO3 ABG pH ABG Total CO2 ABG O2 Saturation ABG O2 Content ABG Base Excess ABG Hemoglobin ABG Carboxyhemoglobin POC ABG HHb (Measured) ABG Methemoglobin ABG O2 Capacity Hgb O2 Saturation FiO2 Sodium 137 Potassium 4.6 Chloride 105 Carbon Dioxide 23 Anion Gap 14 BUN 25 H Creatinine 1.0 Est GFR ( Amer) > 60 Est GFR (Non-Af Amer) > 60 POC Glucose (mg/dL) Random Glucose 117 H Lactic Acid Calcium 8.6 Phosphorus Magnesium Total Bilirubin 0.8 AST 38 ALT 50 Alkaline Phosphatase 89 Lactate Dehydrogenase Total Creatine Kinase Troponin I Total Protein 6.0 Albumin 2.9 L Globulin 3.1 Albumin/Globulin Ratio 0.9 L Zinc 61 03/23/17 03/23/17 03/23/17 19:29 20:10 20:10 WBC 14.6 H D RBC 4.06 Hgb 12.7 L Hct 37.7 L MCV 92.9 MCH 31.3 MCHC 33.7 RDW 14.7 H Plt Count 234 MPV 11.8 H Gran % 90.7 H Lymph % (Auto) 4.1 L [place] % (Auto) 5.1 Eos % (Auto) 0.0 L Baso % (Auto) 0.1 Gran # 13.27 H Lymph # 0.6 L [place] # 0.8 H Eos # 0.0 Baso # 0.01 pCO2 pO2 HCO3 ABG pH ABG Total CO2 ABG O2 Saturation ABG O2 Content ABG Base Excess ABG Hemoglobin ABG Carboxyhemoglobin POC ABG HHb (Measured) ABG Methemoglobin ABG O2 Capacity Hgb O2 Saturation FiO2 Sodium 140 Potassium 4.0 Chloride 106 Carbon Dioxide 22 Anion Gap 16 BUN 29 H Creatinine 1.2 Est GFR ( Amer) > 60 Est GFR (Non-Af Amer) 58 POC Glucose (mg/dL) 264 H Random Glucose 213 H Lactic Acid Calcium 8.8 Phosphorus 5.2 H Magnesium 2.0 Total Bilirubin 0.8 AST 31 ALT 51 Alkaline Phosphatase 101 Lactate Dehydrogenase 453 Total Creatine Kinase 35 Troponin I 0.03 D Total Protein 6.5 Albumin 3.3 Globulin 3.2 Albumin/Globulin Ratio 1.0 L Zinc 03/23/17 03/23/17 03/24/17 20:10 21:30 01:00 WBC RBC Hgb Hct MCV MCH MCHC RDW Plt Count MPV Gran % Lymph % (Auto) [place] % (Auto) Eos % (Auto) Baso % (Auto) Gran # Lymph # [place] # Eos # Baso # pCO2 38 pO2 165.0 H HCO3 23.0 ABG pH 7.39 ABG Total CO2 24.2 ABG O2 Saturation 98.7 H ABG O2 Content 16.6 ABG Base Excess -1.7 ABG Hemoglobin 11.9 ABG Carboxyhemoglobin 0.9 POC ABG HHb (Measured) 1.3 ABG Methemoglobin 0.6 ABG O2 Capacity 16.8 Hgb O2 Saturation 97.2 FiO2 60.0 Sodium Potassium Chloride Carbon Dioxide Anion Gap BUN Creatinine Est GFR ( Amer) Est GFR (Non-Af Amer) POC Glucose (mg/dL) Random Glucose Lactic Acid 2.6 H Calcium Phosphorus Magnesium Total Bilirubin AST ALT Alkaline Phosphatase Lactate Dehydrogenase 477 Total Creatine Kinase 57 Troponin I 0.05 D Total Protein Albumin Globulin Albumin/Globulin Ratio Zinc Attending/Attestation - Attestation I have personally seen and examined this patient.: Yes I have fully participated in the care of the patient.: Yes I have reviewed all pertinent clinical information: Yes Notes (Text): 03/24/17 05:56 I agree with the above mentioned note and exam by the resident with the addition of the followin81 y/o male with a PMHx as listed above was called as a Code Blue towards the beginning of my shift. Upon arrival I discovered the patient had a pulse and was breathing, he had not lost a pulse at any time. Code Blue cancelled and changed to rapid response as the patient was altered, lethargic and hypoxic. He had a dubhoff placed earlier and as the resident was removing the guidewire, the patient had a copious amount of frothy secretions. He appeared to have aspirated and caused worsened hypoxia. Patient was saturating in the 70's so he was intubated by the house MD. Case was discussed with the patient's who was standing outside the room and requested that the patient's wishes to be kept without a ventilator or resuscitation measures. The Ett was promptly removed and patient was placed on a 100% nonrebreather; initially planned to place him on Highflow oxygen, however he did well with venti-mask and has now transitioned down to 3L oxygen via Nasal cannula initial ABG reviewed showing adequate oxygenation on 60% fi02 (7.39/38/165) Continue with aggressive pulmonary toilet Aspiration precautions/frequent suctioning c/w IV Doxycycline as per ID Upon resolution of the acute event and his return to normal oxygenation, the patient's mental status returned to baseline as well labs and images reviewed case discussed with Dr. Page Total time of care: 40 minutes
[2017-03-24] MEDS: Sodium Chloride 0.9% 1,000 ML IV SCH (05:00)
[2017-03-24] MEDS: Pantoprazole 40 mg EC Tab PO SCH (05:02)
[2017-03-24 06:24] LABS: ALKALINE PHOSPHATASE 87 U/L (38-126); ALT/SGPT 45 U/L (7-56); AST/SGOT 30 U/L (17-59); BILIRUBIN,TOTAL 0.7 mg/dL (0.2-1.3); BLOOD UREA NITROGEN 28 mg/dL (7-21); CALCIUM 8.7 mg/dL (8.4-10.5); CARBON DIOXIDE 23 mmol/L (21-33); CHLORIDE 107 mmol/L (98-107); GFR AFRICAN-AMERICAN > 60; GLUCOSE,RANDOM 127 mg/dL (70-110); PHOSPHOROUS 3.4 mg/dL (2.5-4.5); POTASSIUM 4.2 mmol/L (3.6-5.0); SODIUM 140 mmol/L (132-148)
[2017-03-24 06:31] LABS: GRAN # 11.25 (1.4-6.5); GRAN % 92.6 % (50.0-68.0); HEMATOCRIT 34.4 % (42.0-52.0); LYMPH # 0.5 (1.2-3.4); LYMPH % 4.4 % (22.0-35.0); MEAN CELL VOLUME 91.2 fl (80.0-105.0); MEAN CORPUSCULAR HEMOGLOBIN 30.8 pg (25.0-35.0); MEAN CORPUSCULAR HGB CONC 33.7 g/dl (31.0-37.0); MEAN PLATELET VOLUME 12.3 fl (7.0-11.0); MONO # 0.4 (0.1-0.6); RED CELL DISTRIBUTION WIDTH 14.7 % (11.5-14.5); WHITE BLOOD COUNT 12.2 10^3/ul (4.5-11.0)
[2017-03-24] MEDS: Arformoterol 15 mcg/2 ml Inh Sol IH SCH ×2 (07:14→19:38)
[2017-03-24] MEDS: Budesonide 0.5 mg/2 ml Inhal Susp UD IH SCH ×2 (07:14→19:38)
[2017-03-24] MEDS: Acetylcysteine 20% Inhal Soln (4ml) IH SCH ×2 (07:14→19:38)
--- NOTE | 2017-03-24 10:16 | RAD ---
HISTORY: dubhoff placement COMPARISON: Comparison chest radiograph and CTA of the chest both dated 03/19/2017 the FINDINGS: In situ feeding tube, tip of which lies over the left mid abdomen. LUNGS: Hyperinflation ; findings could be secondary to COPD. Clinical correlation recommended. . Re- demonstrated are nodular infiltrates both mid to lower lung ahuja left greater than right PLEURA: No significant pleural effusion identified, no pneumothorax apparent. CARDIOVASCULAR: Normal. OSSEOUS STRUCTURES: No significant abnormalities. VISUALIZED UPPER ABDOMEN: Normal. OTHER FINDINGS: None. IMPRESSION: In situ feeding tube as described. Hyperinflation could be secondary to COPD. Re- demonstrated are nodular type infiltrates both mid to lower lung ahuja left greater than right.
--- NOTE | 2017-03-24 10:19 | PN ---
DATE: 03/24/2017 SUBJECTIVE: The patient is transferred to the unit. He does have shortness of breath. The patient this morning is comfortable and had a Dobhoff tube placed, and during removal of the guidewire, the patient reportedly stop breathing and became unresponsive and code blue was called and ultimately, the patient was intubated. This morning, the patient is extubated and placed on BiPAP. He is responsive and is comfortable. No fevers reported. PHYSICAL EXAMINATION: VITAL SIGNS: Temperature is 98, blood pressure is 160/90, respiratory rate of 21, heart rate of 97. HEENT: Unremarkable. NECK: Supple. LUNGS: Decreased breath sounds. HEART: Normal S1 and S2. ABDOMEN: Soft, nontender. LABORATORY DATA: Reveals a white count of 12,200, hemoglobin of 11, platelets of 138. Chemistries revealed a BUN of 28, creatinine of 1.0. Urinalysis is noted. Urine shows Legionella pneumonia is negative. He has VRE in the urine. Sputum culture is pending. Blood cultures are negative. MEDICATIONS: The patient is currently on doxycycline because on renewal, I have . The patient is also on meropenem. The patient is on Solu-Medrol. ASSESSMENT AND PLAN: An 81-year-old male with colon cancer, on chemotherapy, status post resection, peptic ulcer disease, benign prostatic hypertrophy, chronic obstructive lung disease, glaucoma, gastroesophageal reflux disease, chronic Means catheter, multifocal healthcare-associated pneumonia with dysphagia, status post rapid response and eventually a code blue, in day #5 of doxycycline, meropenem and vancomycin-resistant Enterococcus in the urine, most likely colonizing. The patient is on Solu-Medrol. Would complete 4-7 days of antibiotics. The patient is a DO NOT RESUSCITATE. At this point, extubated and comfortable. Tonny Edmond MD
--- NOTE | 2017-03-24 10:24 | RAD ---
HISTORY: Follow up COMPARISON: Comparison chest dated 03/23/2017 FINDINGS: In situ feeding tube distal aspect of which appears to be coiled upon itself with tip in the region of the gastric fundus LUNGS: Hyperinflation. Re- demonstrated are bilateral lower lobe somewhat nodular appearing infiltrates questionably improved. PLEURA: No significant pleural effusion identified, no pneumothorax apparent. Biapical calcified pleural plaque changes again noted, possibly the postinflammatory CARDIOVASCULAR: Normal. OSSEOUS STRUCTURES: No significant abnormalities. VISUALIZED UPPER ABDOMEN: Normal. OTHER FINDINGS: None. IMPRESSION: Hyperinflation. Re- demonstrated are bilateral lower lobe somewhat nodular appearing infiltrates questionably improved.
[2017-03-24] MEDS: MethylPREDNISolone 40 mg Vial IVP SCH ×2 (10:45→21:02)
[2017-03-24] MEDS: Megestrol Acetate 40 mg/ml Cup PO SCH (10:45)
[2017-03-24] MEDS: Enoxaparin 40 mg Syringe SC SCH (10:45)
[2017-03-24] MEDS: Meropenem 1g/NS 100mL IVPB 1 GM/100 ML PIGGYBACK IVPB SCH ×2 (10:49→21:02)
--- NOTE | 2017-03-24 11:39 | CP.PCM.PN ---
Subjective - Date & Time of Evaluation Date of Evaluation: 03/24/17 Time of Evaluation: 09:30 - Subjective Subjective: Patient seen and examined. Reports no major complaints. Denies fever, chills, cough, chets pain, sob. 81 M with a PMHx of Colon Cancer s/p chemo and resection PUD, COPD, thrombophlebitis, GERD, and chronic caldwell who presented to [facility] with complaint of persisting shortness of breath, difficulty ambulating, and productive cough admitted with CAP with b/l infiltrates on CXR. Patient had hypoxic event yesterday, intubated and then extubated at the request of the , now DNR/ DNI. Comfortable on 2LNC, sat 98% Objective - Vital Signs/Intake and Output Vital Signs (last 24 hours): Temp Pulse Resp BP Pulse Ox 98 F 105 H 20 168/99 H 100 03/24/17 06:00 03/24/17 06:20 03/24/17 06:20 03/24/17 06:00 03/24/17 06:20 Intake and Output: 03/24/17 03/24/17 06:59 18:59 Intake Total 1000 Output Total 600 Balance 400 - Medications Medications: Current Medications Acetylcysteine (Acetylcysteine 20%) 4 ml IH [id number] [facility] Last Admin: 03/24/17 07:14 Dose: 4 ml Arformoterol Tartrate (Brovana) 15 mcg IH [id number] [facility] Last Admin: 03/24/17 07:14 Dose: 15 mcg Benzonatate (Tessalon Perles) 100 mg PO TID [facility] Last Admin: 03/23/17 18:40 Dose: Not Given Budesonide (Pulmicort Respules) 0.5 mg IH [id number] [facility] Last Admin: 03/24/17 07:14 Dose: 0.5 mg Docusate Sodium (Colace Liquid) 100 mg PO TID [facility] Last Admin: 03/23/17 18:39 Dose: Not Given Enoxaparin Sodium (Lovenox) 40 mg SC DAILY [facility] PRN Reason: Protocol Last Admin: 03/24/17 10:45 Dose: 40 mg Guaifenesin/Dextromethorphan (Robitussin Dm) 10 ml PO Q4H PRN PRN Reason: Cough Last Admin: 03/23/17 13:29 Dose: 10 ml Home Med (Home Med) 25 unit PO BID [facility] Last Admin: 03/23/17 18:39 Dose: Not Given Doxycycline Hyclate 100 mg/ (Sodium Chloride) 100 mls @ 100 mls/hr IVPB Q12 [facility] PRN Reason: Protocol Stop: 03/28/17 22:01 Last Admin: 03/24/17 10:46 Dose: 100 mls/hr Meropenem 1g/NS 100mL IVPB (Meropenem 1g/Ns 100ml Ivpb) 1 gm in 100 mls @ 100 mls/hr IVPB Q12 [facility] PRN Reason: Protocol Stop: 06/27/17 10:01 Last Admin: 03/24/17 10:49 Dose: 100 mls/hr Sodium Chloride (Sodium Chloride 0.9%) 1,000 mls @ 60 mls/hr IV .[id number] [facility] Last Admin: 03/24/17 05:00 Dose: 60 mls/hr Megestrol Acetate (Megace) 200 mg PO DAILY [facility] Last Admin: 03/24/17 10:45 Dose: 200 mg Methylprednisolone (Solu-Medrol) 40 mg IVP Q12 [facility] Last Admin: 03/24/17 10:45 Dose: 40 mg Metoclopramide HCl (Reglan) 10 mg PO 0600,1130,1630,2200 [facility] Last Admin: 03/24/17 10:46 Dose: 10 mg Pantoprazole Sodium (Protonix Ec Tab) 40 mg PO 0600 [facility] Last Admin: 03/24/17 05:02 Dose: 40 mg Roflumilast (Daliresp) 500 mcg PO DAILY [facility] Last Admin: 03/24/17 10:46 Dose: 500 mcg Tamsulosin HCl (Flomax) 0.4 mg PO DAILY [facility] Last Admin: 03/24/17 10:46 Dose: 0.4 mg Zolpidem Tartrate (Ambien) 5 mg PO HS PRN; Protocol PRN Reason: Insomnia Last Admin: 03/22/17 22:16 Dose: 5 mg - Labs Labs: 03/24/17 05:30 03/24/17 05:30 PT 10.9 Seconds (9.9-11.8) 03/19/17 13:50 INR 1.01 (0.93-1.08) 03/19/17 13:50 APTT 27.3 Seconds (23.7-30.8) 03/19/17 13:50 - Constitutional Appears: Well, No Acute Distress, Cachectic - Head Exam Head Exam: NORMAL INSPECTION - Eye Exam Eye Exam: EOMI - ENT Exam ENT Exam: Mucous Membranes Moist - Respiratory Exam Respiratory Exam: Rhonchi, Wheezes, NORMAL BREATHING PATTERN - Cardiovascular Exam Cardiovascular Exam: REGULAR RHYTHM, RRR, +S1, +S2 - GI/Abdominal Exam GI & Abdominal Exam: Soft, Normal Bowel Sounds - Extremities Exam Extremities Exam: Full ROM, Normal Inspection - Neurological Exam Neurological Exam: Alert, Awake - Skin Skin Exam: Normal Color Assessment and Plan - Assessment and Plan (Free Text) Assessment: 81 M with a PMHx of Colon Cancer s/p chemo and resection PUD, COPD, thrombophlebitis, GERD, and chronic caldwell a/w PNA, COPD exacerbation, with hypoxic event yesterday, intubated and then extubated at the request of the , now DNR/DNI. Comfortable on 2LNC, sat 98% PNA Aspiration COPD exacerbation Leukocytosis Colon Ca - currently afebrile, HD stable, comfortable on 2LNC, sat 98%, denies cp, sob Recommend - cont with supp o2 as needed, BIPAP as needed - aspiration precautions - duonebs PRN - Cont with Solumderol - Follow up Allison Chester - Enrique Tompkins as per ID - IVF hydration - FS control - BP control - Follow up heme onc - GI ppx - DVT ppx - Transfer to telemetry, stable
[2017-03-24] MEDS: LUBIPROSTONE PO SCH ×2 (11:59→17:17)
[2017-03-24] MEDS ORDERED: Petrolatum Oint Foilpak (5 gm) TOP PRN (15:15)
--- NOTE | 2017-03-24 20:47 | PN ---
DATE OF VISIT: 03/24/2017 This is [facility]'s [facility] visit in the intensive care unit. For Dr. Grider. SUBJECTIVE: The patient is an 81-year-old male, seen lying awake in the intensive care unit with events of last night reviewed with the patient in no acute distress; however, his oral secretions continue with the patient to have suctioning wand with a Dobbhoff feeding tube in situ. The patient was recommended for a Dobbhoff feeding tube as per Dr. Page with the resident involved using viscous lidocaine and advancing to proper placement with x-ray demonstrating proper placement of the Dobbhoff feeding tube with the patient then reporting significant discomfort with the tube then removed with the guidewire possibly kinked with the patient then becoming unresponsive with code blue called with the patient then intubated. After conversation with the patient's , the patient was then extubated after the did not want heroic measures with DNR/DNI then noted with the patient then spontaneously breathing and becoming more responsive. With this, it was recommended for the patient being sent to the intensive care unit for observation with Dr. Page notified of the events with the patient now in no acute distress except for his significantly-compromised swallowing mechanism for which a modified barium swallow was being done 2 days prior has not been read yet. PHYSICAL EXAMINATION: VITAL SIGNS: Temperature 98, pulse 97, respirations 21, blood pressure 168/99, pulse ox 100%. HEENT: Dobbhoff feeding tube is noted in the naris. Tongue is moist. NECK: Supple. HEART: Tachy rate, regular rhythm. LUNGS: Scattered rhonchi, occasional expiratory wheeze. ABDOMEN: Soft, nontender and scaphoid. EXTREMITIES: No edema. SKIN: Warm and dry. NEUROLOGIC: He is awake and alert. LABORATORY DATA: The patient's labs were done. White blood cell count of 12.2, hemoglobin 11.6, hematocrit 34.4 and platelet count of 236,000 with a chem metabolic panel within normal limits except for BUN of 28, creatinine of 1.0, and nonfasting glucose of 127. The patient did have a chest x-ray done earlier today. It was read as hyperinflation redemonstration in bilateral lower lobes, somewhat nodular-appearing infiltrates, questionable improved. ASSESSMENT: Pneumonia, status post probable aspiration; gastroesophageal reflux disease, respiratory distress with bilevel positive airway pressure, status post intubation/extubation, history of stage-III colon carcinoma treated with chemotherapy and resection approximately 15 years prior, failure to thrive, weight loss, persistent cough, electrolyte imbalance. PLAN: The plan for this patient, after conversation with Dr. Grider are to continue present medical regimen. He will be DNR/DNI with the patient to be transferred out of the intensive care unit later today as per rn neonatal recommendations. We will monitor clinically with labs. We wait further workup as per Dr. Galaviz and Dr. Page as indicated. The Dobbhoff feeding tube is in situ at present as per Dr. Page's recommendations. Jefferson Chaudhry MD
[2017-03-24] MEDS: Glycopyrrolate 0.2 mg/ml (2ml vial) IV SCH (23:00)
--- NOTE | 2017-03-25 02:38 | CON ---
DATE: 03/24/2017 HISTORY OF PRESENT ILLNESS: This 81-year-old patient with past medical history of colon cancer stage III, diagnosed over 15 years ago; history of adjuvant chemotherapy, had , oropharyngeal dysphagia, and had multiple admissions with pneumonia. The patient was admitted to the hospital on 03/19/2017 with shortness of breath and difficulty in ambulating and failure to thrive. The patient with severe coughing. He was recent prior to the admission, he was in the [facility] with cough. The patient had some PET scan abnormality in the chest area, due to have further workup regarding this. Because of the malnutrition, the patient was recommended by the pulmonary for feeding tube placement. The patient had hypoxic episode when trying to remove the wire from the Dobhoff tube yesterday. The patient was transiently intubated as per the family request, the patient was extubated and the patient was on BiPAP, but now on nasal cannula and saturating well. The patient had modified barium swallow done on 03/22/2017 and I did speak with the speech therapist. The patient had a moderate dysphagia, able to tolerate small chopped food with thin liquids, but advised to take only very small quantities. The patient lost over 50 pounds in weight in the last 9 months. OTHER PAST MEDICAL HISTORY: Includes Billroth-II gastrectomy for peptic ulcer disease many years ago, the patient had upper GI endoscopy on 02/11/2017, was found to have monilial esophagitis and Billroth-II gastrectomy and gastroparesis. Other past medical history is as above and history of interstitial lung disease. SURGICAL HISTORY: Partial gastrectomy, colon cancer resection,colonoscopy, multiple polyps, large polyps removed before. SOCIAL HISTORY: Ex-smoker. Denies alcohol. FAMILY HISTORY: Noncontributory. REVIEW OF SYSTEMS: Positive as above. Other systems reviewed. PHYSICAL EXAMINATION: GENERAL: The patient is lying on the bed, not in acute distress. VITAL SIGNS: Temperature afebrile, pulse 109, and blood pressure 161/84. HEENT: Atraumatic and anicteric. NECK: Supple. LUNGS: Few scattered rhonchi are present. HEART: S1 and S2 heard. ABDOMEN: Soft. There is no tenderness. Surgical scar seen. EXTREMITIES: No cyanosis. No clubbing. NEUROLOGIC: Now alert. Using suction to clear the throat. LABORATORY DATA: Hemoglobin 11.6, hematocrit 34.4, WBC is 12.2, and platelets 138. Chemistry is essentially unremarkable. Chest x-ray has bilateral lower lobe nodular infiltrate. IMPRESSION: This 81-year-old patient with dysphagia, moderate oropharyngeal, had hypoxic episode when trying to place the Dobhoff tube intubated and extubated, off the ventilator now, lost about 50 pounds in weight, and has Billroth-II gastrectomy with gastroparesis. This patient's difficulty in swallowing is probably multifactorial, a component of and neuromuscular dysfunction to be considered. In addition, the patient is also malnourished, which also can contribute and the patient also has significant reflux probably secondary to the gastroparesis with Billroth-II gastrectomy, which also could be contributory. The patient does have bilateral lung infiltrate, pneumonia. The patient has increased secretions. The patient is finding it difficult to clear the throat. History of colon cancer stage III and history of abnormal PET scan. Chronic obstructive pulmonary disease. Esophageal candidiasis. RECOMMENDATIONS: 1. I did have a detailed discussion with speech therapist and also reviewed the modified barium swallow. Would recommend that the patient to keep n.p.o. until his secretions are cleared. 2. The patient may in a longer term would benefit from feeding jejunostomy and start the p.o. as recommended by his speech therapist as trial once the throat secretions improve very cautiously with assistance. Since the patient has Billroth-II gastrectomy with gastroparesis, gastric tube is not an option. The patient would benefit only from jejunostomy feeding tube if needed. I did discuss with deputy grand jury, Dr. Grider and also with Dr. Page. We will continue to closely follow up with his care and suggest further management based on the clinical course. Dr. Galaviz covering for Dr. Ej Tavarez, acoustical tile drill press operator. Vinicio Galaviz MD <
--- NOTE | 2017-03-25 03:34 | PN ---
DATE: 03/24/2017 PULMONARY CRITICAL CARE PROGRESS NOTE REFERRING PHYSICIAN: Jefferson Chaudhry M.D. SUBJECTIVE: Overnight events noted. The patient has pulmonary arrest secondary to oral secretion could not handle it. At one point, he was intubated. The patient is DNR, with the family request, the patient was liberated from the ventilator, placed on high-flow oxygen overnight, been on broad spectrum antibiotics. At present he is sitting up, has a nasogastric tube, getting feeding. Family is at bedside. He has cough, unable to create pulmonary secretion. No nausea, no vomiting, diarrhea, leg pain or leg swelling. OBJECTIVE: GENERAL: Mild to moderate distress secondary to cough and shortness of breath. VITAL SIGNS: Temperature is 98, heart rate is 120, respiratory rate is 30, blood pressure is 153/94, pulse ox 99% on nasal cannula. HEENT: Small oral cavity. Carotid airway. He has a nasogastric tube, getting feeding. NECK: Supple. No JVD. LUNGS: Scattered rhonchi, crackles in the both side. HEART: S1 and S2. ABDOMEN: Soft, nontender. No organomegaly. EXTREMITIES: There is no edema. NEUROLOGIC: Awake, alert, follow simple commands. MEDICATIONS: Mucomyst 20% 4 mL inhaled twice a day, Ambien 5 mg at bedtime p.r.n., Brovana 15 mcg inhaled twice a day, also Colace 100 mg 3 times daily, Daliresp 500 mcg daily, doxycycline 100 mg twice a day, Flomax 0.4 mg daily, Lovenox 40 mg daily, Megace 200 mg daily, getting meropenem 1 g IV q. 12 hours, Protonix 40 mg daily, Pulmicort inhaler twice a day, Reglan 10 mg q.i.d., Robitussin p.r.n. basis, IV fluid normal saline 60 mL/hour, Solu-Medrol 40 mg q. 12 hours, Tessalon Perles 100 mg 3 times a day, Vaseline ointment affected area. LABORATORY DATA: Shows hemoglobin 11.6, hematocrit 34.4, WBC 12.2, platelet is 138. Sodium 140, potassium 4.2, chloride 107, bicarbonate 23, BUN 28, creatinine 1.0, glucose 127, calcium is 8.7, phosphorous 3.4, magnesium 2.0. AST 30, ALT 45, alkaline phosphatase is 87, albumin is 3.0. Urine has VRE. Chest x-ray done today shows hyperinflated lungs redemonstrations, bilateral lower lobe nodular opacities. IMPRESSION AND PLAN: Multi lobar pneumonia, status post respiratory failure requiring high-flow oxygen, gastroesophageal reflux disease, history of partial gastrectomy, malnourished weight loss. I had long discussion with the family; , daughter, granddaughter, all the question answered. The patient's disease discussed in detail. For now, continue nasogastric tube feeding, keep head elevated for 45 degree, also I spoke to biogeographer and medical laboratory assistant, requested to keep the patient in ICU for next 24-hour, high risk for respiratory failure secondary to secretion. P.r.n. mouth and nasal suction. Speech therapy evaluation. GI followup. If does not improve next day or so, may need to consider surgical jejunostomy. Continue antibiotics accompanying healthcare associated organism, gastric prophylaxis, deep venous thrombosis prophylaxis. Followup ABG, chest x-ray, CBC, CMP in the morning. Critical care time is about 35 minutes. Thank you and we will follow with you. Andrea Page MD
[2017-03-25] MEDS: Sodium Chloride 0.9% 1,000 ML IV SCH (05:13)
[2017-03-25] MEDS: Pantoprazole 40 mg EC Tab PO SCH (05:13)
[2017-03-25] MEDS: Glycopyrrolate 0.2 mg/ml (2ml vial) IV SCH (05:13)
[2017-03-25 07:03] LABS: ALKALINE PHOSPHATASE 78 U/L (38-126); ALT/SGPT 40 U/L (7-56); AST/SGOT 29 U/L (17-59); BILIRUBIN,TOTAL 0.6 mg/dL (0.2-1.3); BLOOD UREA NITROGEN 27 mg/dL (7-21); CALCIUM 8.5 mg/dL (8.4-10.5); CARBON DIOXIDE 25 mmol/L (21-33); CHLORIDE 108 mmol/L (98-107); GFR AFRICAN-AMERICAN > 60; GLUCOSE,RANDOM 147 mg/dL (70-110); MAGNESIUM 2.1 mg/dL (1.7-2.2); PHOSPHOROUS 2.9 mg/dL (2.5-4.5); POTASSIUM 4.1 mmol/L (3.6-5.0); SODIUM 143 mmol/L (132-148); TOTAL PROTEIN 5.6 g/dL (5.8-8.3)
[2017-03-25 07:16] LABS: BASO # 0.01 K/mm3 (0.0-2.0); BASO % 0.1 % (0.0-3.0); GRAN # 9.09 (1.4-6.5); GRAN % 93.1 % (50.0-68.0); HEMATOCRIT 35.7 % (42.0-52.0); LYMPH # 0.4 (1.2-3.4); LYMPH % 4.5 % (22.0-35.0); MEAN CELL VOLUME 92.7 fl (80.0-105.0); MEAN CORPUSCULAR HEMOGLOBIN 30.4 pg (25.0-35.0); MEAN CORPUSCULAR HGB CONC 32.8 g/dl (31.0-37.0); MONO # 0.2 (0.1-0.6); MONO % 2.3 % (1.0-6.0); RED CELL DISTRIBUTION WIDTH 14.9 % (11.5-14.5); WHITE BLOOD COUNT 9.8 10^3/ul (4.5-11.0)
[2017-03-25] MEDS: Acetylcysteine 20% Inhal Soln (4ml) IH SCH ×2 (07:20→20:15)
[2017-03-25] MEDS: Arformoterol 15 mcg/2 ml Inh Sol IH SCH ×2 (07:20→20:15)
[2017-03-25] MEDS: Budesonide 0.5 mg/2 ml Inhal Susp UD IH SCH ×2 (07:20→20:15)
[2017-03-25 07:38] LABS: PLATELET COUNT 48 10^3/uL (120.0-450.0)
--- NOTE | 2017-03-25 07:48 | CP.CCUPN ---
<Shabana Davey - Last Filed: 03/25/17 15:10> CCU Subjective - Physician Review Events Since Last Encounter (Free Text): 03/25/17 07:45 No acute events overnight Subjective (Free Text): 03/25/17 07:45 Critical care progress note for Dr. Gary Davey, PGY-1 Pt S & E at bedside. Pt w/o complaints overnight. Reports hunger. Denies N/V/F/C, SOB, palpitations, ab pain. Critical Care Time Spent (in minutes): 35 CCU Objective - Vital Signs / Intake & Output Vital Signs (Last 4 hours): Vital Signs Temp Pulse Resp Pulse Ox 03/25/17 06:00 98.2 F 110 H 20 96 Intake and Output (Last 8hrs): Intake & Output 03/24/17 03/25/17 03/25/17 22:59 06:59 14:59 Intake Total 1570 Output Total 600 Balance 970 Weight 67.585 kg Intake: IV 920 left wrist 920 Tube Feeding 450 Other 200 Output: Urine 600 2-way Urethral 600 - Physical Exam Head: Positive for: Atraumatic, Normocephalic Extroacular Muscles: Positive for: EOMI Conjunctiva: Positive for: Normal Ears: Positive for: Normal Mouth: Positive for: Dry Nose (External): Positive for: Atraumatic, Other (Dobhoff in place in left nostril) Neck: Positive for: Normal Range of Motion Respiratory/Chest: Positive for: Clear to Auscultation, Good Air Exchange. Negative for: Respiratory Distress, Accessory Muscle Use Cardiovascular: Positive for: Regular Rate and Rhythm, Normal S1, S2. Negative for: Murmurs Abdomen: Positive for: Normal Bowel Sounds. Negative for: Tenderness, Distention, Peritoneal Signs Genitourinary Male: Positive for: Other (yellow urine from caldwell bag) Back: Positive for: Normal Inspection Upper Extremity: Positive for: Normal Inspection. Negative for: Cyanosis, Edema Lower Extremity: Positive for: Normal Inspection. Negative for: Edema, Swelling Neurological: Positive for: GCS=15, CN II-XII Intact, Speech Normal Skin: Positive for: Warm, Dry, Normal Color. Negative for: Rashes Psychiatric: Positive for: Alert, Oriented x 3, Normal Insight, Normal Concentration - Medications Active Medications: Active Medications Generic Name Dose Route Start Last Admin Trade Name Freq PRN Reason Stop Dose Admin Acetylcysteine 4 ml 03/20/17 08:00 03/25/17 07:20 Acetylcysteine 20% IH 4 ml [id number] CORINE Administration Arformoterol Tartrate 15 mcg 03/20/17 08:00 03/25/17 07:20 Brovana IH 15 mcg [id number] CORINE Administration Benzonatate 100 mg 03/20/17 10:00 03/24/17 17:17 Tessalon Perles PO Not Given TID CORINE Budesonide 0.5 mg 03/20/17 08:00 03/25/17 07:20 Pulmicort Respules IH 0.5 mg [id number] CORINE Administration Docusate Sodium 100 mg 03/21/17 14:00 03/24/17 17:47 Colace Liquid PO 100 mg TID CORINE Administration Emollient Ointment 5 gm 03/25/17 10:00 Vaseline Oint TOP DAILY [facility] Enoxaparin Sodium 40 mg 03/20/17 10:00 03/24/17 10:45 Lovenox SC 40 mg DAILY [facility] Administration Protocol Glycopyrrolate 0.2 mg 03/24/17 22:00 03/25/17 05:13 Robinul IV 0.2 mg Q8 CORINE Administration Guaifenesin/Dextromethorphan 10 ml 03/23/17 11:53 03/23/17 13:29 Robitussin Dm PO 10 ml Q4H PRN Administration Cough Home Med 25 unit 03/22/17 18:54 03/24/17 17:17 Home Med PO Not Given BID [facility] Doxycycline Hyclate 100 mg/ 100 mls @ 100 mls/hr 03/19/17 22:00 03/24/17 21: 03 Sodium Chloride IVPB 03/28/17 22:01 100 mls/hr Q12 [facility]INE Administration Protocol Meropenem 1g/NS 100mL IVPB 1 gm in 100 mls @ 100 mls/hr 03/20/17 10:00 21:02 Meropenem 1g/Ns 100ml Ivpb IVPB 06/27/17 10:01 100 mls/hr Q12 [facility]INE Administration Protocol Sodium Chloride 1,000 mls @ 60 mls/hr 03/22/17 15:52 03/25/17 05:13 Sodium Chloride 0.9% IV 60 mls/hr .[id number] CORINE Administration Megestrol Acetate 200 mg 03/22/17 10:00 03/24/17 10:45 Megace PO 200 mg DAILY [facility] Administration Methylprednisolone 40 mg 03/19/17 23:45 03/24/17 21:02 Solu-Medrol IVP 40 mg Q12 [facility] Administration Metoclopramide HCl 10 mg 03/20/17 06:00 03/25/17 05:13 Reglan PO 10 mg 0600,1130,1630,2200 [facility] Administration Pantoprazole Sodium 40 mg 03/20/17 06:00 03/25/17 05:13 Protonix Ec Tab PO 40 mg 0600 [facility] Administration Roflumilast 500 mcg 03/20/17 10:00 03/24/17 10:46 Daliresp PO 500 mcg DAILY [facility] Administration Tamsulosin HCl 0.4 mg 03/20/17 10:00 03/24/17 10:46 Flomax PO 0.4 mg DAILY [facility] Administration Zolpidem Tartrate 5 mg 03/22/17 14:22 03/24/17 23:56 Ambien PO 5 mg HS PRN Administration Insomnia Protocol - Patient Studies Lab Studies: Microbiology Studies 03/23/17 01:20 Blood Culture - Preliminary Blood NO GROWTH AFTER 24 HOURS 03/23/17 01:20 Blood Culture - Preliminary Blood NO GROWTH AFTER 24 HOURS Lab Studies 03/25/17 03/25/17 Range/Units 05:15 05:15 WBC 9.8 (4.5-11.0) 10^3/ul RBC 3.85 (3.5-6.1) 10^6/uL Hgb 11.7 L (14.0-18.0) g/dL Hct 35.7 L (42.0-52.0) % MCV 92.7 (80.0-105.0) fl MCH 30.4 (25.0-35.0) pg MCHC 32.8 (31.0-37.0) g/dl RDW 14.9 H (11.5-14.5) % Plt Count 48 L* (120.0-450.0) 10^3/uL Gran % 93.1 H (50.0-68.0) % Lymph % (Auto) 4.5 L (22.0-35.0) % Dolores % (Auto) 2.3 (1.0-6.0) % Eos % (Auto) 0.0 L (1.5-5.0) % Baso % (Auto) 0.1 (0.0-3.0) % Gran # 9.09 H (1.4-6.5) Lymph # 0.4 L (1.2-3.4) Dolores # 0.2 (0.1-0.6) Eos # 0.0 (0.0-0.7) Baso # 0.01 (0.0-2.0) K/mm3 Sodium 143 (132-148) mmol/L Potassium 4.1 (3.6-5.0) mmol/L Chloride 108 H (98-107) mmol/L Carbon Dioxide 25 (21-33) mmol/L Anion Gap 14 (10-20) BUN 27 H (7-21) mg/dL Creatinine 0.9 (0.5-1.4) mg/dL Est GFR ( Amer) > 60 Est GFR (Non-Af Amer) > 60 Random Glucose 147 H (70-110) mg/dL Calcium 8.5 (8.4-10.5) mg/dL Phosphorus 2.9 (2.5-4.5) mg/dL Magnesium 2.1 (1.7-2.2) mg/dL Total Bilirubin 0.6 (0.2-1.3) mg/dL AST 29 (17-59) U/L ALT 40 (7-56) U/L Alkaline Phosphatase 78 (38-126) U/L Total Protein 5.6 L (5.8-8.3) g/dL Albumin 2.8 L (3.0-4.8) g/dL Globulin 2.9 gm/dL Albumin/Globulin Ratio 1.0 L (1.1-1.8) Laboratory Results - last 24 hr 03/25/17 03/25/17 05:15 05:15 WBC 9.8 RBC 3.85 Hgb 11.7 L Hct 35.7 L MCV 92.7 MCH 30.4 MCHC 32.8 RDW 14.9 H Plt Count 48 L* Gran % 93.1 H Lymph % (Auto) 4.5 L Dolores % (Auto) 2.3 Eos % (Auto) 0.0 L Baso % (Auto) 0.1 Gran # 9.09 H Lymph # 0.4 L Dolores # 0.2 Eos # 0.0 Baso # 0.01 Sodium 143 Potassium 4.1 Chloride 108 H Carbon Dioxide 25 Anion Gap 14 BUN 27 H Creatinine 0.9 Est GFR ( Amer) > 60 Est GFR (Non-Af Amer) > 60 Random Glucose 147 H Calcium 8.5 Phosphorus 2.9 Magnesium 2.1 Total Bilirubin 0.6 AST 29 ALT 40 Alkaline Phosphatase 78 Total Protein 5.6 L Albumin 2.8 L Globulin 2.9 Albumin/Globulin Ratio 1.0 L Review of Systems - Review of Systems All systems: reviewed and no additional remarkable complaints except - Constitutional Constitutional: absent: Fever, Chills - EENT Ears: UNREMARKABLE Nose/Mouth/Throat: Dry Mouth - Cardiovascular Cardiovascular: Rapid Heart Rate. absent: Chest Pain, Palpitations - Respiratory Respiratory: absent: Dyspnea - Gastrointestinal Gastrointestinal: absent: Abdominal Pain, Nausea, Vomiting - Genitourinary Genitourinary: Other (Indwelling caldwell) Critical Care Progress Note - Extremities/Vascular Does the Patient have a Central Venous Catheter?: No Does the Patient need a Central Venous Catheter?: No Does the Patient have a Caldwell Catheter?: Yes Does the Patient need a Caldwell Catheter?: Yes Catheter Insertion Criteria: Neurogenic bladder - Prophylaxis GI Prophylaxis GI: PPI - Prophylaxis DVT Prophylaxis DVT: Lovenox Assessment/Plan - Assessment and Plan (Free Text) Assessment: 81M w/PMH sig for Colon Cancer s/p chemo and resection PUD, COPD, thrombophlebitis, GERD, and chronic indwelling caldwell admitted for PNA, COPD exacerbation s/p hypoxic event yesterday, made DNR/DNI, stable overnight Plan: Neuro AOx 3 Stable CVS Tachycardia Episodes of HTN Monitor Pulm PNA COPD exacerbation Acetylcysteine Brovana Tessalon perles Pulmicort Doxycycline Glycopyrrolate Robitussin PRN Solu-Medrol 40mg Q12H Roflumilast Bipap PRN O2 via NC/high humidity Legionella neg SaO2 96% on 4L via NC Target SaO2>88% PUlm following GI Hx Colon CA Dobhoff in place On tube feeds NPO 2/2 dysphagia Colace Megace Reglan Ba swallow w/mild oral, and moderate pharyngeal dysphagia with risk for aspiration, recs for finely chopped consistency diet w/thin liquids, strict aspiration precautions GI following Chronic indwelling Caldwell in place VRE UTI Flomax Monitor Uro following Nephro NS@60 Hyperchloridemia of 108 Other elecytrolytes WNL Monitor ID Afebrile over last 24H Leukocytosis resolved- 9.8 from 12.2 VRE UTI Blood cx neg x 24H Sputum cx pending Merrem ID following Endo BS 147 Target euglycemia Heme/onc Hx Colon CA Thrombocytopenia- 48 from 138 FU CBC May consider manual plts if repeat also decreased MSK Vasoline to lips Monitor for skin breakdown Consider PT/OT GI/DVT ppx Lovenox Protonix Dispo Stable Transfer to tele DNR/DNI DW attending Tamica, PGY-1 - Date & Time Date: 03/25/17 Time: 07:35 <Kvng Vance - Last Filed: 03/25/17 15:15> CCU Objective - Vital Signs / Intake & Output Intake and Output (Last 8hrs): Intake & Output 03/25/17 03/25/17 03/25/17 06:59 14:59 22:59 Intake Total 1570 Output Total 600 Balance 970 Weight 149 lb Intake: IV 920 left wrist 920 Tube Feeding 450 Other 200 Output: Urine 600 2-way Urethral 600 - Medications Active Medications: Active Medications Generic Name Dose Route Start Last Admin Trade Name Freq PRN Reason Stop Dose Admin Acetylcysteine 4 ml 03/20/17 08:00 03/25/17 07:20 Acetylcysteine 20% IH 4 ml [id number] CORNIE Administration Arformoterol Tartrate 15 mcg 03/20/17 08:00 03/25/17 07:20 Brovana IH 15 mcg [id number] CORINE Administration Benzonatate 100 mg 03/20/17 10:00 03/25/17 09:30 Tessalon Perles PO 100 mg TID [facility] Administration Budesonide 0.5 mg 03/20/17 08:00 03/25/17 07:20 Pulmicort Respules IH 0.5 mg [id number] CORINE Administration Docusate Sodium 100 mg 03/21/17 14:00 03/25/17 09:29 Colace Liquid PO 100 mg TID [facility] Administration Emollient Ointment 5 gm 03/25/17 10:00 03/25/17 09:29 Vaseline Oint TOP 5 gm DAILY [facility] Administration Enoxaparin Sodium 40 mg 03/20/17 10:00 03/25/17 09:28 Lovenox SC 40 mg DAILY [facility] Administration Protocol Guaifenesin/Dextromethorphan 10 ml 03/23/17 11:53 03/23/17 13:29 Robitussin Dm PO 10 ml Q4H PRN Administration Cough Home Med 25 unit 03/22/17 18:54 03/25/17 10:12 Home Med PO Not Given BID [facility] Doxycycline Hyclate 100 mg/ 100 mls @ 100 mls/hr 03/19/17 22:00 03/24/17 21: 03 Sodium Chloride IVPB 03/28/17 22:01 100 mls/hr Q12 [facility] Administration Protocol Meropenem 1g/NS 100mL IVPB 1 gm in 100 mls @ 100 mls/hr 03/20/17 10:00 09:30 Meropenem 1g/Ns 100ml Ivpb IVPB 06/27/17 10:01 100 mls/hr Q12 [facility] Administration Protocol Sodium Chloride 1,000 mls @ 60 mls/hr 03/22/17 15:52 03/25/17 05:13 Sodium Chloride 0.9% IV 60 mls/hr .[id number] [facility] Administration Megestrol Acetate 200 mg 03/22/17 10:00 03/25/17 09:29 Megace PO 200 mg DAILY [facility] Administration Methylprednisolone 40 mg 03/19/17 23:45 03/25/17 09:33 Solu-Medrol IVP 40 mg Q12 [facility] Administration Metoclopramide HCl 10 mg 03/20/17 06:00 03/25/17 05:13 Reglan PO 10 mg 0600,1130,1630,2200 [facility] Administration Metoprolol Tartrate 12.5 mg 03/25/17 17:00 Lopressor PO BRKDIN [facility] Pantoprazole Sodium 40 mg 03/20/17 06:00 03/25/17 05:13 Protonix Ec Tab PO 40 mg 0600 [facility] Administration Roflumilast 500 mcg 03/20/17 10:00 03/25/17 09:30 Daliresp PO 500 mcg DAILY [facility] Administration Tamsulosin HCl 0.4 mg 03/20/17 10:00 03/25/17 09:30 Flomax PO 0.4 mg DAILY [facility] Administration Zolpidem Tartrate 5 mg 03/22/17 14:22 03/24/17 23:56 Ambien PO 5 mg HS PRN Administration Insomnia Protocol - Patient Studies Lab Studies: Microbiology Studies 03/23/17 23:00 MRSA Culture (Admit) - Final Naris MRSA NOT DETECTED 03/22/17 20:39 Gram Stain - Final Sputum Sputum Culture - Final Yeast Species 03/23/17 01:20 Blood Culture - Preliminary Blood NO GROWTH AFTER 24 HOURS 03/23/17 01:20 Blood Culture - Preliminary Blood NO GROWTH AFTER 24 HOURS Lab Studies 03/25/17 03/25/17 03/25/17 Range/Units 13:10 05:15 05:15 WBC 11.1 H 9.8 (4.5-11.0) 10^3/ul RBC 3.91 3.85 (3.5-6.1) 10^6/uL Hgb 12.1 L 11.7 L (14.0-18.0) g/dL Hct 36.0 L 35.7 L (42.0-52.0) % MCV 92.1 92.7 (80.0-105.0) fl MCH 30.9 30.4 (25.0-35.0) pg MCHC 33.6 32.8 (31.0-37.0) g/dl RDW 14.8 H 14.9 H (11.5-14.5) % Plt Count 215 48 L* (120.0-450.0) 10^3/uL MPV 11.6 H (7.0-11.0) fl Gran % 93.6 H 93.1 H (50.0-68.0) % Lymph % (Auto) 4.5 L 4.5 L (22.0-35.0) % Dolores % (Auto) 1.9 2.3 (1.0-6.0) % Eos % (Auto) 0.0 L 0.0 L (1.5-5.0) % Baso % (Auto) 0.0 0.1 (0.0-3.0) % Gran # 10.38 H 9.09 H (1.4-6.5) Lymph # 0.5 L 0.4 L (1.2-3.4) Dolores # 0.2 0.2 (0.1-0.6) Eos # 0.0 0.0 (0.0-0.7) Baso # 0.00 0.01 (0.0-2.0) K/mm3 Neutrophils % (Manual) 92 H (50.0-70.0) % Lymphocytes % (Manual) 7 L (22.0-35.0) % Monocytes % (Manual) 1 (1.0-6.0) % Platelet Evaluation Normal (NORMAL) Sodium 143 (132-148) mmol/L Potassium 4.1 (3.6-5.0) mmol/L Chloride 108 H (98-107) mmol/L Carbon Dioxide 25 (21-33) mmol/L Anion Gap 14 (10-20) BUN 27 H (7-21) mg/dL Creatinine 0.9 (0.5-1.4) mg/dL Est GFR ( Amer) > 60 Est GFR (Non-Af Amer) > 60 Random Glucose 147 H (70-110) mg/dL Calcium 8.5 (8.4-10.5) mg/dL Phosphorus 2.9 (2.5-4.5) mg/dL Magnesium 2.1 (1.7-2.2) mg/dL Total Bilirubin 0.6 (0.2-1.3) mg/dL AST 29 (17-59) U/L ALT 40 (7-56) U/L Alkaline Phosphatase 78 (38-126) U/L Total Protein 5.6 L (5.8-8.3) g/dL Albumin 2.8 L (3.0-4.8) g/dL Globulin 2.9 gm/dL Albumin/Globulin Ratio 1.0 L (1.1-1.8) Laboratory Results - last 24 hr 03/25/17 03/25/17 03/25/17 05:15 05:15 13:10 WBC 9.8 11.1 H RBC 3.85 3.91 Hgb 11.7 L 12.1 L Hct 35.7 L 36.0 L MCV 92.7 92.1 MCH 30.4 30.9 MCHC 32.8 33.6 RDW 14.9 H 14.8 H Plt Count 48 L* 215 MPV 11.6 H Gran % 93.1 H 93.6 H Lymph % (Auto) 4.5 L 4.5 L Dolores % (Auto) 2.3 1.9 Eos % (Auto) 0.0 L 0.0 L Baso % (Auto) 0.1 0.0 Gran # 9.09 H 10.38 H Lymph # 0.4 L 0.5 L Dolores # 0.2 0.2 Eos # 0.0 0.0 Baso # 0.01 0.00 Neutrophils % (Manual) 92 H Lymphocytes % (Manual) 7 L Monocytes % (Manual) 1 Platelet Evaluation Normal Sodium 143 Potassium 4.1 Chloride 108 H Carbon Dioxide 25 Anion Gap 14 BUN 27 H Creatinine 0.9 Est GFR ( Amer) > 60 Est GFR (Non-Af Amer) > 60 Random Glucose 147 H Calcium 8.5 Phosphorus 2.9 Magnesium 2.1 Total Bilirubin 0.6 AST 29 ALT 40 Alkaline Phosphatase 78 Total Protein 5.6 L Albumin 2.8 L Globulin 2.9 Albumin/Globulin Ratio 1.0 L Assessment/Plan - Assessment and Plan (Free Text) Plan: Patient seen and examined with Dr Davey on rounds, agree with note. 81 M with a PMHx of Colon Cancer s/p chemo and resection PUD, COPD, thrombophlebitis, GERD, and chronic caldwell a/w PNA, COPD exacerbation, with hypoxic event, intubated and then extubated at the request of the , now DNR/ DNI. Comfortable on 4LNC, sat 97%. Awake, alert, following commands PNA Aspiration COPD exacerbation Leukocytosis Recommend - cont with supp o2 as needed, BIPAP as needed - aspiration precautions - duonebs PRN - Cont with Solumderol as per Pulmonary - Merrem, Doxy as per ID - consider starting low dose BB - sudden drop in platelets, repeat CBC - IVF hydration - FS control - BP control - Follow up heme onc - GI ppx - DVT ppx - Transfer to telemetry, stable
[2017-03-25] MEDS: Enoxaparin 40 mg Syringe SC SCH (09:28)
[2017-03-25] MEDS: Petrolatum Oint Foilpak (5 gm) TOP SCH (09:29)
[2017-03-25] MEDS: Megestrol Acetate 40 mg/ml Cup PO SCH (09:29)
[2017-03-25] MEDS: Meropenem 1g/NS 100mL IVPB 1 GM/100 ML PIGGYBACK IVPB SCH (09:30)
[2017-03-25] MEDS: MethylPREDNISolone 40 mg Vial IVP SCH ×2 (09:33→22:15)
[2017-03-25] MEDS: LUBIPROSTONE PO SCH ×2 (10:12→18:52)
[2017-03-25 13:13] LABS: GRAN # 10.38 (1.4-6.5); GRAN % 93.6 % (50.0-68.0); LYMPH # 0.5 (1.2-3.4); LYMPH % 4.5 % (22.0-35.0); MEAN CELL VOLUME 92.1 fl (80.0-105.0); MEAN CORPUSCULAR HEMOGLOBIN 30.9 pg (25.0-35.0); MEAN CORPUSCULAR HGB CONC 33.6 g/dl (31.0-37.0); MEAN PLATELET VOLUME 11.6 fl (7.0-11.0); MONO # 0.2 (0.1-0.6); MONO % 1.9 % (1.0-6.0); PLATELET COUNT 215 10^3/uL (120.0-450.0); RED CELL DISTRIBUTION WIDTH 14.8 % (11.5-14.5); WHITE BLOOD COUNT 11.1 10^3/ul (4.5-11.0)
--- NOTE | 2017-03-25 13:33 | CP.PCM.PN ---
Subjective - Date & Time of Evaluation Date of Evaluation: 03/25/17 Time of Evaluation: 10:10 - Subjective Subjective: Still sleepy but not in distress, no fevers overnight. Objective - Vital Signs/Intake and Output Vital Signs (last 24 hours): Temp Pulse Resp BP Pulse Ox 98.2 F 120 H 21 153/94 H 96 03/24/17 19:26 03/24/17 19:26 03/24/17 19:26 03/24/17 19:00 03/24/17 19:26 - Medications Medications: Current Medications Acetylcysteine (Acetylcysteine 20%) 4 ml IH [id number] [facility] Last Admin: 03/24/17 19:38 Dose: 4 ml Arformoterol Tartrate (Brovana) 15 mcg IH [id number] [facility] Last Admin: 03/24/17 19:38 Dose: 15 mcg Benzonatate (Tessalon Perles) 100 mg PO TID [facility] Last Admin: 03/24/17 17:17 Dose: Not Given Budesonide (Pulmicort Respules) 0.5 mg IH [id number] [facility] Last Admin: 03/24/17 19:38 Dose: 0.5 mg Docusate Sodium (Colace Liquid) 100 mg PO TID [facility] Last Admin: 03/24/17 17:47 Dose: 100 mg Emollient Ointment (Vaseline Oint) 5 gm TOP DAILY [facility] Enoxaparin Sodium (Lovenox) 40 mg SC DAILY [facility] PRN Reason: Protocol Last Admin: 03/24/17 10:45 Dose: 40 mg Glycopyrrolate (Robinul) 0.2 mg IV Q8 [facility] Guaifenesin/Dextromethorphan (Robitussin Dm) 10 ml PO Q4H PRN PRN Reason: Cough Last Admin: 03/23/17 13:29 Dose: 10 ml Home Med (Home Med) 25 unit PO BID [facility] Last Admin: 03/24/17 17:17 Dose: Not Given Doxycycline Hyclate 100 mg/ (Sodium Chloride) 100 mls @ 100 mls/hr IVPB Q12 [facility] PRN Reason: Protocol Stop: 03/28/17 22:01 Last Admin: 03/24/17 21:03 Dose: 100 mls/hr Meropenem 1g/NS 100mL IVPB (Meropenem 1g/Ns 100ml Ivpb) 1 gm in 100 mls @ 100 mls/hr IVPB Q12 [facility] PRN Reason: Protocol Stop: 06/27/17 10:01 Last Admin: 03/24/17 21:02 Dose: 100 mls/hr Sodium Chloride (Sodium Chloride 0.9%) 1,000 mls @ 60 mls/hr IV .[id number] [facility] Last Admin: 03/24/17 05:00 Dose: 60 mls/hr Megestrol Acetate (Megace) 200 mg PO DAILY [facility] Last Admin: 03/24/17 10:45 Dose: 200 mg Methylprednisolone (Solu-Medrol) 40 mg IVP Q12 [facility] Last Admin: 03/24/17 21:02 Dose: 40 mg Metoclopramide HCl (Reglan) 10 mg PO 0600,1130,1630,2200 [facility] Last Admin: 03/24/17 21:01 Dose: 10 mg Pantoprazole Sodium (Protonix Ec Tab) 40 mg PO 0600 [facility] Last Admin: 03/24/17 05:02 Dose: 40 mg Roflumilast (Daliresp) 500 mcg PO DAILY [facility] Last Admin: 03/24/17 10:46 Dose: 500 mcg Tamsulosin HCl (Flomax) 0.4 mg PO DAILY [facility] Last Admin: 03/24/17 10:46 Dose: 0.4 mg Zolpidem Tartrate (Ambien) 5 mg PO HS PRN; Protocol PRN Reason: Insomnia Last Admin: 03/22/17 22:16 Dose: 5 mg - Labs Labs: 03/24/17 05:30 03/24/17 05:30 PT 10.9 Seconds (9.9-11.8) 03/19/17 13:50 INR 1.01 (0.93-1.08) 03/19/17 13:50 APTT 27.3 Seconds (23.7-30.8) 03/19/17 13:50 - Constitutional Appears: Non-toxic, No Acute Distress, Chronically Ill - Head Exam Head Exam: NORMAL INSPECTION - Neck Exam Neck Exam: absent: Meningismus - Respiratory Exam Respiratory Exam: Decreased Breath Sounds - Cardiovascular Exam Cardiovascular Exam: +S1, +S2 - GI/Abdominal Exam GI & Abdominal Exam: Soft. absent: Tenderness Assessment and Plan - Assessment and Plan (Free Text) Plan: Assessment Consider sepsis due to multifocal healthcare-associated pneumonia in this patient with dysphagia; S/P ventilator-dependent respiratory failure colon cancer on chemotherapy S/P resection peptic ulcer disease BPH COPD glaucoma GERD chronic caldwell catheter use Plan Started patient on Doxycycline and Merrem day 6 to complete up to 7 days of antibiotics will continue to monitor clinically
[2017-03-25 14:03] LABS: NEUTROPHIL 92 % (50.0-70.0); PLATELET ESTIMATE NORMAL (NORMAL)
--- NOTE | 2017-03-25 14:05 | CP.PCM.PN ---
<Franchesca Manzo - Last Filed: 03/25/17 13:56> Subjective - Date & Time of Evaluation Date of Evaluation: 03/25/17 Time of Evaluation: 09:10 - Subjective Subjective: GI covering for Dr. Tavarez Seen and examined at the bedside earlier today, the chart was reviewed. Patient remains with NG tube, tolerating tube feeds, no reports of high residuals. Denies report of nausea, vomiting. No acute overnight events reported. Objective - Vital Signs/Intake and Output Vital Signs (last 24 hours): Temp Pulse Resp BP Pulse Ox 98.2 F 110 H 20 153/94 H 96 03/25/17 06:00 03/25/17 06:00 03/25/17 06:00 03/24/17 19:00 03/25/17 06:00 Intake and Output: 03/25/17 03/25/17 06:59 18:59 Intake Total 1570 Output Total 600 Balance 970 - Medications Medications: Current Medications Acetylcysteine (Acetylcysteine 20%) 4 ml IH [id number] [facility] Last Admin: 03/25/17 07:20 Dose: 4 ml Arformoterol Tartrate (Brovana) 15 mcg IH [id number] [facility] Last Admin: 03/25/17 07:20 Dose: 15 mcg Benzonatate (Tessalon Perles) 100 mg PO TID [facility] Last Admin: 03/25/17 09:30 Dose: 100 mg Budesonide (Pulmicort Respules) 0.5 mg IH [id number] [facility] Last Admin: 03/25/17 07:20 Dose: 0.5 mg Docusate Sodium (Colace Liquid) 100 mg PO TID [facility] Last Admin: 03/25/17 09:29 Dose: 100 mg Emollient Ointment (Vaseline Oint) 5 gm TOP DAILY [facility] Last Admin: 03/25/17 09:29 Dose: 5 gm Enoxaparin Sodium (Lovenox) 40 mg SC DAILY [facility] PRN Reason: Protocol Last Admin: 03/25/17 09:28 Dose: 40 mg Guaifenesin/Dextromethorphan (Robitussin Dm) 10 ml PO Q4H PRN PRN Reason: Cough Last Admin: 03/23/17 13:29 Dose: 10 ml Home Med (Home Med) 25 unit PO BID [facility] Last Admin: 03/25/17 10:12 Dose: Not Given Doxycycline Hyclate 100 mg/ (Sodium Chloride) 100 mls @ 100 mls/hr IVPB Q12 [facility] PRN Reason: Protocol Stop: 03/28/17 22:01 Last Admin: 03/24/17 21:03 Dose: 100 mls/hr Meropenem 1g/NS 100mL IVPB (Meropenem 1g/Ns 100ml Ivpb) 1 gm in 100 mls @ 100 mls/hr IVPB Q12 [facility] PRN Reason: Protocol Stop: 06/27/17 10:01 Last Admin: 03/25/17 09:30 Dose: 100 mls/hr Sodium Chloride (Sodium Chloride 0.9%) 1,000 mls @ 60 mls/hr IV .[id number] [facility] Last Admin: 03/25/17 05:13 Dose: 60 mls/hr Megestrol Acetate (Megace) 200 mg PO DAILY [facility] Last Admin: 03/25/17 09:29 Dose: 200 mg Methylprednisolone (Solu-Medrol) 40 mg IVP Q12 [facility] Last Admin: 03/25/17 09:33 Dose: 40 mg Metoclopramide HCl (Reglan) 10 mg PO 0600,1130,1630,2200 [facility] Last Admin: 03/25/17 05:13 Dose: 10 mg Pantoprazole Sodium (Protonix Ec Tab) 40 mg PO 0600 [facility] Last Admin: 03/25/17 05:13 Dose: 40 mg Roflumilast (Daliresp) 500 mcg PO DAILY [facility] Last Admin: 03/25/17 09:30 Dose: 500 mcg Tamsulosin HCl (Flomax) 0.4 mg PO DAILY [facility] Last Admin: 03/25/17 09:30 Dose: 0.4 mg Zolpidem Tartrate (Ambien) 5 mg PO HS PRN; Protocol PRN Reason: Insomnia Last Admin: 03/24/17 23:56 Dose: 5 mg - Labs Labs: 03/25/17 13:10 03/25/17 05:15 PT 10.9 Seconds (9.9-11.8) 03/19/17 13:50 INR 1.01 (0.93-1.08) 03/19/17 13:50 APTT 27.3 Seconds (23.7-30.8) 03/19/17 13:50 - Constitutional Appears: No Acute Distress - Eye Exam Eye Exam: Normal appearance. absent: Scleral icterus - ENT Exam ENT Exam: Mucous Membranes Moist - Neck Exam Neck Exam: Normal Inspection - Respiratory Exam Respiratory Exam: Clear to Ausculation Bilateral, NORMAL BREATHING PATTERN. absent: Rales, Wheezes, Respiratory Distress - Cardiovascular Exam Cardiovascular Exam: +S1, +S2 - GI/Abdominal Exam GI & Abdominal Exam: Soft, Normal Bowel Sounds. absent: Guarding, Tenderness, Rebound - Extremities Exam Extremities Exam: Normal Capillary Refill. absent: Calf Tenderness, Pedal Edema - Neurological Exam Neurological Exam: Alert, Awake, Oriented x3 - Skin Skin Exam: Dry, Warm Assessment and Plan - Assessment and Plan (Free Text) Assessment: Assessment: Oropharyngeal dysphagia Weight loss Pneumonia COPD History of colon cancer History of Billroth II with gastroparesis Esophageal candidiasis Plan: Continue feedings as tolerated Continue PPI. On Reglan On Solu-Medrol Continue bowel regimen On IV antibiotics as per ID On Solu-Medrol Patient may benefit from a jejunostomy tube as opposed to endoscopic placed feeding tube, history of gastric surgery. Seen and discussed with . <Vinicio Galaviz V - Last Filed: 03/25/17 19:28> Objective - Vital Signs/Intake and Output Vital Signs (last 24 hours): Temp Pulse Resp BP Pulse Ox 98.2 F 122 H 20 176/89 H 96 03/25/17 06:00 03/25/17 16:16 03/25/17 06:00 03/25/17 16:16 03/25/17 06:00 - Medications Medications: Current Medications Acetylcysteine (Acetylcysteine 20%) 4 ml IH [id number] [facility] Last Admin: 03/25/17 07:20 Dose: 4 ml Arformoterol Tartrate (Brovana) 15 mcg IH [id number] [facility] Last Admin: 03/25/17 07:20 Dose: 15 mcg Benzonatate (Tessalon Perles) 100 mg PO TID [facility] Last Admin: 03/25/17 18:55 Dose: 100 mg Budesonide (Pulmicort Respules) 0.5 mg IH [id number] [facility] Last Admin: 03/25/17 07:20 Dose: 0.5 mg Docusate Sodium (Colace Liquid) 100 mg PO TID [facility] Last Admin: 03/25/17 18:55 Dose: 100 mg Emollient Ointment (Vaseline Oint) 5 gm TOP DAILY [facility] Last Admin: 03/25/17 09:29 Dose: 5 gm Enoxaparin Sodium (Lovenox) 40 mg SC DAILY [facility] PRN Reason: Protocol Last Admin: 03/25/17 09:28 Dose: 40 mg Guaifenesin/Dextromethorphan (Robitussin Dm) 10 ml PO Q4H PRN PRN Reason: Cough Last Admin: 03/23/17 13:29 Dose: 10 ml Home Med (Home Med) 25 unit PO BID [facility] Last Admin: 03/25/17 18:52 Dose: Not Given Doxycycline Hyclate 100 mg/ (Sodium Chloride) 100 mls @ 100 mls/hr IVPB Q12 [facility] PRN Reason: Protocol Stop: 03/28/17 22:01 Last Admin: 03/25/17 15:54 Dose: 100 mls/hr Meropenem 1g/NS 100mL IVPB (Meropenem 1g/Ns 100ml Ivpb) 1 gm in 100 mls @ 100 mls/hr IVPB Q12 [facility] PRN Reason: Protocol Stop: 06/27/17 10:01 Last Admin: 03/25/17 09:30 Dose: 100 mls/hr Sodium Chloride (Sodium Chloride 0.9%) 1,000 mls @ 60 mls/hr IV .[id number] [facility] Last Admin: 03/25/17 05:13 Dose: 60 mls/hr Megestrol Acetate (Megace) 200 mg PO DAILY [facility] Last Admin: 03/25/17 09:29 Dose: 200 mg Methylprednisolone (Solu-Medrol) 40 mg IVP Q12 [facility] Last Admin: 03/25/17 09:33 Dose: 40 mg Metoclopramide HCl (Reglan) 10 mg PO 0600,1130,1630,2200 [facility] Last Admin: 03/25/17 18:55 Dose: 10 mg Metoprolol Tartrate (Lopressor) 12.5 mg PO BRKDIN [facility] Last Admin: 03/25/17 16:16 Dose: 12.5 mg Pantoprazole Sodium (Protonix Ec Tab) 40 mg PO 0600 [facility] Last Admin: 03/25/17 05:13 Dose: 40 mg Roflumilast (Daliresp) 500 mcg PO DAILY [facility] Last Admin: 03/25/17 09:30 Dose: 500 mcg Tamsulosin HCl (Flomax) 0.4 mg PO DAILY [facility] Last Admin: 03/25/17 09:30 Dose: 0.4 mg Zolpidem Tartrate (Ambien) 5 mg PO HS PRN; Protocol PRN Reason: Insomnia Last Admin: 03/24/17 23:56 Dose: 5 mg - Labs Labs: 03/25/17 13:10 03/25/17 05:15 PT 10.9 Seconds (9.9-11.8) 03/19/17 13:50 INR 1.01 (0.93-1.08) 03/19/17 13:50 APTT 27.3 Seconds (23.7-30.8) 03/19/17 13:50 Attending/Attestation - Attestation I have personally seen and examined this patient.: Yes I have fully participated in the care of the patient.: Yes I have reviewed all pertinent clinical information, including history, physical exam and plan: Yes Notes (Text): This is an addendum to GI progress report dictated by Franchesca Manzo APN.The patient was seen and examined earlier. Medical records, lab studies, imagings were reviewed. Last 24 hours events reviewed. Agreed with the above treatment plan as outlined in Franchesca Manzo NP's notes the with the addition of the following recurrent aspiration pneumonia Patient has some difficulty with liquids suggesting of motility dysfunction Status post EGD on candidiasis no obstructing lesion Status post Billroth II gastrectomy Recommendations Continue present antibiotic regimen for pneumonia On NG tube feeding Patient may benefit jejunostomy for nutritional support as patient may not be able to take enough calories with with this amount of significant oropharyngeal dysphagia Would recommend to consider this after further optimization of his present condition would not recommend PEG tube in view of Billroth II gastrectomy and a history of gastroparesis which was noticed in the previous EGD notes dictated by Dr. Galaviz covering for Dr. Ej Tavarez 03/25/17 19:22
--- NOTE | 2017-03-26 00:34 | CON ---
DATE: 03/25/2017 CARDIOLOGY CONSULTATION HISTORY: The patient is an 81-year-old male who is in the ICU after a syncopal episode after attempt at placing a feeding tube. The patient has been complaining of dysphagia His past medical history includes a history of colon CA which has since been cured. In addition, the patient suffers from COPD. He denies chest pain, denies shortness of breath. No previous cardiac history is noted. Social history and review of systems was reviewed from previous notes. PHYSICAL EXAMINATION VITAL SIGNS: On physical exam, blood pressure is 153/94, heart rate is sinus rhythm with frequent APCs and PVCs. NECK: Negative JVD. LUNGS: Without rales. HEART: S1, S2 with a short systolic ejection murmur. EXTREMITIES: Without edema. EKG shows a right bundle-branch block with frequent APCs and PVCs. LABORATORY: Troponins peaked at 0.05 with a potassium of 4.1. The hemoglobin is 12.1. IMPRESSION 1. Syncope after passing a feeding tube. 2. Echocardiogram reveals no left ventricle outflow obstruction with no aortic stenosis. 3. Mild cardiomyopathy. 4. Chronic obstructive pulmonary disease. 5. Frequent atrial premature complexes and premature ventricular contractions on telemetry and monitoring in the intensive care unit. Given these findings, we will continue on telemetry for the next 24 hours. We will need to correct his electrolytes. ADDENDUM The magnesium and potassium are within normal limits. Given these findings, we will start the patient on low-dose beta-blockers. Aries Wheeler MD
--- NOTE | 2017-03-26 03:21 | PN ---
DATE: 03/25/2017 PULMONARY PROGRESS NOTE REFERRING PHYSICIAN: Dr. Jefferson Chaudhry. SUBJECTIVE: He is lying in the bed. Had a feeding tube guiding feeding. Feels better, decrease pulmonary secretion, but still has some, unable to clear to it. No hemoptysis, no hematemesis, no hematuria, no diarrhea reported. He has some cardiac arrhythmia today. OBJECTIVE: GENERAL: No acute distress. VITAL SIGNS: Temperature is 98, heart rate 110 to 120, respiratory rate 20, blood pressure 176/89, and pulse ox 96% on nasal cannula. HEENT: Moist mucous membranes. Has pharyngeal secretion. Nasogastric tube is in. NECK: Scattered rhonchi. HEART: Irregularly irregular with tachycardia. ABDOMEN: Soft and nontender. No organomegaly. EXTREMITIES: No edema. NEUROLOGICAL: Awake, alert, follow simple commands. MEDICATIONS: He is on Mucomyst 20% inhaled twice a day, Ambien 5 mg at bedtime p.r.n. for insomnia, Brovana 50 mcg inhaled twice a day, Colace 100 mg 3 times a day, Daliresp 500 mcg daily, doxycycline 100 mg twice a day, Flomax 0.4 mg daily, also getting metoprolol tartrate started today 12.5 mg twice a day, Lovenox 40 mg daily, Megace 200 mg daily, getting meropenem 1 g IV q. 12 hours, Protonix 40 mg daily, Pulmicort inhaled twice a day, Reglan 10 mg q.i.d., Robitussin DM 10 mL q. 4 hours p.r.n., IV fluid normal saline 60 mL/hour, Solu-Medrol 40 mg q. 12 hours, Tessalon Perles 100 mg 3 times a day, Vaseline ointment affected area. LABORATORY DATA: Shows hemoglobin 12.1, hematocrit 36.1, WBC 11.1, platelet is 215. Sodium 143, potassium 4.1, chloride 108, bicarbonate 25, BUN 27, creatinine 0.9, glucose 147, calcium is 8.5, phosphorous 2.9, magnesium 2.1. AST 29, ALT 40, alkaline phosphatase is 87, albumin is 2.8. Microbiology sputum culture has some yeast. 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 Her echocardiogram done, report is pending. IMPRESSION AND PLAN: Multi-lobe pneumonia, probably aspiration, status post respiratory failure requiring high-flow oxygen. At one point, he was intubated. Has a good history of partial gastrectomy in the remote past, malnourished, severe oropharyngeal dysphagia. Has a cardiac arrhythmia, hence today cardiology consult has been called, spoke to the nursing staff. We will keep feeding through the nasogastric tube for no aspiration precaution. Continue broad-spectrum antibiotics accompanying healthcare-associated organism. Continue nebulizer treatment, glycopyrrolate was started, which was stopped because of cardiac arrhythmia. May need to get neurology consult to rule out demyelination disease and neuropathy. Followup ABG chest x-ray, CBC, CMP in the morning. Critical care time more than 35 minutes. Thank you and we will follow with you. Andrea Page MD
[2017-03-26] MEDS: Meropenem 1g/NS 100mL IVPB 1 GM/100 ML PIGGYBACK IVPB SCH ×3 (06:22→21:08)
[2017-03-26] MEDS: Arformoterol 15 mcg/2 ml Inh Sol IH SCH ×2 (07:32→20:57)
[2017-03-26] MEDS: Budesonide 0.5 mg/2 ml Inhal Susp UD IH SCH ×2 (07:32→20:57)
[2017-03-26] MEDS: Acetylcysteine 20% Inhal Soln (4ml) IH SCH ×2 (07:32→20:57)
[2017-03-26 07:52] LABS: ALKALINE PHOSPHATASE 87 U/L (38-126); ALT/SGPT 37 U/L (7-56); AST/SGOT 38 U/L (17-59); BASO # 0.01 K/mm3 (0.0-2.0); BASO % 0.1 % (0.0-3.0); BILIRUBIN,TOTAL 0.9 mg/dL (0.2-1.3); BLOOD UREA NITROGEN 28 mg/dL (7-21); CALCIUM 8.8 mg/dL (8.4-10.5); CARBON DIOXIDE 29 mmol/L (21-33); CHLORIDE 103 mmol/L (98-107); EOS % 0.2 % (1.5-5.0); GFR AFRICAN-AMERICAN > 60; GLUCOSE,RANDOM 110 mg/dL (70-110); GRAN # 10.06 (1.4-6.5); HEMATOCRIT 36.5 % (42.0-52.0); LYMPH # 0.7 (1.2-3.4); LYMPH % 6.5 % (22.0-35.0); MEAN CELL VOLUME 92.2 fl (80.0-105.0); MEAN CORPUSCULAR HEMOGLOBIN 30.8 pg (25.0-35.0); MEAN CORPUSCULAR HGB CONC 33.4 g/dl (31.0-37.0); MEAN PLATELET VOLUME 11.4 fl (7.0-11.0); MONO # 0.6 (0.1-0.6); MONO % 5.2 % (1.0-6.0); PHOSPHOROUS 2.3 mg/dL (2.5-4.5); POTASSIUM 4.4 mmol/L (3.6-5.0); RED CELL DISTRIBUTION WIDTH 14.4 % (11.5-14.5); SODIUM 141 mmol/L (132-148); WHITE BLOOD COUNT 11.4 10^3/ul (4.5-11.0)
[2017-03-26] MEDS ORDERED: Potassium & Sodium Phosphate PO ONE (09:30)
--- NOTE | 2017-03-26 09:37 | CP.CCUPN ---
<Shabana Davey - Last Filed: 03/26/17 09:34> CCU Subjective - Physician Review Events Since Last Encounter (Free Text): 03/26/17 09:34 No acute events overnight Subjective (Free Text): 03/25/17 07:45 Critical care progress note for Dr. Gary Davey, PGY-1 Pt S & E at bedside. Pt w/o complaints overnight. Reports hunger. Denies N/V/F/C, SOB, palpitations, ab pain. 03/26/17 09:34 Critical care progress note for Dr. Law Davey, PGY-1 Pt S & E at bedside. Pt reports mucus production overnight, has to suction his mouth/cough to remove them. Was cold overnight- no chills. Denies N/V/F/C, SOB, CP, palpitations, ab pain, other complaints. Critical Care Time Spent (in minutes): 35 CCU Objective - Vital Signs / Intake & Output Vital Signs (Last 4 hours): Vital Signs Temp Pulse Resp BP Pulse Ox 03/26/17 08:32 93 H 141/71 03/26/17 06:50 112 H 20 94 L 03/26/17 06:41 116 H 26 H 03/26/17 06:40 122 H 97 03/26/17 06:30 96 03/26/17 06:20 99 03/26/17 06:10 97 03/26/17 06:00 98 F 128 H 47 H 169/89 H 85 L 03/26/17 05:50 105 H 17 99 03/26/17 05:40 108 H 21 99 Intake and Output (Last 8hrs): Intake & Output 03/25/17 03/26/17 03/26/17 22:59 06:59 14:59 Intake Total 900 Output Total 1000 Balance -100 Intake: Tube Feeding 900 Output: Urine 1000 2-way Urethral 1000 - Physical Exam Head: Positive for: Atraumatic, Normocephalic Pupils: Positive for: PERRL Extroacular Muscles: Positive for: EOMI Conjunctiva: Positive for: Normal Ears: Positive for: Normal Mouth: Positive for: Dry Nose (External): Positive for: Atraumatic, Other (Dobhoff in place in left nostril) Neck: Positive for: Normal Range of Motion Respiratory/Chest: Positive for: Good Air Exchange, Rhonchi. Negative for: Clear to Auscultation, Respiratory Distress, Accessory Muscle Use, Wheezes, Decreased Breath Sounds, Rales, Tachypneic Cardiovascular: Positive for: Normal S1, S2, Tachycardic. Negative for: Murmurs Abdomen: Positive for: Normal Bowel Sounds. Negative for: Tenderness, Distention, Peritoneal Signs Genitourinary Male: Positive for: Other (yellow urine from caldwell bag) Upper Extremity: Positive for: Normal Inspection. Negative for: Cyanosis, Edema Lower Extremity: Positive for: Normal Inspection. Negative for: Edema, Swelling Neurological: Positive for: GCS=15, CN II-XII Intact, Speech Normal Skin: Positive for: Warm, Dry, Normal Color. Negative for: Rashes Psychiatric: Positive for: Alert, Oriented x 3, Normal Insight, Normal Concentration - Medications Active Medications: Active Medications Generic Name Dose Route Start Last Admin Trade Name Freq PRN Reason Stop Dose Admin Acetylcysteine 4 ml 03/20/17 08:00 03/26/17 07:32 Acetylcysteine 20% IH 4 ml [id number] CORINE Administration Arformoterol Tartrate 15 mcg 03/20/17 08:00 03/26/17 07:32 Brovana IH 15 mcg [id number] CORINE Administration Benzonatate 100 mg 03/20/17 10:00 03/25/17 18:55 Tessalon Perles PO 100 mg TID CORINE Administration Budesonide 0.5 mg 03/20/17 08:00 03/26/17 07:32 Pulmicort Respules IH 0.5 mg [id number] CORINE Administration Docusate Sodium 100 mg 03/21/17 14:00 03/25/17 18:55 Colace Liquid PO 100 mg TID CORINE Administration Emollient Ointment 5 gm 03/25/17 10:00 03/25/17 09:29 Vaseline Oint TOP 5 gm DAILY CORINE Administration Enoxaparin Sodium 40 mg 03/20/17 10:00 03/25/17 09:28 Lovenox SC 40 mg DAILY CORINE Administration Protocol Guaifenesin/Dextromethorphan 10 ml 03/23/17 11:53 03/23/17 13:29 Robitussin Dm PO 10 ml Q4H PRN Administration Cough Home Med 25 unit 03/22/17 18:54 09/18/17 18:52 Home Med PO Not Given BID CORINE Doxycycline Hyclate 100 mg/ 100 mls @ 100 mls/hr 03/19/17 22:00 03/25/17 22: 13 Sodium Chloride IVPB 03/28/17 22:01 100 mls/hr Q12 CORINE Administration Protocol Meropenem 1g/NS 100mL IVPB 1 gm in 100 mls @ 100 mls/hr 03/20/17 10:00 06:22 Meropenem 1g/Ns 100ml Ivpb IVPB 06/27/17 10:01 100 mls/hr Q12 CORINE Administration Protocol Megestrol Acetate 200 mg 03/22/17 10:00 03/25/17 09:29 Megace PO 200 mg DAILY CORINE Administration Methylprednisolone 40 mg 03/19/17 23:45 03/25/17 22:15 Solu-Medrol IVP 40 mg Q12 CORINE Administration Metoclopramide HCl 10 mg 03/20/17 06:00 03/26/17 06:23 Reglan PO 10 mg 0600,1130,1630,2200 CORINE Administration Metoprolol Tartrate 12.5 mg 03/25/17 17:00 03/26/17 08:32 Lopressor PO 12.5 mg BRKDIN CORINE Administration Pantoprazole Sodium 40 mg 03/20/17 06:00 03/25/17 05:13 Protonix Ec Tab PO 40 mg 0600 CORINE Administration Roflumilast 500 mcg 03/20/17 10:00 03/25/17 09:30 Daliresp PO 500 mcg DAILY CORINE Administration Tamsulosin HCl 0.4 mg 03/20/17 10:00 03/25/17 09:30 Flomax PO 0.4 mg DAILY CORINE Administration Zolpidem Tartrate 5 mg 03/22/17 14:22 03/25/17 23:30 Ambien PO 5 mg HS PRN Administration Insomnia Protocol - Patient Studies Lab Studies: Microbiology Studies 03/23/17 01:20 Blood Culture - Preliminary Blood NO GROWTH AFTER 48 HOURS 03/23/17 01:20 Blood Culture - Preliminary Blood NO GROWTH AFTER 48 HOURS 03/23/17 23:00 MRSA Culture (Admit) - Final Naris MRSA NOT DETECTED 03/22/17 20:39 Gram Stain - Final Sputum Sputum Culture - Final Yeast Species Lab Studies 03/26/17 03/26/17 03/25/17 Range/Units 06:33 06:33 13:10 WBC 11.4 H 11.1 H (4.5-11.0) 10^3/ul RBC 3.96 3.91 (3.5-6.1) 10^6/uL Hgb 12.2 L 12.1 L (14.0-18.0) g/dL Hct 36.5 L 36.0 L (42.0-52.0) % MCV 92.2 92.1 (80.0-105.0) fl MCH 30.8 30.9 (25.0-35.0) pg MCHC 33.4 33.6 (31.0-37.0) g/dl RDW 14.4 14.8 H (11.5-14.5) % Plt Count 216 215 (120.0-450.0) 10^3/uL MPV 11.4 H 11.6 H (7.0-11.0) fl Gran % 88.0 H 93.6 H (50.0-68.0) % Lymph % (Auto) 6.5 L 4.5 L (22.0-35.0) % Trigg % (Auto) 5.2 1.9 (1.0-6.0) % Eos % (Auto) 0.2 L 0.0 L (1.5-5.0) % Baso % (Auto) 0.1 0.0 (0.0-3.0) % Gran # 10.06 H 10.38 H (1.4-6.5) Lymph # 0.7 L 0.5 L (1.2-3.4) Trigg # 0.6 0.2 (0.1-0.6) Eos # 0.0 0.0 (0.0-0.7) Baso # 0.01 0.00 (0.0-2.0) K/mm3 Neutrophils % (Manual) 92 H (50.0-70.0) % Lymphocytes % (Manual) 7 L (22.0-35.0) % Monocytes % (Manual) 1 (1.0-6.0) % Platelet Evaluation Normal (NORMAL) Sodium 141 (132-148) mmol/L Potassium 4.4 (3.6-5.0) mmol/L Chloride 103 (98-107) mmol/L Carbon Dioxide 29 (21-33) mmol/L Anion Gap 13 (10-20) BUN 28 H (7-21) mg/dL Creatinine 0.8 (0.5-1.4) mg/dL Est GFR ( Amer) > 60 Est GFR (Non-Af Amer) > 60 Random Glucose 110 (70-110) mg/dL Calcium 8.8 (8.4-10.5) mg/dL Phosphorus 2.3 L (2.5-4.5) mg/dL Magnesium 2.0 (1.7-2.2) mg/dL Total Bilirubin 0.9 (0.2-1.3) mg/dL AST 38 (17-59) U/L ALT 37 (7-56) U/L Alkaline Phosphatase 87 (38-126) U/L Total Protein 6.0 (5.8-8.3) g/dL Albumin 3.0 (3.0-4.8) g/dL Globulin 3.0 gm/dL Albumin/Globulin Ratio 1.0 L (1.1-1.8) Laboratory Results - last 24 hr 03/25/17 03/26/17 03/26/17 13:10 06:33 06:33 WBC 11.1 H 11.4 H RBC 3.91 3.96 Hgb 12.1 L 12.2 L Hct 36.0 L 36.5 L MCV 92.1 92.2 MCH 30.9 30.8 MCHC 33.6 33.4 RDW 14.8 H 14.4 Plt Count 215 216 MPV 11.6 H 11.4 H Gran % 93.6 H 88.0 H Lymph % (Auto) 4.5 L 6.5 L Trigg % (Auto) 1.9 5.2 Eos % (Auto) 0.0 L 0.2 L Baso % (Auto) 0.0 0.1 Gran # 10.38 H 10.06 H Lymph # 0.5 L 0.7 L Trigg # 0.2 0.6 Eos # 0.0 0.0 Baso # 0.00 0.01 Neutrophils % (Manual) 92 H Lymphocytes % (Manual) 7 L Monocytes % (Manual) 1 Platelet Evaluation Normal Sodium 141 Potassium 4.4 Chloride 103 Carbon Dioxide 29 Anion Gap 13 BUN 28 H Creatinine 0.8 Est GFR ( Amer) > 60 Est GFR (Non-Af Amer) > 60 Random Glucose 110 Calcium 8.8 Phosphorus 2.3 L Magnesium 2.0 Total Bilirubin 0.9 AST 38 ALT 37 Alkaline Phosphatase 87 Total Protein 6.0 Albumin 3.0 Globulin 3.0 Albumin/Globulin Ratio 1.0 L Review of Systems - Review of Systems All systems: reviewed and no additional remarkable complaints except - Constitutional Constitutional: absent: Fever, Chills - EENT Nose/Mouth/Throat: Dry Mouth, Dysphagia - Cardiovascular Cardiovascular: UNREMARKABLE. absent: Chest Pain - Respiratory Respiratory: Cough - Gastrointestinal Gastrointestinal: UNREMARKABLE. absent: Abdominal Pain, Nausea, Vomiting - Genitourinary Genitourinary: Other (indwelling caldwell) - Integumentary Integumentary: UNREMARKABLE - Neurological Neurological: UNREMARKABLE Critical Care Progress Note - Extremities/Vascular Does the Patient have a Central Venous Catheter?: No Does the Patient need a Central Venous Catheter?: No Does the Patient have a Caldwell Catheter?: Yes Does the Patient need a Caldwell Catheter?: Yes Catheter Insertion Criteria: Neurogenic bladder - Prophylaxis GI Prophylaxis GI: PPI - Prophylaxis DVT Prophylaxis DVT: SCDs Assessment/Plan - Assessment and Plan (Free Text) Assessment: 81M w/PMH sig for Colon Cancer s/p chemo and resection PUD, COPD, thrombophlebitis, GERD, and chronic indwelling caldwell admitted for PNA, COPD exacerbation s/p hypoxic event yesterday, DNR/DNI, stable overnight. Transferred to [facility] [place]. Plan: Neuro AOx 3 Ambien PRN insomnia Stable CVS Tachycardia Episodes of HTN Lopressor started Monitor Pulm PNA COPD exacerbation Acetylcysteine Brovana Tessalon perles Pulmicort Doxycycline Glycopyrrolate Robitussin PRN Solu-Medrol 40mg Q12H Roflumilast Bipap PRN O2 via NC/high humidity Legionella neg SaO2 94% on 4L via NC Target SaO2>88% PUlm following GI Hx Colon CA Dobhoff in place On tube feeds NPO 2/2 dysphagia Colace Megace Reglan Aspiration precautions Sputum pos for yeast species Diet: finely chopped consistency diet w/thin liquids, strict aspiration precautions GI following Chronic indwelling Caldwell in place VRE UTI Flomax Monitor Uro following Nephro Free water 60cc Q1H No IV access Hyperchloridemia- resolved Hypophosphatemia 2.3 Neutra-phos x 1 Other elecytrolytes WNL Monitor ID Afebrile over last 24H Leukocytosis 11.4 from 11.1 VRE UTI Blood cx neg x 48H Sputum cx pos for yeast Merrem ID following Endo BS 110 Target euglycemia Heme/onc Hx Colon CA Thrombocytopenia-resolved- 216 from 48 (probably lab error) Heme following MSK Vasoline to lips Monitor for skin breakdown Consider PT/OT GI/DVT ppx Lovenox Protonix Dispo Stable Transfer to tele DNR/DNI DW attending Tamica, PGY-1 - Date & Time Date: 03/26/17 Time: 07:00 <Osbaldo Castillo - Last Filed: 03/26/17 11:38> CCU Objective - Vital Signs / Intake & Output Vital Signs (Last 4 hours): Vital Signs Pulse BP 03/26/17 08:32 93 H 141/71 Intake and Output (Last 8hrs): Intake & Output 03/25/17 03/26/17 03/26/17 22:59 06:59 14:59 Intake Total 900 Output Total 1000 Balance -100 Intake: Tube Feeding 900 Output: Urine 1000 2-way Urethral 1000 - Medications Active Medications: Active Medications Generic Name Dose Route Start Last Admin Trade Name Laurentq PRN Reason Stop Dose Admin Acetylcysteine 4 ml 03/20/17 08:00 03/26/17 07:32 Acetylcysteine 20% IH 4 ml [id number] CORINE Administration Arformoterol Tartrate 15 mcg 03/20/17 08:00 03/26/17 07:32 Brovana IH 15 mcg [id number] CORINE Administration Benzonatate 100 mg 03/20/17 10:00 03/25/17 18:55 Tessalon Perles PO 100 mg TID CORINE Administration Budesonide 0.5 mg 03/20/17 08:00 03/26/17 07:32 Pulmicort Respules IH 0.5 mg [id number] CORINE Administration Docusate Sodium 100 mg 03/21/17 14:00 03/25/17 18:55 Colace Liquid PO 100 mg TID CORINE Administration Emollient Ointment 5 gm 03/25/17 10:00 03/25/17 09:29 Vaseline Oint TOP 5 gm DAILY CORINE Administration Enoxaparin Sodium 40 mg 03/20/17 10:00 03/25/17 09:28 Lovenox SC 40 mg DAILY CORINE Administration Protocol Guaifenesin/Dextromethorphan 10 ml 03/23/17 11:53 03/23/17 13:29 Robitussin Dm PO 10 ml Q4H PRN Administration Cough Home Med 25 unit 03/22/17 18:54 03/25/17 18:52 Home Med PO Not Given BID CORINE Doxycycline Hyclate 100 mg/ 100 mls @ 100 mls/hr 03/19/17 22:00 03/25/17 22: 13 Sodium Chloride IVPB 03/28/17 22:01 100 mls/hr Q12 CORINE Administration Protocol Meropenem 1g/NS 100mL IVPB 1 gm in 100 mls @ 100 mls/hr 03/20/17 10:00 06:22 Meropenem 1g/Ns 100ml Ivpb IVPB 06/27/17 10:01 100 mls/hr Q12 CORINE Administration Protocol Megestrol Acetate 200 mg 03/22/17 10:00 03/25/17 09:29 Megace PO 200 mg DAILY CORINE Administration Methylprednisolone 40 mg 03/19/17 23:45 03/25/17 22:15 Solu-Medrol IVP 40 mg Q12 CORINE Administration Metoclopramide HCl 10 mg 03/20/17 06:00 03/26/17 06:23 Reglan PO 10 mg 0600,1130,1630,2200 CORINE Administration Metoprolol Tartrate 12.5 mg 03/25/17 17:00 03/26/17 08:32 Lopressor PO 12.5 mg BRKDIN CORINE Administration Pantoprazole Sodium 40 mg 03/20/17 06:00 03/25/17 05:13 Protonix Ec Tab PO 40 mg 0600 CORINE Administration Roflumilast 500 mcg 03/20/17 10:00 03/25/17 09:30 Daliresp PO 500 mcg DAILY CORINE Administration Tamsulosin HCl 0.4 mg 03/20/17 10:00 03/25/17 09:30 Flomax PO 0.4 mg DAILY CORINE Administration Zolpidem Tartrate 5 mg 03/22/17 14:22 03/25/17 23:30 Ambien PO 5 mg HS PRN Administration Insomnia Protocol - Patient Studies Lab Studies: Microbiology Studies 03/23/17 01:20 Blood Culture - Preliminary Blood NO GROWTH AFTER 48 HOURS 03/23/17 01:20 Blood Culture - Preliminary Blood NO GROWTH AFTER 48 HOURS 03/23/17 23:00 MRSA Culture (Admit) - Final Naris MRSA NOT DETECTED 03/22/17 20:39 Gram Stain - Final Sputum Sputum Culture - Final Yeast Species Lab Studies 03/26/17 03/26/17 03/25/17 Range/Units 06:33 06:33 13:10 WBC 11.4 H 11.1 H (4.5-11.0) 10^3/ul RBC 3.96 3.91 (3.5-6.1) 10^6/uL Hgb 12.2 L 12.1 L (14.0-18.0) g/dL Hct 36.5 L 36.0 L (42.0-52.0) % MCV 92.2 92.1 (80.0-105.0) fl MCH 30.8 30.9 (25.0-35.0) pg MCHC 33.4 33.6 (31.0-37.0) g/dl RDW 14.4 14.8 H (11.5-14.5) % Plt Count 216 215 (120.0-450.0) 10^3/uL MPV 11.4 H 11.6 H (7.0-11.0) fl Gran % 88.0 H 93.6 H (50.0-68.0) % Lymph % (Auto) 6.5 L 4.5 L (22.0-35.0) % Trigg % (Auto) 5.2 1.9 (1.0-6.0) % Eos % (Auto) 0.2 L 0.0 L (1.5-5.0) % Baso % (Auto) 0.1 0.0 (0.0-3.0) % Gran # 10.06 H 10.38 H (1.4-6.5) Lymph # 0.7 L 0.5 L (1.2-3.4) Trigg # 0.6 0.2 (0.1-0.6) Eos # 0.0 0.0 (0.0-0.7) Baso # 0.01 0.00 (0.0-2.0) K/mm3 Neutrophils % (Manual) 92 H (50.0-70.0) % Lymphocytes % (Manual) 7 L (22.0-35.0) % Monocytes % (Manual) 1 (1.0-6.0) % Platelet Evaluation Normal (NORMAL) Sodium 141 (132-148) mmol/L Potassium 4.4 (3.6-5.0) mmol/L Chloride 103 (98-107) mmol/L Carbon Dioxide 29 (21-33) mmol/L Anion Gap 13 (10-20) BUN 28 H (7-21) mg/dL Creatinine 0.8 (0.5-1.4) mg/dL Est GFR ( Amer) > 60 Est GFR (Non-Af Amer) > 60 Random Glucose 110 (70-110) mg/dL Calcium 8.8 (8.4-10.5) mg/dL Phosphorus 2.3 L (2.5-4.5) mg/dL Magnesium 2.0 (1.7-2.2) mg/dL Total Bilirubin 0.9 (0.2-1.3) mg/dL AST 38 (17-59) U/L ALT 37 (7-56) U/L Alkaline Phosphatase 87 (38-126) U/L Total Protein 6.0 (5.8-8.3) g/dL Albumin 3.0 (3.0-4.8) g/dL Globulin 3.0 gm/dL Albumin/Globulin Ratio 1.0 L (1.1-1.8) Laboratory Results - last 24 hr 03/25/17 03/26/17 03/26/17 13:10 06:33 06:33 WBC 11.1 H 11.4 H RBC 3.91 3.96 Hgb 12.1 L 12.2 L Hct 36.0 L 36.5 L MCV 92.1 92.2 MCH 30.9 30.8 MCHC 33.6 33.4 RDW 14.8 H 14.4 Plt Count 215 216 MPV 11.6 H 11.4 H Gran % 93.6 H 88.0 H Lymph % (Auto) 4.5 L 6.5 L Trigg % (Auto) 1.9 5.2 Eos % (Auto) 0.0 L 0.2 L Baso % (Auto) 0.0 0.1 Gran # 10.38 H 10.06 H Lymph # 0.5 L 0.7 L Trigg # 0.2 0.6 Eos # 0.0 0.0 Baso # 0.00 0.01 Neutrophils % (Manual) 92 H Lymphocytes % (Manual) 7 L Monocytes % (Manual) 1 Platelet Evaluation Normal Sodium 141 Potassium 4.4 Chloride 103 Carbon Dioxide 29 Anion Gap 13 BUN 28 H Creatinine 0.8 Est GFR ( Amer) > 60 Est GFR (Non-Af Amer) > 60 Random Glucose 110 Calcium 8.8 Phosphorus 2.3 L Magnesium 2.0 Total Bilirubin 0.9 AST 38 ALT 37 Alkaline Phosphatase 87 Total Protein 6.0 Albumin 3.0 Globulin 3.0 Albumin/Globulin Ratio 1.0 L Attending/Attestation - Attestation I have personally seen and examined this patient.: Yes I have fully participated in the care of the patient.: Yes I have reviewed all pertinent clinical information: Yes Notes (Text): 03/26/17 11:37 81 yo male with COPD, initially presented with CO{PD exacerbation and pneumonia. Substantially improved. ok to downgrade to tele ccm time 40 min
--- NOTE | 2017-03-26 09:59 | CP.PCM.PN ---
Subjective - Date & Time of Evaluation Date of Evaluation: 03/26/17 Time of Evaluation: 09:30 - Subjective Subjective: Comfortable in bed, asleep but arousable, no fevers overnight, not in distress. Objective - Vital Signs/Intake and Output Vital Signs (last 24 hours): Temp Pulse Resp BP Pulse Ox 97.9 F 116 H 10 L 136/73 88 L 03/25/17 22:00 03/26/17 03:10 03/26/17 03:10 03/26/17 03:00 03/26/17 03:10 - Medications Medications: Current Medications Acetylcysteine (Acetylcysteine 20%) 4 ml IH [id number] [facility] Last Admin: 03/25/17 20:15 Dose: 4 ml Arformoterol Tartrate (Brovana) 15 mcg IH [id number] [facility] Last Admin: 03/25/17 20:15 Dose: 15 mcg Benzonatate (Tessalon Perles) 100 mg PO TID [facility] Last Admin: 03/25/17 18:55 Dose: 100 mg Budesonide (Pulmicort Respules) 0.5 mg IH [id number] [facility] Last Admin: 03/25/17 20:15 Dose: 0.5 mg Docusate Sodium (Colace Liquid) 100 mg PO TID [facility] Last Admin: 03/25/17 18:55 Dose: 100 mg Emollient Ointment (Vaseline Oint) 5 gm TOP DAILY [facility] Last Admin: 03/25/17 09:29 Dose: 5 gm Enoxaparin Sodium (Lovenox) 40 mg SC DAILY [facility] PRN Reason: Protocol Last Admin: 03/25/17 09:28 Dose: 40 mg Guaifenesin/Dextromethorphan (Robitussin Dm) 10 ml PO Q4H PRN PRN Reason: Cough Last Admin: 03/23/17 13:29 Dose: 10 ml Home Med (Home Med) 25 unit PO BID [facility] Last Admin: 03/25/17 18:52 Dose: Not Given Doxycycline Hyclate 100 mg/ (Sodium Chloride) 100 mls @ 100 mls/hr IVPB Q12 CORINE PRN Reason: Protocol Stop: 03/28/17 22:01 Last Admin: 03/25/17 22:13 Dose: 100 mls/hr Meropenem 1g/NS 100mL IVPB (Meropenem 1g/Ns 100ml Ivpb) 1 gm in 100 mls @ 100 mls/hr IVPB Q12 [facility] PRN Reason: Protocol Stop: 06/27/17 10:01 Last Admin: 03/26/17 06:22 Dose: 100 mls/hr Sodium Chloride (Sodium Chloride 0.9%) 1,000 mls @ 60 mls/hr IV .[id number] [facility] Last Admin: 03/25/17 05:13 Dose: 60 mls/hr Megestrol Acetate (Megace) 200 mg PO DAILY [facility] Last Admin: 03/25/17 09:29 Dose: 200 mg Methylprednisolone (Solu-Medrol) 40 mg IVP Q12 [facility] Last Admin: 03/25/17 22:15 Dose: 40 mg Metoclopramide HCl (Reglan) 10 mg PO 0600,1130,1630,2200 [facility] Last Admin: 03/26/17 06:23 Dose: 10 mg Metoprolol Tartrate (Lopressor) 12.5 mg PO BRKDIN [facility] Last Admin: 03/25/17 16:16 Dose: 12.5 mg Pantoprazole Sodium (Protonix Ec Tab) 40 mg PO 0600 [facility] Last Admin: 03/25/17 05:13 Dose: 40 mg Roflumilast (Daliresp) 500 mcg PO DAILY [facility] Last Admin: 03/25/17 09:30 Dose: 500 mcg Tamsulosin HCl (Flomax) 0.4 mg PO DAILY [facility] Last Admin: 03/25/17 09:30 Dose: 0.4 mg Zolpidem Tartrate (Ambien) 5 mg PO HS PRN; Protocol PRN Reason: Insomnia Last Admin: 03/25/17 23:30 Dose: 5 mg - Labs Labs: 03/25/17 13:10 03/25/17 05:15 PT 10.9 Seconds (9.9-11.8) 03/19/17 13:50 INR 1.01 (0.93-1.08) 03/19/17 13:50 APTT 27.3 Seconds (23.7-30.8) 03/19/17 13:50 - Constitutional Appears: Chronically Ill - Head Exam Head Exam: NORMAL INSPECTION - Neck Exam Neck Exam: absent: Meningismus - Respiratory Exam Respiratory Exam: Decreased Breath Sounds - Cardiovascular Exam Cardiovascular Exam: +S1, +S2 - GI/Abdominal Exam GI & Abdominal Exam: Soft. absent: Tenderness Assessment and Plan - Assessment and Plan (Free Text) Plan: Assessment Consider sepsis due to multifocal healthcare-associated pneumonia in this patient with dysphagia; S/P ventilator-dependent respiratory failure colon cancer on chemotherapy S/P resection peptic ulcer disease BPH COPD glaucoma GERD chronic caldwell catheter use Plan continue on Doxycycline and Merrem day 7 to complete up to 7 days of antibiotics - will d/c after today will continue to monitor clinically
[2017-03-26] MEDS: LUBIPROSTONE PO SCH ×2 (11:25→17:42)
[2017-03-26] MEDS: Enoxaparin 40 mg Syringe SC SCH (11:25)
[2017-03-26] MEDS: Megestrol Acetate 40 mg/ml Cup PO SCH (11:26)
[2017-03-26] MEDS: MethylPREDNISolone 40 mg Vial IVP SCH ×2 (11:27→21:08)
--- NOTE | 2017-03-26 11:29 | CP.PCM.PN ---
<Franchesca Manzo - Last Filed: 03/26/17 11:28> Subjective - Date & Time of Evaluation Date of Evaluation: 03/26/17 Time of Evaluation: 10:10 - Subjective Subjective: COVERING NOTE FOR DR. CHONG. S&E at bedside3, chart reviewed, tolerating ngt tube feed, waiting for swallow evaluation. Having BM, no reports of overt GI bleeding. No N/V or abdominal pain. Denies SOB or chest pain. Objective - Vital Signs/Intake and Output Vital Signs (last 24 hours): Temp Pulse Resp BP Pulse Ox 98 F 93 H 20 141/71 94 L 03/26/17 06:00 03/26/17 08:32 03/26/17 06:50 03/26/17 08:32 03/26/17 06:50 Intake and Output: 03/26/17 03/26/17 06:59 18:59 Intake Total 900 Output Total 1000 Balance -100 - Medications Medications: Current Medications Acetylcysteine (Acetylcysteine 20%) 4 ml IH [id number] [facility] Last Admin: 03/26/17 07:32 Dose: 4 ml Arformoterol Tartrate (Brovana) 15 mcg IH [id number] [facility] Last Admin: 03/26/17 07:32 Dose: 15 mcg Benzonatate (Tessalon Perles) 100 mg PO TID [facility] Last Admin: 03/25/17 18:55 Dose: 100 mg Budesonide (Pulmicort Respules) 0.5 mg IH [id number] [facility] Last Admin: 03/26/17 07:32 Dose: 0.5 mg Docusate Sodium (Colace Liquid) 100 mg PO TID [facility] Last Admin: 03/25/17 18:55 Dose: 100 mg Emollient Ointment (Vaseline Oint) 5 gm TOP DAILY [facility] Last Admin: 03/25/17 09:29 Dose: 5 gm Enoxaparin Sodium (Lovenox) 40 mg SC DAILY [facility] PRN Reason: Protocol Last Admin: 03/25/17 09:28 Dose: 40 mg Guaifenesin/Dextromethorphan (Robitussin Dm) 10 ml PO Q4H PRN PRN Reason: Cough Last Admin: 03/23/17 13:29 Dose: 10 ml Home Med (Home Med) 25 unit PO BID [facility] Last Admin: 03/25/17 18:52 Dose: Not Given Doxycycline Hyclate 100 mg/ (Sodium Chloride) 100 mls @ 100 mls/hr IVPB Q12 [facility] PRN Reason: Protocol Stop: 03/28/17 22:01 Last Admin: 03/25/17 22:13 Dose: 100 mls/hr Meropenem 1g/NS 100mL IVPB (Meropenem 1g/Ns 100ml Ivpb) 1 gm in 100 mls @ 100 mls/hr IVPB Q12 [facility] PRN Reason: Protocol Stop: 06/27/17 10:01 Last Admin: 03/26/17 06:22 Dose: 100 mls/hr Megestrol Acetate (Megace) 200 mg PO DAILY [facility] Last Admin: 03/25/17 09:29 Dose: 200 mg Methylprednisolone (Solu-Medrol) 40 mg IVP Q12 [facility] Last Admin: 03/25/17 22:15 Dose: 40 mg Metoclopramide HCl (Reglan) 10 mg PO 0600,1130,1630,2200 [facility] Last Admin: 03/26/17 06:23 Dose: 10 mg Metoprolol Tartrate (Lopressor) 12.5 mg PO BRKDIN [facility] Last Admin: 03/26/17 08:32 Dose: 12.5 mg Pantoprazole Sodium (Protonix Ec Tab) 40 mg PO 0600 [facility] Last Admin: 03/25/17 05:13 Dose: 40 mg Roflumilast (Daliresp) 500 mcg PO DAILY [facility] Last Admin: 03/25/17 09:30 Dose: 500 mcg Tamsulosin HCl (Flomax) 0.4 mg PO DAILY [facility] Last Admin: 03/25/17 09:30 Dose: 0.4 mg Zolpidem Tartrate (Ambien) 5 mg PO PRN; Protocol PRN Reason: Insomnia Last Admin: 03/25/17 23:30 Dose: 5 mg - Labs Labs: 03/26/17 06:33 03/26/17 06:33 PT 10.9 Seconds (9.9-11.8) 03/19/17 13:50 INR 1.01 (0.93-1.08) 03/19/17 13:50 APTT 27.3 Seconds (23.7-30.8) 03/19/17 13:50 - Constitutional Appears: No Acute Distress - Head Exam Head Exam: NORMOCEPHALIC - Eye Exam Eye Exam: Normal appearance. absent: Scleral icterus - ENT Exam ENT Exam: Mucous Membranes Moist - Neck Exam Neck Exam: Normal Inspection - Respiratory Exam Respiratory Exam: Rhonchi, NORMAL BREATHING PATTERN. absent: Respiratory Distress - Cardiovascular Exam Cardiovascular Exam: +S1, +S2 - GI/Abdominal Exam GI & Abdominal Exam: Soft, Normal Bowel Sounds. absent: Guarding, Tenderness, Rebound - Extremities Exam Extremities Exam: Normal Capillary Refill. absent: Calf Tenderness, Pedal Edema - Neurological Exam Neurological Exam: Alert, Awake, Oriented x3 - Skin Skin Exam: Dry, Warm Assessment and Plan - Assessment and Plan (Free Text) Assessment: Assessment: Oropharyngeal dysphagia Weight loss Pneumonia COPD History of colon cancer History of Billroth II with gastroparesis Esophageal candidiasis Plan: Continue feedings as tolerated Continue PPI. On Reglan On Solu-Medrol Continue bowel regimen On IV antibiotics as per ID pending swallow evaluation. Patient may benefit from a jejunostomy tube as opposed to endoscopic placed feeding tube, history of gastric surgery. Seen and discussed with . <Vinicio Galaviz V - Last Filed: 03/26/17 23:55> Objective - Vital Signs/Intake and Output Vital Signs (last 24 hours): Temp Pulse Resp BP Pulse Ox 98.2 F 93 H 23 124/54 L 100 03/26/17 20:00 03/26/17 22:50 03/26/17 23:00 03/26/17 23:00 03/26/17 23:00 Intake and Output: 03/26/17 03/27/17 18:59 06:59 Intake Total 1640 Output Total 750 Balance 890 - Medications Medications: Current Medications Arformoterol Tartrate (Brovana) 15 mcg IH [id number] [facility] Last Admin: 03/26/17 20:57 Dose: 15 mcg Benzonatate (Tessalon Perles) 100 mg PO TID [facility] Last Admin: 03/26/17 17:36 Dose: 100 mg Budesonide (Pulmicort Respules) 0.5 mg IH [id number] [facility] Last Admin: 03/26/17 20:57 Dose: 0.5 mg Docusate Sodium (Colace Liquid) 100 mg PO TID [facility] Last Admin: 03/26/17 17:42 Dose: Not Given Emollient Ointment (Vaseline Oint) 5 gm TOP DAILY [facility] Last Admin: 03/26/17 11:38 Dose: 5 gm Enoxaparin Sodium (Lovenox) 40 mg SC DAILY [facility] PRN Reason: Protocol Last Admin: 03/26/17 11:25 Dose: 40 mg Guaifenesin/Dextromethorphan (Robitussin Dm) 10 ml PO Q4H PRN PRN Reason: Cough Last Admin: 03/26/17 11:33 Dose: 10 ml Home Med (Home Med) 25 unit PO BID [facility] Last Admin: 03/26/17 17:42 Dose: Not Given Doxycycline Hyclate 100 mg/ (Sodium Chloride) 100 mls @ 100 mls/hr IVPB Q12 [facility] PRN Reason: Protocol Stop: 03/28/17 22:01 Last Admin: 03/26/17 21:13 Dose: 100 mls/hr Meropenem 1g/NS 100mL IVPB (Meropenem 1g/Ns 100ml Ivpb) 1 gm in 100 mls @ 100 mls/hr IVPB Q12 [facility] PRN Reason: Protocol Stop: 06/27/17 10:01 Last Admin: 03/26/17 21:08 Dose: 100 mls/hr Megestrol Acetate (Megace) 200 mg PO DAILY [facility] Last Admin: 03/26/17 11:26 Dose: 200 mg Methylprednisolone (Solu-Medrol) 20 mg IVP Q12 [facility] Metoclopramide HCl (Reglan) 10 mg PO 0600,1130,1630,2200 [facility] Last Admin: 03/26/17 21:09 Dose: 10 mg Metoprolol Tartrate (Lopressor) 12.5 mg PO BRKDIN [facility] Last Admin: 03/26/17 17:34 Dose: 12.5 mg Pantoprazole Sodium (Protonix Ec Tab) 40 mg PO 0600 [facility] Last Admin: 03/25/17 05:13 Dose: 40 mg Tamsulosin HCl (Flomax) 0.4 mg PO DAILY [facility] Last Admin: 03/26/17 11:25 Dose: 0.4 mg Zolpidem Tartrate (Ambien) 5 mg PO HS PRN; Protocol PRN Reason: Insomnia Last Admin: 03/26/17 21:09 Dose: 5 mg - Labs Labs: 03/26/17 06:33 03/26/17 06:33 PT 10.9 Seconds (9.9-11.8) 03/19/17 13:50 INR 1.01 (0.93-1.08) 03/19/17 13:50 APTT 27.3 Seconds (23.7-30.8) 03/19/17 13:50 Attending/Attestation - Attestation Notes (Text): 03/26/17 23:55 p
[2017-03-26] MEDS: guaiFENesin DM 200 mg-20 mg/10 ml UD PO PRN (11:33)
[2017-03-26] MEDS: Petrolatum Oint Foilpak (5 gm) TOP SCH (11:38)
--- NOTE | 2017-03-26 17:36 | PN ---
DATE: CARDIOLOGY FOLLOWUP SUBJECTIVE: The patient is in a chair with an NG tube placed. OBJECTIVE: VITAL SIGNS: Blood pressure 141/71, heart rate is in the 90s with frequent APCs. NECK: Negative JVD. LUNGS: Decreased breath sounds without rales. HEART: S1 and S2. EXTREMITIES: Without edema. LABORATORY DATA: Hemoglobin is 12.2. Chemistries; BUN and creatinine unremarkable. Preliminary echocardiogram reveals preserved LV function with no LV outflow obstruction. IMPRESSION: 1. Status post syncope likely due to vasovagal effects. 2. Chronic obstructive pulmonary disease. 3. Mild cardiomyopathy. 4. Frequent atrial premature complexes. Given these findings, the patient is hemodynamically stable. The patient is okay for transferred to telemetry. Aries Wheeler MD
[2017-03-26] MEDS ORDERED: MethylPREDNISolone 40 mg Vial IVP SCH (23:04)
[2017-03-27] MEDS ORDERED: Acetaminophen 160 mg/5 ml UD PO PRN (01:26)
[2017-03-27] MEDS: Acetaminophen 650mg/20.3ml solution UD PO PRN (01:41)
--- NOTE | 2017-03-27 03:25 | PN ---
DATE: 03/26/2017 PULMONARY PROGRESS NOTE REFERRING PHYSICIAN: Jefferson Chaudhry MD SUBJECTIVE: He is out of bed to chair, daughter and are at bedside. He feels better today. More awake and alert. Has better cough, able to clear some of the secretion. Has a nasogastric tube in and tolerating feeding well. No nausea, no vomiting, no diarrhea, leg pain, or leg swelling. OBJECTIVE GENERAL: In no acute distress. VITAL SIGNS: Temperature is 98, heart rate is 115, respiratory rate is 20, blood pressure is 135/74, and pulse oximetry is 94% on 4 L nasal cannula. HEENT: Moist mucous membranes. Crowded airway. NECK: Supple. No JVD. LUNGS: Has a scattered rhonchi. There are long expiratory wheeze. HEART: S1 and S2. ABDOMEN: Soft and nontender. No organomegaly. EXTREMITIES: No edema. NEUROLOGIC: Awake, alert, and follow simple commands. MEDICATIONS: He is on Mucomyst 4 mL q. 12 hours, Ambien 5 mg at bedtime p.r.n., Brovana inhaled twice a day, Colace 100 mg three times a day, Daliresp 500 mcg daily, doxycycline 100 mg twice a day, Flomax 0.4 mg daily, metoprolol tartrate 12.5 mg twice a day, Lovenox 40 mg daily, Megace 200 mg daily, meropenem 1 g IV q. 12 hours, Protonix 40 mg daily, Pulmicort inhaler twice a day, Reglan 10 mg a.c. and at bedtime, Robitussin DM 10 mL q. 4 hours p.r.n., Solu-Medrol 40 mg q. 12 hours, Tessalon Perles 100 mg three times a day, and Vaseline ointment to the affected area. LABORATORY DATA: Shows hemoglobin of 12.2, hematocrit of 36.5, WBC of 11.4, and platelet is 216. Sodium is 141, potassium is 4.4, chloride is 103, bicarbonate is 29, BUN is 28, and creatinine is 0.8. Glucose is 110 and phosphorous is 2.3. AST is 38, ALT is 37, alkaline phosphatase is 87, and albumin is 3.0. IMPRESSION AND PLAN: Multi-lobe aspiration pneumonia; status post respiratory failure requiring high-flow oxygen, presently on nasal cannula; having tachycardia, requiring beta-ninoska; history of lung nodule, suspicious for cancer, at present clinically most likely aspirating. Case was discussed with the patient, , and daughter at the bedside. All the questions answered. Will continue nasogastric tube feeding, keep nothing by mouth, decrease Solu-Medrol and discontinue Daliresp. Continue beta-ninoska, gastric prophylaxis, and deep venous thrombosis prophylaxis. Will benefit from surgical jejunostomy tube. Follow up laboratories in the morning. Thank you and we will follow with you. Andrea Page MD
[2017-03-27] MEDS: Pantoprazole 40 mg EC Tab PO SCH ×2 (05:05→09:54)
[2017-03-27] MEDS: Arformoterol 15 mcg/2 ml Inh Sol IH SCH ×2 (07:32→20:55)
[2017-03-27] MEDS: Budesonide 0.5 mg/2 ml Inhal Susp UD IH SCH ×2 (07:32→20:55)
[2017-03-27 07:56] LABS: ALKALINE PHOSPHATASE 89 U/L (38-126); ALT/SGPT 28 U/L (7-56); AST/SGOT 30 U/L (17-59); BILIRUBIN,TOTAL 0.8 mg/dL (0.2-1.3); BLOOD UREA NITROGEN 26 mg/dL (7-21); CALCIUM 8.5 mg/dL (8.4-10.5); CARBON DIOXIDE 23 mmol/L (21-33); CHLORIDE 102 mmol/L (98-107); GFR AFRICAN-AMERICAN > 60; GLUCOSE,RANDOM 125 mg/dL (70-110); MAGNESIUM 2.1 mg/dL (1.7-2.2); PHOSPHOROUS 3.4 mg/dL (2.5-4.5); POTASSIUM 4.2 mmol/L (3.6-5.0); SODIUM 137 mmol/L (132-148); TOTAL PROTEIN 5.9 g/dL (5.8-8.3)
[2017-03-27 08:43] LABS: GRAN % 88.6 % (50.0-68.0); HEMATOCRIT 35.7 % (42.0-52.0); LYMPH # 0.6 (1.2-3.4); LYMPH % 6.7 % (22.0-35.0); MEAN CELL VOLUME 91.5 fl (80.0-105.0); MONO # 0.4 (0.1-0.6); RED CELL DISTRIBUTION WIDTH 14.5 % (11.5-14.5)
[2017-03-27 09:09] LABS: BASO # 0.01 K/mm3 (0.0-2.0); BASO % 0.1 % (0.0-3.0); GRAN # 8.03 (1.4-6.5); MEAN CORPUSCULAR HEMOGLOBIN 30.5 pg (25.0-35.0); MEAN CORPUSCULAR HGB CONC 33.3 g/dl (31.0-37.0); MEAN PLATELET VOLUME 12.2 fl (7.0-11.0); MONO % 4.6 % (1.0-6.0); WHITE BLOOD COUNT 9.1 10^3/ul (4.5-11.0)
[2017-03-27] MEDS: Megestrol Acetate 40 mg/ml Cup PO SCH (09:57)
[2017-03-27] MEDS: LUBIPROSTONE PO SCH ×2 (09:57→17:54)
[2017-03-27] MEDS: Enoxaparin 40 mg Syringe SC SCH (09:57)
[2017-03-27] MEDS: Meropenem 1g/NS 100mL IVPB 1 GM/100 ML PIGGYBACK IVPB SCH ×2 (09:59→21:02)
[2017-03-27] MEDS: Petrolatum Oint Foilpak (5 gm) TOP SCH (10:02)
--- NOTE | 2017-03-27 10:26 | CP.PCM.PN ---
Subjective - Date & Time of Evaluation Date of Evaluation: 03/27/17 Time of Evaluation: :20 - Subjective Subjective: Patient is more awake today, not in distress, no fevers, still with some cough but dry. Spoke with Dr. Deluna at [facility] - had bronchoscopy done end of 2016 there, and AFB cultures are now positive after 3 weeks - smears were apparently negative, including sputum AFB smears. Objective - Vital Signs/Intake and Output Vital Signs (last 24 hours): Temp Pulse Resp BP Pulse Ox 98.2 F 93 H 23 124/54 L 100 03/26/17 20:00 03/26/17 22:50 03/26/17 23:00 03/26/17 23:00 03/26/17 23:00 Intake and Output: 03/26/17 03/27/17 18:59 06:59 Intake Total 1640 Output Total 750 Balance 890 - Medications Medications: Current Medications Acetaminophen (Tylenol 650mg/20.3ml Solution Ud) 650 mg PO Q6H PRN PRN Reason: Pain, Mild (1-3) Last Admin: 03/27/17 01:41 Dose: 650 mg Arformoterol Tartrate (Brovana) 15 mcg IH [id number] [facility] Last Admin: 03/26/17 20:57 Dose: 15 mcg Benzonatate (Tessalon Perles) 100 mg PO TID [facility] Last Admin: 03/26/17 17:36 Dose: 100 mg Budesonide (Pulmicort Respules) 0.5 mg IH [id number] [facility] Last Admin: 03/26/17 20:57 Dose: 0.5 mg Docusate Sodium (Colace Liquid) 100 mg PO TID [facility] Last Admin: 03/26/17 17:42 Dose: Not Given Emollient Ointment (Vaseline Oint) 5 gm TOP DAILY [facility] Last Admin: 03/26/17 11:38 Dose: 5 gm Enoxaparin Sodium (Lovenox) 40 mg SC DAILY [facility] PRN Reason: Protocol Last Admin: 03/26/17 11:25 Dose: 40 mg Guaifenesin/Dextromethorphan (Robitussin Dm) 10 ml PO Q4H PRN PRN Reason: Cough Last Admin: 03/26/17 11:33 Dose: 10 ml Home Med (Home Med) 25 unit PO BID [facility] Last Admin: 03/26/17 17:42 Dose: Not Given Doxycycline Hyclate 100 mg/ (Sodium Chloride) 100 mls @ 100 mls/hr IVPB Q12 [facility] PRN Reason: Protocol Stop: 03/28/17 22:01 Last Admin: 03/26/17 21:13 Dose: 100 mls/hr Meropenem 1g/NS 100mL IVPB (Meropenem 1g/Ns 100ml Ivpb) 1 gm in 100 mls @ 100 mls/hr IVPB Q12 [facility] PRN Reason: Protocol Stop: 06/27/17 10:01 Last Admin: 03/26/17 21:08 Dose: 100 mls/hr Megestrol Acetate (Megace) 200 mg PO DAILY [facility] Last Admin: 03/26/17 11:26 Dose: 200 mg Methylprednisolone (Solu-Medrol) 20 mg IVP Q12 [facility] Metoclopramide HCl (Reglan) 10 mg PO 0600,1130,1630,2200 [facility] Last Admin: 03/27/17 05:04 Dose: 10 mg Metoprolol Tartrate (Lopressor) 12.5 mg PO BRKDIN [facility] Last Admin: 03/26/17 17:34 Dose: 12.5 mg Pantoprazole Sodium (Protonix Ec Tab) 40 mg PO 0600 [facility] Last Admin: 03/27/17 05:05 Dose: 40 mg Tamsulosin HCl (Flomax) 0.4 mg PO DAILY [facility] Last Admin: 03/26/17 11:25 Dose: 0.4 mg Zolpidem Tartrate (Ambien) 5 mg PO HS PRN; Protocol PRN Reason: Insomnia Last Admin: 03/26/17 21:09 Dose: 5 mg - Labs Labs: 03/26/17 06:33 03/26/17 06:33 PT 10.9 Seconds (9.9-11.8) 03/19/17 13:50 INR 1.01 (0.93-1.08) 03/19/17 13:50 APTT 27.3 Seconds (23.7-30.8) 03/19/17 13:50 - Constitutional Appears: Chronically Ill - Head Exam Head Exam: NORMAL INSPECTION - ENT Exam ENT Exam: Mucous Membranes Moist - Neck Exam Neck Exam: absent: Lymphadenopathy, Meningismus - Respiratory Exam Respiratory Exam: Decreased Breath Sounds, Rales (scattered) - Cardiovascular Exam Cardiovascular Exam: +S1, +S2 - GI/Abdominal Exam GI & Abdominal Exam: Soft. absent: Tenderness Assessment and Plan - Assessment and Plan (Free Text) Plan: Assessment Consider sepsis due to multifocal healthcare-associated pneumonia in this patient with dysphagia; S/P ventilator-dependent respiratory failure; has positive BAL AFB on cultures 3 weeks after bronchoscopy was done at [facility] colon cancer on chemotherapy S/P resection peptic ulcer disease BPH COPD glaucoma GERD chronic caldwell catheter use Plan continue on Doxycycline and Merrem day 8 to complete 7-10 days of antibiotics Spoke with Dr. Deluna - (+) AFB cultures after 3 weeks (S/P bronchoscopy) - smears were negative, including sputum smears - will await identification and sensitivities of the AFB in the BAL fluid discussed with Dr. Page - will get Quantiferon TB test, sputum AFB x 3 and airborne isolation for now will continue to monitor clinically
--- NOTE | 2017-03-27 11:23 | PN ---
DATE: 03/27/2017 Cardiology follow up. The patient is in no acute distress. Blood pressure 124/54, heart rate in the 90s, physical exam is unchanged. Hemoglobin is 11.9. Chemistries are unremarkable. IMPRESSION: 1. Positive tuberculosis, the reports from [facility]. 2. History of syncope. 3. Mild cardiomyopathy. 4. Chronic obstructive pulmonary disease. Given these findings, the patient's cardiac arrhythmias are stable. The patient will need to be treated for tuberculosis. Arise Wheeler MD
--- NOTE | 2017-03-27 12:33 | CP.PCM.PN ---
<Franchesca Manzo - Last Filed: 03/27/17 12:34> Subjective - Date & Time of Evaluation Date of Evaluation: 03/27/17 Time of Evaluation: 09:30 - Subjective Subjective: Covering GI note for Dr. Tavarez. Seen and examined at the bedside earlier today, chart was reviewed. Patient is on On precautions, patient had bronchoscopy at [facility] is positive AFB. Patient remains with NG tube and tolerating feedings, no reports of acute overnight events. Patient denies shortness of breath, chest pain, nausea, vomiting or abdominal pain. Patient reports having bowel movement yesterday, none yet this morning. Objective - Vital Signs/Intake and Output Vital Signs (last 24 hours): Temp Pulse Resp BP Pulse Ox 98.2 F 105 H 23 136/86 100 03/26/17 20:00 03/27/17 09:54 03/26/17 23:00 03/27/17 09:54 03/26/17 23:00 Intake and Output: 03/27/17 03/27/17 06:59 18:59 Intake Total 705 Output Total 600 Balance 105 - Medications Medications: Current Medications Acetaminophen (Tylenol 650mg/20.3ml Solution Ud) 650 mg PO Q6H PRN PRN Reason: Pain, Mild (1-3) Last Admin: 03/27/17 01:41 Dose: 650 mg Arformoterol Tartrate (Brovana) 15 mcg IH [id number] [facility] Last Admin: 03/27/17 07:32 Dose: 15 mcg Benzonatate (Tessalon Perles) 100 mg PO TID [facility] Last Admin: 03/27/17 10:00 Dose: Not Given Budesonide (Pulmicort Respules) 0.5 mg IH [id number] [facility] Last Admin: 03/27/17 07:32 Dose: 0.5 mg Docusate Sodium (Colace Liquid) 100 mg PO TID [facility] Last Admin: 03/27/17 09:55 Dose: Not Given Emollient Ointment (Vaseline Oint) 5 gm TOP DAILY [facility] Last Admin: 03/27/17 10:02 Dose: 5 gm Enoxaparin Sodium (Lovenox) 40 mg SC DAILY [facility] PRN Reason: Protocol Last Admin: 03/27/17 09:57 Dose: 40 mg Guaifenesin/Dextromethorphan (Robitussin Dm) 10 ml PO Q4H PRN PRN Reason: Cough Last Admin: 03/26/17 11:33 Dose: 10 ml Home Med (Home Med) 25 unit PO BID [facility] Last Admin: 03/27/17 09:57 Dose: Not Given Doxycycline Hyclate 100 mg/ (Sodium Chloride) 100 mls @ 100 mls/hr IVPB Q12 [facility] PRN Reason: Protocol Stop: 03/28/17 22:01 Last Admin: 03/27/17 10:00 Dose: 100 mls/hr Meropenem 1g/NS 100mL IVPB (Meropenem 1g/Ns 100ml Ivpb) 1 gm in 100 mls @ 100 mls/hr IVPB Q12 [facility] PRN Reason: Protocol Stop: 06/27/17 10:01 Last Admin: 03/27/17 09:59 Dose: 100 mls/hr Megestrol Acetate (Megace) 200 mg PO DAILY [facility] Last Admin: 03/27/17 09:57 Dose: 200 mg Methylprednisolone (Solu-Medrol) 20 mg IVP Q12 [facility] Last Admin: 03/27/17 09:59 Dose: 20 mg Metoclopramide HCl (Reglan) 10 mg PO 0600,1130,1630,2200 [facility] Last Admin: 03/27/17 12:12 Dose: 10 mg Metoprolol Tartrate (Lopressor) 12.5 mg PO BRKDIN [facility] Last Admin: 03/27/17 09:54 Dose: 12.5 mg Pantoprazole Sodium (Protonix Ec Tab) 40 mg PO 0600 [facility] Last Admin: 03/27/17 09:54 Dose: 40 mg Tamsulosin HCl (Flomax) 0.4 mg PO DAILY [facility] Last Admin: 03/27/17 09:55 Dose: 0.4 mg Zolpidem Tartrate (Ambien) 5 mg PO HS PRN; Protocol PRN Reason: Insomnia Last Admin: 03/26/17 21:09 Dose: 5 mg - Labs Labs: 03/27/17 08:30 03/27/17 06:30 PT 10.9 Seconds (9.9-11.8) 03/19/17 13:50 INR 1.01 (0.93-1.08) 03/19/17 13:50 APTT 27.3 Seconds (23.7-30.8) 03/19/17 13:50 - Constitutional Appears: No Acute Distress, Cachectic - Eye Exam Eye Exam: Normal appearance. absent: Scleral icterus - ENT Exam ENT Exam: Mucous Membranes Moist - Neck Exam Neck Exam: Normal Inspection - Respiratory Exam Respiratory Exam: Rhonchi, NORMAL BREATHING PATTERN. absent: Respiratory Distress - Cardiovascular Exam Cardiovascular Exam: +S1, +S2 - GI/Abdominal Exam GI & Abdominal Exam: Soft, Normal Bowel Sounds. absent: Guarding, Tenderness, Organomegaly, Rebound - Extremities Exam Extremities Exam: Normal Capillary Refill. absent: Calf Tenderness, Pedal Edema - Neurological Exam Neurological Exam: Alert, Awake, Oriented x3 Assessment and Plan - Assessment and Plan (Free Text) Assessment: Assessment: Oropharyngeal dysphagia Positive AFB culture, as per [facility] report Weight loss Pneumonia COPD History of colon cancer History of Billroth II with gastroparesis Esophageal candidiasis Plan: Continue feedings as tolerated Continue PPI. On Reglan On Solu-Medrol Continue bowel regimen On IV antibiotics as per ID pending swallow evaluation. Patient may benefit from a jejunostomy tube as opposed to endoscopic placed feeding tube, history of gastric surgery. Seen and discussed with . <Vinicio Galaviz V - Last Filed: 03/27/17 21:39> Objective - Vital Signs/Intake and Output Vital Signs (last 24 hours): Temp Pulse Resp BP Pulse Ox 98.1 F 87 18 129/66 90 L 03/27/17 16:53 03/27/17 18:36 03/27/17 18:30 03/27/17 18:00 03/27/17 18:30 Intake and Output: 03/27/17 03/28/17 18:59 06:59 Intake Total 1670 Output Total 425 Balance 1245 - Medications Medications: Current Medications Acetaminophen (Tylenol 650mg/20.3ml Solution Ud) 650 mg PO Q6H PRN PRN Reason: Pain, Mild (1-3) Last Admin: 03/27/17 01:41 Dose: 650 mg Arformoterol Tartrate (Brovana) 15 mcg IH [id number] [facility] Last Admin: 03/27/17 20:55 Dose: 15 mcg Benzonatate (Tessalon Perles) 100 mg PO TID [facility] Last Admin: 03/27/17 17:56 Dose: Not Given Budesonide (Pulmicort Respules) 0.5 mg IH [id number] [facility] Last Admin: 03/27/17 20:55 Dose: 0.5 mg Docusate Sodium (Colace Liquid) 100 mg PO TID [facility] Last Admin: 03/27/17 17:52 Dose: Not Given Emollient Ointment (Vaseline Oint) 5 gm TOP DAILY [facility] Last Admin: 03/27/17 10:02 Dose: 5 gm Enoxaparin Sodium (Lovenox) 40 mg SC DAILY [facility] PRN Reason: Protocol Last Admin: 03/27/17 09:57 Dose: 40 mg Guaifenesin/Dextromethorphan (Robitussin Dm) 10 ml PO Q4H PRN PRN Reason: Cough Last Admin: 03/26/17 11:33 Dose: 10 ml Home Med (Home Med) 25 unit PO BID [facility] Last Admin: 03/27/17 17:54 Dose: Not Given Doxycycline Hyclate 100 mg/ (Sodium Chloride) 100 mls @ 100 mls/hr IVPB Q12 [facility] PRN Reason: Protocol Stop: 03/28/17 22:01 Last Admin: 03/27/17 21:02 Dose: 100 mls/hr Meropenem 1g/NS 100mL IVPB (Meropenem 1g/Ns 100ml Ivpb) 1 gm in 100 mls @ 100 mls/hr IVPB Q12 [facility] PRN Reason: Protocol Stop: 06/27/17 10:01 Last Admin: 03/27/17 21:02 Dose: 100 mls/hr diltiaZEM IVPB 100mg in NS (Cardizem 100mg In Ns) 100 mls @ 5 mls/hr IV .Q20H PRN; Protocol; 5 MG/HR PRN Reason: TITRATE PER MD ORDER Last Titration: 03/27/17 18:34 Dose: 5 mg/hr, 5 mls/hr Megestrol Acetate (Megace) 200 mg PO DAILY [facility] Last Admin: 03/27/17 09:57 Dose: 200 mg Metoclopramide HCl (Reglan) 10 mg PO 0600,1130,1630,2200 [facility] Last Admin: 03/27/17 21:02 Dose: 10 mg Metoprolol Tartrate (Lopressor) 12.5 mg PO BRKDIN [facility] Last Admin: 03/27/17 17:52 Dose: 12.5 mg Pantoprazole Sodium (Protonix Ec Tab) 40 mg PO 0600 [facility] Last Admin: 03/27/17 09:54 Dose: 40 mg Tamsulosin HCl (Flomax) 0.4 mg PO DAILY [facility] Last Admin: 03/27/17 09:55 Dose: 0.4 mg Zolpidem Tartrate (Ambien) 5 mg PO HS PRN; Protocol PRN Reason: Insomnia Last Admin: 03/27/17 21:02 Dose: 5 mg - Labs Labs: 03/27/17 08:30 03/27/17 06:30 PT 10.9 Seconds (9.9-11.8) 03/19/17 13:50 INR 1.01 (0.93-1.08) 03/19/17 13:50 APTT 27.3 Seconds (23.7-30.8) 03/19/17 13:50 Attending/Attestation - Attestation I have personally seen and examined this patient.: Yes I have fully participated in the care of the patient.: Yes I have reviewed all pertinent clinical information, including history, physical exam and plan: Yes Notes (Text): This is an addendum to GI progress report dictated by Franchesca Manzo APN.The patient was seen and examined earlier. Medical records, lab studies, imagings were reviewed. Last 24 hours events reviewed. Agreed with the above treatment plan as outlined in Franchesca Manzo APN's notes the with the addition of the following on respiratory isolation oropharyngeal dysphagia with recurrent aspiration pneumonia May need a jejunostomy feeding tube for adequate calorie maintenance for a long time Patient needed optimization of his present status prior to the above consideration 03/27/17 21:36
[2017-03-27] MEDS: diltiaZEM IVPB 100mg in NS 100 ML IV PRN (16:13)
[2017-03-28] MEDS: diltiaZEM IVPB 100mg in NS 100 ML IV PRN (00:45)
--- NOTE | 2017-03-28 03:59 | CON ---
DATE: 03/27/2017 Dr. Grider, asked me to see the patient. The patient saw and electronic chart reviewed. The patient has already been followed with Dr. Wheeler, so we will sign of for now and let Dr. Wheeler continue the consult. Andrea Condon MD
[2017-03-28] MEDS: Pantoprazole 40 mg EC Tab PO SCH (06:02)
[2017-03-28] MEDS: Budesonide 0.5 mg/2 ml Inhal Susp UD IH SCH ×2 (07:28→20:24)
[2017-03-28] MEDS: Arformoterol 15 mcg/2 ml Inh Sol IH SCH ×2 (07:28→20:24)
[2017-03-28 07:47] LABS: ALKALINE PHOSPHATASE 83 U/L (38-126); ALT/SGPT 36 U/L (7-56); AST/SGOT 37 U/L (17-59); BLOOD UREA NITROGEN 25 mg/dL (7-21); CALCIUM 8.9 mg/dL (8.4-10.5); CARBON DIOXIDE 31 mmol/L (21-33); CHLORIDE 100 mmol/L (98-107); GFR AFRICAN-AMERICAN > 60; GLUCOSE,RANDOM 90 mg/dL (70-110); MAGNESIUM 2.1 mg/dL (1.7-2.2); PHOSPHOROUS 2.8 mg/dL (2.5-4.5); POTASSIUM 4.2 mmol/L (3.6-5.0); SODIUM 140 mmol/L (132-148)
--- NOTE | 2017-03-28 08:32 | PN ---
DATE: 03/27/2017 PULMONARY PROGRESS NOTE REFERRING PHYSICIAN: Jefferson Chaudhry MD SUBJECTIVE: He is lying on the bed 45 degrees. Still having a lot of oral secretion. Getting feeding through the nasal gastric tube. Overnight events noted. Has a cough bringing up phlegm. No chest pain. No nausea. No vomiting. No diarrhea. No leg pain or leg swelling. OBJECTIVE: GENERAL: In no acute distress. VITAL SIGNS: Temperature is 98, heart rate is 110 to 120, respiratory rate is 20, blood pressure 128/56, and pulse ox 99% on nasal cannula. HEENT: Moist mucous membranes. Crowded airway. Has a pharyngeal secretion. LUNGS: Has a scattered rhonchi. HEART: S1 and S2. Tachycardiac. ABDOMEN: Soft, nontender. No organomegaly. EXTREMITIES: There is no edema. NEUROLOGIC: Awake, alert, follows simple commands. MEDICATIONS: He is on Ambien 5 mg at bedtime p.r.n., Brovana inhale twice a day, Colace 100 mg three times a day, doxycycline 100 mg twice a day, Flomax 0.4 mg daily, also getting 25 mg twice a day, metoprolol tartrate 12.5 mg twice a day, Lovenox 40 mg daily, Megace 200 mg daily, meropenem 1 g q.12 hour, Protonix 40 mg daily, budesonide inhale twice a day, Reglan 10 mg four times a day, Robitussin DM 10 mL q.4 hour p.r.n., Tessalon Perles 100 mg three times a day, Tylenol on p.r.n. basis, and Vaseline ointment 5 g topically daily basis. LABORATORY DATA: Shows hemoglobin 11.9, hematocrit 35.7, WBC 9.1, platelet count is 181. Sodium 137, potassium 4.2, chloride 102, bicarbonate is 23, BUN 26, creatinine 0.8, glucose 125, calcium 8.5. AST 30, ALT 28, alk phos is 89, albumin is 2.9. Microbiology: Blood culture from 03/23, there is no growth MRSA not detected. IMPRESSION AND PLAN: Multilobar infiltrate, probably this is a big component of aspiration. At one point, had a respiratory failure, required intubation and high-flow of supplement oxygen. Multiple lung nodules, received phone call from Dr. Marni, also spoke to infectious Disease. Apparently, the patient had bronchoscopy done about 3 weeks ago at [facility]. However after 3 weeks, cultures have AFB growing. AFB smear was negative at the time of bronchoscopy. The patient has no fevers, did lose lot of weight, had oropharyngeal dysphagia, had lot of secretions. We will send sputum for AFB and culture. Discontinue Solu-Medrol. Continue present antibiotics. We will not treat for TB at present time. We will send sputum for AFB. If sputum is negative of course, we will think about it, but also need to follow up for PCR results from [facility]. I spoke to patient and the patient's family at bedside and informed them about our findings and why patient in isolation. Followup labs in the morning. We will send TB Gold test and PPD. Thank you and we will follow with you. Andrea Page MD
[2017-03-28 09:06] LABS: EOS % 0.2 % (1.5-5.0); GRAN # 8.65 (1.4-6.5); GRAN % 85.1 % (50.0-68.0); HEMATOCRIT 34.9 % (42.0-52.0); LYMPH # 0.9 (1.2-3.4); LYMPH % 8.8 % (22.0-35.0); MEAN CELL VOLUME 92.1 fl (80.0-105.0); MEAN CORPUSCULAR HEMOGLOBIN 30.3 pg (25.0-35.0); MEAN PLATELET VOLUME 11.3 fl (7.0-11.0); MONO # 0.6 (0.1-0.6); MONO % 5.9 % (1.0-6.0); RED CELL DISTRIBUTION WIDTH 14.5 % (11.5-14.5); WHITE BLOOD COUNT 10.2 10^3/ul (4.5-11.0)
--- NOTE | 2017-03-28 10:17 | CP.PCM.PN ---
Subjective - Date & Time of Evaluation Date of Evaluation: 03/28/17 Time of Evaluation: 09:40 - Subjective Subjective: Comfortable in bed, not in distress, more awake today, no fevers or SOB at rest. Objective - Vital Signs/Intake and Output Vital Signs (last 24 hours): Temp Pulse Resp BP Pulse Ox 98.1 F 87 18 129/66 90 L 03/27/17 16:53 03/27/17 18:36 03/27/17 18:30 03/27/17 18:00 03/27/17 18:30 Intake and Output: 03/27/17 03/28/17 18:59 06:59 Intake Total 1670 90 Output Total 425 Balance 1245 90 - Medications Medications: Current Medications Acetaminophen (Tylenol 650mg/20.3ml Solution Ud) 650 mg PO Q6H PRN PRN Reason: Pain, Mild (1-3) Last Admin: 03/27/17 01:41 Dose: 650 mg Arformoterol Tartrate (Brovana) 15 mcg IH [id number] [facility] Last Admin: 03/27/17 20:55 Dose: 15 mcg Benzonatate (Tessalon Perles) 100 mg PO TID [facility] Last Admin: 03/27/17 17:56 Dose: Not Given Budesonide (Pulmicort Respules) 0.5 mg IH [id number] [facility] Last Admin: 03/27/17 20:55 Dose: 0.5 mg Docusate Sodium (Colace Liquid) 100 mg PO TID [facility] Last Admin: 03/27/17 17:52 Dose: Not Given Emollient Ointment (Vaseline Oint) 5 gm TOP DAILY [facility] Last Admin: 03/27/17 10:02 Dose: 5 gm Enoxaparin Sodium (Lovenox) 40 mg SC DAILY [facility] PRN Reason: Protocol Last Admin: 03/27/17 09:57 Dose: 40 mg Guaifenesin/Dextromethorphan (Robitussin Dm) 10 ml PO Q4H PRN PRN Reason: Cough Last Admin: 03/26/17 11:33 Dose: 10 ml Home Med (Home Med) 25 unit PO BID [facility] Last Admin: 03/27/17 17:54 Dose: Not Given Doxycycline Hyclate 100 mg/ (Sodium Chloride) 100 mls @ 100 mls/hr IVPB Q12 [facility] PRN Reason: Protocol Stop: 03/28/17 22:01 Last Admin: 03/27/17 21:02 Dose: 100 mls/hr Meropenem 1g/NS 100mL IVPB (Meropenem 1g/Ns 100ml Ivpb) 1 gm in 100 mls @ 100 mls/hr IVPB Q12 [facility] PRN Reason: Protocol Stop: 06/27/17 10:01 Last Admin: 03/27/17 21:02 Dose: 100 mls/hr diltiaZEM IVPB 100mg in NS (Cardizem 100mg In Ns) 100 mls @ 5 mls/hr IV .Q20H PRN; Protocol; 5 MG/HR PRN Reason: TITRATE PER MD ORDER Last Admin: 03/28/17 00:45 Dose: 5 mg/hr, 5 mls/hr Megestrol Acetate (Megace) 200 mg PO DAILY [facility] Last Admin: 03/27/17 09:57 Dose: 200 mg Metoclopramide HCl (Reglan) 10 mg PO 0600,1130,1630,2200 [facility] Last Admin: 03/28/17 06:02 Dose: 10 mg Metoprolol Tartrate (Lopressor) 12.5 mg PO BRKDIN [facility] Last Admin: 03/27/17 17:52 Dose: 12.5 mg Pantoprazole Sodium (Protonix Ec Tab) 40 mg PO 0600 [facility] Last Admin: 03/28/17 06:02 Dose: 40 mg Tamsulosin HCl (Flomax) 0.4 mg PO DAILY [facility] Last Admin: 03/27/17 09:55 Dose: 0.4 mg Zolpidem Tartrate (Ambien) 5 mg PO HS PRN; Protocol PRN Reason: Insomnia Last Admin: 03/27/17 21:02 Dose: 5 mg - Labs Labs: 03/27/17 08:30 03/27/17 06:30 PT 10.9 Seconds (9.9-11.8) 03/19/17 13:50 INR 1.01 (0.93-1.08) 03/19/17 13:50 APTT 27.3 Seconds (23.7-30.8) 03/19/17 13:50 - Constitutional Appears: Chronically Ill - Head Exam Head Exam: NORMAL INSPECTION - ENT Exam ENT Exam: Mucous Membranes Moist - Neck Exam Neck Exam: absent: Meningismus - Respiratory Exam Respiratory Exam: Decreased Breath Sounds - Cardiovascular Exam Cardiovascular Exam: +S1, +S2 - GI/Abdominal Exam GI & Abdominal Exam: Soft. absent: Tenderness Assessment and Plan - Assessment and Plan (Free Text) Plan: Assessment Consider sepsis due to multifocal healthcare-associated pneumonia in this patient with dysphagia; S/P ventilator-dependent respiratory failure; has positive BAL AFB on cultures 3 weeks after bronchoscopy was done at [facility] colon cancer on chemotherapy S/P resection peptic ulcer disease BPH COPD glaucoma GERD chronic caldwell catheter use Plan continue on Doxycycline and Merrem day 9 to complete 7-10 days of antibiotics Spoke with Dr. Deluna - (+) AFB cultures after 3 weeks (S/P bronchoscopy) - smears were negative, including sputum smears - will await identification and sensitivities of the AFB in the BAL fluid discussed with Dr. Page yesterday - follow up Quantiferon TB test, sputum AFB x 3 and airborne isolation for now will continue to follow clinically
[2017-03-28] MEDS: Enoxaparin 40 mg Syringe SC SCH (10:20)
[2017-03-28] MEDS: Meropenem 1g/NS 100mL IVPB 1 GM/100 ML PIGGYBACK IVPB SCH ×2 (10:21→21:40)
[2017-03-28] MEDS: Megestrol Acetate 40 mg/ml Cup PO SCH (10:23)
[2017-03-28] MEDS: Petrolatum Oint Foilpak (5 gm) TOP SCH (10:24)
[2017-03-28] MEDS: LUBIPROSTONE PO SCH (10:28)
--- NOTE | 2017-03-28 11:26 | PN ---
DATE: 03/26/2017 LOCATION: The patient is in TCU, bed 2. SUBJECTIVE: The patient is out of bed in the chair. Family is at the bedside. The patient appears better, more awake, alert, has cough, able to clear some of the secretions. Nasogastric tube in place and tolerating the feeding well. No nausea, no vomiting, diarrhea, leg pain, or leg swelling. PHYSICAL EXAMINATION: GENERAL: The patient is in no acute distress. VITAL SIGNS: Stable as stated in the chart. Heart rate is 115, respirations 20, blood pressure is 135/74, pulse ox is 94%. HEENT: Head is normocephalic and atraumatic. NECK: Supple. There is no adenopathy. LUNGS: Reveal bilateral wheezes. HEART: Reveals S1 and S2 to be normal. ABDOMEN: Soft and nontender. EXTREMITIES: Reveals no cyanosis, clubbing or edema. NEUROLOGIC: Reveals the patient to be awake, alert, and follow simple commands. MEDICATIONS: Reviewed. He is on Mucomyst, Ambien, Brovana, Colace, Daliresp, doxycycline, Flomax, metoprolol tartrate, Lovenox, Megace, Merrem, Protonix, Reglan a.c. and at bedtime, Robitussin, Solu-Medrol, Tessalon and Vaseline ointment to the affected area. LABORATORY DATA: Shows a hemoglobin of 12.2, hematocrit 36, platelet count of 216,000. Sodium is 141, K is 4.4, chloride is 103, bicarbonate is 29, BUN is 28, creatinine 0.8, glucose is 110, phosphorus is 2.3. AST is 38, ALT is 37, alkaline phosphatase is 87. ASSESSMENT NOTES AND PLAN: The patient has multiple lobe aspiration pneumonia secondary to dysphagia affecting phase 2 of the deglutition as documented on the swallowing studies. I have spoken to Dr. Galaviz as well. The patient actually need a jejunostomy for long-term maintenance as he definitely has swallowing issues, which is causing all these problems with recurrent aspiration pneumonia. Status post respiratory arrest requiring high-flow oxygen, on nasal cannula, tachycardia requiring beta-blockers, lung nodule, most likely all related to the aspiration. We will continue the nasogastric feeding and continue current medications including gastric and deep venous thrombosis prophylaxis. We would like to discuss with the family of a jejunostomy tube and that is maybe the best option since the patient has a Billroth type 2 surgery for peptic ulcer disease. Routine post-exam instructions have been given. Lissy Grider MD
--- NOTE | 2017-03-28 15:41 | CP.PCM.PN ---
<Franchesca Manzo - Last Filed: 03/28/17 15:40> Subjective - Date & Time of Evaluation Date of Evaluation: 03/28/17 Time of Evaluation: 10:00 - Subjective Subjective: Covering GI note for Dr. Tavarez. Seen and examined at the bedside earlier today, chart was reviewed. Patient remains on airborne precautions. Remains with NG tube feedings, no reports of high residuals. He did have a swallowing evaluation and reported to be moderate to high risk, recommended. Diet. No reports of any overt GI bleed, shortness of breath or chest pains. Objective - Vital Signs/Intake and Output Vital Signs (last 24 hours): Temp Pulse Resp BP Pulse Ox 98.1 F 105 H 18 134/63 90 L 03/27/17 16:53 03/28/17 08:48 03/27/17 18:30 03/28/17 08:48 03/27/17 18:30 Intake and Output: 03/28/17 03/28/17 06:59 18:59 Intake Total 90 Balance 90 - Medications Medications: Current Medications Acetaminophen (Tylenol 650mg/20.3ml Solution Ud) 650 mg PO Q6H PRN PRN Reason: Pain, Mild (1-3) Last Admin: 03/27/17 01:41 Dose: 650 mg Arformoterol Tartrate (Brovana) 15 mcg IH [id number] [facility] Last Admin: 03/28/17 07:28 Dose: 15 mcg Benzonatate (Tessalon Perles) 100 mg PO TID [facility] Last Admin: 03/28/17 14:05 Dose: 100 mg Budesonide (Pulmicort Respules) 0.5 mg IH [id number] [facility] Last Admin: 03/28/17 07:28 Dose: 0.5 mg Docusate Sodium (Colace Liquid) 100 mg PO TID [facility] Last Admin: 03/28/17 14:03 Dose: Not Given Emollient Ointment (Vaseline Oint) 5 gm TOP DAILY [facility] Last Admin: 03/28/17 10:24 Dose: 5 gm Enoxaparin Sodium (Lovenox) 40 mg SC DAILY [facility] PRN Reason: Protocol Last Admin: 03/28/17 10:20 Dose: 40 mg Guaifenesin/Dextromethorphan (Robitussin Dm) 10 ml PO Q4H PRN PRN Reason: Cough Last Admin: 03/26/17 11:33 Dose: 10 ml Home Med (Home Med) 25 unit PO BID [facility] Last Admin: 03/28/17 10:28 Dose: Not Given Doxycycline Hyclate 100 mg/ (Sodium Chloride) 100 mls @ 100 mls/hr IVPB Q12 [facility] PRN Reason: Protocol Stop: 03/28/17 22:01 Last Admin: 03/28/17 10:20 Dose: 100 mls/hr Meropenem 1g/NS 100mL IVPB (Meropenem 1g/Ns 100ml Ivpb) 1 gm in 100 mls @ 100 mls/hr IVPB Q12 [facility] PRN Reason: Protocol Stop: 06/27/17 10:01 Last Admin: 03/28/17 10:21 Dose: 100 mls/hr diltiaZEM IVPB 100mg in NS (Cardizem 100mg In Ns) 100 mls @ 5 mls/hr IV .Q20H PRN; Protocol; 5 MG/HR PRN Reason: TITRATE PER MD ORDER Last Admin: 03/28/17 00:45 Dose: 5 mg/hr, 5 mls/hr Megestrol Acetate (Megace) 200 mg PO DAILY [facility] Last Admin: 03/28/17 10:23 Dose: 200 mg Metoclopramide HCl (Reglan) 10 mg PO 0600,1130,1630,2200 [facility] Last Admin: 03/28/17 12:05 Dose: 10 mg Metoprolol Tartrate (Lopressor) 12.5 mg PO BRKDIN [facility] Last Admin: 03/28/17 08:48 Dose: 12.5 mg Pantoprazole Sodium (Protonix Ec Tab) 40 mg PO 0600 [facility] Last Admin: 03/28/17 06:02 Dose: 40 mg Tamsulosin HCl (Flomax) 0.4 mg PO DAILY [facility] Last Admin: 03/28/17 10:21 Dose: 0.4 mg Zolpidem Tartrate (Ambien) 5 mg PO HS PRN; Protocol PRN Reason: Insomnia Last Admin: 03/27/17 21:02 Dose: 5 mg - Labs Labs: 03/28/17 08:56 03/28/17 06:30 PT 10.9 Seconds (9.9-11.8) 03/19/17 13:50 INR 1.01 (0.93-1.08) 03/19/17 13:50 APTT 27.3 Seconds (23.7-30.8) 03/19/17 13:50 - Constitutional Appears: No Acute Distress - Head Exam Head Exam: NORMOCEPHALIC - Eye Exam Eye Exam: Normal appearance. absent: Scleral icterus - ENT Exam ENT Exam: Mucous Membranes Moist - Neck Exam Neck Exam: Normal Inspection - Respiratory Exam Respiratory Exam: Rhonchi, NORMAL BREATHING PATTERN. absent: Respiratory Distress - Cardiovascular Exam Cardiovascular Exam: +S1, +S2 - GI/Abdominal Exam GI & Abdominal Exam: Soft, Normal Bowel Sounds. absent: Guarding, Tenderness, Rebound - Extremities Exam Extremities Exam: absent: Calf Tenderness, Pedal Edema - Neurological Exam Neurological Exam: Alert, Awake, Oriented x3 - Skin Skin Exam: Dry, Warm Assessment and Plan - Assessment and Plan (Free Text) Assessment: Assessment: Oropharyngeal dysphagia Positive AFB culture, as per [facility] report Weight loss Pneumonia COPD History of colon cancer History of Billroth II with gastroparesis Esophageal candidiasis Plan: Continue feedings as tolerated Continue PPI. decrease dose of Reglan 10 mg to 5 mg 4 times a day, see orders On Solu-Medrol Continue Colace On IV antibiotics as per ID Patient may benefit from a jejunostomy tube as opposed to endoscopic placed feeding tube, history of gastric surgery. Seen and discussed with . <Vinicio Galaviz V - Last Filed: 03/28/17 23:00> Objective - Vital Signs/Intake and Output Vital Signs (last 24 hours): Temp Pulse Resp BP Pulse Ox 98.2 F 91 H 24 148/55 L 96 03/28/17 20:53 03/28/17 21:10 03/28/17 21:10 03/28/17 21:00 03/28/17 21:10 - Medications Medications: Current Medications Acetaminophen (Tylenol 650mg/20.3ml Solution Ud) 650 mg PO Q6H PRN PRN Reason: Pain, Mild (1-3) Last Admin: 03/27/17 01:41 Dose: 650 mg Arformoterol Tartrate (Brovana) 15 mcg IH [id number] [facility] Last Admin: 03/28/17 20:24 Dose: 15 mcg Benzonatate (Tessalon Perles) 100 mg PO TID [facility] Last Admin: 03/28/17 17:24 Dose: 100 mg Budesonide (Pulmicort Respules) 0.5 mg IH [id number] [facility] Last Admin: 03/28/17 20:24 Dose: 0.5 mg Docusate Sodium (Colace Liquid) 100 mg PO TID [facility] Last Admin: 03/28/17 17:21 Dose: 100 mg Emollient Ointment (Vaseline Oint) 5 gm TOP DAILY [facility] Last Admin: 03/28/17 10:24 Dose: 5 gm Enoxaparin Sodium (Lovenox) 40 mg SC DAILY [facility] PRN Reason: Protocol Last Admin: 03/28/17 10:20 Dose: 40 mg Guaifenesin/Dextromethorphan (Robitussin Dm) 10 ml PO Q4H PRN PRN Reason: Cough Last Admin: 03/26/17 11:33 Dose: 10 ml Home Med (Home Med) 25 unit PO BID [facility] Last Admin: 03/28/17 10:28 Dose: Not Given Meropenem 1g/NS 100mL IVPB (Meropenem 1g/Ns 100ml Ivpb) 1 gm in 100 mls @ 100 mls/hr IVPB Q12 [facility] PRN Reason: Protocol Stop: 06/27/17 10:01 Last Admin: 03/28/17 21:40 Dose: 100 mls/hr diltiaZEM IVPB 100mg in NS (Cardizem 100mg In Ns) 100 mls @ 5 mls/hr IV .Q20H PRN; Protocol; 5 MG/HR PRN Reason: TITRATE PER MD ORDER Last Admin: 03/28/17 00:45 Dose: 5 mg/hr, 5 mls/hr Megestrol Acetate (Megace) 200 mg PO DAILY [facility] Last Admin: 03/28/17 10:23 Dose: 200 mg Metoclopramide HCl (Reglan) 5 mg PO 0600,1130,1630,2200 [facility] Last Admin: 03/28/17 21:39 Dose: 5 mg Metoprolol Tartrate (Lopressor) 12.5 mg PO BRKDIN [facility] Last Admin: 03/28/17 17:21 Dose: 12.5 mg Pantoprazole Sodium (Protonix Ec Tab) 40 mg PO 0600 [facility] Last Admin: 03/28/17 06:02 Dose: 40 mg Tamsulosin HCl (Flomax) 0.4 mg PO DAILY [facility] Last Admin: 03/28/17 10:21 Dose: 0.4 mg Zolpidem Tartrate (Ambien) 5 mg PO HS PRN; Protocol PRN Reason: Insomnia Last Admin: 03/28/17 21:39 Dose: 5 mg - Labs Labs: 03/28/17 08:56 03/28/17 06:30 PT 10.9 Seconds (9.9-11.8) 03/19/17 13:50 INR 1.01 (0.93-1.08) 03/19/17 13:50 APTT 27.3 Seconds (23.7-30.8) 03/19/17 13:50 Attending/Attestation - Attestation I have personally seen and examined this patient.: Yes I have fully participated in the care of the patient.: Yes I have reviewed all pertinent clinical information, including history, physical exam and plan: Yes Notes (Text): This is an addendum to GI progress report dictated by Franchesca Manzo APN.The patient was seen and examined earlier. Medical records, lab studies, imagings were reviewed. Last 24 hours events reviewed. Agreed with the above treatment plan as outlined in Franchesca Manzo APN's notes the with the addition of the following patient is on respiratory isolation. NG tube feeding with no significant residual tolerating the repeat speech therapy evaluation was reviewed. Recommended pured food with honey thickened liquid. the real concern is maintaining adequate calories which is not possible for the patient as she can tolerate only for a small portions . Feeding can be for pleasure purpose and monitor the calorie intake should be supplemented by adequate nutritional support. He would benefit from J-tube if the family is agreeable 03/28/17 18:47
--- NOTE | 2017-03-29 00:14 | PN ---
DATE: 03/28/[address] Grider, SUBJECTIVE: The patient is an 81-year-old male seen lying awake in bed, having a nebulizer treatment with an NJ tube and C-tube, recently diagnosed as per infectious disease consultants with sepsis, health-associated pneumonia with positive BAL acid fast bacilli cultures 3 weeks after bronchoscopy done in [facility] with the patient now being diagnosed with failure to thrive with recurrent dysphagia, possibly aspiration pneumonia. He also had episode of atrial fibrillation with the patient now on airborne isolation with the patient having his hospital stay extended intensive care, and after recent episode of unresponsiveness after a Dobhoff feeding tube was removed with the coil twisted. He is in no acute distress, however, concerned that he has been in the hospital for a significant period of time. We will ask for the patient to be out of bed to the chair on a daily basis with physiotherapy for range of motion and exercises on a daily basis. We will continue his present medical regimen as per infectious disease consultants. OBJECTIVE/PHYSICAL EXAMINATION VITAL SIGNS: Temperature is not listed for today with yesterday's most recent temperature 98 oral at noontime on 03/27. Heart rate 101, respirations 24, blood pressure 146/84, pulse ox 98%. HEENT: Sunken temples. Oxygen is on. NECK: Supple. He has a suction wand at his bedside for secretions. HEART: Tachy rate. Regular rhythm. Occasional ectopic beats. LUNGS: Scattered rhonchi. ABDOMEN: Soft, nontender, scaphoid. EXTREMITIES: No edema. SKIN: Warm and dry; however, there are edematous changes at the elbows bilaterally after possible IV infiltrations. We will ask to keep the elbows and arms elevated so that this may resorb with time with ecchymotic changes from multiple attempts at labs. He has an NG tube in situ with a Means catheter in situ. NEUROLOGIC: He is awake and alert. SKIN: Otherwise warm, dry and clear except as above. The patient is 6 feet 2 inches tall. He weighs 149 pounds with recent weight loss of concern. LABORATORY DATA: Today showed a white blood cell count of 10.2, hemoglobin of 11.5, hematocrit of 34.9, platelet count of 216,000 with a chem metabolic panel within normal limits except for BUN of 25, creatinine of 0.8. His serology showed negative for Legionella pneumophila on 03/20. His MRSA test on nares was negative on the . ASSESSMENT: Pneumonia, status post probable aspiration; gastroesophageal reflux disease; dysphagia; respiratory distress with intubation and extubation; history of stage III CA colon cancer, in remission 15 years prior; recent failure to thrive; weight loss; persistent cough; electrolyte imbalance; recently reported positive bronchoscopy for culture showing acid fast bacilli with the smear being negative at that time. PLAN: To continue present medical regimen as per Dr. Page, pulmonary, and Dr. Edmond and Dr. No, infectious disease with discontinuation of his steroids with antibiotics to continue with consideration of treatment for tuberculosis in the future with respiratory precautions in effect with sputum for acid fast bacilli with PCR along with TB Gold testing pending. The patient's QuantiFERON-TB test is as per Dr. No and Dr. Page. We will also continue NJ tube as per Dr. Galaviz, gastrointestinal, with considerations for PEG feeding tube as indicated with the patient swallowing eval showing [id number] risk. His atrial fibrillation, cardiac dysrhythmia is being followed by Dr. Aries Wheeler, cardiology and the taper machine. PROGNOSIS: DNR/DNI at the family's request. Prognosis for this patient is guarded. It should be noted that the patient's findings are positive for acid fast bacilli with Mycobacterium tuberculi testing pending not as previous reported as positive tuberculosis at this point. Acid fast bacilli maybe Mycobacterium avium and other species with this to be determined as per consultants recommendations. Precautions are in affect. We will monitor clinically and with labs. In the interim, we will get the patient out of bed to the chair and physiotherapy to continue, so we do not lose his baseline findings. Jefferson Chaudhry MD
--- NOTE | 2017-03-29 00:30 | PN ---
PULMONARY PROGRESS NOTE DATE: 03/28/2017 REFERRING PHYSICIAN: Jefferson Chaudhry MD SUBJECTIVE: Subjectively, he is out of bed to chair. Feels better. Still has some cough and clear sputum production. Nasogastric tube feeding is ongoing. Was to get out of ICU. No chest pain. No nausea, no vomiting, no diarrhea, leg pain, or leg swelling. OBJECTIVE GENERAL: In no acute distress. VITAL SIGNS: Temperature is 98, heart rate is 91, respiratory rate is 20, blood pressure is 148/55, and pulse oximetry is 96% on 4 L nasal cannula. HEENT: Moist mucous membranes. Crowded airway. NECK: Supple. No JVD. LUNGS: Has a scattered rhonchi. HEART: S1 and S2. ABDOMEN: Soft and nontender. No organomegaly. EXTREMITIES: There is no edema. NEUROLOGIC: Awake, alert, and follow simple commands. MEDICATIONS: Reviewed and noted. Ambien 5 mg at bedtime p.r.n. given, Brovana 50 mcg inhaled twice a day, Cardizem IV drip has been started, Colace 100 mg three times a day, Flomax 0.4 mg daily, metoprolol tartrate 12.5 mg twice a day, Lovenox 40 mg daily, Megace 200 mg daily, meropenem 1 g IV q. 12 hours, Protonix 40 mg daily, Pulmicort inhaled twice a day, Reglan 5 mg q.i.d., Robitussin DM 10 mL q. 4 hours p.r.n., Tessalon Perles 100 mg three times a day, Tylenol p.r.n., Vaseline ointment to the affected area. LABORATORY DATA: Shows hemoglobin 11.5, hematocrit 34.9, WBC 10.2, platelet count is 216. Sodium 140, potassium 4.2, chloride 100, bicarbonate 31, BUN 25, creatinine 0.8, glucose 90, calcium is 8.9, phosphorous 2.8, magnesium 2.1. AST 37, ALT 36, alkaline phosphatase is 83,albumin is 3.0. IMPRESSION AND PLAN: Multilobar infiltrate, oropharyngeal dysphagia, has a nasogastric tube, getting feeding, awaiting final report on bronchoscopy specimen at [facility], which is growing AFB, but organism identity is still pending. We will send sed rate and C-reactive protein. Continue bronchodilator, aspiration precaution. Start physical therapy. TB Gold testing already sent. Sputum for AFB is already being sent. Follow labs in the morning. The patient can be transferred out of ICU once cleared by cardiology. Thank you and we will follow with you. Andrea Page MD
[2017-03-29] MEDS: Pantoprazole 40 mg EC Tab PO SCH (05:56)
[2017-03-29 07:03] LABS: BASO # 0.01 K/mm3 (0.0-2.0); BASO % 0.1 % (0.0-3.0); EOS % 0.2 % (1.5-5.0); GRAN # 9.46 (1.4-6.5); GRAN % 88.7 % (50.0-68.0); HEMATOCRIT 36.8 % (42.0-52.0); LYMPH # 0.7 (1.2-3.4); LYMPH % 6.1 % (22.0-35.0); MEAN CELL VOLUME 92.5 fl (80.0-105.0); MEAN CORPUSCULAR HEMOGLOBIN 29.9 pg (25.0-35.0); MEAN CORPUSCULAR HGB CONC 32.3 g/dl (31.0-37.0); MEAN PLATELET VOLUME 11.5 fl (7.0-11.0); MONO # 0.5 (0.1-0.6); MONO % 4.9 % (1.0-6.0); RED CELL DISTRIBUTION WIDTH 14.5 % (11.5-14.5); WHITE BLOOD COUNT 10.7 10^3/ul (4.5-11.0)
[2017-03-29] MEDS: Budesonide 0.5 mg/2 ml Inhal Susp UD IH SCH ×2 (07:30→19:39)
[2017-03-29] MEDS: Arformoterol 15 mcg/2 ml Inh Sol IH SCH ×2 (07:30→19:39)
[2017-03-29 07:35] LABS: ALKALINE PHOSPHATASE 75 U/L (38-126); ALT/SGPT 31 U/L (7-56); AST/SGOT 32 U/L (17-59); BILIRUBIN,TOTAL 1.1 mg/dL (0.2-1.3); BLOOD UREA NITROGEN 20 mg/dL (7-21); CALCIUM 8.4 mg/dL (8.4-10.5); CARBON DIOXIDE 32 mmol/L (21-33); CHLORIDE 100 mmol/L (98-107); GFR AFRICAN-AMERICAN > 60; GLUCOSE,RANDOM 86 mg/dL (70-110); MAGNESIUM 2.1 mg/dL (1.7-2.2); PHOSPHOROUS 2.7 mg/dL (2.5-4.5); POTASSIUM 3.4 mmol/L (3.6-5.0); SODIUM 139 mmol/L (132-148); TOTAL PROTEIN 5.4 g/dL (5.8-8.3)
[2017-03-29] MEDS: Meropenem 1g/NS 100mL IVPB 1 GM/100 ML PIGGYBACK IVPB SCH (09:38)
[2017-03-29] MEDS: Megestrol Acetate 40 mg/ml Cup PO SCH (09:39)
[2017-03-29] MEDS: diltiaZEM IVPB 100mg in NS 100 ML IV PRN ×2 (09:39→23:20)
[2017-03-29] MEDS: Petrolatum Oint Foilpak (5 gm) TOP SCH (09:40)
[2017-03-29] MEDS: Enoxaparin 40 mg Syringe SC SCH (09:40)
--- NOTE | 2017-03-29 10:02 | CP.PCM.PN ---
Subjective - Date & Time of Evaluation Date of Evaluation: 03/29/17 Time of Evaluation: 09:50 - Subjective Subjective: Comfortable, not in distress, afebrile. Objective - Vital Signs/Intake and Output Vital Signs (last 24 hours): Temp Pulse Resp BP Pulse Ox 98.2 F 80 22 144/56 L 100 03/29/17 05:53 03/29/17 05:53 03/29/17 05:53 03/29/17 05:53 03/29/17 05:53 - Medications Medications: Current Medications Acetaminophen (Tylenol 650mg/20.3ml Solution Ud) 650 mg PO Q6H PRN PRN Reason: Pain, Mild (1-3) Last Admin: 03/27/17 01:41 Dose: 650 mg Arformoterol Tartrate (Brovana) 15 mcg IH [id number] [facility] Last Admin: 03/28/17 20:24 Dose: 15 mcg Benzonatate (Tessalon Perles) 100 mg PO TID [facility] Last Admin: 03/28/17 17:24 Dose: 100 mg Budesonide (Pulmicort Respules) 0.5 mg IH [id number] [facility] Last Admin: 03/28/17 20:24 Dose: 0.5 mg Docusate Sodium (Colace Liquid) 100 mg PO TID [facility] Last Admin: 03/28/17 17:21 Dose: 100 mg Emollient Ointment (Vaseline Oint) 5 gm TOP DAILY [facility] Last Admin: 03/28/17 10:24 Dose: 5 gm Enoxaparin Sodium (Lovenox) 40 mg SC DAILY [facility] PRN Reason: Protocol Last Admin: 03/28/17 10:20 Dose: 40 mg Guaifenesin/Dextromethorphan (Robitussin Dm) 10 ml PO Q4H PRN PRN Reason: Cough Last Admin: 03/26/17 11:33 Dose: 10 ml Home Med (Home Med) 25 unit PO BID [facility] Last Admin: 03/28/17 10:28 Dose: Not Given Meropenem 1g/NS 100mL IVPB (Meropenem 1g/Ns 100ml Ivpb) 1 gm in 100 mls @ 100 mls/hr IVPB Q12 [facility] PRN Reason: Protocol Stop: 06/27/17 10:01 Last Admin: 03/28/17 21:40 Dose: 100 mls/hr diltiaZEM IVPB 100mg in NS (Cardizem 100mg In Ns) 100 mls @ 5 mls/hr IV .Q20H PRN; Protocol; 5 MG/HR PRN Reason: TITRATE PER MD ORDER Last Admin: 03/28/17 00:45 Dose: 5 mg/hr, 5 mls/hr Megestrol Acetate (Megace) 200 mg PO DAILY [facility] Last Admin: 03/28/17 10:23 Dose: 200 mg Metoclopramide HCl (Reglan) 5 mg PO 0600,1130,1630,2200 [facility] Last Admin: 03/28/17 21:39 Dose: 5 mg Metoprolol Tartrate (Lopressor) 12.5 mg PO BRKDIN [facility] Last Admin: 03/28/17 17:21 Dose: 12.5 mg Pantoprazole Sodium (Protonix Ec Tab) 40 mg PO 0600 [facility] Last Admin: 03/28/17 06:02 Dose: 40 mg Tamsulosin HCl (Flomax) 0.4 mg PO DAILY [facility] Last Admin: 03/28/17 10:21 Dose: 0.4 mg Zolpidem Tartrate (Ambien) 5 mg PO HS PRN; Protocol PRN Reason: Insomnia Last Admin: 03/28/17 21:39 Dose: 5 mg - Labs Labs: 03/28/17 08:56 03/28/17 06:30 PT 10.9 Seconds (9.9-11.8) 03/19/17 13:50 INR 1.01 (0.93-1.08) 03/19/17 13:50 APTT 27.3 Seconds (23.7-30.8) 03/19/17 13:50 - Constitutional Appears: Non-toxic, No Acute Distress, Chronically Ill - Head Exam Head Exam: NORMAL INSPECTION - ENT Exam ENT Exam: Mucous Membranes Moist - Neck Exam Neck Exam: absent: Meningismus - Respiratory Exam Respiratory Exam: Decreased Breath Sounds - Cardiovascular Exam Cardiovascular Exam: +S1, +S2 - GI/Abdominal Exam GI & Abdominal Exam: Soft. absent: Tenderness Assessment and Plan - Assessment and Plan (Free Text) Plan: Assessment Consider sepsis due to multifocal healthcare-associated pneumonia in this patient with dysphagia - improved; S/P ventilator-dependent respiratory failure ; has positive BAL AFB on cultures 3 weeks after bronchoscopy was done at colon cancer on chemotherapy S/P resection peptic ulcer disease BPH COPD glaucoma GERD chronic caldwell catheter use Plan will d/c Doxycycline and Merrem (completed 9 days of therapy) and monitor Spoke with Dr. Deluna - (+) AFB cultures after 3 weeks (S/P bronchoscopy) - smears were negative, including sputum smears - will await identification and sensitivities of the AFB in the BAL fluid discussed with Dr. Page - follow up Quantiferon TB test, sputum AFB x 3 and airborne isolation for now will continue to monitor clinically
[2017-03-29] MEDS: LUBIPROSTONE PO SCH ×2 (11:07→19:09)
--- NOTE | 2017-03-29 13:32 | CP.PCM.PN ---
<Franchesca Manzo - Last Filed: 03/29/17 13:30> Subjective - Date & Time of Evaluation Date of Evaluation: 03/29/17 Time of Evaluation: 13:02 - Subjective Subjective: Covering GI covering note for Dr. Tavarez. S&E at bedside, chart reviewed, continue to tolerated NGtube feeding, no report of overt GI bleeding, patient reports BM yesterday, none yet today. Denies SOB or chest pain, have secretions. Objective - Vital Signs/Intake and Output Vital Signs (last 24 hours): Temp Pulse Resp BP Pulse Ox 98.3 F 90 22 144/56 L 100 03/29/17 08:08 03/29/17 08:01 03/29/17 05:53 03/29/17 05:53 03/29/17 05:53 Intake and Output: 03/29/17 03/29/17 06:59 18:59 Intake Total 800 Output Total 700 Balance 100 - Medications Medications: Current Medications Acetaminophen (Tylenol 650mg/20.3ml Solution Ud) 650 mg PO Q6H PRN PRN Reason: Pain, Mild (1-3) Last Admin: 03/27/17 01:41 Dose: 650 mg Arformoterol Tartrate (Brovana) 15 mcg IH [id number] [facility] Last Admin: 03/29/17 07:30 Dose: 15 mcg Benzonatate (Tessalon Perles) 100 mg PO TID [facility] Last Admin: 03/29/17 09:40 Dose: 100 mg Budesonide (Pulmicort Respules) 0.5 mg IH [id number] [facility] Last Admin: 03/29/17 07:30 Dose: 0.5 mg Docusate Sodium (Colace Liquid) 100 mg PO TID [facility] Last Admin: 03/29/17 09:39 Dose: 100 mg Emollient Ointment (Vaseline Oint) 5 gm TOP DAILY [facility] Last Admin: 03/29/17 09:40 Dose: 5 gm Enoxaparin Sodium (Lovenox) 40 mg SC DAILY [facility] PRN Reason: Protocol Last Admin: 03/29/17 09:40 Dose: 40 mg Guaifenesin/Dextromethorphan (Robitussin Dm) 10 ml PO Q4H PRN PRN Reason: Cough Last Admin: 03/26/17 11:33 Dose: 10 ml Home Med (Home Med) 25 unit PO BID [facility] Last Admin: 03/29/17 11:07 Dose: Not Given diltiaZEM IVPB 100mg in NS (Cardizem 100mg In Ns) 100 mls @ 5 mls/hr IV .Q20H PRN; Protocol; 5 MG/HR PRN Reason: TITRATE PER MD ORDER Last Admin: 03/29/17 09:39 Dose: 5 mg/hr, 5 mls/hr Megestrol Acetate (Megace) 200 mg PO DAILY [facility] Last Admin: 03/29/17 09:39 Dose: 200 mg Metoclopramide HCl (Reglan) 5 mg PO 0600,1130,1630,2200 [facility] Last Admin: 03/29/17 11:40 Dose: 5 mg Metoprolol Tartrate (Lopressor) 12.5 mg PO BRKDIN [facility] Last Admin: 03/29/17 08:01 Dose: 12.5 mg Pantoprazole Sodium (Protonix Ec Tab) 40 mg PO 0600 [facility] Last Admin: 03/29/17 05:56 Dose: 40 mg Tamsulosin HCl (Flomax) 0.4 mg PO DAILY [facility] Last Admin: 03/29/17 09:40 Dose: 0.4 mg Zolpidem Tartrate (Ambien) 5 mg PO HS PRN; Protocol PRN Reason: Insomnia Last Admin: 03/28/17 21:39 Dose: 5 mg - Labs Labs: 03/29/17 05:30 03/29/17 05:30 PT 10.9 Seconds (9.9-11.8) 03/19/17 13:50 INR 1.01 (0.93-1.08) 03/19/17 13:50 APTT 27.3 Seconds (23.7-30.8) 03/19/17 13:50 - Constitutional Appears: No Acute Distress - Head Exam Head Exam: NORMOCEPHALIC - Eye Exam Eye Exam: Normal appearance. absent: Scleral icterus - ENT Exam ENT Exam: Mucous Membranes Moist - Neck Exam Neck Exam: Normal Inspection - Respiratory Exam Respiratory Exam: Rhonchi, NORMAL BREATHING PATTERN. absent: Respiratory Distress - Cardiovascular Exam Cardiovascular Exam: +S1, +S2 - GI/Abdominal Exam GI & Abdominal Exam: Soft, Normal Bowel Sounds. absent: Guarding, Tenderness, Rebound - Extremities Exam Extremities Exam: Normal Capillary Refill. absent: Calf Tenderness, Pedal Edema - Neurological Exam Neurological Exam: Alert, Awake, Oriented x3 - Skin Skin Exam: Dry, Warm Assessment and Plan - Assessment and Plan (Free Text) Assessment: Assessment: Oropharyngeal dysphagia Positive AFB culture, as per [facility] [place], TB [place] , inderterminate Weight loss Pneumonia COPD History of colon cancer History of Billroth II with gastroparesis Esophageal candidiasis Plan: Continue feedings as tolerated On Cardizem drip Continue PPI. on Reglan 5 mg QID On Solu-Medrol Continue Colace On IV antibiotics as per ID Patient may benefit from a jejunostomy tube as opposed to endoscopic placed feeding tube, history of gastric surgery. Seen and discussed with . <Vinicio Galaviz V - Last Filed: 03/29/17 23:44> Objective - Vital Signs/Intake and Output Vital Signs (last 24 hours): Temp Pulse Resp BP Pulse Ox 96.0 F L 109 H 23 113/75 88 L 03/29/17 23:37 03/29/17 23:00 03/29/17 23:00 03/29/17 23:00 03/29/17 23:00 Intake and Output: 03/29/17 03/30/17 18:59 06:59 Intake Total 100 Balance 100 - Medications Medications: Current Medications Acetaminophen (Tylenol 650mg/20.3ml Solution Ud) 650 mg PO Q6H PRN PRN Reason: Pain, Mild (1-3) Last Admin: 03/27/17 01:41 Dose: 650 mg Arformoterol Tartrate (Brovana) 15 mcg IH [id number] [facility] Last Admin: 03/29/17 19:39 Dose: 15 mcg Benzonatate (Tessalon Perles) 100 mg PO TID [facility] Last Admin: 03/29/17 19:10 Dose: Not Given Budesonide (Pulmicort Respules) 0.5 mg IH [id number] [facility] Last Admin: 03/29/17 19:39 Dose: 0.5 mg Docusate Sodium (Colace Liquid) 100 mg PO TID [facility] Last Admin: 03/29/17 19:09 Dose: Not Given Emollient Ointment (Vaseline Oint) 5 gm TOP DAILY [facility] Last Admin: 03/29/17 09:40 Dose: 5 gm Enoxaparin Sodium (Lovenox) 40 mg SC DAILY [facility] PRN Reason: Protocol Last Admin: 03/29/17 09:40 Dose: 40 mg Guaifenesin/Dextromethorphan (Robitussin Dm) 10 ml PO Q4H PRN PRN Reason: Cough Last Admin: 03/26/17 11:33 Dose: 10 ml Home Med (Home Med) 25 unit PO BID [facility] Last Admin: 03/29/17 19:09 Dose: Not Given diltiaZEM IVPB 100mg in NS (Cardizem 100mg In Ns) 100 mls @ 5 mls/hr IV .Q20H PRN; Protocol; 5 MG/HR PRN Reason: TITRATE PER MD ORDER Last Admin: 03/29/17 23:20 Dose: 5 mg/hr, 5 mls/hr Megestrol Acetate (Megace) 200 mg PO DAILY [facility] Last Admin: 03/29/17 09:39 Dose: 200 mg Metoclopramide HCl (Reglan) 5 mg PO 0600,1130,1630,2200 [facility] Last Admin: 03/29/17 23:14 Dose: 5 mg Metoprolol Tartrate (Lopressor) 12.5 mg PO BRKDIN [facility] Last Admin: 03/29/17 19:09 Dose: Not Given Pantoprazole Sodium (Protonix Ec Tab) 40 mg PO 0600 [facility] Last Admin: 03/29/17 05:56 Dose: 40 mg Tamsulosin HCl (Flomax) 0.4 mg PO DAILY [facility] Last Admin: 03/29/17 09:40 Dose: 0.4 mg Zolpidem Tartrate (Ambien) 5 mg PO HS PRN; Protocol PRN Reason: Insomnia Last Admin: 03/29/17 23:14 Dose: 5 mg - Labs Labs: 03/29/17 05:30 03/29/17 05:30 PT 10.9 Seconds (9.9-11.8) 03/19/17 13:50 INR 1.01 (0.93-1.08) 03/19/17 13:50 APTT 27.3 Seconds (23.7-30.8) 03/19/17 13:50 Attending/Attestation - Attestation Notes (Text): This is an addendum to GI progress report dictated by Franchesca Manzo APN.The patient was seen and examined earlier. Medical records, lab studies, imagings were reviewed. Last 24 hours events reviewed. Agreed with the above treatment plan as outlined in Franchesca Manzo APN's notes the with the addition of the following Tolerating NG feeding Abdomen soft no tenderness would consider jejunostomy feeding tube placementif patient and Patient's family are agreeable for optimization 03/29/17 19:39
--- NOTE | 2017-03-29 15:56 | PN ---
DATE: LOCATION: The patient is in the ICU, bed 2. SUBJECTIVE: This is an 81-year-old male who is under my care for history of CA of the colon stage III, status post chemotherapy after surgery about 18 years ago, history of B12 deficiency, history of Billroth 2 type of surgery for peptic ulcer disease perforated many years ago, was admitted with progressive difficulty swallowing found to have dysphagia secondary to dysfunction for the first and second active deglutition, which is more dysphagia, etiology, which is unclear. The patient has had multiple admissions to several hospitals with repeated aspiration pneumonias until recently we admitted him to [facility] and had modified swallowing study. Seen by ENT, neuro and GI. The patient is currently on Dobhoff feeding tube eventually need a jejunostomy was transferred to the unit because of aspiration and respiratory arrest while having the Dobhoff feeding tube inserted. The patient is definitely better now. He is comfortable not in distress, still on tube feedings. In the interim culture reports on BAL, bronchoscopy done at [facility] 3 weeks ago was called in showing acid fast bacteria. Final sensitivities or identification is pending, though it appears it could be most likely Mycobacterium avium. Subjectively, the patient is comfortable, not in any distress. He is afebrile. Vital signs is stable. T-max is 98.2, pulse is 80, respirations 22, blood pressure is 144/56, pulse ox on 3 L of oxygen is 100%. MEDICATIONS: The patient medications were reviewed. He is on Tylenol, Brovana, Tessalon Perles, Pulmicort, Colace liquid, Vaseline ointment. He is on Lovenox 40 subcu daily, Robitussin 10 mL q. 4 hours p.r.n. He is on Megace 200 mg daily, meropenem 1 g q. 12 hours. He is on diltiazem 100 mg, infusion for a normal saline, infusion q. 20 hours p.r.n. tachycardia and atrial fibrillation. He is on Reglan 5 mg 4 times a day, metoprolol tartrate 12.5 mg. He is on pantoprazole, Flomax and Ambien p.r.n. for sleep. The patient has an indwelling Means catheter as well. In addition to the Flomax. PHYSICAL EXAMINATION: GENERAL: The patient is awake, alert, oriented. He wants to get out of the unit at this time. In no acute distress. VITAL SIGNS: Stable. HEENT: Head is normocephalic, atraumatic. Temporal muscle wasting is noted. The patient is cachectic. Examination of the oropharynx reveals no oropharyngeal lesions. The patient is bringing up copious amount of saliva secondary to odynophagia and motor dysfunction, dysphagia. NECK: Supple. There is no adenopathy. No jugular venous distention noted. LUNGS: Clear to percussion and auscultation. HEART: PMI to be in the fifth intercostal space inside the midclavicular line. S1 and S2 are normal. No gallop or murmur is heard. ABDOMEN: Soft, scaphoid. Liver and spleen not palpable. Scar of prior surgery is noted. It is nontender. EXTREMITIES: Reveals no cyanosis, clubbing or edema. NEUROLOGIC: Higher functions to be normal. No focal deficits are noted. There is no evidence of adenopathy on examination of the neck, axilla or groin. GENITOURINARY AND RECTAL: Deferred at this point. The patient has a Dobhoff feeding tube and Means catheter in place. LABORATORY DATA: White count from today is 10.2 with hemoglobin 11.5, hematocrit 34.9, platelet count 216,000. Sodium is 140, potassium is 4.2, chloride is 100, CO2 is 31, BUN is 25, creatinine 0.8 with a blood sugar of 90. ASSESSMENT NOTES AND PLAN: The patient has multilobar pneumonia secondary to aspiration, secondary to dysfunction with first and second phases of deglutition. At this point in time, causes are unclear after being seen by at least 3 or 4 different consultants. The patient is in the meantime Dobhoff feeding tube, may have to be switched to jejunostomy because of his prior surgery. In the meantime, AFB cultures are not yet back, but the patient did have early preliminary diagnosis of AFB, whether it is AFB Mycobacterium or avium needs to be determined. The patient has benign prostatic hyperplasia, chronic obstructive pulmonary disease, glaucoma, gastroesophageal reflux, chronic indwelling Means. The patient is on antibiotics; doxycycline, Merrem, which I am going to be discontinued. The patient is on airborne isolation for now. We will wait for the final cultures and also the TB QuantiFERON assay before making any further decisions. We will continue current management. We will wait for ID and pulmonary to clear the patient, so we can assess him for feeding jejunostomy tube, so we can feed him on a more continues basis and could be then setup for discharge. Routine post-exam instructions have been given to the patient. Lissy Grider MD
--- NOTE | 2017-03-29 16:22 | PN ---
DATE: 03/29/2017 SUBJECTIVE: The patient is in bed, awake, alert without distress. PHYSICAL EXAMINATION: VITAL SIGNS: Blood pressure 144/56, heart rate in the 90s. NECK: Negative JVD. LUNGS: Decreased breath sounds. HEART: Reveal S1, S2. EXTREMITIES: Without edema. LABORATORY DATA: Hemoglobin is 11.9. Chemistries, BUN and creatinine are unremarkable. IMPRESSION: 1. Status post syncope. 2. No LV outflow obstruction. 3. Mild cardiomyopathy. 4. Chronic obstructive pulmonary disease. 5. Active tuberculosis. PLAN: Given these findings, the patient is being treated for tuberculosis. There is no further investigation necessary for his syncope, which is likely due to his vagal tone during his manipulation. Aries Wheeler MD
--- NOTE | 2017-03-29 16:39 | PN ---
DATE: LOCATION: The patient is in ICU bed 2. SUBJECTIVE: The patient is sitting out of bed in chair. Feeling better. Still has significant cough and clear sputum production. The patient is on Dobhoff feeding at this time, as he has deglutition issues. The patient would like to get out of the unit. He is still on respiratory isolation until AFB testing is further finalized and until we get the Quantiferon assay test back. No nausea. No vomiting. No diarrhea. No leg pain. The patient has edema around his elbow because of his positioning in the bed. PHYSICAL EXAMINATION: GENERAL: The patient is in no acute distress. VITAL SIGNS: Stable. T-max is 98.4, heart rate is 91, respirations 20, blood pressure is 148/55, and pulse ox is 96% on 4 liters of nasal cannula. HEENT: Head is normocephalic, atraumatic. Conjunctivae pale. Examination of the oropharynx reveals tongue to be moist. Lot of secretions are noted. No masses or ulcerations are seen. NECK: Supple. There is no adenopathy. The patient is asthenic and cachectic. LUNGS: Bilateral rhonchi. HEART: Reveals S1 and S2 to be normal. No gallop or murmur is heard. ABDOMEN: Soft and nontender. Liver and spleen not palpable. EXTREMITIES: Reveals no cyanosis, clubbing, or edema. NEUROLOGIC: Higher functions are normal. No focal deficits are noted. MEDICATIONS: Reviewed. The patient is on Ambien 5 at bedtime, Brovana 50 mcg inhaled twice a day, Cardizem IV drip for his atrial fibrillation, Colace 100 mg t.i.d., Flomax 0.4 mg daily, metoprolol tartrate 12.5 mg b.i.d., Lovenox 40 mg daily, Megace 200 mg daily, meropenem 1 g IV q.12 hours, Protonix 40 mg daily, Pulmicort inhaler twice a day, Reglan 5 mg q.i.d., Robitussin DM q.4 hours p.r.n., Tessalon Perles 3 times a day, and Vaseline ointment to the affected area. LABORATORY DATA: Reveals a hemoglobin of 11.5, hematocrit 34.9, white count is 10.2 with platelet count of 216,000. Electrolytes are normal. Sodium is 140, potassium is 4.2, chloride is 100, bicarbonate is 31, BUN of 25, creatinine 0.8 with normal glucose of 90. Calcium is 8.9, phosphorus is 2.8, and magnesium is 2.1. AST and ALT are within normal limits with an alkaline phosphatase and albumin, which are also normal. ASSESSMENT AND PLAN: This is an 39-[id number]-[id number]-old cachectic male with multilobar infiltrates secondary to repeated aspiration from oropharyngeal dysphagia, has a feeding tube, getting feeding that way. We are awaiting final report, bronchoscopy and bronchoalveolar lavage done at [facility], which is growing AFB with organism identification is still pending. The patient continues to have bronchodilators and IV antibiotics. TB Gold Quantiferon assay is pending. Sputum for AFB is already being setup. The patient will be on respiratory isolation and we will transfer to the regular floor when the bed is available. Routine post exam instructions have been given to the patient. We will speak to the family as well. Spoken to Dr. Shah and Dr. Page. Lissy Grider MD
--- NOTE | 2017-03-29 21:29 | PN ---
DATE: 03/29/2017 REFERRING PHYSICIAN: Dr. Grider. SUBJECTIVE: The patient is out of bed to chair, feels better. Decreased cough, decreased sputum production, has a nasogastric tube in and getting feeding. No hemoptysis. No hematemesis. No hematuria. No diarrhea. Bored to , wants to get out. He is in isolation for AFB. OBJECTIVE: GENERAL: No acute distress. VITAL SIGNS: Temperature is 98, heart rate is 90, respiratory rate is 22, blood pressure 144/56, and pulse ox 100% on 4 L nasal cannula. HEENT: Moist mucous membrane. Crowded airway. NECK: Supple. No JVD. LUNGS: Scattered rhonchi. HEART: S1 and S2. ABDOMEN: Soft, nontender. No organomegaly. EXTREMITIES: There is no edema. NEUROLOGIC: Awake and alert. Follow simple commands. MEDICATIONS: He is on Ambien 5 mg at bedtime p.r.n., Brovana inhaled twice a day, IV diltiazem, Colace 100 mg 3 times a day, Flomax 0.4 mg daily, metoprolol tartrate 12.5 mg twice a day, Lovenox 40 mg daily, Megace 200 mg daily, Protonix 40 mg daily, Pulmicort inhaled twice a day, Reglan 5 mg q.i.d., Robitussin DM q. 4 hours p.r.n., Tessalon Perles 100 mg 3 times a day, Tylenol p.r.n. basis, Vaseline at affected area. LABORATORY DATA: Shows hemoglobin 11.9, hematocrit 36.8, WBC 10.7, platelet is 180. Sodium 139, potassium 3.4, chloride 100, bicarbonate 32, BUN 20, creatinine 0.8, glucose 247, calcium 8.4, phosphorus 2.7, magnesium 2.1, AST 32, ALT 31, alkaline phosphatase is 75, and albumin is 2.7. Microbiology: One sputum from 03/28 is smear negative for AFB. Also, had TB Gold test which is suggestive of indeterminate test. IMPRESSION AND PLAN: Multilobar infiltrate, oropharyngeal dysphagia, probably aspiration. Presently getting feeding through nasogastric tube. Awaiting final report from bronchoscopy at [facility] which reported culture growing acid-fast bacillus, identity and organism still pending. Sed rate is not very high to suggest active tuberculosis. TB Gold test also intermediately positive. I will be surprised if it is really a tuberculosis, but of course, with immunocompromise, the patient been on losing weight, it is possible ? Continue bronchodilator. Continue antibiotics. Continue feeding through nasogastric tube. I believe once the patient is stable by next week, could be Saturday or so, should get J-tube placement if okay with GI and primary care team. Thank you and we will follow with you. Andrea Page MD
--- NOTE | 2017-03-29 22:41 | RAD ---
EXAM: XR Chest, 1 View EXAM DATE/TIME: 03/29/2017 6:02 PM CLINICAL HISTORY: 81 years old, male; Device placement; Ng tube TECHNIQUE: Frontal view of the chest. COMPARISON: DX - CHEST PORTABLE 03/24/2017 5:49:48 AM FINDINGS: Clips left upper quadrant. Midline elis upper abdomen. Feeding tube tip in the gastric fundal lumen approximately 11 cm distal to the GE junction. Leads overlie the patient. Again seen are bilateral lower lung nodular infiltrates slightly greater on the right. There is a small amount of nodular infiltrate in the right midlung more apparent on the current study. The mediastinal cardiac silouette is normal in size. No effusions are identified. The osseous structures are normal. IMPRESSION: Feeding tube in the gastric fundus. Bilateral nodular pulmonary infiltrates as above.
[2017-03-30] MEDS: Pantoprazole 40 mg EC Tab PO SCH (06:30)
[2017-03-30] MEDS: Arformoterol 15 mcg/2 ml Inh Sol IH SCH (07:32)
[2017-03-30] MEDS: Budesonide 0.5 mg/2 ml Inhal Susp UD IH SCH (07:33)
--- NOTE | 2017-03-30 08:54 | PN ---
DATE: 03/30/2017 SUBJECTIVE: The patient is in bed, in no acute distress, nontoxic. PHYSICAL EXAMINATION VITAL SIGNS: Temperature is 96, blood pressure is 117/40, respiratory rate of 51, heart rate of 100. HEENT: Unremarkable. NECK: Supple. LUNGS: Decreased breath sounds. HEART: Normal S1 and S2. ABDOMEN: Soft and nontender. LABORATORY DATA: Laboratory examination reveals a white count of 10,000, hemoglobin of 11, platelets of 180. BUN of 20, creatinine of 0.8. Procalcitonin is 0.12 on 03/19/2017. Urinalysis is noted and serology reveals indeterminate TB test QuantiFERON. Microbiology reveals mycobacterial cultures, preliminary result is no acid fast is seen from the sputum and the nares MRSA is not detected. Blood cultures are negative. Dr. Page's note is reviewed. Multilobar infiltrates are appreciable, dysphagia probably aspiration nasogastric tube. He is awaiting for bronchoscopy, which reported acid fast bacilli. Chest x-ray from yesterday read by Dr. Christine Tripathi is reported to have bilateral nodular pulmonary infiltrates. Dr. Grider's note is reviewed from yesterday. ASSESSMENT AND PLAN: An 81-year-old male with sepsis with multifocal health-care associated pneumonia in a patient with dysphagia, status post ventilator dependent respiratory failure, positive bronchoalveolar lavage Aspergillus on post bronchoscopy at [facility] and the patient with colon cancer, on chemotherapy and resection, peptic ulcer disease, benign prostatic hypertrophy, chronic obstructive lung disease, glaucoma, gastroesophageal reflux disease. The patient is status post treatment of doxycycline and meropenem. I doubt this to be mycobacterium tuberculosum, most likely, mycobacterium avium intracellulare or other atypical mycobacterium in elderly chronic obstructive lung disease. Awaiting for identification of the mycobacterium should be able to use the PCR technology to determine the identification. Currently, off of antibiotics, risk for developing nosocomial infections with negative smears, most likely not contiguous. Tonny Edmond MD
[2017-03-30] MEDS: Megestrol Acetate 40 mg/ml Cup PO SCH (08:59)
[2017-03-30] MEDS: LUBIPROSTONE PO SCH ×2 (09:00→17:36)
[2017-03-30] MEDS: Enoxaparin 40 mg Syringe SC SCH (09:00)
[2017-03-30] MEDS: Petrolatum Oint Foilpak (5 gm) TOP SCH (09:03)
--- NOTE | 2017-03-30 15:28 | PN ---
DATE: 03/30/2017 SUBJECTIVE: The patient is lying in intensive care, comfortable. He is tolerating his NG tube feedings. There is no nausea or vomiting. PHYSICAL EXAMINATION: VITAL SIGNS: Reveal temperature of 96, blood pressure 131/51, and heart rate of 86. HEENT: Reveal an NG tube in place. ABDOMEN: Soft and nontender. LABORATORY DATA: Reveal no new electrolytes. 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 The patient had a partial gastrectomy with Billroth II anastomosis over 20 years ago. He is not a candidate for endoscopic percutaneous endoscopic gastrostomy placement. RECOMMENDATIONS: Surgical evaluation for jejunostomy tube placement once TB is ruled out. Ej Tavarez MD
--- NOTE | 2017-03-30 18:40 | PN ---
PULMONARY PROGRESS NOTE DATE: 03/30/2017 REFERRING PHYSICIAN: Dr. Grider SUBJECTIVE: He is out of bed to chair. He feels okay. Still has cough, clear sputum production, receiving feeding through the nasogastric. No hemoptysis. No hematemesis. No hematuria. No diarrhea. No fever. OBJECTIVE GENERAL: In no acute distress. VITAL SIGNS: Temperature is 98, heart rate is 110, respiratory rate is 20, blood pressure 133/54, pulse ox 97% on nasal cannula. HEENT: Moist mucous membrane. Crowded airway. NECK: Supple. No JVD. LUNGS: Fair airflow. Scattered rhonchi. HEART: S1 and S2. ABDOMEN: Soft and nontender. No organomegaly. EXTREMITIES: There is no edema. NEUROLOGIC: Awake, alert, and follows simple commands. LABORATORY DATA: Text. MEDICATIONS: He is on Ambien 5 mg at bedtime p.r.n., Brovana inhaled twice a day, diltiazem is 5 mg per hour, Colace 100 mg 3 times a day, Flomax 0.4 mg daily, metoprolol tartrate 12.5 mg twice a day, Lovenox 40 mg daily, Megace 200 mg daily, Protonix 40 mg daily, Pulmicort inhaled twice a day, Reglan 5 mg q.i.d., Robitussin DM 10 mL q. 4 hours p.r.n., Tessalon Perles 100 mg 3 times a day, Tylenol p.r.n. basis. LABORATORY DATA: Reviewed, blood sugars this a.m. 199. Microbiology; ARB smear on 03/28/2017, been negative, AFB smear on 03/29/2017, no acid-fast bacilli seen. IMPRESSION AND PLAN: Multilobar infiltrate, oropharyngeal dysphagia, probably have aspiration, getting feeding through nasogastric tube. Still awaiting for final PCR report from [facility] where has bronchoscopy done over three weeks and was reported as AFB bacilli seen in the culture. Clinically he is better. He has been having tachycardia. So we are going to discontinue Brovana and Pulmicort, will write to q6. p.r.n. So clinically he is much improved. I will start p.r.n. bronchodilators. If we have no news entered from [facility] and the third AFB smear is negative, then I will recommend discontinue his AFB isolation. He is not a contagious. Start physical therapy may be Saturday or so we can consider J-tube placement. Andrea Page MD cc:
[2017-03-31] MEDS: Pantoprazole 40 mg EC Tab PO SCH (06:32)
[2017-03-31] MEDS: Megestrol Acetate 40 mg/ml Cup PO SCH (10:07)
[2017-03-31] MEDS: Enoxaparin 40 mg Syringe SC SCH (10:08)
[2017-03-31] MEDS: Petrolatum Oint Foilpak (5 gm) TOP SCH (10:12)
[2017-03-31] MEDS: LUBIPROSTONE PO SCH ×2 (10:13→18:17)
--- NOTE | 2017-03-31 11:38 | PN ---
DATE: 03/31/2017 SUBJECTIVE: The patient is lying in bed. He is tolerating NG tube feedings. He denies any abdominal pain, nausea, vomiting. OBJECTIVE: VITAL SIGNS: Reveal a temperature of 98.1, blood pressure 144/64, heart rate 97. ABDOMEN: Soft, nontender. LABORATORY DATA: No new laboratory data are available. IMPRESSION: This an 81-year-old male with multilobar pneumonia, probably secondary to aspiration awaiting results of AFB smears from the sputum with oropharyngeal dysphagia. The patient is status post subtotal gastrectomy with Billroth II anastomosis. RECOMMENDATIONS: Surgically placed jejunal feeding tube when the patient is cleared by pulmonary. Ej Tavarez MD
--- NOTE | 2017-03-31 14:23 | PN ---
DATE: 03/31/2017 SUBJECTIVE: The patient is in bed, in no acute distress, nontoxic, chronically ill, debilitated with a BMI of 21. PHYSICAL EXAMINATION: VITAL SIGNS: Temperature is 98, blood pressure is 140/60, respiratory rate of 20, heart rate of 91. HEENT: Unremarkable. NECK: Supple. LUNGS: Have decreased breath sounds. HEART: Normal S1 and S2. ABDOMEN: Soft and nontender. LABORATORY EXAMINATION: Reveals a white count of 10,000, hemoglobin of 11, platelets of 180. Chemistries reveals a BUN of 20, creatinine of 0.8. Serology is negative. Microbiology, no acid-fast is seen on the smears here. ASSESSMENT AND PLAN: He is an 81-year-old male with sepsis, multifocal, healthcare-associated pneumonia, dysphagia, status post ventilator-dependent respiratory failure, positive bronchoalveolar lavage, Aspergillus, status post bronchoscopy at [facility], patient with colon cancer, chemotherapy, resection, peptic ulcer disease, benign prostatic hypertrophy, chronic obstructive lung disease, glaucoma, gastroesophageal reflux disease, status post treatment with doxycycline and meropenem. I doubt this to be Mycobacterium tuberculosis. Most likely, atypical Mycobacterium avium intracellulare or other atypical Mycobacterium in elderly person with chronic obstructive lung disease. The patient's pulmonary smears here are being negative and even in [facility], the smears were negative; however, the culture had shown acid-fast bacillus, most likely very unusual to be concerned for the patient to be contagious. I doubt Mycobacterium tuberculosis. Should use the polymerase chain reaction technology to further identify the acid-fast bacillus identification. Tonny Edmond MD
--- NOTE | 2017-03-31 17:44 | CP.PCM.PN ---
Subjective - Date & Time of Evaluation Date of Evaluation: 03/30/17 Time of Evaluation: 20:00 - Subjective Subjective: No acute events. Has some discomfort associated with doboff tube 12 ROS otherwise negative Objective - Vital Signs/Intake and Output Vital Signs (last 24 hours): Temp Pulse Resp BP Pulse Ox 70.7 F L 100 H 18 152/79 H 99 03/31/17 14:00 03/31/17 14:00 03/31/17 14:00 03/31/17 14:00 03/31/17 14:00 Intake and Output: 03/31/17 03/31/17 06:59 18:59 Intake Total 2305 Output Total 1050 Balance 1255 - Medications Medications: Current Medications Acetaminophen (Tylenol 650mg/20.3ml Solution Ud) 650 mg PO Q6H PRN PRN Reason: Pain, Mild (1-3) Last Admin: 03/27/17 01:41 Dose: 650 mg Benzonatate (Tessalon Perles) 100 mg PO TID [facility] Last Admin: 03/31/17 15:17 Dose: Not Given Docusate Sodium (Colace Liquid) 100 mg PO TID [facility] Last Admin: 03/31/17 15:17 Dose: Not Given Emollient Ointment (Vaseline Oint) 5 gm TOP DAILY [facility] Last Admin: 03/31/17 10:12 Dose: 5 gm Enoxaparin Sodium (Lovenox) 40 mg SC DAILY [facility] PRN Reason: Protocol Last Admin: 03/31/17 10:08 Dose: 40 mg Guaifenesin/Dextromethorphan (Robitussin Dm) 10 ml PO Q4H PRN PRN Reason: Cough Last Admin: 03/26/17 11:33 Dose: 10 ml Home Med (Home Med) 25 unit PO BID [facility] Last Admin: 03/31/17 10:13 Dose: Not Given diltiaZEM IVPB 100mg in NS (Cardizem 100mg In Ns) 100 mls @ 5 mls/hr IV .Q20H PRN; Protocol; 5 MG/HR PRN Reason: TITRATE PER MD ORDER Last Titration: 03/30/17 21:00 Dose: 0 mg/hr, 0 mls/hr Levalbuterol HCl (Xopenex) 0.63 mg IH TIDRESP PRN PRN Reason: Shortness of Breath Megestrol Acetate (Megace) 200 mg PO DAILY [facility] Last Admin: 03/31/17 10:07 Dose: 200 mg Metoclopramide HCl (Reglan) 5 mg PO 0600,1130,1630,2200 [facility] Last Admin: 03/31/17 10:31 Dose: 5 mg Metoprolol Tartrate (Lopressor) 12.5 mg PO BRKDIN [facility] Last Admin: 03/31/17 10:12 Dose: 12.5 mg Pantoprazole Sodium (Protonix Ec Tab) 40 mg PO 0600 [facility] Last Admin: 03/31/17 06:32 Dose: 40 mg Tamsulosin HCl (Flomax) 0.4 mg PO DAILY [facility] Last Admin: 03/31/17 10:12 Dose: 0.4 mg Zolpidem Tartrate (Ambien) 5 mg PO HS PRN; Protocol PRN Reason: Insomnia Last Admin: 03/30/17 21:30 Dose: 5 mg - Labs Labs: 03/29/17 05:30 03/29/17 05:30 PT 10.9 Seconds (9.9-11.8) 03/19/17 13:50 INR 1.01 (0.93-1.08) 03/19/17 13:50 APTT 27.3 Seconds (23.7-30.8) 03/19/17 13:50 - Constitutional Appears: Non-toxic, No Acute Distress, Cachectic - Neck Exam Neck Exam: Full ROM, Normal Inspection. absent: Lymphadenopathy - Respiratory Exam Respiratory Exam: Clear to Ausculation Bilateral, NORMAL BREATHING PATTERN - Cardiovascular Exam Cardiovascular Exam: Irregular Rhythm - GI/Abdominal Exam GI & Abdominal Exam: Soft, Normal Bowel Sounds. absent: Tenderness - Extremities Exam Extremities Exam: Full ROM, Normal Capillary Refill, Normal Inspection. absent : Joint Swelling, Pedal Edema Assessment and Plan - Assessment and Plan (Free Text) Assessment: Mr. Kahn pacheco 81 y/o man with a pmhx significant for stage III colon cancer s/p chemotherapy and hemicolectomy ; admitted with sepsis, multifocal HCAP/ aspiration pna currently whose hospital course has been complicated by afib with rvr and tuberculosis r/o due to concerns that a BAL culture earlie from [facility] had myocbactermia visualized on smear. #afib RVR -rate controlled appreciate cardiology recommendations -continue cardizem gtt; and PO metropolol; convert to PO caclium channel ninoska ? defer to cards #TB r/o -call microbiology they have 3 acid fast sputum cultures from 03/28; 03/29/ 03/30. All are still pending -previous indeterminate Quanteferon and possible BAL with myobacterium seen on smear?--> follow up [facility] cultures #dypshaiga -patient still an aspiration risk; f/u with GI and speach and swallow regarding update recommendations -for now continue doboff placement and tube feeds and consideration of J tube placement Saurav Perea MD Oncology Service
--- NOTE | 2017-03-31 17:53 | CP.PCM.PN ---
Subjective - Date & Time of Evaluation Date of Evaluation: 03/31/17 Time of Evaluation: 14:00 - Subjective Subjective: Patient feels frustrated regarding pace of recovery. Wants to get out of bed into chair, and have doboff tube replaced 12 ROS negative; Objective - Vital Signs/Intake and Output Vital Signs (last 24 hours): Temp Pulse Resp BP Pulse Ox 70.7 F L 100 H 18 152/79 H 99 03/31/17 14:00 03/31/17 14:00 03/31/17 14:00 03/31/17 14:00 03/31/17 14:00 Intake and Output: 03/31/17 03/31/17 06:59 18:59 Intake Total 2305 Output Total 1050 Balance 1255 - Medications Medications: Current Medications Acetaminophen (Tylenol 650mg/20.3ml Solution Ud) 650 mg PO Q6H PRN PRN Reason: Pain, Mild (1-3) Last Admin: 03/27/17 01:41 Dose: 650 mg Benzonatate (Tessalon Perles) 100 mg PO TID [facility] Last Admin: 03/31/17 15:17 Dose: Not Given Docusate Sodium (Colace Liquid) 100 mg PO TID [facility] Last Admin: 03/31/17 15:17 Dose: Not Given Emollient Ointment (Vaseline Oint) 5 gm TOP DAILY [facility] Last Admin: 03/31/17 10:12 Dose: 5 gm Enoxaparin Sodium (Lovenox) 40 mg SC DAILY [facility] PRN Reason: Protocol Last Admin: 03/31/17 10:08 Dose: 40 mg Guaifenesin/Dextromethorphan (Robitussin Dm) 10 ml PO Q4H PRN PRN Reason: Cough Last Admin: 03/26/17 11:33 Dose: 10 ml Home Med (Home Med) 25 unit PO BID [facility] Last Admin: 03/31/17 10:13 Dose: Not Given diltiaZEM IVPB 100mg in NS (Cardizem 100mg In Ns) 100 mls @ 5 mls/hr IV .Q20H PRN; Protocol; 5 MG/HR PRN Reason: TITRATE PER MD ORDER Last Titration: 03/30/17 21:00 Dose: 0 mg/hr, 0 mls/hr Levalbuterol HCl (Xopenex) 0.63 mg IH TIDRESP PRN PRN Reason: Shortness of Breath Megestrol Acetate (Megace) 200 mg PO DAILY [facility] Last Admin: 03/31/17 10:07 Dose: 200 mg Metoclopramide HCl (Reglan) 5 mg PO 0600,1130,1630,2200 [facility] Last Admin: 03/31/17 10:31 Dose: 5 mg Metoprolol Tartrate (Lopressor) 12.5 mg PO BRKDIN [facility] Last Admin: 03/31/17 10:12 Dose: 12.5 mg Pantoprazole Sodium (Protonix Ec Tab) 40 mg PO 0600 [facility] Last Admin: 03/31/17 06:32 Dose: 40 mg Tamsulosin HCl (Flomax) 0.4 mg PO DAILY [facility] Last Admin: 03/31/17 10:12 Dose: 0.4 mg Zolpidem Tartrate (Ambien) 5 mg PO HS PRN; Protocol PRN Reason: Insomnia Last Admin: 03/30/17 21:30 Dose: 5 mg - Labs Labs: 03/29/17 05:30 03/29/17 05:30 PT 10.9 Seconds (9.9-11.8) 03/19/17 13:50 INR 1.01 (0.93-1.08) 03/19/17 13:50 APTT 27.3 Seconds (23.7-30.8) 03/19/17 13:50 - Constitutional Appears: Well - Respiratory Exam Respiratory Exam: Clear to Ausculation Bilateral, NORMAL BREATHING PATTERN - GI/Abdominal Exam GI & Abdominal Exam: Bruit Assessment and Plan - Assessment and Plan (Free Text) Assessment: Mr. Kahn pacheco 81 y/o man with a pmhx significant for stage III colon cancer s/p chemotherapy and hemicolectomy ; admitted with sepsis, multifocal HCAP/ aspiration pna currently whose hospital course has been complicated by afib with rvr and tuberculosis r/o due to concerns that a BAL culture john from [facility] had myocbactermia visualized on smear. #afib RVR -rate controlled appreciate cardiology recommendations -continue cardizem gtt; and PO metropolol; convert to PO caclium channel ninoska ? defer to cards #TB r/o -call microbiology they have 3 acid fast sputum cultures from 03/28; 03/29/ 9/23. All are still pending -previous indeterminate Quanteferon and possible BAL with myobacterium seen on smear?--> follow up [facility] cultures #dypshaiga -patient still an aspiration risk; f/u with GI and speach and swallow regarding update recommendations -for now continue doboff placement and tube feeds and consideration of J tube placement Saurav Perea MD Oncology Service
--- NOTE | 2017-03-31 20:28 | CP.PCM.PN ---
Subjective - Date & Time of Evaluation Date of Evaluation: 03/31/17 Time of Evaluation: 20:28 - Subjective Subjective: S: Patient has no complaints. Dobhoff tube has come out. As per nurse , does not want Dobhoff tube reinserted until morning and want some medications ordered intravenously, namely , Reglan, Protonix, Lopressor and patient requested a sleeping pill ambien which we will substitute with benadryl IV. Medical record was reviewed. O: Last Vital Signs 3 Temp 98.2 F 03/31/17 21:10 Pulse 108 H 03/31/17 21:10 Resp 22 03/31/17 21:10 BP 145/85 03/31/17 21:10 Pulse Ox 98 03/31/17 21:10 Awake, alert, not in distress. LUNGS: Normal breathing pattern. A:Adjustment Insomnia. S/P accidental removal of Dobhoff tube. P: Lopressor 2.5 mg IV . Protonix 40 mg IV at 6AM. Reglan 10 mg IV as ordered. Benadryl 25 mg IV stat. Objective - Vital Signs/Intake and Output Vital Signs (last 24 hours): Temp Pulse Resp BP Pulse Ox 71.4 F L 98 H 34 H 141/79 97 03/31/17 17:57 03/31/17 17:57 03/31/17 17:00 03/31/17 17:00 03/31/17 17:57 Intake and Output: 03/31/17 04/01/17 18:59 06:59 Intake Total 1120 Output Total 640 Balance 480 - Medications Medications: Current Medications Acetaminophen (Tylenol 650mg/20.3ml Solution Ud) 650 mg PO Q6H PRN PRN Reason: Pain, Mild (1-3) Last Admin: 03/27/17 01:41 Dose: 650 mg Benzonatate (Tessalon Perles) 100 mg PO TID [facility] Last Admin: 03/31/17 18:18 Dose: Not Given Docusate Sodium (Colace Liquid) 100 mg PO TID [facility] Last Admin: 03/31/17 18:16 Dose: Not Given Emollient Ointment (Vaseline Oint) 5 gm TOP DAILY [facility] Last Admin: 03/31/17 10:12 Dose: 5 gm Enoxaparin Sodium (Lovenox) 40 mg SC DAILY [facility] PRN Reason: Protocol Last Admin: 03/31/17 10:08 Dose: 40 mg Guaifenesin/Dextromethorphan (Robitussin Dm) 10 ml PO Q4H PRN PRN Reason: Cough Last Admin: 03/26/17 11:33 Dose: 10 ml Home Med (Home Med) 25 unit PO BID [facility] Last Admin: 03/31/17 18:17 Dose: Not Given diltiaZEM IVPB 100mg in NS (Cardizem 100mg In Ns) 100 mls @ 5 mls/hr IV .Q20H PRN; Protocol; 5 MG/HR PRN Reason: TITRATE PER MD ORDER Last Titration: 03/30/17 21:00 Dose: 0 mg/hr, 0 mls/hr Levalbuterol HCl (Xopenex) 0.63 mg IH TIDRESP PRN PRN Reason: Shortness of Breath Megestrol Acetate (Megace) 200 mg PO DAILY [facility] Last Admin: 03/31/17 10:07 Dose: 200 mg Metoclopramide HCl (Reglan) 5 mg PO 0600,1130,1630,2200 [facility] Last Admin: 03/31/17 18:37 Dose: Not Given Metoprolol Tartrate (Lopressor) 12.5 mg PO BRKDIN [facility] Last Admin: 03/31/17 18:36 Dose: Not Given Pantoprazole Sodium (Protonix Ec Tab) 40 mg PO 0600 [facility] Last Admin: 03/31/17 06:32 Dose: 40 mg Tamsulosin HCl (Flomax) 0.4 mg PO DAILY [facility] Last Admin: 03/31/17 10:12 Dose: 0.4 mg Zolpidem Tartrate (Ambien) 5 mg PO HS PRN; Protocol PRN Reason: Insomnia Last Admin: 03/30/17 21:30 Dose: 5 mg - Labs Labs: 03/29/17 05:30 03/29/17 05:30 PT 10.9 Seconds (9.9-11.8) 03/19/17 13:50 INR 1.01 (0.93-1.08) 03/19/17 13:50 APTT 27.3 Seconds (23.7-30.8) 03/19/17 13:50
[2017-03-31] MEDS ORDERED: DiphenhydrAMINE 50 mg/ml Inj IVP STA (20:33)
[2017-03-31] MEDS ORDERED: Metoprolol 1 mg/ml Inj IVP ONE (20:33)
--- NOTE | 2017-04-01 01:17 | PN ---
DATE: 03/31/2017 PULMONARY PROGRESS NOTE REFERRING PHYSICIAN: Dr. Jefferson Chaudhry. SUBJECTIVE: He is lying in the bed comfortably. Feels better. Decreased cough. Has a difficulty clearing pulmonary secretion. Nasogastric tube got pulled out. No hemoptysis. No hematemesis. No hematuria. No diarrhea reported. OBJECTIVE: GENERAL: In no acute distress. VITAL SIGNS: Temperature is 98, heart rate 108, respiratory rate is 20, blood pressure 145/85, pulse ox 98% on nasal cannula. HEENT: Moist mucous membrane. . NECK: Supple. No JVD. LUNGS: Fair airflow. A few scattered rhonchi. HEART: S1 and S2. ABDOMEN: Soft and nontender. No organomegaly. EXTREMITIES: There is no edema. NEUROLOGIC: Awake, alert, and follows simple commands. MEDICATIONS: He is on Ambien 5 mg at bedtime p.r.n., Colace 100 mg 3 times a day, Flomax 0.4 mg daily, insulin coverage, metoprolol tartrate 12.5 mg twice a day, Lovenox 40 mg daily, Megace 200 mg daily, Protonix 40 mg daily, Reglan 5 mg q.i.d., Robitussin DM 10 mL q. 4 hours p.r.n., Tylenol p.r.n., and Xopenex inhaled q. 8 hours p.r.n. LABORATORY DATA: Shows blood sugar 199 yesterday. C-reactive protein 2 days ago was 84. Microbiology sputum, AFB smear been negative. Third one is pending. IMPRESSION AND PLAN: Multilobar infiltrate, oropharyngeal dysphagia, probably have aspiration pneumonia, nasogastric tube been pulled out. Spoke to the nursing staff. Awaiting for the third sputum. If it is negative, the patient could be taken off from isolation. Need to follow up on bronchoscopy culture from [facility]. We should have a PCR result back so that we can guide the patient therapy. If it is Mycobacterium avium-intracellulare, we can go ahead get surgery consultation for possible J-tube placement. Start physical therapy. Antibiotics as per infectious disease, gastric prophylaxis, deep venous thrombosis prophylaxis. Followup x-ray showed stability of infiltrate. Thank you and we will follow with you. Andrea Page MD
[2017-04-01] MEDS: Enoxaparin 40 mg Syringe SC SCH (10:00)
[2017-04-01] MEDS: Petrolatum Oint Foilpak (5 gm) TOP SCH (10:00)
--- NOTE | 2017-04-01 10:50 | CP.PCM.PN ---
Subjective - Date & Time of Evaluation Date of Evaluation: 04/01/17 Time of Evaluation: 10:10 - Subjective Subjective: Comfortable in bed, no fevers. Objective - Vital Signs/Intake and Output Vital Signs (last 24 hours): Temp Pulse Resp BP Pulse Ox 99.0 F 107 H 23 110/50 L 94 L 04/01/17 06:00 04/01/17 06:00 04/01/17 06:00 04/01/17 06:00 04/01/17 06:00 Intake and Output: 03/31/17 04/01/17 18:59 06:59 Intake Total 1120 100 Output Total 640 400 Balance 480 -300 - Medications Medications: Current Medications Acetaminophen (Tylenol 650mg/20.3ml Solution Ud) 650 mg PO Q6H PRN PRN Reason: Pain, Mild (1-3) Last Admin: 03/27/17 01:41 Dose: 650 mg Benzonatate (Tessalon Perles) 100 mg PO TID [facility] Last Admin: 03/31/17 18:18 Dose: Not Given Docusate Sodium (Colace Liquid) 100 mg PO TID [facility] Last Admin: 03/31/17 18:16 Dose: Not Given Emollient Ointment (Vaseline Oint) 5 gm TOP DAILY [facility] Last Admin: 03/31/17 10:12 Dose: 5 gm Enoxaparin Sodium (Lovenox) 40 mg SC DAILY [facility] PRN Reason: Protocol Last Admin: 03/31/17 10:08 Dose: 40 mg Guaifenesin/Dextromethorphan (Robitussin Dm) 10 ml PO Q4H PRN PRN Reason: Cough Last Admin: 03/26/17 11:33 Dose: 10 ml Home Med (Home Med) 25 unit PO BID [facility] Last Admin: 03/31/17 18:17 Dose: Not Given diltiaZEM IVPB 100mg in NS (Cardizem 100mg In Ns) 100 mls @ 5 mls/hr IV .Q20H PRN; Protocol; 5 MG/HR PRN Reason: TITRATE PER MD ORDER Last Titration: 03/30/17 21:00 Dose: 0 mg/hr, 0 mls/hr Levalbuterol HCl (Xopenex) 0.63 mg IH TIDRESP PRN PRN Reason: Shortness of Breath Megestrol Acetate (Megace) 200 mg PO DAILY [facility] Last Admin: 03/31/17 10:07 Dose: 200 mg Metoclopramide HCl (Reglan) 5 mg PO 0600,1130,1630,2200 [facility] Last Admin: 03/31/17 18:37 Dose: Not Given Metoprolol Tartrate (Lopressor) 12.5 mg PO BRKDIN [facility] Last Admin: 03/31/17 18:36 Dose: Not Given Pantoprazole Sodium (Protonix Ec Tab) 40 mg PO 0600 [facility] Last Admin: 03/31/17 06:32 Dose: 40 mg Tamsulosin HCl (Flomax) 0.4 mg PO DAILY [facility] Last Admin: 03/31/17 10:12 Dose: 0.4 mg Zolpidem Tartrate (Ambien) 5 mg PO HS PRN; Protocol PRN Reason: Insomnia Last Admin: 04/01/17 00:08 Dose: 5 mg - Labs Labs: 03/29/17 05:30 03/29/17 05:30 PT 10.9 Seconds (9.9-11.8) 03/19/17 13:50 INR 1.01 (0.93-1.08) 03/19/17 13:50 APTT 27.3 Seconds (23.7-30.8) 03/19/17 13:50 - Constitutional Appears: Non-toxic, No Acute Distress - Head Exam Head Exam: NORMAL INSPECTION - ENT Exam ENT Exam: Mucous Membranes Moist - Neck Exam Neck Exam: absent: Meningismus - Respiratory Exam Respiratory Exam: Decreased Breath Sounds - Cardiovascular Exam Cardiovascular Exam: +S1, +S2 - GI/Abdominal Exam GI & Abdominal Exam: Soft. absent: Tenderness Assessment and Plan - Assessment and Plan (Free Text) Plan: Assessment S/P sepsis due to multifocal healthcare-associated pneumonia in this patient with dysphagia - improved; S/P ventilator-dependent respiratory failure; has positive BAL AFB on cultures 3 weeks after bronchoscopy was done at [facility] colon cancer on chemotherapy S/P resection peptic ulcer disease BPH COPD glaucoma GERD chronic caldwell catheter use Plan continue to monitor off antibiotics Spoke with Dr. Deluna - (+) AFB cultures after 3 weeks (S/P bronchoscopy) - smears were negative, including sputum smears - will await identification and sensitivities of the AFB in the BAL fluid discussed with Dr. Camilo - Quantiferon TB test is indeterminate, sputum AFB x 2 negative and awaiting one more sample - continue airborne isolation for now will continue to monitor clinically
[2017-04-01] MEDS: diltiaZEM IVPB 100mg in NS 100 ML IV PRN (11:49)
--- NOTE | 2017-04-01 12:06 | CP.PCM.PN ---
Subjective - Date & Time of Evaluation Date of Evaluation: 04/01/17 Time of Evaluation: 12:00 - Subjective Subjective: Progress note for Dr. Grider's service Patient seen and examined at bedside this morning. Per nursing, patients heart rate has been in the 160-170's. Page was put out to cardiology, Dr. Wheeler who recommended 5mg IVP of cardizem and restarting cardizem drip. EKG was ordered in addition. Additionally, patient's dobhoff tube was removed on accident over the weekend. GI consulted for placement of jejunal tube. Patient was frustrated this morning regarding the pace of his recovery. Denies chest pain, palpitations , abdominal pain, nausea/vomiting. Objective - Vital Signs/Intake and Output Vital Signs (last 24 hours): Temp Pulse Resp BP Pulse Ox 99.0 F 160 H 23 144/60 94 L 04/01/17 06:00 04/01/17 11:36 04/01/17 06:00 04/01/17 11:36 04/01/17 06:00 Intake and Output: 04/01/17 04/01/17 06:59 18:59 Intake Total 100 75 Output Total 400 Balance -300 75 - Medications Medications: Current Medications Acetaminophen (Tylenol 650mg/20.3ml Solution Ud) 650 mg PO Q6H PRN PRN Reason: Pain, Mild (1-3) Last Admin: 03/27/17 01:41 Dose: 650 mg Benzonatate (Tessalon Perles) 100 mg PO TID [facility] Last Admin: 04/01/17 10:10 Dose: Not Given Docusate Sodium (Colace Liquid) 100 mg PO TID [facility] Last Admin: 04/01/17 10:08 Dose: Not Given Emollient Ointment (Vaseline Oint) 5 gm TOP DAILY [facility] Last Admin: 03/31/17 10:12 Dose: 5 gm Enoxaparin Sodium (Lovenox) 40 mg SC DAILY [facility] PRN Reason: Protocol Last Admin: 03/31/17 10:08 Dose: 40 mg Guaifenesin/Dextromethorphan (Robitussin Dm) 10 ml PO Q4H PRN PRN Reason: Cough Last Admin: 03/26/17 11:33 Dose: 10 ml Home Med (Home Med) 25 unit PO BID [facility] Last Admin: 03/31/17 18:17 Dose: Not Given diltiaZEM IVPB 100mg in NS (Cardizem 100mg In Ns) 100 mls @ 5 mls/hr IV .Q20H PRN; Protocol; 5 MG/HR PRN Reason: TITRATE PER MD ORDER Last Admin: 04/01/17 11:49 Dose: 5 mg/hr, 5 mls/hr Levalbuterol HCl (Xopenex) 0.63 mg IH TIDRESP PRN PRN Reason: Shortness of Breath Megestrol Acetate (Megace) 200 mg PO DAILY [facility] Last Admin: 03/31/17 10:07 Dose: 200 mg Metoclopramide HCl (Reglan) 5 mg PO 0600,1130,1630,2200 [facility] Last Admin: 03/31/17 18:37 Dose: Not Given Metoprolol Tartrate (Lopressor) 12.5 mg PO BRKDIN [facility] Last Admin: 03/31/17 18:36 Dose: Not Given Pantoprazole Sodium (Protonix Ec Tab) 40 mg PO 0600 [facility] Last Admin: 03/31/17 06:32 Dose: 40 mg Tamsulosin HCl (Flomax) 0.4 mg PO DAILY [facility] Last Admin: 03/31/17 10:12 Dose: 0.4 mg Zolpidem Tartrate (Ambien) 5 mg PO HS PRN; Protocol PRN Reason: Insomnia Last Admin: 04/01/17 00:08 Dose: 5 mg - Labs Labs: 03/29/17 05:30 03/29/17 05:30 PT 10.9 Seconds (9.9-11.8) 03/19/17 13:50 INR 1.01 (0.93-1.08) 03/19/17 13:50 APTT 27.3 Seconds (23.7-30.8) 03/19/17 13:50 - Constitutional Appears: Cachectic, Chronically Ill - Head Exam Head Exam: ATRAUMATIC, NORMAL INSPECTION, NORMOCEPHALIC - Eye Exam Eye Exam: EOMI, PERRL - ENT Exam ENT Exam: Mucous Membranes Dry - Respiratory Exam Respiratory Exam: Decreased Breath Sounds. absent: Rales, Rhonchi, Wheezes - Cardiovascular Exam Cardiovascular Exam: Tachycardia, +S1, +S2. absent: Gallop, Rubs - GI/Abdominal Exam GI & Abdominal Exam: Soft. absent: Distended, Firm, Guarding, Rigid, Tenderness , Rebound - Neurological Exam Neurological Exam: Alert, Awake, Oriented x3 - Psychiatric Exam Psychiatric exam: Normal Affect, Normal Mood - Skin Skin Exam: Dry, Intact, Normal Color, Warm Assessment and Plan - Assessment and Plan (Free Text) Plan: 81yo male with history of stage 3 colon ca s/p chemotherapy and hemicolectomy admitted for sepsis secondary to healthcare associated pneumonia/aspiration PNA as well as atrial fibrillation with RVR. 1. Atrial fibrillation with RVR -EKG pending this AM -Call out placed to cardiology regarding heart rate in the 160-170's -Patient was seen by Dr. Wheeler this morning and ordered cardizem bolus as well as cardizem drip was resumed; digoxin dose ordered as well -Cardiology consulted - Dr. Condon 2. HCAP/Aspiration PNA -afebrile, no leukocytosis -lactate within normal limits -Blood cultures negative -Patient is s/p treatment with meropenem and doxycycline per ID recommendations ; currently being monitored off antibiotics -ID consulted - Dr. Edmond 3. Stage 3 Colon Ca -Patient previously treated with chemotherapy and hemicolectomy 4. Dysphagia -GI consulted for J-tube placement -Dobhoff tube fell out over the weekend -At risk of aspiration -Speech/Swallow eval 5. Rule out TB -Patient had + AFB cultures [place] [facility] [place]ears [place] have been negative x2 awaiting last sample, per ID recommendations we will await identification of AFB in the [place] fluid [place] [facility] -Maintain airborne isolation -ID consulted - Dr. Edmond 6. COPD -Continue xopenex -Continue tessalon perls -Pulmonary consulted - Dr. Page 7. GERD -Continue protonix 8. BPH -Continue flomax 9. GI/DVT Prophylaxis -Protonix/lovenox Patient seen and case discussed with attending, Dr. Grider
[2017-04-01] MEDS ORDERED: Digoxin 500 mcg/2ml (0.5 mg/2ml) Inj IVP STA (12:18)
[2017-04-01] MEDS ORDERED: Digoxin 500 mcg/2ml (0.5 mg/2ml) Inj IVP ONE ×3 (14:00→16:00)
--- NOTE | 2017-04-01 14:04 | PN ---
DATE: 04/01/2017 CARDIOLOGY FOLLOWUP SUBJECTIVE: The patient went into a rapid atrial fibrillation today, it is unable to take oral medications. OBJECTIVE: VITAL SIGNS: Blood pressure 144/60, heart rate is in the 160s. NECK: Negative JVD. LUNGS: Decreased breath sounds. HEART: S1, S2. EXTREMITIES: Without change. Echocardiogram reveals an ejection fraction of approximately 45% with mitral regurgitation noted. Glucose is was not measured today. Hemoglobin is 11.9 in the previous measurement. IMPRESSION 1. Rapid atrial fibrillation. 2. History of active tuberculosis. 3. Sepsis. 4. Pneumonia. 5. History of colon cancer. 6. Chronic obstructive pulmonary disease. Given these findings, we will start IV Cardizem. In addition, we will add IV digoxin to help slow the heart rate to a reasonable rate. Aries Wheeler MD
[2017-04-01] MEDS: Digoxin 500 mcg/2ml (0.5 mg/2ml) Inj IVP SCH (14:12)
[2017-04-01 14:36] LABS: BLOOD UREA NITROGEN 22 mg/dL (7-21); CALCIUM 8.4 mg/dL (8.4-10.5); CARBON DIOXIDE 30 mmol/L (21-33); CHLORIDE 101 mmol/L (98-107); GFR AFRICAN-AMERICAN > 60; GLUCOSE,RANDOM 99 mg/dL (70-110); PHOSPHOROUS 2.7 mg/dL (2.5-4.5); POTASSIUM 3.4 mmol/L (3.6-5.0); SODIUM 141 mmol/L (132-148)
--- NOTE | 2017-04-01 14:38 | CARD ---
APPROVED REPORT EKG Measurement Heart [id number] <Conclusion> Atrial fibrillation with rapid ventricular response with premature ventricular or aberrantly conducted complexes Right bundle branch block ST abnormality c/w ischemia LVH
[2017-04-01] MEDS: Megestrol Acetate 40 mg/ml Cup PO SCH (17:42)
[2017-04-01] MEDS: LUBIPROSTONE PO SCH (17:42)
[2017-04-01] MEDS: Pantoprazole 40 mg EC Tab PO SCH (17:42)
--- NOTE | 2017-04-01 18:37 | RAD ---
HISTORY: infil COMPARISON: 03/29/2017 FINDINGS: LUNGS: The lungs are hyperinflated and there is peribronchial thickening with chronic changes in both lungs. There is no focal consolidation. PLEURA: No significant pleural effusion identified, no pneumothorax apparent. CARDIOVASCULAR: Normal. OSSEOUS STRUCTURES: No significant abnormalities. VISUALIZED UPPER ABDOMEN: Normal. OTHER FINDINGS: None. IMPRESSION: No active disease. COPD.
--- NOTE | 2017-04-01 20:07 | PN ---
DATE: 04/01/2017 PULMONARY PROGRESS NOTE REFERRING PHYSICIAN: Dr. Grider. SUBJECTIVE: He is lying in the bed at 45 degrees, awaiting for nasogastric tube to be inserted, still has some cough, but sputum production is much decreased. No hemoptysis. No hematemesis. No hematuria. No diarrhea reported. There is no fever. OBJECTIVE: GENERAL: In no acute distress. VITAL SIGNS: Temperature is 99, heart rate went up to 160 again today, respiratory rate is 22, blood pressure 144/60, pulse ox 94% on 3 L nasal cannula. HEENT: Moist mucous membrane. Small oral cavity. NECK: Supple. No JVD. LUNGS: Has a few scattered rhonchi. HEART: Tachycardic. ABDOMEN: Soft and nontender. No organomegaly. EXTREMITIES: There is no edema. NEUROLOGIC: Awake, alert, and follows simple commands. MEDICATIONS: He is on Ambien 5 mg at bedtime p.r.n., diltiazem 5 mg IV drip, Colace 100 mg 3 times a day, Flomax 0.4 mg daily, also on digoxin 0.25 mg daily, metoprolol tartrate 12.5 mg twice a day, Lovenox 40 mg daily, Megace 200 mg daily, Protonix 40 mg daily, Reglan 5 mg q.i.d., Tessalon Perles 100 mg 3 times a day, Tylenol p.r.n. basis, Xopenex inhaled q. 8 hours p.r.n. LABORATORY DATA: Reviewed and shows sodium 141, potassium 3.4, chloride 101, bicarbonate 30, BUN 22, creatinine 0.8, glucose 99, calcium is 8.4, phosphorus is 2.7, magnesium is 2.0. Had EKG done showed atrial fibrillation with a rapid ventricular response rate of 120. IMPRESSION AND PLAN: Multilobar infiltrate, oropharyngeal dysphagia, has a chronic aspiration, atrial fibrillation with a rapid ventricular response, history of Acid-Fast Bacilli culture positive for Mycobacterium. Mycobacterium is still pending. Two of the sputum stain is negative. Third is awaiting. If third is negative, we will discontinue isolation. I had a long discussion with Dr. Grider. I think we need to go ahead and get his surgical J-tube, get him up and start physical therapy, continue gastric prophylaxis anticoagulation as per cardiology. Thank you and we will follow with you. Andrea Page MD
--- NOTE | 2017-04-01 21:06 | CP.PCM.CON ---
History of Present Illness - History of Present Illness History of Present Illness: General surgery consult note for Dr. Andie Davey, PGY-1 Pt S & E at bedside. 81M w/PMH sig for colon CA s/p chemo/radiation (1999) consulted for placement of Jejunostomy feeding tube. Pt reports cough with thin liquids, tolerates thicker liquids (e.g. Ensure shakes), regular foods prior to hospitalization. Additionally, pt reports unintentional wt loss >60lbs since 06/2016, mostly due to poor appetite/poor oral intake. During hospital course, Dobhoff placed- which was subsequently dislodged with unsuccessful attempt to re-insert as per nursing. Pt seen by speech therapy with recs for finely-chopped diet & nectar thick liquids, however primary team concerned re: risk of aspiration. Due to surgical history, GI recommended Jejunostomy feeding tube placement as per surgery. PMH: Hx colon CA s/p chemo/resection (1999), PUD, BPH, COPD, thrombophlebitis, GERD, indwelling Caldwell, Afib, PNA, esophageal candidiasis PSH: Colon resection (1999), Billroth II w/gastroparesis All: NKDA SH: Hx Tobacco use, denies ETOH or illicit drug use Review of Systems - Review of Systems All systems: reviewed and no additional remarkable complaints except - Constitutional Constitutional: Weight Loss. absent: Chills, Fever, Increased Appetite - EENT Eyes: absent: Change in Vision Ears: absent: Dizziness Nose/Mouth/Throat: absent: Sore Throat - Cardiovascular Cardiovascular: Palpitations, Rapid Heart Rate. absent: Chest Pain - Respiratory Respiratory: Cough, Wheezing, Chest Congestion, Excessive Mucous Production, Change in Mucous Color - Gastrointestinal Gastrointestinal: Constipation. absent: Abdominal Pain, Belching, Bloating, Diarrhea, Nausea, Vomiting - Genitourinary Genitourinary: absent: Change in Urinary Stream - Musculoskeletal Musculoskeletal: Muscle Weakness. absent: Numbness, Tingling - Neurological Neurological: Weakness. absent: Numbness, Tingling - Psychiatric Psychiatric: Change in Appetite (decreased) Past Patient History - Infectious Disease Hx of Infectious Diseases: None - Tetanus Immunizations Tetanus Immunization: Unknown - Past Social History Smoking Status: Former Smoker - CARDIAC Hx Cardiac Disorders: No - PULMONARY Hx Pneumonia: Yes - NEUROLOGICAL Hx Neurological Disorder: Yes - HEENT Hx HEENT Problems: Yes Hx Glaucoma: Yes - RENAL Hx Chronic Kidney Disease: No - ENDOCRINE/METABOLIC Hx Endocrine Disorders: No - HEMATOLOGICAL/ONCOLOGICAL Hx Cancer: Yes (colon, with radiation.) - INTEGUMENTARY Hx Dermatological Problems: Yes (THROMBOPLEBITIS LEFT LEG) - MUSCULOSKELETAL/RHEUMATOLOGICAL Hx Musculoskeletal Disorders: Yes Hx Falls: Yes Other/Comment: USES CANE - GASTROINTESTINAL Hx Gastrointestinal Disorders: Yes Hx Gastroesophageal Reflux: Yes HX Swallowing Problems: Yes - GENITOURINARY/GYNECOLOGICAL Hx Genitourinary Disorders: Yes Hx Prostate Problems: Yes Other/Comment: caldwell leg bag-URINARY RETENTION - PSYCHIATRIC Hx Psychophysiologic Disorder: Yes Hx Anxiety: Yes Hx Substance Use: No - SURGICAL HISTORY Hx Surgeries: Yes (colon resection) - ANESTHESIA Hx Anesthesia: Yes Hx Anesthesia Reactions: No Hx Malignant Hyperthermia: No Meds Allergies/Adverse Reactions: Allergies Allergy/AdvReac Type Severity Reaction Status Date / Time No Known Allergies Allergy Verified 03/19/17 23:29 - Medications Medications: Current Medications Acetaminophen (Tylenol 650mg/20.3ml Solution Ud) 650 mg PO Q6H PRN PRN Reason: Pain, Mild (1-3) Last Admin: 03/27/17 01:41 Dose: 650 mg Benzonatate (Tessalon Perles) 100 mg PO TID [facility] Last Admin: 04/01/17 17:43 Dose: Not Given Digoxin (Lanoxin) 0.25 mg IVP 1400 [facility] Last Admin: 04/01/17 14:12 Dose: 0.25 mg Docusate Sodium (Colace Liquid) 100 mg PO TID [facility] Last Admin: 04/01/17 17:41 Dose: Not Given Emollient Ointment (Vaseline Oint) 5 gm TOP DAILY [facility] Last Admin: 04/01/17 10:00 Dose: 5 gm Enoxaparin Sodium (Lovenox) 40 mg SC DAILY [facility] PRN Reason: Protocol Last Admin: 04/01/17 10:00 Dose: 40 mg Guaifenesin/Dextromethorphan (Robitussin Dm) 10 ml PO Q4H PRN PRN Reason: Cough Last Admin: 03/26/17 11:33 Dose: 10 ml Home Med (Home Med) 25 unit PO BID [facility] Last Admin: 04/01/17 17:42 Dose: Not Given diltiaZEM IVPB 100mg in NS (Cardizem 100mg In Ns) 100 mls @ 5 mls/hr IV .Q20H PRN; Protocol; 5 MG/HR PRN Reason: TITRATE PER MD ORDER Last Admin: 04/01/17 11:49 Dose: 5 mg/hr, 5 mls/hr Levalbuterol HCl (Xopenex) 0.63 mg IH TIDRESP PRN PRN Reason: Shortness of Breath Megestrol Acetate (Megace) 200 mg PO DAILY [facility] Last Admin: 04/01/17 17:42 Dose: Not Given Metoclopramide HCl (Reglan) 5 mg PO 0600,1130,1630,2200 [facility] Last Admin: 04/01/17 16:30 Dose: Not Given Metoprolol Tartrate (Lopressor) 12.5 mg PO BRKDIN [facility] Last Admin: 04/01/17 17:42 Dose: Not Given Pantoprazole Sodium (Protonix Ec Tab) 40 mg PO 0600 [facility] Last Admin: 04/01/17 17:42 Dose: Not Given Tamsulosin HCl (Flomax) 0.4 mg PO DAILY [facility] Last Admin: 04/01/17 17:42 Dose: Not Given Zolpidem Tartrate (Ambien) 5 mg PO HS PRN; Protocol PRN Reason: Insomnia Last Admin: 04/01/17 00:08 Dose: 5 mg Physical Exam - Constitutional Appears: Cachectic, Chronically Ill - Head Exam Head Exam: ATRAUMATIC, NORMAL INSPECTION, NORMOCEPHALIC - Eye Exam Eye Exam: EOMI, Normal appearance - ENT Exam ENT Exam: Mucous Membranes Dry - Neck Exam Neck exam: Positive for: Full Rom, Normal Inspection - Respiratory Exam Respiratory Exam: NORMAL BREATHING PATTERN. absent: Accessory Muscle Use, Chest Wall Tenderness, Clear to Auscultation Bilateral (coarse expiratory breath sounds), Respiratory Distress - Cardiovascular Exam Cardiovascular Exam: Tachycardia, +S1, +S2 - GI/Abdominal Exam GI & Abdominal Exam: Hyperactive Bowel Sounds, Soft. absent: Distended, Firm, Guarding, Tenderness Additional comments: well healed midline scar from xiphoid to pubis, excluding umbilicus - Extremities Exam Extremities exam: Negative for: normal inspection (grossly cachexic) - Neurological Exam Neurological exam: Alert, CN II-XII Intact, Oriented x3 - Psychiatric Exam Psychiatric exam: Normal Affect, Normal Mood - Skin Skin Exam: Dry, Intact, Normal Color, Warm Results - Vital Signs Recent Vital Signs: Last Vital Signs Temp 99.0 F 04/01/17 06:00 Pulse 160 H 04/01/17 11:36 Resp 23 04/01/17 06:00 BP 144/60 04/01/17 11:36 Pulse Ox 94 L 04/01/17 06:00 - Labs Result Diagrams: 04/02/17 05:20 04/02/17 05:20 Labs: Laboratory Results - last 24 hr 03/29/17 04/01/17 05:30 14:20 Sodium 141 Potassium 3.4 L Chloride 101 Carbon Dioxide 30 Anion Gap 13 BUN 22 H Creatinine 0.8 Est GFR ( Amer) > 60 Est GFR (Non-Af Amer) > 60 Random Glucose 99 Calcium 8.4 Phosphorus 2.7 Magnesium 2.0 C-Reactive Prot, Quant 84.3 H Assessment & Plan - Assessment and Plan (Free Text) Assessment: 81M w/dysphagia, risk of aspiration as per primary team, consulted for jejunostomy tube placment. Pt would like to DW prior to considering surgery. Had questions regarding ability to eat with J-tube in place. Currently stable, but grossly cachexic. Plan: Consider re-evaluation by speech/swallow FU AM coags NPO Further recs as per Dr. Chago SIMON attending [place], PGY-1 - Date & Time Date: 04/01/17 Time: 21:44
[2017-04-01] MEDS ORDERED: Potassium Chloride 20 mEq ER Tab PO ONE (21:40)
--- NOTE | 2017-04-01 22:51 | PN ---
DATE: 04/01/2017 SUBJECTIVE: Patient is lying in bed. His NG-tube became dislodged and is now out. PHYSICAL EXAMINATION: VITAL SIGNS: Reveal temperature of 99, blood pressure of 144/60 and heart rate of 160. ABDOMEN: Soft and nontender. LABORATORY DATA: Reveal hemoglobin 11.9 and white blood cell count 10.7. BUN 22 and creatinine 0.8. IMPRESSION: An 81-year-old male with multilobar pneumonia secondary to aspiration, oropharyngeal dysphagia with sputum positive for AFB, waiting final AFB cultures. Patient's nasogastric tube became dislodged. I will discuss this case with Dr. Grider. RECOMMENDATIONS: 1. We will ask the Peritoneal Dialysis Registered Nurse to insert a thin Dobhoff tube for enteral feedings. 2. Patient will need surgical placement of a jejunal feeding tube once his AFB cultures come back negative. Ej Tavarez MD
[2017-04-02] MEDS: Pantoprazole 40 mg EC Tab PO SCH (05:17)
[2017-04-02 07:07] LABS: HEMATOCRIT 36.3 % (42.0-52.0); MEAN CELL VOLUME 94.8 fl (80.0-105.0); MEAN CORPUSCULAR HEMOGLOBIN 30.3 pg (25.0-35.0); RED CELL DISTRIBUTION WIDTH 14.4 % (11.5-14.5); WHITE BLOOD COUNT 9.6 10^3/ul (4.5-11.0)
[2017-04-02 07:26] LABS: ALB/GLOB RATIO 0.9 (1.1-1.8); ALKALINE PHOSPHATASE 87 U/L (38-126); ALT/SGPT 26 U/L (7-56); AST/SGOT 36 U/L (17-59); BLOOD UREA NITROGEN 23 mg/dL (7-21); CALCIUM 8.8 mg/dL (8.4-10.5); CARBON DIOXIDE 32 mmol/L (21-33); CHLORIDE 102 mmol/L (98-107); FREE T4 1.96 ng/dL (0.78-2.19); GFR AFRICAN-AMERICAN > 60; GLUCOSE,RANDOM 77 mg/dL (70-110); POTASSIUM 3.8 mmol/L (3.6-5.0); SODIUM 145 mmol/L (132-148); TOTAL PROTEIN 5.8 g/dL (5.8-8.3)
[2017-04-02 07:28] LABS: PLATELET COUNT 185 10^3/uL (120.0-450.0)
[2017-04-02 07:39] LABS: THYROID STIMULATING HORMONE 1.33 mIU/mL (0.46-4.68)
[2017-04-02] MEDS: Megestrol Acetate 40 mg/ml Cup PO SCH (09:00)
[2017-04-02] MEDS: LUBIPROSTONE PO SCH ×2 (09:00→17:20)
[2017-04-02] MEDS: Petrolatum Oint Foilpak (5 gm) TOP SCH (09:05)
[2017-04-02] MEDS ORDERED: Digoxin 500 mcg/2ml (0.5 mg/2ml) Inj IVP ONE (09:21)
[2017-04-02 09:23] LABS: INR 1.09 (0.93-1.08); PARTIAL THROMBOPLASTIN TIME 32.7 Seconds (23.7-30.8)
--- NOTE | 2017-04-02 09:47 | CP.PCM.PN ---
Subjective - Date & Time of Evaluation Date of Evaluation: 04/02/17 Time of Evaluation: 09:20 - Subjective Subjective: Comfortable, no fevers overnight, no SOB at rest. Objective - Vital Signs/Intake and Output Vital Signs (last 24 hours): Temp Pulse Resp BP Pulse Ox 97.2 F L 96 H 18 137/57 L 98 04/02/17 06:00 04/02/17 06:00 04/02/17 06:00 04/02/17 06:00 04/02/17 06:00 Intake and Output: 04/01/17 04/02/17 18:59 06:59 Intake Total 625 60 Output Total 900 650 Balance -275 -590 - Medications Medications: Current Medications Acetaminophen (Tylenol 650mg/20.3ml Solution Ud) 650 mg PO Q6H PRN PRN Reason: Pain, Mild (1-3) Last Admin: 03/27/17 01:41 Dose: 650 mg Benzonatate (Tessalon Perles) 100 mg PO TID [facility] Last Admin: 04/01/17 17:43 Dose: Not Given Digoxin (Lanoxin) 0.25 mg IVP 1400 [facility] Last Admin: 04/01/17 14:12 Dose: 0.25 mg Docusate Sodium (Colace Liquid) 100 mg PO TID [facility] Last Admin: 04/01/17 17:41 Dose: Not Given Emollient Ointment (Vaseline Oint) 5 gm TOP DAILY [facility] Last Admin: 04/01/17 10:00 Dose: 5 gm Enoxaparin Sodium (Lovenox) 40 mg SC DAILY [facility] PRN Reason: Protocol Last Admin: 04/01/17 10:00 Dose: 40 mg Guaifenesin/Dextromethorphan (Robitussin Dm) 10 ml PO Q4H PRN PRN Reason: Cough Last Admin: 03/26/17 11:33 Dose: 10 ml Home Med (Home Med) 25 unit PO BID [facility] Last Admin: 04/01/17 17:42 Dose: Not Given diltiaZEM IVPB 100mg in NS (Cardizem 100mg In Ns) 100 mls @ 5 mls/hr IV .Q20H PRN; Protocol; 5 MG/HR PRN Reason: TITRATE PER MD ORDER Last Admin: 04/01/17 11:49 Dose: 5 mg/hr, 5 mls/hr Levalbuterol HCl (Xopenex) 0.63 mg IH TIDRESP PRN PRN Reason: Shortness of Breath Megestrol Acetate (Megace) 200 mg PO DAILY [facility] Last Admin: 04/01/17 17:42 Dose: Not Given Metoclopramide HCl (Reglan) 5 mg PO 0600,1130,1630,2200 [facility] Last Admin: 04/02/17 05:17 Dose: Not Given Metoprolol Tartrate (Lopressor) 12.5 mg PO BRKDIN [facility] Last Admin: 04/01/17 17:42 Dose: Not Given Pantoprazole Sodium (Protonix Ec Tab) 40 mg PO 0600 [facility] Last Admin: 04/02/17 05:17 Dose: Not Given Tamsulosin HCl (Flomax) 0.4 mg PO DAILY [facility] Last Admin: 04/01/17 17:42 Dose: Not Given Zolpidem Tartrate (Ambien) 5 mg PO HS PRN; Protocol PRN Reason: Insomnia Last Admin: 04/01/17 21:47 Dose: 5 mg - Labs Labs: 03/29/17 05:30 04/01/17 14:20 PT 10.9 Seconds (9.9-11.8) 03/19/17 13:50 INR 1.01 (0.93-1.08) 03/19/17 13:50 APTT 27.3 Seconds (23.7-30.8) 03/19/17 13:50 - Constitutional Appears: Non-toxic, No Acute Distress, Chronically Ill - Head Exam Head Exam: NORMAL INSPECTION - ENT Exam ENT Exam: Mucous Membranes Moist - Neck Exam Neck Exam: absent: Meningismus - Respiratory Exam Respiratory Exam: Decreased Breath Sounds - Cardiovascular Exam Cardiovascular Exam: +S1, +S2 - GI/Abdominal Exam GI & Abdominal Exam: Soft. absent: Tenderness Assessment and Plan - Assessment and Plan (Free Text) Plan: Assessment S/P sepsis due to multifocal healthcare-associated pneumonia in this patient with dysphagia - improved; S/P ventilator-dependent respiratory failure; has positive BAL AFB on cultures 3 weeks after bronchoscopy was done at [facility] [place] colon cancer on chemotherapy S/P resection peptic ulcer disease BPH COPD glaucoma GERD chronic caldwell catheter use Plan continue to monitor off antibiotics Spoke with Dr. Deluna - (+) AFB cultures after 3 weeks (S/P bronchoscopy) - smears were negative, including sputum smears - will await identification and sensitivities of the AFB in the BAL fluid from [facility] [place] discussed with Dr. Page - Quantiferon TB test is indeterminate, sputum AFB x 3 negative - d/c airborne isolation will continue to monitor clinically
--- NOTE | 2017-04-02 11:11 | PN ---
DATE: 04/02/2017 SUBJECTIVE: The patient's heart rate was much better controlled. There was a trial of tapering off his IV Cardizem, which resulted in a heart rate now of 120. The patient is currently in no acute distress. PHYSICAL EXAM: VITAL SIGNS: Blood pressure 137/57, heart rate in the 120s, atrial fibrillation. NECK: Negative JVD. LUNGS: Without rales. HEART: Reveal S1, S2. EXTREMITIES: Without edema. LABORATORY: Hemoglobin is 11.6, BUN and creatinine is 23 and 0.9. IMPRESSION: 1. Rapid atrial fibrillation, which is better controlled, on intravenous Cardizem and digoxin. 2. Anemia. 3. History of tuberculosis. 4. History of syncope after gastrointestinal manipulation. 5. Chronic obstructive pulmonary disease. 6. History of colon cancer, which is now not active. PLAN: Given these findings, we will increase his Cardizem back to 10 with an extra dose of IV digoxin today. We will continue his IV medications until the patient is able to take medications to the GI tract. Aries Wheeler MD
--- NOTE | 2017-04-02 12:10 | CP.PCM.PN ---
Subjective - Date & Time of Evaluation Date of Evaluation: 04/02/17 Time of Evaluation: 12:07 - Subjective Subjective: Progress note for Dr. Grider's service Patient seen and examined at bedside this morning. No acute overnight events or new complaints reported. Patient is aware of current evaluation by surgical team regarding jejunostomy tube placement. Reported that he will speak to his regarding the procedure and decide. Objective - Vital Signs/Intake and Output Vital Signs (last 24 hours): Temp Pulse Resp BP Pulse Ox 97.2 F L 96 H 18 137/57 L 98 04/02/17 06:00 04/02/17 06:00 04/02/17 06:00 04/02/17 06:00 04/02/17 06:00 Intake and Output: 04/02/17 04/02/17 06:59 18:59 Intake Total 60 80 Output Total 650 Balance -590 80 - Medications Medications: Current Medications Acetaminophen (Tylenol 650mg/20.3ml Solution Ud) 650 mg PO Q6H PRN PRN Reason: Pain, Mild (1-3) Last Admin: 03/27/17 01:41 Dose: 650 mg Benzonatate (Tessalon Perles) 100 mg PO TID [facility] Last Admin: 04/02/17 09:01 Dose: Not Given Digoxin (Lanoxin) 0.25 mg IVP 1400 [facility] Last Admin: 04/01/17 14:12 Dose: 0.25 mg Docusate Sodium (Colace Liquid) 100 mg PO TID [facility] Last Admin: 04/02/17 08:59 Dose: Not Given Emollient Ointment (Vaseline Oint) 5 gm TOP DAILY [facility] Last Admin: 04/02/17 09:05 Dose: 5 gm Enoxaparin Sodium (Lovenox) 40 mg SC DAILY [facility] PRN Reason: Protocol Last Admin: 04/01/17 10:00 Dose: 40 mg Guaifenesin/Dextromethorphan (Robitussin Dm) 10 ml PO Q4H PRN PRN Reason: Cough Last Admin: 03/26/17 11:33 Dose: 10 ml Home Med (Home Med) 25 unit PO BID [facility] Last Admin: 04/02/17 09:00 Dose: Not Given diltiaZEM IVPB 100mg in NS (Cardizem 100mg In Ns) 100 mls @ 5 mls/hr IV .Q20H PRN; Protocol; 5 MG/HR PRN Reason: TITRATE PER MD ORDER Last Titration: 04/02/17 09:50 Dose: 15 mg/hr, 15 mls/hr Levalbuterol HCl (Xopenex) 0.63 mg IH TIDRESP PRN PRN Reason: Shortness of Breath Megestrol Acetate (Megace) 200 mg PO DAILY [facility] Last Admin: 04/02/17 09:00 Dose: Not Given Metoclopramide HCl (Reglan) 5 mg PO 0600,1130,1630,2200 [facility] Last Admin: 04/02/17 12:07 Dose: Not Given Metoprolol Tartrate (Lopressor) 12.5 mg PO BRKDIN [facility] Last Admin: 04/02/17 09:00 Dose: Not Given Pantoprazole Sodium (Protonix Ec Tab) 40 mg PO 0600 [facility] Last Admin: 04/02/17 05:17 Dose: Not Given Tamsulosin HCl (Flomax) 0.4 mg PO DAILY [facility] Last Admin: 04/02/17 08:59 Dose: Not Given Zolpidem Tartrate (Ambien) 5 mg PO HS PRN; Protocol PRN Reason: Insomnia Last Admin: 04/01/17 21:47 Dose: 5 mg - Labs Labs: 04/02/17 05:20 04/02/17 05:20 PT 11.8 Seconds (9.9-11.8) 04/02/17 09:00 INR 1.09 (0.93-1.08) H 04/02/17 09:00 APTT 32.7 Seconds (23.7-30.8) H 04/02/17 09:00 - Constitutional Appears: Chronically Ill - Head Exam Head Exam: ATRAUMATIC, NORMOCEPHALIC - Eye Exam Eye Exam: EOMI, PERRL - ENT Exam ENT Exam: Mucous Membranes Dry - Respiratory Exam Respiratory Exam: Decreased Breath Sounds. absent: Rales, Rhonchi, Wheezes - Cardiovascular Exam Cardiovascular Exam: Irregular Rhythm, +S1, +S2. absent: Gallop, Rubs - GI/Abdominal Exam GI & Abdominal Exam: Soft. absent: Distended, Firm, Guarding, Rigid, Tenderness , Rebound - Extremities Exam Extremities Exam: Normal Inspection. absent: Pedal Edema - Neurological Exam Neurological Exam: Alert, Awake, Oriented x3 - Psychiatric Exam Psychiatric exam: Normal Affect, Normal Mood - Skin Skin Exam: Dry, Intact, Normal Color, Warm Assessment and Plan - Assessment and Plan (Free Text) Plan: 81yo male with history of stage 3 colon ca s/p chemotherapy and hemicolectomy admitted for sepsis secondary to healthcare associated pneumonia/aspiration PNA as well as atrial fibrillation with RVR. 1. Atrial fibrillation -Patient started on cardizem and digoxin per cardiology recommendations -Cardiology consulted - Dr. Condon/Dr. Wheeler -Will continue to monitor HR 2. HCAP/Aspiration PNA -afebrile, no leukocytosis -lactate within normal limits -Blood cultures negative -Patient is s/p treatment with meropenem and doxycycline per ID recommendations ; currently being monitored off antibiotics -ID consulted - Dr. Edmond 3. Stage 3 Colon Ca -Patient previously treated with chemotherapy and hemicolectomy 4. Dysphagia -Surgery consulted for jejunostomy tube placement, patient to be scheduled for the procedure should he be agreeable -Discussed with surgical team regarding placement of the dobhoff tube at this time -Neurology reconsulted regarding prognosis of dysphagia -GI consulted - Dr. Tavarez -Surgery consulted - Dr. Loving -At risk of aspiration 5. Rule out TB -Patient had + AFB cultures s/p BAL at [facility] -AFB smears here have been negative x3, airborne isolation can be discontinued -per ID recommendations we will await identification of AFB in the BAL fluid at [facility] -PCR of AFB smear at [facility] appears to still be pending -ID consulted - Dr. Edmond/Dr. Shah 6. COPD -Continue xopenex -Continue tessalon perls -Pulmonary consulted - Dr. Page 7. GERD -Continue protonix 8. BPH -Continue flomax 9. GI/DVT Prophylaxis -Protonix/lovenox Patient seen and case discussed with attending, Dr. Grider
--- NOTE | 2017-04-02 12:31 | CP.PCM.CON ---
<Genesis Shane - Last Filed: 04/02/17 13:52> History of Present Illness - History of Present Illness History of Present Illness: Neurology Consult Note for Cale Cooper PGY2 Reason for Consult: Dysphagia prognosis This is an 81Y M with PMH of Colon cancer s/p resection, peptic ulcers, COPD, GERD, chronic caldwell catheter, thrombophlebitis who was admitted for dysphagia. Neurology was consulted on 03/19/17 for dysphagia. During his hospital course, patient was noted to have a.fib as well as aspiration pneumonia. MRI brain was done which did not show any acute abnormalities. Speech and swallow evaluated patient and recommended finely chopped food as well as nectar thick liquids. Patient had NG tube at one point that fell out and could not be re-inserted. PMD was concerned for aspiration pneumonia so surgery was consulted for peg tube placement. PMH: Colon cancer s/p resection, peptic ulcers, COPD, GERD, chronic caldwell catheter, thrombophlebitis, BPH PSH: colonic resection for colon cancer Home meds: As per MAR All: NKDA SH: Former smoker, denies EtOH or drug use Review of Systems - Review of Systems Review of Systems: Patient denies CP, SOB, n/v/d, numbness/tingling, vision changes, headaches, dizziness, fever or chills. Patient does state he is thirsty. Past Patient History - Infectious Disease Hx of Infectious Diseases: None - Tetanus Immunizations Tetanus Immunization: Unknown - Past Social History Smoking Status: Former Smoker - CARDIAC Hx Cardiac Disorders: No - PULMONARY Hx Pneumonia: Yes - NEUROLOGICAL Hx Neurological Disorder: Yes - HEENT Hx HEENT Problems: Yes Hx Glaucoma: Yes - RENAL Hx Chronic Kidney Disease: No - ENDOCRINE/METABOLIC Hx Endocrine Disorders: No - HEMATOLOGICAL/ONCOLOGICAL Hx Cancer: Yes (colon, with radiation.) - INTEGUMENTARY Hx Dermatological Problems: Yes (THROMBOPLEBITIS LEFT LEG) - MUSCULOSKELETAL/RHEUMATOLOGICAL Hx Musculoskeletal Disorders: Yes Hx Falls: Yes Other/Comment: USES CANE - GASTROINTESTINAL Hx Gastrointestinal Disorders: Yes Hx Gastroesophageal Reflux: Yes HX Swallowing Problems: Yes - GENITOURINARY/GYNECOLOGICAL Hx Genitourinary Disorders: Yes Hx Prostate Problems: Yes Other/Comment: caldwell leg bag-URINARY RETENTION - PSYCHIATRIC Hx Psychophysiologic Disorder: Yes Hx Anxiety: Yes Hx Substance Use: No - SURGICAL HISTORY Hx Surgeries: Yes (colon resection) - ANESTHESIA Hx Anesthesia: Yes Hx Anesthesia Reactions: No Hx Malignant Hyperthermia: No Meds Allergies/Adverse Reactions: Allergies Allergy/AdvReac Type Severity Reaction Status Date / Time No Known Allergies Allergy Verified 03/19/17 23:29 - Medications Medications: Current Medications Acetaminophen (Tylenol 650mg/20.3ml Solution Ud) 650 mg PO Q6H PRN PRN Reason: Pain, Mild (1-3) Last Admin: 03/27/17 01:41 Dose: 650 mg Benzonatate (Tessalon Perles) 100 mg PO TID [facility] Last Admin: 04/02/17 09:01 Dose: Not Given Digoxin (Lanoxin) 0.25 mg IVP 1400 [facility] Last Admin: 04/01/17 14:12 Dose: 0.25 mg Docusate Sodium (Colace Liquid) 100 mg PO TID [facility] Last Admin: 04/02/17 08:59 Dose: Not Given Emollient Ointment (Vaseline Oint) 5 gm TOP DAILY [facility] Last Admin: 04/02/17 09:05 Dose: 5 gm Enoxaparin Sodium (Lovenox) 40 mg SC DAILY [facility] PRN Reason: Protocol Last Admin: 04/01/17 10:00 Dose: 40 mg Guaifenesin/Dextromethorphan (Robitussin Dm) 10 ml PO Q4H PRN PRN Reason: Cough Last Admin: 03/26/17 11:33 Dose: 10 ml Home Med (Home Med) 25 unit PO BID [facility] Last Admin: 04/02/17 09:00 Dose: Not Given diltiaZEM IVPB 100mg in NS (Cardizem 100mg In Ns) 100 mls @ 5 mls/hr IV .Q20H PRN; Protocol; 5 MG/HR PRN Reason: TITRATE PER MD ORDER Last Titration: 04/02/17 09:50 Dose: 15 mg/hr, 15 mls/hr Levalbuterol HCl (Xopenex) 0.63 mg IH TIDRESP PRN PRN Reason: Shortness of Breath Megestrol Acetate (Megace) 200 mg PO DAILY [facility] Last Admin: 04/02/17 09:00 Dose: Not Given Metoclopramide HCl (Reglan) 5 mg PO 0600,1130,1630,2200 [facility] Last Admin: 04/02/17 12:07 Dose: Not Given Metoprolol Tartrate (Lopressor) 12.5 mg PO BRKDIN [facility] Last Admin: 04/02/17 09:00 Dose: Not Given Pantoprazole Sodium (Protonix Ec Tab) 40 mg PO 0600 [facility] Last Admin: 04/02/17 05:17 Dose: Not Given Tamsulosin HCl (Flomax) 0.4 mg PO DAILY [facility] Last Admin: 04/02/17 08:59 Dose: Not Given Zolpidem Tartrate (Ambien) 5 mg PO HS PRN; Protocol PRN Reason: Insomnia Last Admin: 04/01/17 21:47 Dose: 5 mg Physical Exam - Constitutional Appears: Cachectic - Head Exam Head Exam: ATRAUMATIC, NORMAL INSPECTION, NORMOCEPHALIC - Eye Exam Eye Exam: EOMI, Normal appearance, PERRL Pupil Exam: NORMAL ACCOMODATION, PERRL - ENT Exam ENT Exam: Mucous Membranes Dry - Respiratory Exam Respiratory Exam: Clear to Auscultation Bilateral, NORMAL BREATHING PATTERN. absent: Rales, Rhonchi, Wheezes - Cardiovascular Exam Cardiovascular Exam: REGULAR RHYTHM, +S1, +S2. absent: Gallop, Rubs, Systolic Murmur - GI/Abdominal Exam GI & Abdominal Exam: Soft. absent: Rebound, Rigid, Tenderness - Neurological Exam Neurological exam: Alert, CN II-XII Intact, Oriented x3 - Skin Skin Exam: Dry, Intact, Normal Color, Warm Results - Vital Signs Recent Vital Signs: Last Vital Signs Temp 97.2 F L 04/02/17 06:00 Pulse 112 H 04/02/17 12:00 Resp 23 04/02/17 12:00 BP 127/53 L 04/02/17 12:00 Pulse Ox 96 04/02/17 12:00 - Labs Result Diagrams: 04/02/17 05:20 04/02/17 05:20 Labs: Laboratory Results - last 24 hr 04/01/17 04/02/17 04/02/17 14:20 05:20 05:20 WBC 9.6 RBC 3.83 Hgb 11.6 L Hct 36.3 L MCV 94.8 MCH 30.3 MCHC 32.0 RDW 14.4 Plt Count 185 PT INR APTT Sodium 141 145 Potassium 3.4 L 3.8 Chloride 101 102 Carbon Dioxide 30 32 Anion Gap 13 15 BUN 22 H 23 H Creatinine 0.8 0.9 Est GFR ( Amer) > 60 > 60 Est GFR (Non-Af Amer) > 60 > 60 Random Glucose 99 77 Calcium 8.4 8.8 Phosphorus 2.7 Magnesium 2.0 Total Bilirubin 1.0 AST 36 ALT 26 Alkaline Phosphatase 87 Total Protein 5.8 Albumin 2.8 L Globulin 3.0 Albumin/Globulin Ratio 0.9 L Free T4 TSH 3rd Generation 04/02/17 04/02/17 05:20 09:00 WBC RBC Hgb Hct MCV MCH MCHC RDW Plt Count PT 11.8 INR 1.09 H APTT 32.7 H Sodium Potassium Chloride Carbon Dioxide Anion Gap BUN Creatinine Est GFR ( Amer) Est GFR (Non-Af Amer) Random Glucose Calcium Phosphorus Magnesium Total Bilirubin AST ALT Alkaline Phosphatase Total Protein Albumin Globulin Albumin/Globulin Ratio Free T4 1.96 TSH 3rd Generation 1.33 Assessment & Plan - Assessment and Plan (Free Text) Assessment: This is an 81Y M with PMH of Colon cancer s/p resection, peptic ulcers, COPD, GERD, chronic caldwell catheter, thrombophlebitis who was admitted for dysphagia. Patient is at risk for aspiration pneumonia. Surgery was consulted for J-tube placement. Neurology was reconsulted for prognosis of dysphagia. Dysphagia is most likely secondary to gastroparesis rather than a neurological source. Plan: - Continue with PT/OT - Continue with surgical and GI recommendations - Continue PPI and reglan No further neurological work up is needed at this time. Thank you for this consultation. Please re-consult if needed. Case seen, discussed and reviewed with Dr. Capo Shane PGY2 - Date & Time Date: 04/02/17 Time: 12:42 <Chad Scanlon - Last Filed: 04/02/17 14:21> Meds - Medications Medications: Current Medications Acetaminophen (Tylenol 650mg/20.3ml Solution Ud) 650 mg PO Q6H PRN PRN Reason: Pain, Mild (1-3) Last Admin: 03/27/17 01:41 Dose: 650 mg Benzonatate (Tessalon Perles) 100 mg PO TID [facility] Last Admin: 04/02/17 13:27 Dose: Not Given Digoxin (Lanoxin) 0.25 mg IVP 1400 [facility] Last Admin: 04/02/17 13:27 Dose: 0.25 mg Docusate Sodium (Colace Liquid) 100 mg PO TID [facility] Last Admin: 04/02/17 13:27 Dose: Not Given Emollient Ointment (Vaseline Oint) 5 gm TOP DAILY [facility] Last Admin: 04/02/17 09:05 Dose: 5 gm Enoxaparin Sodium (Lovenox) 40 mg SC DAILY [facility] PRN Reason: Protocol Last Admin: 04/02/17 13:27 Dose: 40 mg Guaifenesin/Dextromethorphan (Robitussin Dm) 10 ml PO Q4H PRN PRN Reason: Cough Last Admin: 03/26/17 11:33 Dose: 10 ml Home Med (Home Med) 25 unit PO BID [facility] Last Admin: 04/02/17 09:00 Dose: Not Given diltiaZEM IVPB 100mg in NS (Cardizem 100mg In Ns) 100 mls @ 5 mls/hr IV .Q20H PRN; Protocol; 5 MG/HR PRN Reason: TITRATE PER MD ORDER Last Admin: 04/02/17 13:26 Dose: 15 mg/hr, 15 mls/hr Levalbuterol HCl (Xopenex) 0.63 mg IH TIDRESP PRN PRN Reason: Shortness of Breath Megestrol Acetate (Megace) 200 mg PO DAILY [facility] Last Admin: 04/02/17 09:00 Dose: Not Given Metoclopramide HCl (Reglan) 5 mg PO 0600,1130,1630,2200 [facility] Last Admin: 04/02/17 12:07 Dose: Not Given Metoprolol Tartrate (Lopressor) 12.5 mg PO BRKDIN [facility] Last Admin: 04/02/17 09:00 Dose: Not Given Pantoprazole Sodium (Protonix Ec Tab) 40 mg PO 0600 [facility] Last Admin: 04/02/17 05:17 Dose: Not Given Tamsulosin HCl (Flomax) 0.4 mg PO DAILY [facility] Last Admin: 04/02/17 08:59 Dose: Not Given Zolpidem Tartrate (Ambien) 5 mg PO HS PRN; Protocol PRN Reason: Insomnia Last Admin: 04/01/17 21:47 Dose: 5 mg Results - Vital Signs Recent Vital Signs: Last Vital Signs Temp 97.2 F L 04/02/17 06:00 Pulse 112 H 04/02/17 12:00 Resp 23 04/02/17 12:00 BP 127/53 L 04/02/17 12:00 Pulse Ox 96 04/02/17 12:00 - Labs Result Diagrams: 04/02/17 05:20 04/02/17 05:20 Labs: Laboratory Results - last 24 hr 04/01/17 04/02/17 04/02/17 14:20 05:20 05:20 WBC 9.6 RBC 3.83 Hgb 11.6 L Hct 36.3 L MCV 94.8 MCH 30.3 MCHC 32.0 RDW 14.4 Plt Count 185 PT INR APTT Sodium 141 145 Potassium 3.4 L 3.8 Chloride 101 102 Carbon Dioxide 30 32 Anion Gap 13 15 BUN 22 H 23 H Creatinine 0.8 0.9 Est GFR ( Amer) > 60 > 60 Est GFR (Non-Af Amer) > 60 > 60 Random Glucose 99 77 Calcium 8.4 8.8 Phosphorus 2.7 Magnesium 2.0 Total Bilirubin 1.0 AST 36 ALT 26 Alkaline Phosphatase 87 Total Protein 5.8 Albumin 2.8 L Globulin 3.0 Albumin/Globulin Ratio 0.9 L Free T4 TSH 3rd Generation 04/02/17 04/02/17 05:20 09:00 WBC RBC Hgb Hct MCV MCH MCHC RDW Plt Count PT 11.8 INR 1.09 H APTT 32.7 H Sodium Potassium Chloride Carbon Dioxide Anion Gap BUN Creatinine Est GFR ( Amer) Est GFR (Non-Af Amer) Random Glucose Calcium Phosphorus Magnesium Total Bilirubin AST ALT Alkaline Phosphatase Total Protein Albumin Globulin Albumin/Globulin Ratio Free T4 1.96 TSH 3rd Generation 1.33 Attending/Attestation - Attestation I have personally seen and examined this patient.: Yes I have fully participated in the care of the patient.: Yes I have reviewed all pertinent clinical information: Yes
--- NOTE | 2017-04-02 12:44 | CARD ---
APPROVED REPORT EXAM: Two-dimensional and M-mode echocardiogram with Doppler and color Doppler. INDICATION Syncope 2D DIMENSIONS Left Atrium (2D)3.7 (1.6-4.0cm)IVSd0.8 (0.7-1.1cm) LVDd5.1 (3.9-5.9cm)PWd1.1 (0.7-1.1cm) LVDs3.8 (2.5-4.0cm)FS (%) 26.4 % LVEF (%)50.0 (>50%) M-Mode DIMENSIONS Aortic Root3.20 (2.2-3.7cm)Aortic Cusp Exc.1.80 (1.5-2.0cm) Aortic Valve AoV Peak [id number]/Susana Peak GR.13mmHg Mitral Valve E/A ratio0.0 TDI E/Lateral E'0.0E/Medial E'0.0 Tricuspid Valve TR Peak [id number] Peak Gr.24mmHg [id number] LEFT VENTRICLE There is mild concentric left ventricular hypertrophy. Low normal LV function RIGHT VENTRICLE The right ventricle is normal size. ATRIA The left atrium is mildly dilated. The right atrium is mildly dilated. AORTIC VALVE The aortic valve is calcified but opens well. MITRAL VALVE The mitral valve is thickened but opens well. Mitral regurgitation is mild. TRICUSPID VALVE The tricuspid valve leaflets are thickened , but open well. There is trace tricuspid regurgitation. There is mild pulmonary hypertension. PULMONIC VALVE The pulmonic valve is not well visualized. PERICARDIAL EFFUSION There is no pericardial effusion. <Conclusion> Low normal LV systolic function LVH Mildly dilated LA and RA mild MR and TR Mildly elevated pulmonary pressures No LV outflow obstruction
[2017-04-02] MEDS: diltiaZEM IVPB 100mg in NS 100 ML IV PRN ×2 (13:26→22:43)
[2017-04-02] MEDS: Digoxin 500 mcg/2ml (0.5 mg/2ml) Inj IVP SCH (13:27)
[2017-04-02] MEDS: Enoxaparin 40 mg Syringe SC SCH (13:27)
--- NOTE | 2017-04-02 16:22 | PN ---
DATE: 04/02/2017 SUBJECTIVE: The patient is lying in bed. He states that he is hungry and would like to try some thick shakes or pudding. He denies any shortness of breath or cough. OBJECTIVE: VITAL SIGNS: Reveal temperature of 98, blood pressure 140/67, heart rate 101. ABDOMEN: Soft, nontender. LABORATORY DATA: Reveal hemoglobin 11.6, white blood cell count 9.6. Chemistries reveal BUN 23, creatinine 0.9. IMPRESSION: This is an 81-year-old male with aspiration pneumonia, oropharyngeal dysphagia, awaiting final AFB sputum smears with a history of positive AFB smear in the past. RECOMMENDATIONS: 1. I have spoken to the patient's nurse and asked her to try and feed the patient either thick shakes or pudding closely watching him for further aspiration. 2. The patient needs a surgical J tube placement for long-term enteral feeding since he had a subtotal gastrectomy with Billroth II anastomosis over 20 years ago. Ej Tavarez MD
--- NOTE | 2017-04-02 18:56 | RAD ---
HISTORY: s/p NGT placement COMPARISON: April 01, 2017. FINDINGS: LUNGS: Hyperinflation, manifestations of COPD. No active pulmonary disease. PLEURA: No significant pleural effusion identified, no pneumothorax apparent. CARDIOVASCULAR: Normal. OSSEOUS STRUCTURES: No significant abnormalities. VISUALIZED UPPER ABDOMEN: Normal. OTHER FINDINGS: Feeding tube in the at lower esophagus the tip at least 12 cm from the gastroesophageal junction. IMPRESSION: Improperly positioned feeding tube. The tip should be advanced at least 20 cm for optimal placement.
--- NOTE | 2017-04-03 02:21 | PN ---
PULMONARY PROGRESS NOTE DATE: 04/02/2017 REFERRING PHYSICIAN: Dr. Grider. SUBJECTIVE: He is lying in the bed, head at 45 degrees. vice president business development placed feeding tube in. Complaining of some sore throat. Cough is better. Sputum production is better. Severe oropharyngeal dysphagia. No hematuria, no diarrhea, and no leg swelling reported. PHYSICAL EXAMINATION GENERAL: No acute distress. VITAL SIGNS: Temperature is 98, heart rate is 93, respiratory rate is 20, blood pressure is 137/69, and pulse oximetry is 97% in room air on nasal cannula. HEENT: Moist mucous membrane. No oral thrush. NECK: Supple. No JVD. LUNGS: Fair airflow with few rhonchi. HEART: S1 and S2. ABDOMEN: Soft and nontender. No organomegaly. EXTREMITIES: No edema. NEUROLOGIC: Awake, alert, and follows simple commands. MEDICATIONS: He is on Ambien 5 mg at bedtime p.r.n., diltiazem IV drip, Lovenox 40 mg subcutaneous daily, Reglan 5 mg q.i.d., Robitussin DM 10 mL q. 4 hours p.r.n., Tylenol p.r.n., Vaseline ointment to the affected area, and Xopenex inhaled q. 8 hours p.r.n. LABORATORY DATA: Shows hemoglobin 11.6, hematocrit 36.3, WBC 9.6 and platelet is 185. INR 1.09 and PTT 33. Sodium 145, potassium 3.8, chloride 102, bicarbonate 32, BUN 23, creatinine 0.9, glucose 77, and calcium 8.8. AST 36, ALT 26 and alkaline phosphatase is 87. Albumin is 2.8. T4 free 1.96 and TSH is 1.33. Microbiology, sputum AFB smear has been negative for sample from [facility]. Chest x-ray was done and showed the feeding tube is much above the esophageal-gastric junction, so that was pushed by me at appropriate place about 20 cm further down, so repeat chest x-ray shows the feeding tube at appropriate place. IMPRESSION AND PLAN: Multilobar infiltrate, oropharyngeal dysphagia, chronic aspiration, atrial fibrillation with a rapid ventricular response, still waiting for final PCR report from [facility] for Mycobacterium. Agree with infectious diseases to discontinue isolation. Start feeding tube nutrition. He has severely activities of daily living dysfunction. We will suggest physical therapy get him out of bed to chair and ambulating. Pulmonary point of view, he is stable to go ahead and get a jejunostomy tube in. Followup labs in the morning. Thank you and we will follow with you. Andrea Page MD
[2017-04-03 05:58] LABS: HEMATOCRIT 36.8 % (42.0-52.0); MEAN CELL VOLUME 94.6 fl (80.0-105.0); MEAN CORPUSCULAR HEMOGLOBIN 30.6 pg (25.0-35.0); MEAN CORPUSCULAR HGB CONC 32.3 g/dl (31.0-37.0); MEAN PLATELET VOLUME 12.3 fl (7.0-11.0); RED CELL DISTRIBUTION WIDTH 14.6 % (11.5-14.5)
[2017-04-03 06:35] LABS: ALB/GLOB RATIO 0.9 (1.1-1.8); ALKALINE PHOSPHATASE 73 U/L (38-126); ALT/SGPT 23 U/L (7-56); AST/SGOT 32 U/L (17-59); BILIRUBIN,TOTAL 1.1 mg/dL (0.2-1.3); BLOOD UREA NITROGEN 28 mg/dL (7-21); CALCIUM 9.1 mg/dL (8.4-10.5); CARBON DIOXIDE 32 mmol/L (21-33); CHLORIDE 106 mmol/L (98-107); GFR AFRICAN-AMERICAN > 60; GLUCOSE,RANDOM 86 mg/dL (70-110); SODIUM 147 mmol/L (132-148)
[2017-04-03] MEDS: Pantoprazole 40 mg EC Tab PO SCH (07:07)
--- NOTE | 2017-04-03 08:42 | RAD ---
HISTORY: NGT insertion COMPARISON: Portable chest 04/02/2017. FINDINGS: Examination is performed for purpose of nasogastric tube insertion evaluation. A nasogastric tube is identified placed terminating at the left upper quadrant abdomen advanced further from its mid esophageal position previously on 04/02/2017 radiograph. LUNGS: Chronic interstitial pulmonary changes are again appreciated with limited patchy affecting airspace at the mid to inferior right lung zone in the interval. PLEURA: No significant pleural effusion identified, no pneumothorax apparent. CARDIOVASCULAR: Normal. OSSEOUS STRUCTURES: No significant abnormalities. VISUALIZED UPPER ABDOMEN: Normal. OTHER FINDINGS: None. IMPRESSION: A nasogastric tube has been placed terminating at the quadrant abdomen. The sella is not not been captured in this exam and interstitial pulmonary disease combined with limited airspace disease at the right hemithorax is identified. Follow-up proper chest radiography is advised as clinically warranted.
--- NOTE | 2017-04-03 08:53 | CP.PCM.PN ---
Subjective - Date & Time of Evaluation Date of Evaluation: 04/03/17 Time of Evaluation: 08:30 - Subjective Subjective: Currently has an NGT, not in distress, no fevers, cough is improved. Objective - Vital Signs/Intake and Output Vital Signs (last 24 hours): Temp Pulse Resp BP Pulse Ox 98.1 F 105 H 21 143/81 97 04/03/17 00:00 04/03/17 02:00 04/03/17 02:00 04/03/17 02:00 04/03/17 02:00 Intake and Output: 04/02/17 04/03/17 18:59 06:59 Intake Total 120 10 Balance 120 10 - Medications Medications: Current Medications Acetaminophen (Tylenol 650mg/20.3ml Solution Ud) 650 mg PO Q6H PRN PRN Reason: Pain, Mild (1-3) Last Admin: 03/27/17 01:41 Dose: 650 mg Digoxin (Lanoxin) 0.25 mg IVP 1400 [facility] Last Admin: 04/02/17 13:27 Dose: 0.25 mg Docusate Sodium (Colace Liquid) 100 mg PO TID [facility] Last Admin: 04/02/17 17:20 Dose: Not Given Emollient Ointment (Vaseline Oint) 5 gm TOP DAILY [facility] Last Admin: 04/02/17 09:05 Dose: 5 gm Enoxaparin Sodium (Lovenox) 40 mg SC DAILY [facility] PRN Reason: Protocol Last Admin: 04/02/17 13:27 Dose: 40 mg Guaifenesin/Dextromethorphan (Robitussin Dm) 10 ml PO Q4H PRN PRN Reason: Cough Last Admin: 03/26/17 11:33 Dose: 10 ml Home Med (Home Med) 25 unit PO BID [facility] Last Admin: 04/02/17 17:20 Dose: Not Given diltiaZEM IVPB 100mg in NS (Cardizem 100mg In Ns) 100 mls @ 5 mls/hr IV .Q20H PRN; Protocol; 5 MG/HR PRN Reason: TITRATE PER MD ORDER Last Admin: 04/02/17 22:43 Dose: 10 mg/hr, 10 mls/hr Levalbuterol HCl (Xopenex) 0.63 mg IH TIDRESP PRN PRN Reason: Shortness of Breath Megestrol Acetate (Megace) 200 mg PO DAILY [facility] Last Admin: 04/02/17 09:00 Dose: Not Given Metoclopramide HCl (Reglan) 5 mg PO 0600,1130,1630,2200 [facility] Last Admin: 04/02/17 22:02 Dose: 5 mg Metoprolol Tartrate (Lopressor) 12.5 mg PO BRKDIN [facility] Last Admin: 04/02/17 17:20 Dose: Not Given Pantoprazole Sodium (Protonix Ec Tab) 40 mg PO 0600 [facility] Last Admin: 04/02/17 05:17 Dose: Not Given Tamsulosin HCl (Flomax) 0.4 mg PO DAILY [facility] Last Admin: 04/02/17 08:59 Dose: Not Given Zolpidem Tartrate (Ambien) 5 mg PO HS PRN; Protocol PRN Reason: Insomnia Last Admin: 04/02/17 21:59 Dose: 5 mg - Labs Labs: 04/03/17 05:30 04/02/17 05:20 PT 11.8 Seconds (9.9-11.8) 04/02/17 09:00 INR 1.09 (0.93-1.08) H 04/02/17 09:00 APTT 32.7 Seconds (23.7-30.8) H 04/02/17 09:00 - Constitutional Appears: Non-toxic, No Acute Distress - Head Exam Head Exam: NORMAL INSPECTION - ENT Exam ENT Exam: Mucous Membranes Moist Additional comments: NGT in place - Neck Exam Neck Exam: absent: Meningismus - Respiratory Exam Respiratory Exam: Decreased Breath Sounds - Cardiovascular Exam Cardiovascular Exam: +S1, +S2 - GI/Abdominal Exam GI & Abdominal Exam: Soft. absent: Tenderness Assessment and Plan - Assessment and Plan (Free Text) Plan: Assessment S/P sepsis due to multifocal healthcare-associated pneumonia in this patient with dysphagia - improved; S/P ventilator-dependent respiratory failure; has positive BAL AFB on cultures 3 weeks after bronchoscopy was done at [facility] ([facility] [place]) colon cancer on chemotherapy S/P resection peptic ulcer disease BPH COPD glaucoma GERD chronic caldwell catheter use Plan continue to monitor off antibiotics since he is at risk for nosocomial infections Spoke with Dr. Deluna last week - (+) AFB cultures after 3 weeks (S/P bronchoscopy) - smears were negative, including sputum smears - will await identification and sensitivities of the AFB in the BAL fluid from [facility] [place] (still pending) discussed with Dr. Page previously - Quantiferon TB test is indeterminate, sputum AFB x 3 negative - airborne isolation not necessary at the moment will continue to monitor clinically
[2017-04-03] MEDS: Megestrol Acetate 40 mg/ml Cup PO SCH (09:25)
[2017-04-03] MEDS: Petrolatum Oint Foilpak (5 gm) TOP SCH (09:25)
[2017-04-03] MEDS: LUBIPROSTONE PO SCH ×2 (09:26→18:10)
[2017-04-03] MEDS: diltiaZEM IVPB 100mg in NS 100 ML IV PRN ×2 (09:27→19:44)
--- NOTE | 2017-04-03 09:33 | CP.PCM.PN ---
Subjective - Date & Time of Evaluation Date of Evaluation: 04/03/17 Time of Evaluation: 09:30 - Subjective Subjective: Progress note for Dr. Grider's service Patient seen and examined at bedside. No acute overnight events or new complaints reported. Pending J-tube placement by surgical team. Denies chest pain, palpitations, SOB. Objective - Vital Signs/Intake and Output Vital Signs (last 24 hours): Temp Pulse Resp BP Pulse Ox 97.2 F L 113 H 21 119/62 98 04/03/17 04:00 04/03/17 08:00 04/03/17 08:00 04/03/17 08:00 04/03/17 08:00 Intake and Output: 04/03/17 04/03/17 06:59 18:59 Intake Total 120 100 Output Total 650 Balance -530 100 - Medications Medications: Current Medications Acetaminophen (Tylenol 650mg/20.3ml Solution Ud) 650 mg PO Q6H PRN PRN Reason: Pain, Mild (1-3) Last Admin: 03/27/17 01:41 Dose: 650 mg Digoxin (Lanoxin) 0.25 mg IVP 1400 [facility] Last Admin: 04/02/17 13:27 Dose: 0.25 mg Docusate Sodium (Colace Liquid) 100 mg PO TID [facility] Last Admin: 04/03/17 09:25 Dose: 100 mg Emollient Ointment (Vaseline Oint) 5 gm TOP DAILY [facility] Last Admin: 04/03/17 09:25 Dose: 5 gm Enoxaparin Sodium (Lovenox) 40 mg SC DAILY [facility] PRN Reason: Protocol Last Admin: 04/02/17 13:27 Dose: 40 mg Guaifenesin/Dextromethorphan (Robitussin Dm) 10 ml PO Q4H PRN PRN Reason: Cough Last Admin: 03/26/17 11:33 Dose: 10 ml Home Med (Home Med) 25 unit PO BID [facility] Last Admin: 04/03/17 09:26 Dose: Not Given diltiaZEM IVPB 100mg in NS (Cardizem 100mg In Ns) 100 mls @ 5 mls/hr IV .Q20H PRN; Protocol; 5 MG/HR PRN Reason: TITRATE PER MD ORDER Last Admin: 04/03/17 09:27 Dose: 10 mg/hr, 10 mls/hr Levalbuterol HCl (Xopenex) 0.63 mg IH TIDRESP PRN PRN Reason: Shortness of Breath Megestrol Acetate (Megace) 200 mg PO DAILY [facility] Last Admin: 04/03/17 09:25 Dose: 200 mg Metoclopramide HCl (Reglan) 5 mg PO 0600,1130,1630,2200 [facility] Last Admin: 04/03/17 07:45 Dose: 5 mg Metoprolol Tartrate (Lopressor) 12.5 mg PO BRKDIN [facility] Last Admin: 04/03/17 07:05 Dose: 12.5 mg Pantoprazole Sodium (Protonix Ec Tab) 40 mg PO 0600 [facility] Last Admin: 04/03/17 07:07 Dose: 40 mg Tamsulosin HCl (Flomax) 0.4 mg PO DAILY [facility] Last Admin: 04/03/17 09:25 Dose: 0.4 mg Zolpidem Tartrate (Ambien) 5 mg PO HS PRN; Protocol PRN Reason: Insomnia Last Admin: 04/02/17 21:59 Dose: 5 mg - Labs Labs: 04/03/17 05:30 04/03/17 05:30 PT 11.8 Seconds (9.9-11.8) 04/02/17 09:00 INR 1.09 (0.93-1.08) H 04/02/17 09:00 APTT 32.7 Seconds (23.7-30.8) H 04/02/17 09:00 - Constitutional Appears: Chronically Ill - Head Exam Head Exam: ATRAUMATIC, NORMOCEPHALIC - Eye Exam Eye Exam: EOMI, PERRL - ENT Exam ENT Exam: Mucous Membranes Dry - Respiratory Exam Respiratory Exam: Decreased Breath Sounds. absent: Rales, Rhonchi, Wheezes - Cardiovascular Exam Cardiovascular Exam: Irregular Rhythm, +S1, +S2. absent: Gallop, Murmur - GI/Abdominal Exam GI & Abdominal Exam: Soft. absent: Distended, Firm, Guarding, Rigid, Tenderness , Rebound - Extremities Exam Extremities Exam: Normal Inspection. absent: Calf Tenderness, Tenderness - Neurological Exam Neurological Exam: Alert, Awake, Oriented x3 - Psychiatric Exam Psychiatric exam: Normal Affect, Normal Mood - Skin Skin Exam: Dry, Intact, Normal Color, Warm Assessment and Plan - Assessment and Plan (Free Text) Plan: 81yo male with history of stage 3 colon ca s/p chemotherapy and hemicolectomy admitted for sepsis secondary to healthcare associated pneumonia/aspiration PNA as well as atrial fibrillation with RVR. 1. Atrial fibrillation -Patient started on cardizem and digoxin per cardiology recommendations -Cardiology consulted - Dr. Condon/Dr. Wheeler -Will continue to monitor HR 2. HCAP/Aspiration PNA -afebrile, no leukocytosis -lactate within normal limits -Blood cultures negative -Patient is s/p treatment with meropenem and doxycycline per ID recommendations ; currently being monitored off antibiotics and is at high risk of nosocomial infections -ID consulted - Dr. Edmond/Dr. Shah 3. Stage 3 Colon Ca -Patient previously treated with chemotherapy and hemicolectomy 4. Dysphagia -Surgery consulted for jejunostomy tube placement, patient is presently scheduled for J-tube placement -NGT placed by surgical team -Neurology reconsulted regarding prognosis of dysphagia and thought likely to be secondary to gastroparesis vs a neurologic source -GI consulted - Dr. Tavarez -Surgery consulted - Dr. Loving -At risk of aspiration 5. Rule out TB -Patient had + AFB cultures s/p BAL at [facility]AFB smears here have been negative x3, airborne isolation can be discontinued -per ID recommendations we will await identification of AFB in the BAL fluid at [facility] -PCR of AFB smear at [facility] appears to still be pending -ID consulted - Dr. Edmond/Dr. Shah 6. COPD -Continue xopenex -Continue tessalon perls -Pulmonary consulted - Dr. Page 7. GERD -Continue protonix 8. BPH -Continue flomax 9. GI/DVT Prophylaxis -Protonix/lovenox Patient seen and case discussed with attending, Dr. Grider
--- NOTE | 2017-04-03 09:39 | PN ---
CARDIOLOGY FOLLOWUP DATE: 04/03/2017 SUBJECTIVE: The patient is without new symptoms. PHYSICAL EXAMINATION: VITAL SIGNS: Blood pressure is 123/87, heart rate is 100, and atrial fibrillation. NECK: Negative JVD. LUNGS: Decreased breath sounds. HEART: S1 and S2. EXTREMITIES: Without edema. LABORATORY DATA: Chemistries are unchanged. Hemoglobin is 11.9. IMPRESSION: 1. Active tuberculosis. 2. Status post syncope after increased vagal tone. 3. Chronic obstructive pulmonary disease. 4. Atrial fibrillation, which was treated with IV medication. 5. Anemia. PLAN: Given these findings, the patient is for J-tube today. Once that is functioning, we will confer his IV medications to p.o. by the GI tract. Aries Wheeler MD
[2017-04-03] MEDS: Digoxin 500 mcg/2ml (0.5 mg/2ml) Inj IVP SCH (13:53)
--- NOTE | 2017-04-03 21:09 | PN ---
PULMONARY PROGRESS NOTE DATE: 04/03/2017 REFERRING PHYSICIAN: Dr. Grider. SUBJECTIVE: He is out of bed to chair, feels better, still has a cough and unable to clear pulmonary secretion, bringing up food particle while he was n.p.o. Suctioning , could be just feeding regurgitation. Schedule for J-tube surgically. No hemoptysis. No hematemesis. No hematuria. No diarrhea reported. PHYSICAL EXAMINATION: GENERAL: In no acute distress. VITAL SIGNS: Temperature is 98, heart rate is 99, respiratory rate is 20, blood pressure 147/63, pulse ox 77% on nasal cannula. HEENT: Moist mucous membrane. Has some oropharyngeal secretion. NECK: Supple. No JVD. LUNGS: Fair airflow with scattered rhonchi. HEART: S1 and S2. ABDOMEN: Soft and nontender. No organomegaly. EXTREMITIES: There is no edema. NEUROLOGICAL: Awake, alert, and follows simple commands. CURRENT MEDICATIONS: He is on Ambien 5 mg at bedtime p.r.n., Cardizem IV drip, also on Flomax 0.4 mg daily, digoxin 0.25 mg IV daily, metoprolol tartrate 12.5 mg twice a day, Lovenox 40 mg daily, Megace 200 mg daily, Protonix 40 mg daily, Reglan 5 mg q.i.d., Robitussin DM 10 mL q.4 hours p.r.n., Tylenol p.r.n. basis, Vaseline ointment to the affected area, and Xopenex 0.63 three times a day. LABORATORY DATA: Shows hemoglobin 11.9, hematocrit 36.8, WBC 11, platelet is 198. Sodium 147, potassium 4.0, chloride 106, bicarbonate 32, BUN 28, creatinine 1.0. Glucose 86, calcium is 9.1, AST 32, ALT 23, alkaline phosphatase is 73, albumin is 2.9. T4 free is 1.96, TSH is 1.3. IMPRESSION AND PLAN: Multilobar infiltrate with oropharyngeal dysphagia, history of gastrectomy in the remote past, may have a history of part of gastroesophageal reflux disease, atrial fibrillation with rapid ventricular response. Awaiting for Mycobacterium culture report from [facility]. The patient is being followed by infectious diseases. Pulmonary point of view, he is stable to get jejunostomy tube done. Hopefully then pulmonary status will improve. Continue bronchodilator, aspiration precaution. Spoke to nursing staff. Followup labs in the morning. Thank you and we will follow with you. Andrea Page MD
[2017-04-04] MEDS: Pantoprazole 40 mg EC Tab PO SCH (05:53)
[2017-04-04] MEDS: diltiaZEM IVPB 100mg in NS 100 ML IV PRN ×2 (05:54→15:04)
[2017-04-04] MEDS: LUBIPROSTONE PO SCH (09:17)
[2017-04-04] MEDS: Megestrol Acetate 40 mg/ml Cup PO SCH (09:18)
[2017-04-04] MEDS: Petrolatum Oint Foilpak (5 gm) TOP SCH (09:20)
--- NOTE | 2017-04-04 10:03 | CP.PCM.PN ---
Subjective - Date & Time of Evaluation Date of Evaluation: 04/04/17 Time of Evaluation: 09:30 - Subjective Subjective: Comfortable in bed, not in distress, still with NGT, no vomiting, no diarrhea, no fevers. Objective - Vital Signs/Intake and Output Vital Signs (last 24 hours): Temp Pulse Resp BP Pulse Ox 97.8 F 91 H 20 155/69 H 100 04/04/17 06:00 04/04/17 06:00 04/04/17 06:00 04/04/17 06:00 04/04/17 06:00 Intake and Output: 04/03/17 04/04/17 18:59 06:59 Intake Total 220 880 Output Total 200 Balance 20 880 - Medications Medications: Current Medications Acetaminophen (Tylenol 650mg/20.3ml Solution Ud) 650 mg PO Q6H PRN PRN Reason: Pain, Mild (1-3) Last Admin: 03/27/17 01:41 Dose: 650 mg Digoxin (Lanoxin) 0.25 mg IVP 1400 [facility] Last Admin: 04/03/17 13:53 Dose: 0.25 mg Docusate Sodium (Colace Liquid) 100 mg PO TID [facility] Last Admin: 04/03/17 18:10 Dose: Not Given Emollient Ointment (Vaseline Oint) 5 gm TOP DAILY [facility] Last Admin: 04/03/17 09:25 Dose: 5 gm Enoxaparin Sodium (Lovenox) 40 mg SC DAILY [facility] PRN Reason: Protocol Last Admin: 04/02/17 13:27 Dose: 40 mg Guaifenesin/Dextromethorphan (Robitussin Dm) 10 ml PO Q4H PRN PRN Reason: Cough Last Admin: 03/26/17 11:33 Dose: 10 ml Home Med (Home Med) 25 unit PO BID [facility] Last Admin: 04/03/17 18:10 Dose: Not Given diltiaZEM IVPB 100mg in NS (Cardizem 100mg In Ns) 100 mls @ 5 mls/hr IV .Q20H PRN; Protocol; 5 MG/HR PRN Reason: TITRATE PER MD ORDER Last Admin: 04/04/17 05:54 Dose: 10 mg/hr, 10 mls/hr Levalbuterol HCl (Xopenex) 0.63 mg IH TIDRESP PRN PRN Reason: Shortness of Breath Megestrol Acetate (Megace) 200 mg PO DAILY [facility] Last Admin: 04/03/17 09:25 Dose: 200 mg Metoclopramide HCl (Reglan) 5 mg PO 0600,1130,1630,2200 [facility] Last Admin: 04/04/17 05:53 Dose: 5 mg Metoprolol Tartrate (Lopressor) 12.5 mg PO BRKDIN [facility] Last Admin: 04/03/17 18:11 Dose: Not Given Pantoprazole Sodium (Protonix Ec Tab) 40 mg PO 0600 [facility] Last Admin: 04/04/17 05:53 Dose: 40 mg Tamsulosin HCl (Flomax) 0.4 mg PO DAILY [facility] Last Admin: 04/03/17 09:25 Dose: 0.4 mg Zolpidem Tartrate (Ambien) 5 mg PO HS PRN; Protocol PRN Reason: Insomnia Last Admin: 04/03/17 21:08 Dose: 5 mg - Labs Labs: 04/03/17 05:30 04/03/17 05:30 PT 11.8 Seconds (9.9-11.8) 04/02/17 09:00 INR 1.09 (0.93-1.08) H 04/02/17 09:00 APTT 32.7 Seconds (23.7-30.8) H 04/02/17 09:00 - Constitutional Appears: Non-toxic, No Acute Distress - Head Exam Head Exam: NORMAL INSPECTION - ENT Exam ENT Exam: Mucous Membranes Moist Additional comments: NGT in place - Neck Exam Neck Exam: absent: Meningismus - Respiratory Exam Respiratory Exam: Decreased Breath Sounds - Cardiovascular Exam Cardiovascular Exam: +S1, +S2 - GI/Abdominal Exam GI & Abdominal Exam: Soft. absent: Tenderness Assessment and Plan - Assessment and Plan (Free Text) Plan: Assessment S/P sepsis due to multifocal healthcare-associated pneumonia in this patient with dysphagia - improved; S/P ventilator-dependent respiratory failure; has positive BAL AFB on cultures 3 weeks after bronchoscopy was done at [facility] [place] [place] cancer on chemotherapy S/P resection peptic ulcer disease BPH COPD glaucoma GERD chronic caldwell catheter use Plan continue to monitor off antibiotics since he is at risk for hospital-acquired infections Spoke with Dr. Deluna last week - (+) AFB cultures after 3 weeks (S/P bronchoscopy) - smears were negative, including sputum smears - will await identification and sensitivities of the AFB in the BAL fluid from [facility] (still pending) Quantiferon TB test is indeterminate, sputum AFB x 3 negative - airborne isolation not necessary at the moment will continue to follow clinically
--- NOTE | 2017-04-04 11:19 | PN ---
DATE: 04/04/2017 CARDIOLOGY FOLLOWUP SUBJECTIVE: The patient is resting comfortably. PHYSICAL EXAMINATION VITAL SIGNS: Blood pressure is 155/69, the heart rate is atrial fibrillation, in the 80s. NECK: Negative JVD. LUNGS: No rales noted. HEART: Regular S1 and S2. EXTREMITIES: Without change. LABORATORY DATA: Hemoglobin is 11.9 from yesterday. IMPRESSION: 1. Active tuberculosis. 2. Atrial fibrillation. 3. Chronic obstructive pulmonary disease. 4. Anemia. PLAN: Given these findings, the patient is for a J-tube placement today. Once it is functional, we will convert his heart rate control medications to the GI tract. Aries Wheeler MD
[2017-04-04 12:15] LABS: INR 1.13 (0.93-1.08); PARTIAL THROMBOPLASTIN TIME 29.6 Seconds (23.7-30.8)
[2017-04-04] MEDS: Digoxin 500 mcg/2ml (0.5 mg/2ml) Inj IVP SCH (14:00)
[2017-04-04] MEDS: Enoxaparin 40 mg Syringe SC SCH (15:09)
[2017-04-04] MEDS ORDERED: Morphine 2 mg/ml ISec IVP PRN (20:53)
[2017-04-04] MEDS ORDERED: Midazolam 2 MG/2 ML VIAL ONE (21:00)
[2017-04-04] MEDS ORDERED: Propofol 10 mg/ml Inj (20 ML) ONE (21:00)
[2017-04-04] MEDS ORDERED: Rocuronium 10 mg/ml (5 ml) ONE (21:01)
[2017-04-04] MEDS ORDERED: ePHEDrine 50 mg/ml Inj ONE (21:20)
[2017-04-04] MEDS ORDERED: Neostigmine Methylsulfate 3mg/3ml Syringe IV ONE (21:36)
[2017-04-04] MEDS ORDERED: Glycopyrrolate 0.2 mg/ml (2ml vial) ONE (21:37)
--- NOTE | 2017-04-04 21:57 | CP.PCM.PN ---
Subjective - Date & Time of Evaluation Date of Evaluation: 04/04/17 Time of Evaluation: 09:15 - Subjective Subjective: Progress note for Dr. Grider's service No acute overnight events or new complaints reported. Patient scheduled for j- tube placement by surgical team today. Denies cp, palpitations, sob. Objective - Vital Signs/Intake and Output Vital Signs (last 24 hours): Temp Pulse Resp BP Pulse Ox 97.2 F L 110 H 18 131/78 100 04/04/17 17:46 04/04/17 17:46 04/04/17 17:46 04/04/17 17:46 04/04/17 17:46 Intake and Output: 04/04/17 04/05/17 18:59 06:59 Intake Total 100 Output Total 250 Balance -150 - Medications Medications: Current Medications Acetaminophen (Tylenol 650mg/20.3ml Solution Ud) 650 mg PO Q6H PRN PRN Reason: Pain, Mild (1-3) Last Admin: 03/27/17 01:41 Dose: 650 mg Digoxin (Lanoxin) 0.25 mg IVP 1400 [facility] Last Admin: 04/04/17 14:00 Dose: 0.25 mg Docusate Sodium (Colace Liquid) 100 mg PO TID [facility] Last Admin: 04/04/17 15:09 Dose: Not Given Emollient Ointment (Vaseline Oint) 5 gm TOP DAILY [facility] Last Admin: 04/04/17 09:20 Dose: 5 gm Enoxaparin Sodium (Lovenox) 40 mg SC DAILY [facility] PRN Reason: Protocol Last Admin: 04/04/17 15:09 Dose: Not Given Guaifenesin/Dextromethorphan (Robitussin Dm) 10 ml PO Q4H PRN PRN Reason: Cough Last Admin: 03/26/17 11:33 Dose: 10 ml Home Med (Home Med) 25 unit PO BID [facility] Last Admin: 04/04/17 09:17 Dose: Not Given diltiaZEM IVPB 100mg in NS (Cardizem 100mg In Ns) 100 mls @ 5 mls/hr IV .Q20H PRN; Protocol; 5 MG/HR PRN Reason: TITRATE PER MD ORDER Last Admin: 04/04/17 15:04 Dose: 10 mg/hr, 10 mls/hr Levalbuterol HCl (Xopenex) 0.63 mg IH TIDRESP PRN PRN Reason: Shortness of Breath Megestrol Acetate (Megace) 200 mg PO DAILY [facility] Last Admin: 04/04/17 09:18 Dose: Not Given Metoclopramide HCl (Reglan) 5 mg PO 0600,1130,1630,2200 [facility] Last Admin: 04/04/17 16:43 Dose: Not Given Metoprolol Tartrate (Lopressor) 12.5 mg PO BRKDIN [facility] Last Admin: 04/04/17 17:56 Dose: Not Given Morphine Sulfate (Morphine) 2 mg IVP Q15M PRN PRN Reason: Pain, moderate (4-7) Ondansetron HCl (Zofran Inj) 4 mg IVP ONCE PRN PRN Reason: Nausea/Vomiting Pantoprazole Sodium (Protonix Ec Tab) 40 mg PO 0600 [facility] Last Admin: 04/04/17 05:53 Dose: 40 mg Tamsulosin HCl (Flomax) 0.4 mg PO DAILY [facility] Last Admin: 04/04/17 15:09 Dose: Not Given Zolpidem Tartrate (Ambien) 5 mg PO HS PRN; Protocol PRN Reason: Insomnia Last Admin: 04/03/17 21:08 Dose: 5 mg - Labs Labs: 04/03/17 05:30 04/03/17 05:30 PT 12.2 Seconds (9.9-11.8) H 04/04/17 10:39 INR 1.13 (0.93-1.08) H 04/04/17 10:39 APTT 29.6 Seconds (23.7-30.8) 04/04/17 10:39 - Constitutional Appears: No Acute Distress - Head Exam Head Exam: ATRAUMATIC, NORMOCEPHALIC - Eye Exam Eye Exam: EOMI, PERRL - ENT Exam ENT Exam: Mucous Membranes Moist - Neck Exam Neck Exam: Normal Inspection - Respiratory Exam Respiratory Exam: Decreased Breath Sounds. absent: Rales, Rhonchi, Wheezes - Cardiovascular Exam Cardiovascular Exam: +S1, +S2. absent: Gallop, Rubs, Murmur - GI/Abdominal Exam GI & Abdominal Exam: Soft. absent: Guarding, Rigid, Tenderness, Rebound - Neurological Exam Neurological Exam: Alert, Awake, Oriented x3 - Psychiatric Exam Psychiatric exam: Normal Affect, Normal Mood - Skin Skin Exam: Dry, Intact, Normal Color, Warm Assessment and Plan - Assessment and Plan (Free Text) Plan: 81yo male with history of stage 3 colon ca s/p chemotherapy and hemicolectomy admitted for sepsis secondary to healthcare associated pneumonia/aspiration PNA as well as atrial fibrillation with RVR. 1. Atrial fibrillation -Patient started on cardizem and digoxin per cardiology recommendations -Cardiology consulted - Dr. Condon/Dr. Wheeler -Will continue to monitor HR 2. HCAP/Aspiration PNA -afebrile, no leukocytosis -lactate within normal limits -Blood cultures negative -Patient is s/p treatment with meropenem and doxycycline per ID recommendations ; currently being monitored off antibiotics and is at high risk of nosocomial infections -ID consulted - Dr. Edmond/Dr. Shah 3. Stage 3 Colon Ca -Patient previously treated with chemotherapy and hemicolectomy 4. Dysphagia -Surgery consulted for jejunostomy tube placement, patient is presently scheduled for J-tube placement today -NGT placed by surgical team -Neurology reconsulted regarding prognosis of dysphagia and thought likely to be secondary to gastroparesis vs a neurologic source -GI consulted - Dr. Tavarez -Surgery consulted - Dr. Loving -At risk of aspiration 5. Rule out TB -Patient had + AFB cultures s/p BAL at [facility] [place] -AFB smears here have been negative x3, airborne isolation discontinued -Awaiting identification of AFB in the BAL fluid at [facility] [place] -ID consulted - Dr. Edmond/Dr. Shah 6. COPD -Continue xopenex -Continue tessalon perls -Pulmonary consulted - Dr. Page 7. GERD -Continue protonix 8. BPH -Continue flomax 9. GI/DVT Prophylaxis -Protonix/lovenox Patient seen and case discussed with attending, Dr. Grider
[2017-04-04] MEDS ORDERED: HYDROmorphone 0.5 mg/0.5 ml ISec IVP PRN (23:05)
--- NOTE | 2017-04-04 23:15 | PCM.SURG1 ---
Surgeon's Initial Post Op Note - Surgeon's Notes Surgeon: Dr. Mathis Log Hooker: Dr. Bashir PGY-2, Dr. Ramirez PGY-2, Marion Colindres OMS-3 Type of Anesthesia: General Endo Pre-Operative Diagnosis: inability to swallow, poor PO intake. cachectic Operative Findings: see operative report Post-Operative Diagnosis: see operative report Operation Performed: laparotomy. J-tube formation (Terry) Specimen/Specimens Removed: none Estimated Blood Loss: EBL {In ML}: 10 Blood Products Given: N/A Drains Used: No Drains Post-Op Condition: Good Date of Surgery/Procedure: 04/04/17 Time of Surgery/Procedure: 23:15
--- NOTE | 2017-04-05 00:13 | PN ---
PULMONARY PROGRESS NOTE DATE: 04/04/2017 REFERRING PHYSICIAN: Dr. Grider. SUBJECTIVE: He is lying in the bed, head at 45 degrees. He is frustrated because he is supposed to go for J-tube and still waiting, has mild cough, and nasogastric is tube in. No hemoptysis. No hematemesis. No hematuria. No diarrhea reported. OBJECTIVE: GENERAL: In no acute distress. VITAL SIGNS: Temperature is 98, heart rate is 110, respiratory rate is 20, blood pressure is 135/78, and pulse ox 100% on nasal cannula. HEENT: Moist mucous membrane. No oral thrush noted. NECK: Supple. No JVD. LUNGS: Has fair airflow with few rhonchi. HEART: S1 and S2 and tachycardic. ABDOMEN: Soft and nontender. No organomegaly. EXTREMITIES: No edema. NEUROLOGIC: Awake and alert. Follows simple commands. MEDICATIONS: He is on Ambien 5 mg at bedtime p.r.n., diltiazem IV drip, Colace 100 mg three times a day, Flomax 0.4 mg daily, also receiving digoxin 0.25 mg daily, metoprolol tartrate 12.5 mg twice a day, Lovenox 40 mg daily, which is on hold, Megace 200 mg daily, Protonix 40 mg daily, Reglan 5 mg q.i.d., Robitussin DM 10 mL q.4 hours p.r.n., Tylenol p.r.n., basis, Vaseline ointment to the affected area daily, and Xopenex 0.63 three times a day p.r.n. LABORATORY DATA: Shows INR 1.13 and PTT is 30. Blood sugar is 106. IMPRESSION AND PLAN: Severe oropharyngeal dysphagia with multilobar pneumonia; history of gastrectomy in the remote past; gastroesophageal reflux disease; atrial fibrillation with rapid ventricular response, on IV Cardizem; has a Mycobacterium positive in bronchoscopy report 4 weeks ago, so still final of organism is pending. Sputum smears have been negative, isolation was discontinued, and presently waiting for surgical J-tube. Once the J-tube in, we will get him out of bed to chair, physical therapy, being followed by infectious disease, and follow up labs in the morning. Thank you and we will follow with you. Andrea Page MD [facility] # [id number]
--- NOTE | 2017-04-05 01:23 | OP ---
PROCEDURE DATE: 04/04/2017 PREOPERATIVE DIAGNOSES: Failure to thrive, weight loss, anemia, malnutrition, and dysphagia. POSTOPERATIVE DIAGNOSES: Failure to thrive, weight loss, anemia, malnutrition, and dysphagia. PROCEDURES PERFORMED: 1. Laparotomy. 2. Jejunostomy tube placement. SURGEON: Phi Mathis MD ADULT NEUROLOGIST: Dr. Bashir. SECOND ADULT NEUROLOGIST: Dr. Ramirez. ANESTHESIOLOGIST: Dr. Howell. TYPE OF ANESTHESIA: General endotracheal anesthesia. ESTIMATED BLOOD LOSS: Minimal. SPECIMEN: None. The patient is an 81-year-old male with history of previous partial hysterectomy who has esophageal stricture and is unable to swallow solid food. The patient was fed with feeding tube and now for safety as well as for convenience, the patient is a scheduled for a J-tube placement for feedings. DESCRIPTION OF PROCEDURE: The patient was brought to the operating room and placed in operative table in supine position. The patient was connected to the EKG, blood pressure, and pulse oximetry monitors. The patient then underwent general endotracheal anesthesia and was prepped and draped in usual sterile fashion. Per standard time-out procedure took place and everybody in the room agreed as to the patient identity, diagnosis, and procedure to be performed. First using #15 blade, an incision was made in the midline extending from the mid epigastric and down to umbilicus. Carefully access to the abdominal cavity was obtained and the small bowel was carefully run. There was some adhesion of the omentum to the anterior abdominal wall which was taken down and then small bowel was carefully pulled in that the patient had Leoncio-en-Y gastrojejunostomy and therefore a jejunojejunostomy was identified and the tube was then set to put into the distal jejunum just about 20 cm past the jejunostomy. Once the 18-Swedish red rubber catheter was pulled through the abdominal cavity in just about 4 cm lateral to the midline, it was then placed through the small enterotomy into the small bowel lumen and a pursestring suture was placed around it. Next, I proceeded with tunneling the catheter along with the small bowel and attached to the abdominal cavity. Four stitches were placed around the anterior side of the red rubber catheter through the abdominal wall. He noted to prevent any leakage of food. Once this was done, I then proceeded with suturing the red rubber catheter to the skin with stitch. The tube was flashed and there was a good return of the small bowel content. Next, we proceeded with closure of the abdominal wall using 0 PDS over the fascia, 3-0 Vicryl for subcutaneous tissue, and 4-0 Monocryl for skin, and a sterile Dermabond dressing was applied to the wound. Sterile dressing was applied to the J-tube at its site. The patient was awake, extubated, and transferred to the recovery room for further observation. Phi Mathis MD
--- NOTE | 2017-04-05 02:16 | PN ---
DATE: 04/04/2017 This is patient's visit in the intensive care unit. For Dr. Grider. SUBJECTIVE: The patient is an 81-year-old male, seen lying awake in bed with his at the bedside, for placement of a jejunostomy tube later on this evening as per Dr. Mathis. The patient is concerned that this has been canceled as this was to have been done yesterday with the concerned that they might cancel again tonight. However, this will be arranged for later on this evening. The patient is now denying any pain, reporting that his cough has modestly improved. He has a Dobbhoff feeding tube in situ with the patient known to have had aspiration pneumonia, episodes of atrial fibrillation with an episode of unresponsiveness after a Dobbhoff feeding tube coil was twisted on removal causing a probable vasovagal effect with syncopal episode. With this, the patient is otherwise in no acute distress with anticipated transfer out of the intensive care unit once he is given his feeding tube. He is also being treated and monitored for positive acid-fast bacilli testing as per [facility]. PHYSICAL EXAMINATION VITAL SIGNS: Temperature 97.2, pulse 110, respirations 18, blood pressure 130/78, pulse ox 100%. HEENT: Dobbhoff feeding tube in his nasal passage. Tongue is dry. NECK: Supple. HEART: Tachy rate, regular rhythm. LUNGS: Rare rhonchi. ABDOMEN: Scaphoid, soft, nontender. EXTREMITIES: No edema. SKIN: Warm and dry. NEUROLOGIC: Awake, alert, and oriented x3. LABORATORY DATA: The patient's labs were done. White blood cell count yesterday was 11.0, hemoglobin 11.9, hematocrit of 36.8, platelet count of 198,000 with a chem metabolic panel from yesterday within normal range except for BUN of 28, albumin of 2.9. His INR today was 1.13 with an otherwise normal chem metabolic panel. The patient's mycobacterial culture, preliminary, from 04/01/2017 shows acid-fast stain sputum, final, no acid-fast bacilli seen, mycobacterium culture of his sputum is pending. The patient had a chest x-ray done 2 days prior, it was read as NG tube has been placed terminating the quadrant at the quadrant abdomen. The cecilio has not been captured in this exam and interstitial pulmonary disease combined with limited airspace disease of the right hemithorax was identified, followup proper chest radiography was advised as clinically warranted. ASSESSMENT: For this patient is that of pneumonia, multilobar infiltrate secondary to aspiration? oropharyngeal dysphagia, atrial fibrillation with rapid response, history of acid-fast culture positive for Mycobacterium, failure to thrive, history of subtotal gastrectomy with Billroth II anastomosis over 20 years ago, possibly contributing to present morbidity for peptic ulcer disease, perforated. History of stage III CA of the colon in remission, status post chemotherapy and surgery. History of B12 deficiency secondary to above. Chronic obstructive pulmonary disease, history of monilial esophagitis, gastroesophageal reflux disease. PLAN: After conversation with Dr. Grider, he is to have his jejunostomy tube placed. We will monitor clinically with labs with eventual reconditioning as per insurance whether a TCU or a subacute rehab facility. Prognosis for this patient is guarded. Also, to attempt swallowing as per Dr. Tavarez with thick shakes or pudding, to be watched for aspiration. Jefferson Chaudhry MD
[2017-04-05] MEDS: diltiaZEM IVPB 100mg in NS 100 ML IV PRN ×2 (03:30→11:16)
[2017-04-05] MEDS: Pantoprazole 40 mg EC Tab PO SCH ×2 (06:15)
[2017-04-05 06:41] LABS: BASO # 0.01 K/mm3 (0.0-2.0); BASO % 0.1 % (0.0-3.0); EOS % 0.4 % (1.5-5.0); GRAN # 10.12 (1.4-6.5); HEMATOCRIT 37.4 % (42.0-52.0); LYMPH # 0.4 (1.2-3.4); LYMPH % 3.3 % (22.0-35.0); MEAN CELL VOLUME 95.9 fl (80.0-105.0); MEAN CORPUSCULAR HEMOGLOBIN 30.8 pg (25.0-35.0); MEAN CORPUSCULAR HGB CONC 32.1 g/dl (31.0-37.0); MEAN PLATELET VOLUME 12.6 fl (7.0-11.0); MONO # 0.2 (0.1-0.6); MONO % 2.2 % (1.0-6.0); PLATELET COUNT 191 10^3/uL (120.0-450.0); RED CELL DISTRIBUTION WIDTH 14.8 % (11.5-14.5); WHITE BLOOD COUNT 10.8 10^3/ul (4.5-11.0)
[2017-04-05 07:09] LABS: ALB/GLOB RATIO 0.9 (1.1-1.8); ALKALINE PHOSPHATASE 68 U/L (38-126); ALT/SGPT 24 U/L (7-56); AST/SGOT 32 U/L (17-59); BILIRUBIN,TOTAL 0.9 mg/dL (0.2-1.3); BLOOD UREA NITROGEN 29 mg/dL (7-21); CARBON DIOXIDE 34 mmol/L (21-33); CHLORIDE 108 mmol/L (98-107); GFR AFRICAN-AMERICAN > 60; GLUCOSE,RANDOM 104 mg/dL (70-110); POTASSIUM 4.1 mmol/L (3.6-5.0); SODIUM 153 mmol/L (132-148)
[2017-04-05 07:55] LABS: ANISOCYTOSIS SLIGHT; BAND 1 % (0-2); NEUTROPHIL 96 % (50.0-70.0); PLATELET CLUMPS PRESENT
--- NOTE | 2017-04-05 08:39 | CP.PCM.PN ---
Subjective - Date & Time of Evaluation Date of Evaluation: 04/05/17 Time of Evaluation: 08:20 - Subjective Subjective: Comfortable in bed, not in distress, no fevers, no diarrhea, no vomiting. Jejunostomy tube has been placed yesterday. Objective - Vital Signs/Intake and Output Vital Signs (last 24 hours): Temp Pulse Resp BP Pulse Ox 97.2 F L 117 H 19 142/65 100 04/05/17 00:00 04/05/17 03:30 04/05/17 00:00 04/05/17 03:30 04/05/17 00:00 Intake and Output: 04/04/17 04/05/17 18:59 06:59 Intake Total 100 100 Output Total 250 Balance -150 100 - Medications Medications: Current Medications Acetaminophen (Tylenol 650mg/20.3ml Solution Ud) 650 mg PO Q6H PRN PRN Reason: Pain, Mild (1-3) Last Admin: 03/27/17 01:41 Dose: 650 mg Digoxin (Lanoxin) 0.25 mg IVP 1400 [facility] Last Admin: 04/04/17 14:00 Dose: 0.25 mg Docusate Sodium (Colace Liquid) 100 mg PO TID [facility] Last Admin: 04/04/17 15:09 Dose: Not Given Emollient Ointment (Vaseline Oint) 5 gm TOP DAILY [facility] Last Admin: 04/04/17 09:20 Dose: 5 gm Enoxaparin Sodium (Lovenox) 40 mg SC DAILY [facility] PRN Reason: Protocol Last Admin: 04/04/17 15:09 Dose: Not Given Guaifenesin/Dextromethorphan (Robitussin Dm) 10 ml PO Q4H PRN PRN Reason: Cough Last Admin: 03/26/17 11:33 Dose: 10 ml Home Med (Home Med) 25 unit PO BID [facility] Last Admin: 04/04/17 09:17 Dose: Not Given Hydromorphone HCl (Dilaudid) 0.5 mg IVP Q6H PRN PRN Reason: Pain, moderate (4-7) diltiaZEM IVPB 100mg in NS (Cardizem 100mg In Ns) 100 mls @ 5 mls/hr IV .Q20H PRN; Protocol; 5 MG/HR PRN Reason: TITRATE PER MD ORDER Last Admin: 04/05/17 03:30 Dose: 10 mg/hr, 10 mls/hr Levalbuterol HCl (Xopenex) 0.63 mg IH TIDRESP PRN PRN Reason: Shortness of Breath Megestrol Acetate (Megace) 200 mg PO DAILY [facility] Last Admin: 04/04/17 09:18 Dose: Not Given Metoclopramide HCl (Reglan) 5 mg PO 0600,1130,1630,2200 [facility] Last Admin: 04/04/17 22:00 Dose: Not Given Metoprolol Tartrate (Lopressor) 12.5 mg PO BRKDIN [facility] Last Admin: 04/04/17 17:56 Dose: Not Given Morphine Sulfate (Morphine) 2 mg IVP Q15M PRN PRN Reason: Pain, moderate (4-7) Ondansetron HCl (Zofran Inj) 4 mg IVP ONCE PRN PRN Reason: Nausea/Vomiting Ondansetron HCl (Zofran Inj) 4 mg IVP Q6H PRN PRN Reason: Nausea/Vomiting Pantoprazole Sodium (Protonix Ec Tab) 40 mg PO 0600 [facility] Last Admin: 04/04/17 05:53 Dose: 40 mg Tamsulosin HCl (Flomax) 0.4 mg PO DAILY [facility] Last Admin: 04/04/17 15:09 Dose: Not Given Zolpidem Tartrate (Ambien) 5 mg PO HS PRN; Protocol PRN Reason: Insomnia Last Admin: 04/03/17 21:08 Dose: 5 mg - Labs Labs: 04/03/17 05:30 04/03/17 05:30 PT 12.2 Seconds (9.9-11.8) H 04/04/17 10:39 INR 1.13 (0.93-1.08) H 04/04/17 10:39 APTT 29.6 Seconds (23.7-30.8) 04/04/17 10:39 - Constitutional Appears: Non-toxic, No Acute Distress, Chronically Ill - Head Exam Head Exam: NORMAL INSPECTION - Neck Exam Neck Exam: absent: Meningismus - Respiratory Exam Respiratory Exam: Decreased Breath Sounds - Cardiovascular Exam Cardiovascular Exam: +S1, +S2 - GI/Abdominal Exam GI & Abdominal Exam: Soft. absent: Tenderness Assessment and Plan - Assessment and Plan (Free Text) Plan: Assessment S/P sepsis due to multifocal healthcare-associated pneumonia in this patient with dysphagia - improved; S/P ventilator-dependent respiratory failure; has positive BAL AFB on cultures 3 weeks after bronchoscopy was done at [facility] ([facility] [place]) S/P jejunostomy tube placement POD #1 colon cancer on chemotherapy S/P resection peptic ulcer disease BPH COPD glaucoma GERD chronic caldwell catheter use Plan continue to monitor off antibiotics since he is at risk for healthcare- associated infections Spoke with Dr. Deluna last week - (+) AFB cultures after 3 weeks (S/P bronchoscopy) - smears were negative, including sputum smears - awaiting identification and sensitivities of the AFB in the BAL fluid from [facility] [place] (still pending) Quantiferon TB test is indeterminate, sputum AFB x 3 negative - airborne isolation not necessary at the moment will continue to monitor clinically
[2017-04-05] MEDS: Petrolatum Oint Foilpak (5 gm) TOP SCH (10:01)
[2017-04-05] MEDS: Megestrol Acetate 40 mg/ml Cup PO SCH ×2 (10:24→11:15)
--- NOTE | 2017-04-05 10:41 | CP.PCM.PN ---
Subjective - Date & Time of Evaluation Date of Evaluation: 04/05/17 Time of Evaluation: 07:00 - Subjective Subjective: SURGERY NOTE FOR DR. AYERS 81M seen and examined at bedside. Patient doing well, states pain is controlled. Denies nausea, vomiting, fevers, chills. Objective - Vital Signs/Intake and Output Vital Signs (last 24 hours): Temp Pulse Resp BP Pulse Ox 98.1 F 87 28 H 167/91 H 97 04/05/17 04:00 04/05/17 09:17 04/05/17 06:00 04/05/17 09:17 04/05/17 06:00 Intake and Output: 04/05/17 04/05/17 06:59 18:59 Intake Total 100 Balance 100 - Medications Medications: Current Medications Acetaminophen (Tylenol 650mg/20.3ml Solution Ud) 650 mg PO Q6H PRN PRN Reason: Pain, Mild (1-3) Last Admin: 03/27/17 01:41 Dose: 650 mg Digoxin (Lanoxin) 0.25 mg IVP 1400 [facility] Last Admin: 04/04/17 14:00 Dose: 0.25 mg Docusate Sodium (Colace Liquid) 100 mg PO TID [facility] Last Admin: 04/04/17 15:09 Dose: Not Given Emollient Ointment (Vaseline Oint) 5 gm TOP DAILY [facility] Last Admin: 04/04/17 09:20 Dose: 5 gm Enoxaparin Sodium (Lovenox) 40 mg SC DAILY [facility] PRN Reason: Protocol Last Admin: 04/04/17 15:09 Dose: Not Given Guaifenesin/Dextromethorphan (Robitussin Dm) 10 ml PO Q4H PRN PRN Reason: Cough Last Admin: 03/26/17 11:33 Dose: 10 ml Home Med (Home Med) 25 unit PO BID [facility] Last Admin: 04/04/17 09:17 Dose: Not Given Hydromorphone HCl (Dilaudid) 0.5 mg IVP Q6H PRN PRN Reason: Pain, moderate (4-7) diltiaZEM IVPB 100mg in NS (Cardizem 100mg In Ns) 100 mls @ 5 mls/hr IV .Q20H PRN; Protocol; 5 MG/HR PRN Reason: TITRATE PER MD ORDER Last Admin: 04/05/17 03:30 Dose: 10 mg/hr, 10 mls/hr Levalbuterol HCl (Xopenex) 0.63 mg IH TIDRESP PRN PRN Reason: Shortness of Breath Megestrol Acetate (Megace) 200 mg PO DAILY [facility] Last Admin: 04/04/17 09:18 Dose: Not Given Metoclopramide HCl (Reglan) 5 mg PO 0600,1130,1630,2200 [facility] Last Admin: 04/05/17 06:15 Dose: Not Given Metoprolol Tartrate (Lopressor) 12.5 mg PO BRKDIN [facility] Last Admin: 04/05/17 09:17 Dose: 12.5 mg Morphine Sulfate (Morphine) 2 mg IVP Q15M PRN PRN Reason: Pain, moderate (4-7) Ondansetron HCl (Zofran Inj) 4 mg IVP ONCE PRN PRN Reason: Nausea/Vomiting Ondansetron HCl (Zofran Inj) 4 mg IVP Q6H PRN PRN Reason: Nausea/Vomiting Pantoprazole Sodium (Protonix Ec Tab) 40 mg PO 0600 [facility] Last Admin: 04/05/17 06:15 Dose: Not Given Tamsulosin HCl (Flomax) 0.4 mg PO DAILY [facility] Last Admin: 04/04/17 15:09 Dose: Not Given Zolpidem Tartrate (Ambien) 5 mg PO HS PRN; Protocol PRN Reason: Insomnia Last Admin: 04/03/17 21:08 Dose: 5 mg - Labs Labs: 04/05/17 06:10 04/05/17 06:10 PT 12.2 Seconds (9.9-11.8) H 04/04/17 10:39 INR 1.13 (0.93-1.08) H 04/04/17 10:39 APTT 29.6 Seconds (23.7-30.8) 04/04/17 10:39 - Constitutional Appears: Non-toxic, No Acute Distress, Cachectic - ENT Exam ENT Exam: Mucous Membranes Moist - Respiratory Exam Respiratory Exam: Clear to Ausculation Bilateral, NORMAL BREATHING PATTERN - Cardiovascular Exam Cardiovascular Exam: REGULAR RHYTHM, +S1, +S2 - GI/Abdominal Exam GI & Abdominal Exam: Soft. absent: Distended, Firm, Guarding, Rigid, Tenderness , Rebound Additional comments: midline incisions clean dry intact. J-tube in place, dressing CDI. - Neurological Exam Neurological Exam: Alert, Awake Assessment and Plan - Assessment and Plan (Free Text) Assessment: 81M s/p Jejunostomy POD#1 Plan: - Begin 30cc/hr D5W - check for residuals - if residual below 200cc, then start bank operations officer recs for tubefeeds - if above 200cc, hold off Further recs discuss with Dr. Delfina Ramirez, PGY2
[2017-04-05] MEDS: Enoxaparin 40 mg Syringe SC SCH (10:58)
[2017-04-05] MEDS: LUBIPROSTONE PO SCH ×2 (11:01→18:26)
[2017-04-05 11:56] LABS: ALB/GLOB RATIO 0.9 (1.1-1.8); ALKALINE PHOSPHATASE 63 U/L (38-126); ALT/SGPT 38 U/L (7-56); AST/SGOT 19 U/L (17-59); BLOOD UREA NITROGEN 28 mg/dL (7-21); CALCIUM 8.9 mg/dL (8.4-10.5); CARBON DIOXIDE 33 mmol/L (21-33); CHLORIDE 108 mmol/L (95-110); GFR AFRICAN-AMERICAN > 60; GLUCOSE,RANDOM 107 mg/dL (70-110); POTASSIUM 3.7 mmol/L (3.6-5.0); SODIUM 151 mmol/L (132-148); TOTAL PROTEIN 5.9 g/dL (5.8-8.3)
--- NOTE | 2017-04-05 13:05 | PN ---
DATE: 04/05/2017 SUBJECTIVE: The patient is in a chair, complaining of hunger. OBJECTIVE: VITAL SIGNS: Blood pressure varies from 130-167 systolic, heart rate in the 80s. NECK: Negative JVD. LUNGS: Without rales or S1, S2. EXTREMITIES: Without edema. LABORATORY DATA: Hemoglobin is 12.0, BUN and creatinine unremarkable. Sodium is up to 153. IMPRESSION: 1. Atrial fibrillation. 2. Chronic obstructive pulmonary disease. 3. Active tuberculosis. 4. Anemia. Given these findings, now that the J-tube is placed, we will switch his IV Cardizem and digoxin via the GI tract. Heart rate is well-controlled. Aries Wheeler MD
[2017-04-05] MEDS ORDERED: D5 IV SCH (14:00)
[2017-04-05] MEDS ORDERED: [UNRECOGNIZED DRUG - OTHER] IV SCH (14:00)
[2017-04-05] MEDS ORDERED: POTASSIUM CHL IV SCH (14:00)
[2017-04-05] MEDS ORDERED: DEXTROSE IV SCH (14:00)
[2017-04-05] MEDS ORDERED: Morphine 4 mg/ml ISec IVP PRN (14:04)
[2017-04-05] MEDS: Morphine 2 mg/ml ISec IVP PRN (14:20)
[2017-04-05] MEDS: Digoxin 125 mcg (0.125 mg) Tab PO SCH (14:21)
[2017-04-05] MEDS: Potassium Chl 10 mEq in D5-1/2 1,000 ML IV SCH (14:46)
--- NOTE | 2017-04-05 15:07 | CP.PCM.PN ---
Subjective - Date & Time of Evaluation Date of Evaluation: 04/05/17 Time of Evaluation: 15:04 - Subjective Subjective: Progress note for Dr. Grider's service Patient seen and examined at bedside. No acute overnight events or new issues reported. Patient is s/p jejunostomy placement (POD#1). Reports pain as a 5/10, encouraged patient to tell staff when he is in pain. Denies chest pain, palpitations, SOB. Objective - Vital Signs/Intake and Output Vital Signs (last 24 hours): Temp Pulse Resp BP Pulse Ox 98.1 F 78 28 H 137/64 97 04/05/17 04:00 04/05/17 14:22 04/05/17 06:00 04/05/17 14:22 04/05/17 06:00 Intake and Output: 04/05/17 04/05/17 06:59 18:59 Intake Total 100 100 Balance 100 100 - Medications Medications: Current Medications Acetaminophen (Tylenol 650mg/20.3ml Solution Ud) 650 mg PO Q6H PRN PRN Reason: Pain, Mild (1-3) Last Admin: 03/27/17 01:41 Dose: 650 mg Digoxin (Lanoxin) 0.125 mg PO 1400 [facility] Last Admin: 04/05/17 14:21 Dose: 0.125 mg Diltiazem HCl (Cardizem) 60 mg PO TID [facility] Last Admin: 04/05/17 14:22 Dose: 60 mg Emollient Ointment (Vaseline Oint) 5 gm TOP DAILY [facility] Last Admin: 04/05/17 10:01 Dose: 5 gm Enoxaparin Sodium (Lovenox) 40 mg SC DAILY [facility] PRN Reason: Protocol Last Admin: 04/05/17 10:58 Dose: Not Given Guaifenesin/Dextromethorphan (Robitussin Dm) 10 ml PO Q4H PRN PRN Reason: Cough Last Admin: 03/26/17 11:33 Dose: 10 ml Home Med (Home Med) 25 unit PO BID [facility] Last Admin: 04/05/17 11:01 Dose: Not Given diltiaZEM IVPB 100mg in NS (Cardizem 100mg In Ns) 100 mls @ 5 mls/hr IV .Q20H PRN; Protocol; 5 MG/HR PRN Reason: TITRATE PER MD ORDER Last Admin: 04/05/17 11:16 Dose: 10 mg/hr, 10 mls/hr Potassium Chloride/Dextrose/Sod Cl (Potassium Chl 10 Meq In D5-1/2ns) 1,000 mls @ 100 mls/hr IV .Q10H [facility] Last Admin: 04/05/17 14:46 Dose: 100 mls/hr Levalbuterol HCl (Xopenex) 0.63 mg IH TIDRESP PRN PRN Reason: Shortness of Breath Metoclopramide HCl (Reglan) 5 mg PO 0600,1130,1630,2200 [facility] Last Admin: 04/05/17 10:56 Dose: 5 mg Metoprolol Tartrate (Lopressor) 12.5 mg PO BRKDIN [facility] Last Admin: 04/05/17 09:17 Dose: 12.5 mg Morphine Sulfate (Morphine) 4 mg IVP Q4H PRN PRN Reason: Pain, severe (8-10) Morphine Sulfate (Morphine) 2 mg IVP Q4H PRN PRN Reason: Pain, moderate (4-7) Last Admin: 04/05/17 14:20 Dose: 2 mg Ondansetron HCl (Zofran Inj) 4 mg IVP ONCE PRN PRN Reason: Nausea/Vomiting Ondansetron HCl (Zofran Inj) 4 mg IVP Q6H PRN PRN Reason: Nausea/Vomiting Pantoprazole Sodium (Protonix Ec Tab) 40 mg PO 0600 [facility] Last Admin: 04/05/17 06:15 Dose: Not Given Tamsulosin HCl (Flomax) 0.4 mg PO DAILY [facility] Last Admin: 04/05/17 10:01 Dose: 0.4 mg Zolpidem Tartrate (Ambien) 5 mg PO HS PRN; Protocol PRN Reason: Insomnia Last Admin: 04/03/17 21:08 Dose: 5 mg - Labs Labs: 04/05/17 06:10 04/05/17 11:40 PT 12.2 Seconds (9.9-11.8) H 04/04/17 10:39 INR 1.13 (0.93-1.08) H 04/04/17 10:39 APTT 29.6 Seconds (23.7-30.8) 04/04/17 10:39 - Constitutional Appears: No Acute Distress, Chronically Ill - Head Exam Head Exam: ATRAUMATIC, NORMOCEPHALIC - Eye Exam Eye Exam: EOMI, PERRL - ENT Exam ENT Exam: Mucous Membranes Dry - Neck Exam Neck Exam: Normal Inspection - Respiratory Exam Respiratory Exam: Clear to Ausculation Bilateral. absent: Rales, Rhonchi, Wheezes - Cardiovascular Exam Cardiovascular Exam: +S1, +S2. absent: Gallop, Rubs - GI/Abdominal Exam GI & Abdominal Exam: Soft. absent: Distended, Firm, Guarding, Rigid, Tenderness , Rebound Additional comments: jejunostomy tube in place; site clean, dry and intact - Neurological Exam Neurological Exam: Alert, Awake, Oriented x3 - Psychiatric Exam Psychiatric exam: Normal Affect, Normal Mood - Skin Skin Exam: Dry, Intact, Normal Color, Warm Assessment and Plan - Assessment and Plan (Free Text) Plan: 81yo male with history of stage 3 colon ca s/p chemotherapy and hemicolectomy admitted for sepsis secondary to healthcare associated pneumonia/aspiration PNA as well as atrial fibrillation with RVR. 1. Dysphagia -Patient is s/p jejunostomy placement (POD#1) -NGT placed by surgical team -Pain control with morphine 4mg q4h PRN for severe pain and 2mg q2h PRN for moderate pain -Neurology reconsulted regarding prognosis of dysphagia and thought likely to be secondary to gastroparesis vs a neurologic source -GI consulted - Dr. Tavarez -Surgery consulted - Dr. Loving 2. Atrial fibrillation -Patient started on cardizem and digoxin per cardiology recommendations -Cardiology consulted - Dr. Condon/Dr. Wheeler -Will continue to monitor HR 3. HCAP/Aspiration PNA -afebrile, no leukocytosis -lactate within normal limits -Blood cultures negative -Patient is s/p treatment with meropenem and doxycycline per ID recommendations ; currently being monitored off antibiotics and is at high risk of nosocomial infections -ID consulted - Dr. Edmond/Dr. Shah 4. Stage 3 Colon Ca, in remission -Patient previously treated with chemotherapy and hemicolectomy -Currently his colon cancer is in remission 5. Rule out TB -Patient had + AFB cultures s/p BAL at [facility] [place] -AFB smears here have been negative x3, airborne isolation discontinued -Awaiting identification of AFB in the BAL fluid at [facility] [place] -ID consulted - Dr. Edmond/Dr. Shah 6. COPD -Continue xopenex -Continue ezekiel marroquin -Pulmonary consulted - Dr. Page 7. GERD -Continue protonix 8. BPH -Continue flomax 9. GI/DVT Prophylaxis -Protonix/lovenox Patient seen and case discussed with attending, Dr. Grider
--- NOTE | 2017-04-05 20:57 | PN ---
DATE: 04/05/2017 PULMONARY PROGRESS NOTE REFERRING PHYSICIAN: Dr. Grider. SUBJECTIVE: He is lying in the bed, sleepy arousable. Head at 45 degree. Status post J-tube. Getting feeding. Cough is better. Sputum production is better. No nausea. No leg pain or leg swelling. PHYSICAL EXAMINATION: GENERAL: In no acute distress. VITAL SIGNS: Temperature is 98, heart rate 71, respiratory rate is 20, blood pressure 143/61, pulse ox 100% on nasal cannula. HEENT: Moist mucous membrane. No oral thrush noted. NECK: Supple. No JVD. LUNGS: Fair air flow with few rhonchi. HEART: S1 and S2. ABDOMEN: Positive bowel sounds. Soft. J-tube area looks okay. EXTREMITIES: There is no edema. NEUROLOGIC: Sleepy, arousable. Follow simple command. MEDICATION: He is on Ambien 5 mg at bedtime p.r.n., Cardizem 60 mg three times a day, Flomax 0.4 mg daily, Digoxin 0.125 mg daily, metoprolol tartrate 12.5 mg twice a day, Lovenox 40 mg daily, Morphine 4 mg q.4h. p.r.n., getting IV fluid with potassium 100 mL per hour, Protonix 40 mg daily, Reglan 5 mg q.i.d., Robitussin DM for q.4h. p.r.n., Tylenol p.r.n. basis, Vaseline to affected area, Xopenex inhale q.8h. p.r.n., Zofran p.r.n. basis. LABORATORY DATA: Shows hemoglobin 12.0, hematocrit 37.4, WBC 10.8, platelet count is 191. Sodium 151, potassium 3.7, chloride 108, bicarbonate 33, BUN 28, creatinine 1.0, glucose is 161, calcium is 8.9, AST 19, ALT 38, alkaline phosphatase is 63, and albumin 2.8. IMPRESSION AND PLAN: Severe oropharyngeal dysphagia with multilobar pneumonia; history of gastrectomy in the paste with gastroesophageal reflux disease; atrial fibrillation with rapid ventricular response, rate controlled status post surgical J-tube placement. Pulmonary point to be doing okay. We will discontinue Reglan. Keep head at 45 degree. Out of bed to chair. Start physical therapy. We will follow with you. Andrea Page MD [facility] # [id number]
[2017-04-06] MEDS: Potassium Chl 10 mEq in D5-1/2 1,000 ML IV SCH ×2 (01:00→18:04)
[2017-04-06 05:47] LABS: EOS # 0.1 (0.0-0.7); GRAN # 7.05 (1.4-6.5); GRAN % 86.8 % (50.0-68.0); HEMATOCRIT 32.6 % (42.0-52.0); LYMPH # 0.7 (1.2-3.4); LYMPH % 9.1 % (22.0-35.0); MEAN CELL VOLUME 94.8 fl (80.0-105.0); MEAN CORPUSCULAR HEMOGLOBIN 30.5 pg (25.0-35.0); MEAN CORPUSCULAR HGB CONC 32.2 g/dl (31.0-37.0); MEAN PLATELET VOLUME 11.7 fl (7.0-11.0); MONO # 0.3 (0.1-0.6); MONO % 3.1 % (1.0-6.0); RED CELL DISTRIBUTION WIDTH 14.9 % (11.5-14.5); WHITE BLOOD COUNT 8.1 10^3/ul (4.5-11.0)
[2017-04-06 05:52] LABS: ALB/GLOB RATIO 0.9 (1.1-1.8); ALKALINE PHOSPHATASE 63 U/L (38-126); ALT/SGPT 23 U/L (7-56); AST/SGOT 25 U/L (17-59); BILIRUBIN,TOTAL 0.7 mg/dL (0.2-1.3); BLOOD UREA NITROGEN 23 mg/dL (7-21); CALCIUM 8.7 mg/dL (8.4-10.5); CARBON DIOXIDE 32 mmol/L (21-33); CHLORIDE 108 mmol/L (98-107); GFR AFRICAN-AMERICAN > 60; GLUCOSE,RANDOM 177 mg/dL (70-110); POTASSIUM 3.7 mmol/L (3.6-5.0); SODIUM 148 mmol/L (132-148); TOTAL PROTEIN 5.6 g/dL (5.8-8.3)
[2017-04-06] MEDS: Pantoprazole 40 mg EC Tab PO SCH (08:05)
--- NOTE | 2017-04-06 08:51 | CP.PCM.PN ---
Subjective - Date & Time of Evaluation Date of Evaluation: 04/06/17 Time of Evaluation: 08:00 - Subjective Subjective: Surgery Note for Dr. Mathis 81M seen and examined at bedside. Patient denies, pain, nausea, vomiting, fevers , chills. Objective - Vital Signs/Intake and Output Vital Signs (last 24 hours): Temp Pulse Resp BP Pulse Ox 97.6 F 68 21 149/60 100 04/06/17 08:00 04/06/17 08:05 04/06/17 04:00 04/06/17 08:05 04/06/17 04:00 - Medications Medications: Current Medications Acetaminophen (Tylenol 650mg/20.3ml Solution Ud) 650 mg PO Q6H PRN PRN Reason: Pain, Mild (1-3) Last Admin: 03/27/17 01:41 Dose: 650 mg Digoxin (Lanoxin) 0.125 mg PO 1400 [facility] Last Admin: 04/05/17 14:21 Dose: 0.125 mg Diltiazem HCl (Cardizem) 60 mg PO TID [facility] Last Admin: 04/05/17 18:25 Dose: 60 mg Emollient Ointment (Vaseline Oint) 5 gm TOP DAILY [facility] Last Admin: 04/05/17 10:01 Dose: 5 gm Enoxaparin Sodium (Lovenox) 40 mg SC DAILY [facility] PRN Reason: Protocol Last Admin: 04/05/17 10:58 Dose: Not Given Guaifenesin/Dextromethorphan (Robitussin Dm) 10 ml PO Q4H PRN PRN Reason: Cough Last Admin: 03/26/17 11:33 Dose: 10 ml Home Med (Home Med) 25 unit PO BID [facility] Last Admin: 04/05/17 18:26 Dose: Not Given diltiaZEM IVPB 100mg in NS (Cardizem 100mg In Ns) 100 mls @ 5 mls/hr IV .Q20H PRN; Protocol; 5 MG/HR PRN Reason: TITRATE PER MD ORDER Last Titration: 04/05/17 18:25 Dose: 0 mg/hr, 0 mls/hr Potassium Chloride/Dextrose/Sod Cl (Potassium Chl 10 Meq In D5-1/2ns) 1,000 mls @ 100 mls/hr IV .Q10H [facility] Last Admin: 04/06/17 01:00 Dose: 100 mls/hr Levalbuterol HCl (Xopenex) 0.63 mg IH TIDRESP PRN PRN Reason: Shortness of Breath Metoprolol Tartrate (Lopressor) 12.5 mg PO BRKDIN [facility] Last Admin: 04/06/17 08:05 Dose: 12.5 mg Morphine Sulfate (Morphine) 4 mg IVP Q4H PRN PRN Reason: Pain, severe (8-10) Morphine Sulfate (Morphine) 2 mg IVP Q4H PRN PRN Reason: Pain, moderate (4-7) Last Admin: 04/05/17 14:20 Dose: 2 mg Ondansetron HCl (Zofran Inj) 4 mg IVP ONCE PRN PRN Reason: Nausea/Vomiting Ondansetron HCl (Zofran Inj) 4 mg IVP Q6H PRN PRN Reason: Nausea/Vomiting Pantoprazole Sodium (Protonix Ec Tab) 40 mg PO 0600 [facility] Last Admin: 04/06/17 08:05 Dose: 40 mg Tamsulosin HCl (Flomax) 0.4 mg PO DAILY [facility] Last Admin: 04/05/17 10:01 Dose: 0.4 mg Zolpidem Tartrate (Ambien) 5 mg PO HS PRN; Protocol PRN Reason: Insomnia Last Admin: 04/05/17 21:50 Dose: 5 mg - Labs Labs: 04/06/17 05:20 04/06/17 05:20 PT 12.2 Seconds (9.9-11.8) H 04/04/17 10:39 INR 1.13 (0.93-1.08) H 04/04/17 10:39 APTT 29.6 Seconds (23.7-30.8) 04/04/17 10:39 - Constitutional Appears: Non-toxic, No Acute Distress, Cachectic - Respiratory Exam Respiratory Exam: Clear to Ausculation Bilateral, NORMAL BREATHING PATTERN - Cardiovascular Exam Cardiovascular Exam: REGULAR RHYTHM, +S1, +S2 - GI/Abdominal Exam GI & Abdominal Exam: Soft. absent: Distended, Firm, Guarding, Rigid, Tenderness , Rebound Additional comments: incision clean dry intact Jejunostomy tube in place and being used. - Neurological Exam Neurological Exam: Alert, Awake - Skin Skin Exam: Dry, Intact, Normal Color, Warm Assessment and Plan - Assessment and Plan (Free Text) Assessment: 81M s/p Jejunostomy POD#2 Plan: - Check residuals this AM - If <200, may begin tube feeds - Feeds as per [employer] Further recs discuss with Dr. Delfina Ramirez, PGY2
[2017-04-06] MEDS: Enoxaparin 40 mg Syringe SC SCH (10:28)
[2017-04-06] MEDS: Petrolatum Oint Foilpak (5 gm) TOP SCH (10:40)
--- NOTE | 2017-04-06 11:44 | PN ---
DATE: 04/06/2017 SUBJECTIVE: The patient is in bed, was seen early this morning in the ICU 128, bed #2. He is chronically ill and weak. PHYSICAL EXAMINATION VITAL SIGNS: Temperature is 97, blood pressure is 140/60, respiratory rate of 18, and heart rate of 70. HEENT: Unremarkable. NECK: Supple. LUNGS: Have decreased breath sounds. HEART: Normal S1 and S2. ABDOMEN: Soft and nontender. LABORATORY DATA: Laboratory examination reveals a white count of 8.1, hemoglobin is down to 10, and the platelets of 251. Coagulation is noted. The chemistries reveals a BUN of 28, creatinine of 1.0. Urinalysis is noted. Serology is noted. Microbiology is reviewed. Review of orders reveals the patient to be on no antibiotics. ASSESSMENT AND PLAN: An 81-year-old male seen earlier this morning in the ICU, room 128, bed #2 and status post sepsis due to multifocal health-care associated pneumonia, and the patient with dysphagia, which has improved, status post ventilator-dependent respiratory failure, had a positive bronchoalveolar lavage for acid-fast bacilli cultures after bronchoscopy at [facility], and status post jejunostomy tube placement, postprocedure day #2, and the patient with colon cancer, on chemotherapy status post resection, peptic ulcer disease, benign prostatic hypertrophy, chronic obstructive lung disease, glaucoma, gastroesophageal reflux disease, and chronic Means catheter. Currently, off of antibiotics. The patient did have acid-fast bacilli culture brought from a bronchoscopy. All the smear as far here had been negative. 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 We will follow that with you. Overall prognosis is quite poor. Tonny Edmond MD
[2017-04-06] MEDS: Digoxin 125 mcg (0.125 mg) Tab PO SCH (14:29)
[2017-04-06] MEDS ORDERED: Home Med 1 UNIT PO PRN (14:38)
[2017-04-06] MEDS ORDERED: LUBIPROSTONE PO PRN (14:40)
--- NOTE | 2017-04-06 16:38 | PN ---
DATE: 04/06/2017 This is [facility] visit in intensive care unit. For Dr. Grider. SUBJECTIVE: The patient is an 81-year-old male seen lying awake in bed in the intensive care unit as there were no telemetry beds available for transfer, nor remote telemetry beds. With this, should he be cleared by Dr. Wheeler, Cardiology will ask for a transfer to the [facility]-surg floor on Oncology. With this, the patient is now status post placement of PEG tube as per Dr. Mathis with residuals to be noted with advancement of his feeding as per Dr. Tavarez, his gastrointestinal data integrity consultant. It should be noted that the patient did have an elevated sodium which may have been due to dryness as his IV fluids were discontinued and his jejunostomy tube is not functional with IV fluids restarted with good effect. Otherwise, the patient is in no acute distress this visit and anxious for transfer out of the intensive care unit. PHYSICAL EXAMINATION: VITAL SIGNS: Today, temperature 97.6, pulse 53, respirations 25, blood pressure 132/66 and pulse ox 100%. HEENT: Unremarkable. NECK: Supple. HEART: Bud rate and regular rhythm. LUNGS: Decreased breath sounds, minimal at the bases. ABDOMEN: Soft with a jejunostomy tube noted with dressings dry and intact. Abdomen is scaphoid. EXTREMITIES: No edema. SKIN: Warm and dry. NEUROLOGIC: He is awake, alert and oriented x3. LABORATORY DATA: The patient's labs were done with a white blood cell count of 8.1, hemoglobin 10.5, hematocrit of 32.6 and platelet count of 251,000. A chem metabolic panel showing a chloride of 108 with a normal sodium of 128, BUN of 23, creatinine of 0.9, nonfasting glucose 178, total protein 5.6 and albumin of 2.6. ASSESSMENT: For this patient is that of severe dysphagia with multilobar pneumonia secondary to aspiration, history of gastrectomy with gastroesophageal reflux disease, atrial fibrillation with rapid ventricular response, status post jejunostomy tube placement, failure to thrive, chronic obstructive pulmonary disease, history of colon cancer in remission and electrolyte imbalance. PLAN: For this patient is to advance his feedings as per Dr. Mathis and Dr. Tavarez, gastrointestinal data integrity consultant, with transfer out of the intensive care unit if possible as per Dr. Wheeler. We will also discontinue his diltiazem IV as Dr. Aries Wheeler has started the patient on diltiazem p.o. with swallowing as per Dr. Tavarez as per swallowing evaluation. With the prognosis for this patient guarded, we will monitor clinically and with labs. Jefferson Chaudhry MD
[2017-04-06] MEDS ORDERED: Potassium Chl 10 mEq in D5-1/2 10 ML in Dextrose 5%/0.45% NS 1,000 ML IV SCH (17:00)
[2017-04-06] MEDS: Levalbuterol 0.63 MG/3 ML Inhal Soln UD IH PRN (19:40)
--- NOTE | 2017-04-06 20:04 | PN ---
PULMONARY PROGRESS NOTE DATE: 04/06/2017 REFERRING PHYSICIAN: Dr. Grider. SUBJECTIVE: He is lying in the bed. Family is at bedside. Night was unremarkable. Cough is much better. Shortness of breath better. No nausea, no vomiting. Mild incision site discomfort. No leg pain or leg swelling. OBJECTIVE: VITAL SIGNS: Temperature is 98, heart rate 74, respiratory rate is 20, blood pressure 135/60, and pulse ox 100%. HEENT: Moist mucous membranes. Crowded airway. NECK: Supple. No JVD. LUNGS: Has a fair airflow with rhonchus. HEART: S1 and S2. ABDOMEN: Positive bowel sounds. Mild tenderness. EXTREMITIES: There is no edema. NEUROLOGIC: Awake, alert, follows simple commands. MEDICATIONS: He is on Ambien 5 mg at bedtime p.r.n., Cardizem 60 mg three times a day, Flomax 0.4 mg daily, digoxin 0.125 mg daily, metoprolol tartarate 12.5 mg twice a day, Lovenox 40 mg subcu daily, morphine 2 mg q. 4 hours p.r.n., IV fluids 50 mL per hour, Protonix 40 mg daily, Robitussin DM 10 mL q. 4 hours p.r.n., Tylenol p.r.n. basis, Xopenex inhaler q. 6 hours p.r.n., Zofran p.r.n. basis. LABORATORY DATA: Shows hemoglobin 10.5, hematocrit 32.6, WBC 8.1, platelet is 251. Sodium 148, potassium 2.7, chloride 108, bicarbonate is 32, BUN 23, creatinine 0.9, glucose 177, calcium 8.7, AST 25, ALT is 23, alkaline phosphatase is 63, albumin is 2.6. IMPRESSION AND PLAN: Severe oropharyngeal dysphagia and multilobar infiltrate, history of gastrectomy in the remote past, gastroesophageal reflux, atrial fibrillation, presently rate controlled, status post J-tube. Spoke to the family at bedside, all the questions answered. Awaiting her bronchoscopy report for ID of tuberculosis organism. Continue bronchodilator. Keep head at 45 degrees. Aspiration precaution. Out of bed to chair. Need aggressive physical therapy. The patient is being followed by infectious diseases, cardiology and neurology. Thank you and we will follow with you. Andrea Page MD
[2017-04-07] MEDS: Morphine 2 mg/ml ISec IVP PRN ×2 (02:10→14:33)
[2017-04-07] MEDS: Potassium Chl 10 mEq in D5-1/2 1,000 ML IV SCH ×2 (02:24→17:33)
--- NOTE | 2017-04-07 05:48 | CP.PCM.PN ---
Subjective - Date & Time of Evaluation Date of Evaluation: 04/07/17 Time of Evaluation: 05:15 - Subjective Subjective: Surgery note for Dr. Mathis 81M seen and examined at bedside. Patient resting, No acute events over night. Tube feeds were started yesterday evening. Objective - Vital Signs/Intake and Output Vital Signs (last 24 hours): Temp Pulse Resp BP Pulse Ox 97.6 F 87 20 132/71 99 04/06/17 22:23 04/06/17 22:23 04/06/17 22:23 04/06/17 22:23 04/06/17 22:23 Intake and Output: 04/06/17 04/07/17 18:59 06:59 Intake Total 1410 Output Total 200 Balance 1210 - Medications Medications: Current Medications Acetaminophen (Tylenol 650mg/20.3ml Solution Ud) 650 mg PO Q6H PRN PRN Reason: Pain, Mild (1-3) Last Admin: 03/27/17 01:41 Dose: 650 mg Digoxin (Lanoxin) 0.125 mg PO 1400 [facility] Last Admin: 04/06/17 14:29 Dose: Not Given Diltiazem HCl (Cardizem) 60 mg PO TID [facility] Last Admin: 04/06/17 18:02 Dose: 60 mg Emollient Ointment (Vaseline Oint) 5 gm TOP DAILY [facility] Last Admin: 04/06/17 10:40 Dose: 5 gm Enoxaparin Sodium (Lovenox) 40 mg SC DAILY [facility] PRN Reason: Protocol Last Admin: 04/06/17 10:28 Dose: 40 mg Guaifenesin/Dextromethorphan (Robitussin Dm) 10 ml PO Q4H PRN PRN Reason: Cough Last Admin: 03/26/17 11:33 Dose: 10 ml Home Med (Home Med) 25 unit PO BID PRN PRN Reason: Constipation Potassium Chloride/Dextrose/Sod Cl (Potassium Chl 10 Meq In D5-1/2ns) 1,000 mls @ 50 mls/hr IV .Q20H [facility] Last Admin: 04/07/17 02:24 Dose: 50 mls/hr Levalbuterol HCl (Xopenex) 0.63 mg IH TIDRESP PRN PRN Reason: Shortness of Breath Last Admin: 04/06/17 19:40 Dose: 0.63 mg Metoprolol Tartrate (Lopressor) 12.5 mg PO BRKDIN [facility] Last Admin: 04/06/17 16:53 Dose: Not Given Morphine Sulfate (Morphine) 2 mg IVP Q4H PRN PRN Reason: Pain, moderate (4-7) Last Admin: 04/07/17 02:10 Dose: 2 mg Ondansetron HCl (Zofran Inj) 4 mg IVP ONCE PRN PRN Reason: Nausea/Vomiting Ondansetron HCl (Zofran Inj) 4 mg IVP Q6H PRN PRN Reason: Nausea/Vomiting Last Admin: 04/07/17 02:16 Dose: 4 mg Pantoprazole Sodium (Protonix Ec Tab) 40 mg PO 0600 [facility] Last Admin: 04/06/17 08:05 Dose: 40 mg Tamsulosin HCl (Flomax) 0.4 mg PO DAILY [facility] Last Admin: 04/06/17 10:40 Dose: 0.4 mg Zolpidem Tartrate (Ambien) 5 mg PO HS PRN; Protocol PRN Reason: Insomnia Last Admin: 04/06/17 22:00 Dose: 5 mg - Labs Labs: 04/06/17 05:20 04/06/17 05:20 PT 12.2 Seconds (9.9-11.8) H 04/04/17 10:39 INR 1.13 (0.93-1.08) H 04/04/17 10:39 APTT 29.6 Seconds (23.7-30.8) 04/04/17 10:39 - Constitutional Appears: Cachectic - Respiratory Exam Respiratory Exam: Clear to Ausculation Bilateral, NORMAL BREATHING PATTERN - Cardiovascular Exam Cardiovascular Exam: REGULAR RHYTHM, +S1, +S2 - GI/Abdominal Exam GI & Abdominal Exam: Soft. absent: Distended, Firm, Guarding, Rigid, Tenderness , Rebound Additional comments: jejunostomy tube, in use, incision clean dry intact - Extremities Exam Extremities Exam: absent: Pedal Edema, Tenderness Assessment and Plan - Assessment and Plan (Free Text) Assessment: 81M s/p Jejunostomy POD#3 Plan: - tube feed started. - monitor incision - no further surgical intervention at this time Further recs discuss with Dr. Delfina Ramirez, PGY2
[2017-04-07] MEDS: Pantoprazole 40 mg EC Tab PO SCH (05:58)
[2017-04-07 08:01] LABS: EOS # 0.1 (0.0-0.7); EOS % 1.2 % (1.5-5.0); GRAN # 5.94 (1.4-6.5); GRAN % 86.2 % (50.0-68.0); LYMPH # 0.6 (1.2-3.4); LYMPH % 9.1 % (22.0-35.0); MEAN CELL VOLUME 94.5 fl (80.0-105.0); MEAN CORPUSCULAR HEMOGLOBIN 30.2 pg (25.0-35.0); MEAN CORPUSCULAR HGB CONC 31.9 g/dl (31.0-37.0); MEAN PLATELET VOLUME 12.6 fl (7.0-11.0); MONO # 0.2 (0.1-0.6); MONO % 3.5 % (1.0-6.0); WHITE BLOOD COUNT 6.9 10^3/ul (4.5-11.0)
[2017-04-07 08:17] LABS: ALB/GLOB RATIO 0.8 (1.1-1.8); ALKALINE PHOSPHATASE 66 U/L (38-126); ALT/SGPT 28 U/L (7-56); AST/SGOT 26 U/L (17-59); BILIRUBIN,TOTAL 0.5 mg/dL (0.2-1.3); BLOOD UREA NITROGEN 22 mg/dL (7-21); CALCIUM 8.8 mg/dL (8.4-10.5); CARBON DIOXIDE 32 mmol/L (21-33); CHLORIDE 107 mmol/L (98-107); GFR AFRICAN-AMERICAN > 60; GLUCOSE,RANDOM 113 mg/dL (70-110); POTASSIUM 3.6 mmol/L (3.6-5.0); SODIUM 146 mmol/L (132-148); TOTAL PROTEIN 5.4 g/dL (5.8-8.3)
[2017-04-07] MEDS: Enoxaparin 40 mg Syringe SC SCH (09:15)
[2017-04-07] MEDS: Petrolatum Oint Foilpak (5 gm) TOP SCH (10:04)
--- NOTE | 2017-04-07 12:57 | PN ---
DATE: 04/07/2017 CARDIOLOGY FOLLOWUP SUBJECTIVE: The patient is comfortable in bed. OBJECTIVE: VITAL SIGNS: Blood pressure is 161/68, the heart rate is in the 80s, atrial fibrillation. NECK: Negative JVD. LUNGS: Decreased breath sounds. HEART: Reveals S1 and S2. EXTREMITIES: Without change. LABORATORY DATA: Hemoglobin is 9.9. Chemistries, glucose is 113. IMPRESSION: 1. Atrial fibrillation with a heart rate that is well controlled. 2. History of chronic obstructive pulmonary disease. 3. Tuberculosis. 4. Anemia. Given these findings, we will change his short-term Cardizem to long-acting Cardizem. No further cardiac workup is contemplated at this time. Aries Wheeler MD
--- NOTE | 2017-04-07 12:59 | PN ---
DATE: 04/07/2017 SUBJECTIVE: The patient is in bed, in no acute distress, and nontoxic. PHYSICAL EXAMINATION: VITAL SIGNS: Temperature is 97, blood pressure is 160/60, and respiratory rate is 16. HEENT: Unremarkable. NECK: Supple. LUNGS: Decreased breath sounds. HEART: Normal S1 and S2. ABDOMEN: Soft. LABORATORY DATA: Examination reveals a white count of 6.9 and hemoglobin of 9. Chemistries reveals a BUN of 22 and creatinine of 1.0. Urinalysis is noted. Microbiology is reviewed. ASSESSMENT AND PLAN: An 81-year-old male, status post sepsis due to multifocal healthcare associated pneumonia, dysphagia, status post ventilator-dependent respiratory failure, had a positive bronchoalveolar lavage for acid-fast after bronchoscopy at [facility], status post jejunostomy tube placement, postprocedure day number 3. The patient with colon cancer and chemotherapy, status post resection, peptic ulcer disease, benign prostatic hypertrophy, chronic obstructive lung disease, glaucoma, gastroesophageal reflux disease, chronic Means catheter, currently off of antibiotics, and afebrile. The patient is awake and alert this morning. He is weak. Awaiting for the identification of the acid-fast most probably atypical microbacterium. Review of orders reveals the patient to be off of antibiotics. We will follow with you. Tonny Edmond MD
[2017-04-07] MEDS: diltiaZEM 180 mg/24 Hours CD Cap PO SCH (14:32)
[2017-04-07] MEDS: Digoxin 125 mcg (0.125 mg) Tab PO SCH (14:32)
--- NOTE | 2017-04-07 16:08 | PN ---
DATE: 04/07/2017 This is patient's hospital visit on the medical floor. SUBJECTIVE: The patient is an 81-year-old male seen lying awake in bed, now transferred out of the intensive care unit after clearance from cardiology, Dr. Wheeler, that telemetry is no longer necessary for this patient. With the patient is now seen with his grandson at the bedside reporting that he is feeling better; now that he is out of the intensive care unit, but still very weak. It was recommended that the patient would be out of bed to the chair, feet flat on the ground to prevent footdrop with ambulation when possible. He is now known to have severe dysphagia with multilobar pneumonia, history of gastrectomy, now with a J-tube placed with feedings begun with IV fluids to be decreased as the feedings are increased with swallowing as per his gastrointestinal consultant nurse, Dr. Ej Tavarez, to be determined. OBJECTIVE/PHYSICAL EXAMINATION: VITAL SIGNS: Temperature 97.4, pulse 78, respirations 20, blood pressure 161/68, pulse ox 99%. GENERAL: He appears cachectic. HEENT: Unremarkable. Tongue is moist to midline. NECK: Supple. HEART: Regular rate. LUNGS: Rare rhonchi. ABDOMEN: Soft with a J-tube and C-tube. EXTREMITIES: No edema with muscle wasting noted. SKIN: Warm and dry. NEUROLOGIC: Awake, alert, and oriented. LABORATORY DATA: The patient's labs were done; white blood cell count of 6.9, hemoglobin 9.9, hematocrit 31.0, platelet count 228,000. With hydration, his hemoglobin has dropped from 12.0 two days ago to 9.9 today as he was probably not hydrated well during the change from his what the jejunostomy tube was allegedly placed. We will repeat the labs in the morning with considerations for transfusion. His chem metabolic panel showed a BUN of 22 with a creatinine of 1.0 with a nonfasting glucose of 137, total protein of 5.4. ASSESSMENT: For this patient is that of severe dysphagia with aspiration secondary to multilobar pneumonia, history of gastrectomy in the past, gastroesophageal reflux disease, atrial fibrillation with rapid response, controlled; history of jejunostomy tube placement, failure to thrive, chronic obstructive pulmonary disease, history of colon cancer in remission, deconditioning, weakness, dehydration, and anemia. PLAN: For this patient, I have the conversation with Dr. Marni to continue with present medical regimen with advancement of his tube feedings with reconsult with Dr. Tavarez regarding his swallowing. As indicated, we will check a dig level in the morning as this is the new medication per Dr. Wheeler, cardiology, with the patient's labs to be monitored. He also has acid fast bacilli positive findings, which testing is pending with no isolation as per Dr. Shah and Dr. Edmond recommended. The patient also needs aggressive physiotherapy. He needs to be out of bed everyday to the chair with strengthening leg exercises and advancement of his nutrition with a consideration for long-term rehab as indicated once he is stable and his swallowing evaluation is complete as per gastrointestinal consultants recommendations. Jefferson Chaudhry MD
--- NOTE | 2017-04-08 02:50 | PN ---
PULMONARY PROGRESS NOTE DATE: 04/07/2017 REFERRING PHYSICIAN: Jefferson Chaudhry MD SUBJECTIVE: He is lying in the bed, head at 45 degrees, is at bedside. He feels okay. Mild cough. Not much sputum production. No fever. No chills. Tolerating feeding well. No diarrhea. No constipation. No leg pain or leg swelling. OBJECTIVE: GENERAL: No acute distress. VITAL SIGNS: Temperature is 98, heart rate is 78, respiratory rate is 20, blood pressure is 161/68, and pulse oximetry is 99% on 2 liters nasal cannula. HEENT: Moist mucous membrane. Had some secretion. NECK: Supple. No JVD. LUNGS: Has a fair airflow with rhonchi. HEART: S1 and S2. ABDOMEN: Soft, nontender, and nondistended. J-tube looks okay. EXTREMITIES: There is no edema. NEUROLOGIC: Awake, alert and follows simple commands. MEDICATIONS: He is on Ambien 5 mg at bedtime p.r.n., Cardizem CD 180 mg daily, digoxin 0.125 mg daily, metoprolol tartrate 12.5 mg twice a day, Lovenox 40 mg subcutaneous daily, morphine 2 mg q. 4 hours. p.r.n., IV fluid with potassium, Protonix 40 mg daily, Tylenol p.r.n. basis, Vaseline at affected area, Xopenex 0.63 q. 8 hours p.r.n., and Zofran p.r.n. basis. LABORATORY DATA: Shows hemoglobin of 9.9, hematocrit of 31.0, WBC is 6.9, and platelet count is 228. Sodium is 146, potassium is 3.6, chloride is 107, bicarbonate is 32, BUN is 22, and creatinine is 1.0. Glucose is 113, calcium is 8.8, and total bilirubin is 0.5. AST is 26, ALT is 28, alkaline phosphatase is 66, and albumin is 2.5. IMPRESSION AND PLAN: Severe oropharyngeal dysphagia and multilobar infiltrate, history of gastrectomy in the remote past, gastroesophageal reflux disease, atrial fibrillation, status post jejunostomy tube placement, history of positive Acid-Fast Bacilli culture from [facility], final identification is still pending, being followed by Infectious Diseases. Pulmonary point of view, he is doing okay, keep head at 45 degrees, bronchodilator and aspiration precaution. Get physical therapy involved. Out of bed to [facility]. Will benefit from rehab. Continue Infectious Diseases followup until the final identification of Acid-Fast Bacilli is available. I spoke to the patient's at bedside, all the questions answered. We will follow with you. Andrea Page MD
[2017-04-08] MEDS: Pantoprazole 40 mg EC Tab PO SCH (05:38)
[2017-04-08 07:14] LABS: BASO # 0.01 K/mm3 (0.0-2.0); BASO % 0.2 % (0.0-3.0); EOS # 0.1 (0.0-0.7); EOS % 1.7 % (1.5-5.0); GRAN # 4.84 (1.4-6.5); HEMATOCRIT 28.9 % (42.0-52.0); LYMPH # 0.7 (1.2-3.4); LYMPH % 11.7 % (22.0-35.0); MEAN CELL VOLUME 93.2 fl (80.0-105.0); MEAN CORPUSCULAR HEMOGLOBIN 30.6 pg (25.0-35.0); MEAN CORPUSCULAR HGB CONC 32.9 g/dl (31.0-37.0); MEAN PLATELET VOLUME 11.6 fl (7.0-11.0); MONO # 0.2 (0.1-0.6); MONO % 3.4 % (1.0-6.0); WHITE BLOOD COUNT 5.8 10^3/ul (4.5-11.0)
[2017-04-08 07:24] LABS: ALB/GLOB RATIO 0.8 (1.1-1.8); ALKALINE PHOSPHATASE 61 U/L (38-126); ALT/SGPT 28 U/L (7-56); AST/SGOT 25 U/L (17-59); BILIRUBIN,TOTAL 0.5 mg/dL (0.2-1.3); BLOOD UREA NITROGEN 20 mg/dL (7-21); CALCIUM 8.4 mg/dL (8.4-10.5); CARBON DIOXIDE 31 mmol/L (21-33); CHLORIDE 104 mmol/L (98-107); GFR AFRICAN-AMERICAN > 60; GLUCOSE,RANDOM 126 mg/dL (70-110); POTASSIUM 3.7 mmol/L (3.6-5.0); SODIUM 140 mmol/L (132-148); TOTAL PROTEIN 5.4 g/dL (5.8-8.3)
--- NOTE | 2017-04-08 08:10 | CP.PCM.PN ---
Subjective - Date & Time of Evaluation Date of Evaluation: 04/08/17 Time of Evaluation: 08:10 - Subjective Subjective: General Surgery Progress Note for Dr. Mathis Patient seen and examined at bedside. No acute events overnight. Patient resting in bed comfortably with no complaints. Tolerating hourly tube feeds and free water flushes. Objective - Vital Signs/Intake and Output Vital Signs (last 24 hours): Temp Pulse Resp BP Pulse Ox 97.4 F L 78 20 161/68 H 99 04/07/17 06:00 04/07/17 09:14 04/07/17 06:00 04/07/17 06:00 04/07/17 06:00 Intake and Output: 04/08/17 04/08/17 06:59 18:59 Intake Total 0 Output Total 150 Balance -150 - Medications Medications: Current Medications Acetaminophen (Tylenol 650mg/20.3ml Solution Ud) 650 mg PO Q6H PRN PRN Reason: Pain, Mild (1-3) Last Admin: 03/27/17 01:41 Dose: 650 mg Digoxin (Lanoxin) 0.125 mg PO 1400 [facility] Last Admin: 04/07/17 14:32 Dose: 0.125 mg Diltiazem HCl (Cardizem Cd) 180 mg PO DAILY [facility] Last Admin: 04/07/17 14:32 Dose: 180 mg Emollient Ointment (Vaseline Oint) 5 gm TOP DAILY [facility] Last Admin: 04/07/17 10:04 Dose: 5 gm Enoxaparin Sodium (Lovenox) 40 mg SC DAILY [facility] PRN Reason: Protocol Last Admin: 04/07/17 09:15 Dose: 40 mg Home Med (Home Med) 25 unit PO BID PRN PRN Reason: Constipation Potassium Chloride/Dextrose/Sod Cl (Potassium Chl 10 Meq In D5-1/2ns) 1,000 mls @ 50 mls/hr IV .Q20H [facility] Last Admin: 04/07/17 17:33 Dose: 50 mls/hr Levalbuterol HCl (Xopenex) 0.63 mg IH TIDRESP PRN PRN Reason: Shortness of Breath Last Admin: 04/06/17 19:40 Dose: 0.63 mg Metoprolol Tartrate (Lopressor) 12.5 mg PO BRKDIN [facility] Last Admin: 04/07/17 17:37 Dose: 12.5 mg Ondansetron HCl (Zofran Inj) 4 mg IVP Q6H PRN PRN Reason: Nausea/Vomiting Last Admin: 04/07/17 22:26 Dose: 4 mg Pantoprazole Sodium (Protonix Ec Tab) 40 mg PO 0600 [facility] Last Admin: 04/08/17 05:38 Dose: 40 mg Zolpidem Tartrate (Ambien) 5 mg PO HS PRN; Protocol PRN Reason: Insomnia Last Admin: 04/07/17 22:26 Dose: 5 mg - Labs Labs: 04/08/17 06:58 04/08/17 06:58 PT 12.2 Seconds (9.9-11.8) H 04/04/17 10:39 INR 1.13 (0.93-1.08) H 04/04/17 10:39 APTT 29.6 Seconds (23.7-30.8) 04/04/17 10:39 - Constitutional Appears: No Acute Distress, Cachectic, Chronically Ill - Head Exam Head Exam: ATRAUMATIC, NORMOCEPHALIC - Eye Exam Eye Exam: Normal appearance - ENT Exam ENT Exam: Mucous Membranes Moist - Respiratory Exam Respiratory Exam: NORMAL BREATHING PATTERN - Cardiovascular Exam Cardiovascular Exam: REGULAR RHYTHM - GI/Abdominal Exam GI & Abdominal Exam: Soft. absent: Firm, Guarding, Tenderness, Rebound Additional comments: jejunostomy tube site clean, dry intact - functioning properly - Neurological Exam Neurological Exam: Alert, Awake - Psychiatric Exam Psychiatric exam: Flat Affect - Skin Skin Exam: Dry, Normal Color, Warm Assessment and Plan - Assessment and Plan (Free Text) Plan: 81M s/p Jejunostomy POD#4 -tube feeds, Jevity 1.2 50 cc/hr -Free water flushe 100 cc Q4H -monitor incision -no further surgical intervention at this time -Will AURORA Martin PGY1
[2017-04-08] MEDS: Acetaminophen 650mg/20.3ml solution UD PO PRN ×2 (08:20→16:51)
[2017-04-08] MEDS: Potassium Chl 10 mEq in D5-1/2 1,000 ML IV SCH (09:25)
[2017-04-08] MEDS: Enoxaparin 40 mg Syringe SC SCH (09:49)
[2017-04-08] MEDS: diltiaZEM 180 mg/24 Hours CD Cap PO SCH (09:49)
--- NOTE | 2017-04-08 11:03 | PN ---
CARDIOLOGY FOLLOWUP DATE: 04/08/2017 SUBJECTIVE: The patient is in bed without distress. OBJECTIVE: VITAL SIGNS: Blood pressure is 151/83 and the heart rate in the 80s. NECK: Negative JVD. LUNGS: Without rales. HEART: S1 and S2. EXTREMITIES: Without change. LABORATORY DATA: The digoxin level is 1.5. Hemoglobin is 9.5. Chemistries, glucose is 126. IMPRESSION: 1. Atrial fibrillation with a heart rate is well controlled on diltiazem and digoxin. 2. History of chronic obstructive pulmonary disease. 3. Tuberculosis. 4. Anemia. PLAN: Given these findings, the patient is hemodynamically stable. We will continue on his current medications for heart rate control. Aries Wheeler MD
[2017-04-08] MEDS: Digoxin 125 mcg (0.125 mg) Tab PO SCH (13:37)
--- NOTE | 2017-04-08 13:53 | CP.PCM.PN ---
Subjective - Date & Time of Evaluation Date of Evaluation: 04/08/17 Time of Evaluation: 10:45 - Subjective Subjective: Comfortable, not in distress, afebrile. Objective - Vital Signs/Intake and Output Vital Signs (last 24 hours): Temp Pulse Resp BP Pulse Ox 97.5 F L 84 18 151/83 H 96 04/08/17 06:00 04/08/17 09:49 04/08/17 06:00 04/08/17 09:49 04/08/17 06:00 Intake and Output: 04/08/17 04/08/17 06:59 18:59 Intake Total 0 Output Total 150 Balance -150 - Medications Medications: Current Medications Acetaminophen (Tylenol 650mg/20.3ml Solution Ud) 650 mg PO Q6H PRN PRN Reason: Pain, Mild (1-3) Last Admin: 04/08/17 08:20 Dose: 650 mg Digoxin (Lanoxin) 0.125 mg PO 1400 [facility] Last Admin: 04/07/17 14:32 Dose: 0.125 mg Diltiazem HCl (Cardizem Cd) 180 mg PO DAILY [facility] Last Admin: 04/08/17 09:49 Dose: 180 mg Emollient Ointment (Vaseline Oint) 5 gm TOP DAILY [facility] Last Admin: 04/07/17 10:04 Dose: 5 gm Enoxaparin Sodium (Lovenox) 40 mg SC DAILY [facility] PRN Reason: Protocol Last Admin: 04/08/17 09:49 Dose: 40 mg Home Med (Home Med) 25 unit PO BID PRN PRN Reason: Constipation Potassium Chloride/Dextrose/Sod Cl (Potassium Chl 10 Meq In D5-1/2ns) 1,000 mls @ 50 mls/hr IV .Q20H [facility] Last Admin: 04/08/17 09:25 Dose: Not Given Levalbuterol HCl (Xopenex) 0.63 mg IH TIDRESP PRN PRN Reason: Shortness of Breath Last Admin: 04/06/17 19:40 Dose: 0.63 mg Metoprolol Tartrate (Lopressor) 12.5 mg PO BRKDIN [facility] Last Admin: 04/08/17 09:08 Dose: 12.5 mg Ondansetron HCl (Zofran Inj) 4 mg IVP Q6H PRN PRN Reason: Nausea/Vomiting Last Admin: 04/07/17 22:26 Dose: 4 mg Pantoprazole Sodium (Protonix Ec Tab) 40 mg PO 0600 [facility] Last Admin: 04/08/17 05:38 Dose: 40 mg Zolpidem Tartrate (Ambien) 5 mg PO HS PRN; Protocol PRN Reason: Insomnia Last Admin: 04/07/17 22:26 Dose: 5 mg - Labs Labs: 04/08/17 06:58 04/08/17 06:58 PT 12.2 Seconds (9.9-11.8) H 04/04/17 10:39 INR 1.13 (0.93-1.08) H 04/04/17 10:39 APTT 29.6 Seconds (23.7-30.8) 04/04/17 10:39 - Constitutional Appears: Non-toxic, No Acute Distress - Head Exam Head Exam: NORMAL INSPECTION - ENT Exam ENT Exam: Mucous Membranes Moist - Neck Exam Neck Exam: absent: Meningismus - Respiratory Exam Respiratory Exam: Decreased Breath Sounds - Cardiovascular Exam Cardiovascular Exam: +S1, +S2 - GI/Abdominal Exam GI & Abdominal Exam: Soft. absent: Tenderness Assessment and Plan - Assessment and Plan (Free Text) Plan: Assessment S/P sepsis due to multifocal healthcare-associated pneumonia in this patient with dysphagia - improved; S/P ventilator-dependent respiratory failure; has positive BAL AFB on cultures 3 weeks after bronchoscopy was done at [facility] ([facility]) S/P jejunostomy tube placement POD #4 colon cancer on chemotherapy S/P resection peptic ulcer disease BPH COPD glaucoma GERD chronic caldwell catheter use Plan continue to monitor off antibiotics since he is at risk for nosocomial infections awaiting identification and sensitivities of the AFB in the BAL fluid from [facility] (still pending) Quantiferon TB test is indeterminate, sputum AFB x 3 negative - airborne isolation not necessary at the moment will continue to monitor clinically Overall prognosis is poor
[2017-04-08] MEDS: Petrolatum Oint Foilpak (5 gm) TOP SCH (18:29)
--- NOTE | 2017-04-08 23:18 | PN ---
DATE: 04/08/2017 PULMONARY PROGRESS NOTE REFERRING PHYSICIAN: Dr. Grider. SUBJECTIVE: He is lying in the bed, head at 45 degrees. Day was unremarkable, was up in the chair, participating therapy, able to stand up and take baby steps. Cough is better. No nausea. No vomiting. No diarrhea. No leg pain or leg swelling. OBJECTIVE: GENERAL: In no acute distress. VITAL SIGNS: Temperature 98, heart rate 85, respiratory rate 18, blood pressure 148/78, pulse ox 98% on 2 liters nasal cannula. HEENT: Moist mucous membrane. Crowded airway. NECK: Supple. No JVD. LUNGS: Fair airflow with rhonchi. HEART: S1 and S2. ABDOMEN: Soft, nontender. J-tube area looks okay. EXTREMITIES: There is not much edema. NEUROLOGIC: Awake, alert, and follows simple commands. MEDICATIONS: He is on Ambien 5 mg at bedtime p.r.n., Cardizem CD 180 mg daily, digoxin 0.125 mg daily, metoprolol tartrate 12.5 mg twice a day, Lovenox 40 mg subcu daily, potassium supplement, Protonix 40 mg daily, Tylenol p.r.n. basis, Vaseline ointment to affected area q.8 hours, Xopenex 0.63 q.8 hours p.r.n., and Zofran 4 mg q.6 hours p.r.n. LABORATORY DATA: Shows hemoglobin 9.5, hematocrit 28.9, WBC 5.8, and platelet count is 255. Sodium 140, potassium 3.7, chloride 104, bicarbonate 31, BUN 20, creatinine 0.8, glucose 126, calcium is 8.4, AST is 25, ALT 28, alkaline phosphatase is 61, albumin is 2.4. IMPRESSION AND PLAN: Severe oropharyngeal dysphagia, multilobar infiltrate, history of gastrectomy, history of gastroesophageal reflux disease, atrial fibrillation, status post jejunostomy, positive in the bronchial washing at [facility], identification is still pending, vancomycin-resistant enterococci in the urine. Pulmonary point of view, doing okay. Continue bronchodilator. Keep head at 45 degrees. Aspiration precaution. Keep n.p.o. Continue to use J tube. Out of bed to chair, physical therapy. Gastric and deep venous thrombosis prophylaxis. Aggressive physical therapy. Thank you, and we will follow with you. Andrea Page MD
[2017-04-09] MEDS: Acetaminophen 650mg/20.3ml solution UD PO PRN ×2 (04:39→22:32)
[2017-04-09] MEDS: Potassium Chl 10 mEq in D5-1/2 1,000 ML IV SCH ×2 (05:16→23:38)
[2017-04-09] MEDS: Pantoprazole 40 mg Susp UD PO SCH (05:18)
[2017-04-09] MEDS: Enoxaparin 40 mg Syringe SC SCH (10:09)
[2017-04-09] MEDS: diltiaZEM 180 mg/24 Hours CD Cap PO SCH (10:12)
--- NOTE | 2017-04-09 13:29 | CP.PCM.PN ---
Subjective - Date & Time of Evaluation Date of Evaluation: 04/09/17 Time of Evaluation: 13:26 - Subjective Subjective: Progress note for Dr. Grider's service Patient seen and examined at bedside this morning. No acute overnight events or new complaints reported. Patient currently on jevity tube feeds at 50cc/hr with free water flushes 100cc q4h. Discussed importance of physical therapy, OOB to chair as tolerated. Denies chest pain, palpitations, SOB, abdominal pain. Objective - Vital Signs/Intake and Output Vital Signs (last 24 hours): Temp Pulse Resp BP Pulse Ox 98.1 F 71 20 149/81 98 04/09/17 07:00 04/09/17 10:12 04/09/17 07:00 04/09/17 10:12 04/09/17 07:00 Intake and Output: 04/09/17 04/09/17 06:59 18:59 Intake Total 2400 0 Output Total 200 1700 Balance 2200 -1700 - Medications Medications: Current Medications Acetaminophen (Tylenol 650mg/20.3ml Solution Ud) 650 mg PO Q6H PRN PRN Reason: Pain, Mild (1-3) Last Admin: 04/09/17 04:39 Dose: 650 mg Digoxin (Lanoxin) 0.125 mg PO 1400 [facility] Last Admin: 04/08/17 13:37 Dose: 0.125 mg Diltiazem HCl (Cardizem Cd) 180 mg PO DAILY [facility] Last Admin: 04/09/17 10:12 Dose: 180 mg Emollient Ointment (Vaseline Oint) 5 gm TOP DAILY [facility] Last Admin: 04/08/17 18:29 Dose: 5 gm Enoxaparin Sodium (Lovenox) 40 mg SC DAILY [facility] PRN Reason: Protocol Last Admin: 04/09/17 10:09 Dose: 40 mg Home Med (Home Med) 25 unit PO BID PRN PRN Reason: Constipation Potassium Chloride/Dextrose/Sod Cl (Potassium Chl 10 Meq In D5-1/2ns) 1,000 mls @ 50 mls/hr IV .Q20H [facility] Last Admin: 04/09/17 05:16 Dose: 50 mls/hr Levalbuterol HCl (Xopenex) 0.63 mg IH TIDRESP PRN PRN Reason: Shortness of Breath Last Admin: 04/06/17 19:40 Dose: 0.63 mg Metoprolol Tartrate (Lopressor) 12.5 mg PO BRKDIN [facility] Last Admin: 04/09/17 08:11 Dose: 12.5 mg Ondansetron HCl (Zofran Inj) 4 mg IVP Q6H PRN PRN Reason: Nausea/Vomiting Last Admin: 04/07/17 22:26 Dose: 4 mg Pantoprazole Sodium (Protonix Susp) 40 mg PO 0600 [facility] Stop: 04/16/17 06:01 Last Admin: 04/09/17 05:18 Dose: 40 mg Zolpidem Tartrate (Ambien) 5 mg PO HS PRN; Protocol PRN Reason: Insomnia Last Admin: 04/08/17 21:30 Dose: 5 mg - Labs Labs: 04/08/17 06:58 04/08/17 06:58 PT 12.2 Seconds (9.9-11.8) H 04/04/17 10:39 INR 1.13 (0.93-1.08) H 04/04/17 10:39 APTT 29.6 Seconds (23.7-30.8) 04/04/17 10:39 - Constitutional Appears: No Acute Distress - Head Exam Head Exam: ATRAUMATIC, NORMAL INSPECTION, NORMOCEPHALIC - Eye Exam Eye Exam: EOMI, PERRL - ENT Exam ENT Exam: Mucous Membranes Dry - Neck Exam Neck Exam: Normal Inspection - Respiratory Exam Respiratory Exam: Decreased Breath Sounds. absent: Rales, Rhonchi, Wheezes - Cardiovascular Exam Cardiovascular Exam: +S1, +S2. absent: Gallop, JVD, Rubs - GI/Abdominal Exam GI & Abdominal Exam: Soft. absent: Distended, Firm, Guarding, Rigid, Tenderness , Rebound Additional comments: jejunostomy tube in place; site clean, dry and intact - Neurological Exam Neurological Exam: Alert, Awake, Oriented x3 - Psychiatric Exam Psychiatric exam: Normal Affect, Normal Mood - Skin Skin Exam: Dry, Intact, Normal Color, Warm Assessment and Plan - Assessment and Plan (Free Text) Plan: 81yo male with history of stage 3 colon ca currently in remission s/p chemotherapy and hemicolectomy admitted for sepsis secondary to healthcare associated pneumonia/aspiration PNA as well as atrial fibrillation with RVR. 1. Dysphagia -Patient is s/p jejunostomy placement (POD#5) -Continue with tube feeds with Jevity 1.2 @ 50cc/hr and free water flushes 100cc q4h -Bedside swallow evaluation repeated; recommended trial clear liquid diet -GI consulted - Dr. Tavarez -Surgery consulted - Dr. Loving 2. Atrial fibrillation -Patient started on cardizem and digoxin per cardiology recommendations -Currently rate well controlled, will continue to monitor -Cardiology consulted - Dr. Condon/Dr. Wheeler 3. HCAP/Aspiration PNA -afebrile, no leukocytosis -lactate within normal limits -Blood cultures negative -Patient is s/p treatment with meropenem and doxycycline per ID recommendations ; currently being monitored off antibiotics and is at high risk of nosocomial infections -ID consulted - Dr. Edmond/Dr. Shah 4. Stage 3 Colon Ca, in remission -Patient previously treated with chemotherapy and hemicolectomy -Currently his colon cancer is in remission 5. Rule out TB -Patient had + AFB cultures s/p BAL at [facility] -AFB smears here have been negative x3, airborne isolation discontinued -Awaiting identification of AFB in the BAL fluid at [facility] -ID consulted - Dr. Edmond/Dr. Shah 6. COPD -Continue xopenex -Continue tessalon perls -Pulmonary consulted - Dr. Page 7. GERD -Continue protonix 8. BPH -Continue flomax 9. GI/DVT Prophylaxis -Protonix/lovenox 10. Disposition -Patient is pending [facility] placement; currently patient's is touring several facilities and will be making a decision shortly. Continue physical therapy in the meantime for strengthening. Patient seen and case discussed with attending, Dr. Grider
--- NOTE | 2017-04-09 13:35 | RAD ---
HISTORY: eval COMPARISON: 04/02/2017 TECHNIQUE: Chest PA and lateral FINDINGS: LUNGS: There is linear atelectasis of both lung bases. Bilateral interstitial infiltrates are seen which are unchanged PLEURA: No significant pleural effusion identified. No pneumothorax apparent. CARDIOVASCULAR: Normal. OSSEOUS STRUCTURES: No significant abnormalities. VISUALIZED UPPER ABDOMEN: Normal. OTHER FINDINGS: None. IMPRESSION: Bilateral interstitial infiltrates unchanged. Linear atelectasis of both lung bases
[2017-04-09] MEDS: Digoxin 125 mcg (0.125 mg) Tab PO SCH (14:21)
--- NOTE | 2017-04-09 14:28 | PN ---
DATE: 04/09/2017 SUBJECTIVE: The patient is in bed, in no acute distress, was seen earlier this morning. PHYSICAL EXAMINATION: VITAL SIGNS: Temperature is 98, blood pressure is 140/80, respiratory rate of 20, heart rate of 85. HEENT: Unremarkable. NECK: Supple. LUNGS: Decreased breath sounds. HEART: Normal S1 and S2. ABDOMEN: Soft. LABORATORY DATA: Examination reveals the patient's white count of 5.8, hemoglobin of 9, and platelets of 255. Chemistries reveals a BUN of 20, creatinine of 0.8. Urinalysis is noted and microbiology is noted. ASSESSMENT AND PLAN: This is an 81-year-old, status post sepsis due to multifocal health-care associated pneumonia and this patient with dysphagia improved, status post ventilator-dependent respiratory failure, had a positive bronchoalveolar lavage and acid-fast bacilli and cultures three weeks after bronchoscopy was done at [place] and awaiting for identification sensitivity of the acid-fast bacilli. Currently, off of antibiotics and this patient with chronic obstructive pulmonary disease, glaucoma, gastroesophageal reflux disease. We will follow with you. Overall prognosis is poor. Tonny Edmond MD
--- NOTE | 2017-04-09 16:39 | PN ---
DATE: 04/09/2017 SUBJECTIVE: The patient is in bed without complaints. OBJECTIVE: VITAL SIGNS: On physical exam, blood pressure is 149/81, the heart rate is in the 70s. NECK: Negative JVD. LUNGS: Decreased breath sounds. HEART: Revealed S1 and S2. EXTREMITIES: Without change. LABORATORY DATA: Hemoglobin is 9.5. Chemistries: Glucose is 91. IMPRESSION: 1. Status post syncope after gastrointestinal manipulation. 2. History of atrial fibrillation with heart rate is well controlled. 3. Tuberculosis. 4. Chronic obstructive pulmonary disease. 5. Anemia. Given these findings, the patient is hemodynamically stable with the heart rate is well controlled. Aries Wheeler MD
[2017-04-09] MEDS: Petrolatum Oint Foilpak (5 gm) TOP SCH (18:17)
--- NOTE | 2017-04-10 02:55 | PN ---
PULMONARY PROGRESS NOTE DATE: 04/09/2017 REFERRING PHYSICIAN: Jefferson Chaudhry MD. SUBJECTIVE: He is lying in the bed, head at 45 degrees. Day was okay, participated in therapy, and cough is much better, No nausea. No vomiting. No abdominal pain. J-tube area little discomfort. No diarrhea. No leg pain or leg swelling. OBJECTIVE: GENERAL: In no acute distress. VITAL SIGNS: Temperature is 98, heart rate is 71, respiratory rate is 20, blood pressure is 149/81, and pulse ox is 98% on 2 L nasal cannula. HEENT: Moist mucous membrane. No oral thrush noted. NECK: Supple. No JVD. LUNGS: Few crackles, scattered rhonchi. HEART: S1 and S2. ABDOMEN: Soft. J-tube area looks okay. EXTREMITIES: There is no edema. NEUROLOGIC: Awake and alert. Follow simple commands. MEDICATIONS: He is on Ambien 5 mg at bedtime p.r.n., Cardizem CD 180 mg daily, digoxin 0.125 mg daily, metoprolol tartrate 12.5 mg twice a day, Lovenox 40 mg subcutaneously daily, IV fluid 50 mL/hour, Protonix 40 mg daily, Tylenol p.r.n. basis, Vaseline ointment to affected area daily, Xopenex 0.63 mg 3 times a day p.r.n., and Zofran p.r.n. basis. LABORATORY DATA: Showed blood sugar this morning 118. No other lab is available. DIAGNOSTIC DATA: Chest x-ray done today shows some interstitial infiltrate, which is bilateral linear, some atelectasis, not much change from previous x-rays. IMPRESSION AND PLAN: Severe oropharyngeal dysphagia with multiple lobe pneumonia, interstitial infiltrate, history of partial gastrectomy in the remote past, gastroesophageal reflux disease, atrial fibrillation, status post jejunostomy, has a positive AFB culture from bronchoscopy at [facility] with the organism, ID is still pending, and severe activities of daily living dysfunction. Arrangement is being made to sent the patient to subacute for continue care and therapy. Continue bronchodilator. Keep head at 45 degrees. Keep n.p.o. Use feeding from J-tube. Gastric prophylaxis. Fall precautions. Thank you and we will follow with you. Andrea Page MD [facility] # [id number]
[2017-04-10] MEDS: Pantoprazole 40 mg Susp UD PO SCH (06:32)
[2017-04-10] MEDS: Potassium Chl 10 mEq in D5-1/2 1,000 ML IV SCH (06:40)
--- NOTE | 2017-04-10 09:42 | CP.PCM.PN ---
Subjective - Date & Time of Evaluation Date of Evaluation: 04/10/17 Time of Evaluation: 09:26 - Subjective Subjective: Progress note for Dr. Grider's service Patient seen and examined at bedside. No acute overnight events or new complaints. Denies chest pain, palpitations, SOB. RASHMI placement is pending. Objective - Vital Signs/Intake and Output Vital Signs (last 24 hours): Temp Pulse Resp BP Pulse Ox 97.6 F 66 20 144/78 97 04/10/17 07:00 04/10/17 08:16 04/10/17 07:00 04/10/17 08:16 04/10/17 07:00 Intake and Output: 04/10/17 04/10/17 06:59 18:59 Intake Total 1320 0 Output Total 1300 1200 Balance 20 -1200 - Medications Medications: Current Medications Acetaminophen (Tylenol 650mg/20.3ml Solution Ud) 650 mg PO Q6H PRN PRN Reason: Pain, Mild (1-3) Last Admin: 04/09/17 22:32 Dose: 650 mg Digoxin (Lanoxin) 0.125 mg PO 1400 [facility] Last Admin: 04/09/17 14:21 Dose: 0.125 mg Diltiazem HCl (Cardizem Cd) 180 mg PO DAILY [facility] Last Admin: 04/09/17 10:12 Dose: 180 mg Emollient Ointment (Vaseline Oint) 5 gm TOP DAILY [facility] Last Admin: 04/09/17 18:17 Dose: 5 gm Enoxaparin Sodium (Lovenox) 40 mg SC DAILY [facility] PRN Reason: Protocol Last Admin: 04/09/17 10:09 Dose: 40 mg Home Med (Home Med) 25 unit PO BID PRN PRN Reason: Constipation Potassium Chloride/Dextrose/Sod Cl (Potassium Chl 10 Meq In D5-1/2ns) 1,000 mls @ 50 mls/hr IV .Q20H [facility] Last Admin: 04/10/17 06:40 Dose: Not Given Levalbuterol HCl (Xopenex) 0.63 mg IH TIDRESP PRN PRN Reason: Shortness of Breath Last Admin: 04/06/17 19:40 Dose: 0.63 mg Metoprolol Tartrate (Lopressor) 12.5 mg PO BRKDIN [facility] Last Admin: 04/10/17 08:16 Dose: 12.5 mg Ondansetron HCl (Zofran Inj) 4 mg IVP Q6H PRN PRN Reason: Nausea/Vomiting Last Admin: 04/07/17 22:26 Dose: 4 mg Pantoprazole Sodium (Protonix Susp) 40 mg PO 0600 [facility] Stop: 04/16/17 06:01 Last Admin: 04/10/17 06:32 Dose: 40 mg Zolpidem Tartrate (Ambien) 5 mg PO HS PRN; Protocol PRN Reason: Insomnia Last Admin: 04/09/17 22:32 Dose: 5 mg - Labs Labs: 04/08/17 06:58 04/08/17 06:58 PT 12.2 Seconds (9.9-11.8) H 04/04/17 10:39 INR 1.13 (0.93-1.08) H 04/04/17 10:39 APTT 29.6 Seconds (23.7-30.8) 04/04/17 10:39 - Constitutional Appears: Chronically Ill - Head Exam Head Exam: ATRAUMATIC, NORMAL INSPECTION, NORMOCEPHALIC - Eye Exam Eye Exam: EOMI, PERRL - Neck Exam Neck Exam: Normal Inspection - Respiratory Exam Respiratory Exam: Decreased Breath Sounds. absent: Rales, Rhonchi, Wheezes - Cardiovascular Exam Cardiovascular Exam: +S1, +S2. absent: Gallop, Rubs, Murmur - GI/Abdominal Exam GI & Abdominal Exam: Soft. absent: Distended, Firm, Guarding, Rigid, Tenderness , Rebound Additional comments: jejunostomy tube in place; site clean, dry and intact - Neurological Exam Neurological Exam: Alert, Awake, Oriented x3 - Psychiatric Exam Psychiatric exam: Normal Affect, Normal Mood - Skin Skin Exam: Dry, Intact, Normal Color, Warm Assessment and Plan - Assessment and Plan (Free Text) Plan: 81yo male with history of stage 3 colon ca currently in remission s/p chemotherapy and hemicolectomy admitted for sepsis secondary to healthcare associated pneumonia/aspiration PNA as well as atrial fibrillation with RVR. 1. Dysphagia -Patient is s/p jejunostomy placement (POD#6) -Continue with tube feeds with Jevity 1.2 @ 50cc/hr and free water flushes 100cc q4h -Bedside swallow evaluation repeated; recommended trial clear liquid diet -Patient started on reglan per GI recommendations -GI consulted - Dr. Tavarez -Surgery consulted - Dr. Loving 2. Atrial fibrillation -Patient started on cardizem and digoxin per cardiology recommendations -Currently rate well controlled, will continue to monitor -Cardiology consulted - Dr. Condon/Dr. Wheeler 3. HCAP/Aspiration PNA -afebrile, no leukocytosis -lactate within normal limits -Blood cultures negative -Patient is s/p treatment with meropenem and doxycycline per ID recommendations ; currently being monitored off antibiotics and is at high risk of nosocomial infections -ID consulted - Dr. Edmond/Dr. Shah 4. Stage 3 Colon Ca, in remission -Patient previously treated with chemotherapy and hemicolectomy -Currently his colon cancer is in remission 5. Rule out TB -Patient had + AFB cultures s/p BAL at [facility] -AFB smears here have been negative x3, airborne isolation discontinued -Awaiting identification of AFB in the BAL fluid at [facility] -ID consulted - Dr. Edmond/Dr. Shah 6. COPD -Continue xopenex -Continue ezekiel marroquin -Pulmonary consulted - Dr. Page 7. GERD -Continue protonix 8. BPH -Continue flomax 9. GI/DVT Prophylaxis -Protonix/lovenox 10. Disposition -Patient pending RASHMI placement Patient seen and case discussed with attending, Dr. Grider
[2017-04-10] MEDS: diltiaZEM 180 mg/24 Hours CD Cap PO SCH (10:35)
[2017-04-10] MEDS: Petrolatum Oint Foilpak (5 gm) TOP SCH (10:36)
[2017-04-10] MEDS: Enoxaparin 40 mg Syringe SC SCH (10:36)
--- NOTE | 2017-04-10 11:27 | PN ---
DATE: 04/10/2017 SUBJECTIVE: The patient is lying in bed. He is receiving continuous feedings through a surgically placed jejunal tube for oropharyngeal dysphagia. He denies any vomiting. He admits to occasional mild diffuse abdominal pain. PHYSICAL EXAMINATION: VITAL SIGNS: Reveal temperature of 97.6, blood pressure of 135/75, and heart rate of 68. GASTROINTESTINAL: Abdomen is soft. He has a surgically placed jejunal tube in place. There is no discharge or drainage around the J tube. Abdomen is soft. LABORATORY DATA: Revealed hemoglobin of 9.5 and white blood cell count of 5.8. Chemistries revealed blood sugar of 139. IMPRESSION: He is an 81-year-old male with oropharyngeal dysphagia, failure to thrive, cachexia with nausea without vomiting status post jejunal tube placement for oropharyngeal dysphagia. RECOMMENDATIONS: 1. I will start the patient on Reglan 10 mg IV a.c. and at bed time. 2. If the patient starts vomiting, we would get a obstructive series of the abdomen, he is non vomiting at this point. 3. Continue jejunal tube feedings at 50 mL an hour once the nausea improves can increase this to a goal rate of 75 mL an hour. Ej Tavarez MD
[2017-04-10 11:34] LABS: BASO # 0.01 K/mm3 (0.0-2.0); BASO % 0.1 % (0.0-3.0); EOS # 0.2 (0.0-0.7); EOS % 1.7 % (1.5-5.0); GRAN # 7.48 (1.4-6.5); GRAN % 84.2 % (50.0-68.0); HEMATOCRIT 34.5 % (42.0-52.0); LYMPH # 0.8 (1.2-3.4); LYMPH % 9.5 % (22.0-35.0); MEAN CELL VOLUME 91.5 fl (80.0-105.0); MEAN CORPUSCULAR HEMOGLOBIN 30.5 pg (25.0-35.0); MEAN CORPUSCULAR HGB CONC 33.3 g/dl (31.0-37.0); MEAN PLATELET VOLUME 11.1 fl (7.0-11.0); MONO # 0.4 (0.1-0.6); MONO % 4.5 % (1.0-6.0); WHITE BLOOD COUNT 8.9 10^3/ul (4.5-11.0)
[2017-04-10 11:49] LABS: ALB/GLOB RATIO 0.9 (1.1-1.8); ALKALINE PHOSPHATASE 99 U/L (38-126); ALT/SGPT 35 U/L (7-56); AST/SGOT 31 U/L (17-59); BILIRUBIN,TOTAL 0.6 mg/dL (0.2-1.3); BLOOD UREA NITROGEN 19 mg/dL (7-21); CALCIUM 8.3 mg/dL (8.4-10.5); CARBON DIOXIDE 30 mmol/L (21-33); CHLORIDE 101 mmol/L (98-107); GFR AFRICAN-AMERICAN > 60; GLUCOSE,RANDOM 139 mg/dL (70-110); POTASSIUM 4.7 mmol/L (3.6-5.0); SODIUM 138 mmol/L (132-148); TOTAL PROTEIN 6.3 g/dL (5.8-8.3)
--- NOTE | 2017-04-10 14:16 | CP.PCM.PN ---
<Genesis Shane - Last Filed: 04/10/17 15:46> Subjective - Date & Time of Evaluation Date of Evaluation: 04/10/17 Time of Evaluation: 14:12 - Subjective Subjective: Neurology Progress Note for Cale Cooper PGY2 Patient seen and examined at bedside. As per nursing there were no acute overnight events. Patient is resting in bed, but complains of abdominal pain at the site of the peg tube. He denies CP, SOB, n/v/d, numbness/tingling, fever or chills. Objective - Vital Signs/Intake and Output Vital Signs (last 24 hours): Temp Pulse Resp BP Pulse Ox 97.6 F 68 20 135/75 97 04/10/17 07:00 04/10/17 10:35 04/10/17 07:00 04/10/17 10:35 04/10/17 07:00 Intake and Output: 04/10/17 04/10/17 06:59 18:59 Intake Total 1320 0 Output Total 1300 1200 Balance 20 -1200 - Medications Medications: Current Medications Acetaminophen (Tylenol 650mg/20.3ml Solution Ud) 650 mg PO Q6H PRN PRN Reason: Pain, Mild (1-3) Last Admin: 04/09/17 22:32 Dose: 650 mg Digoxin (Lanoxin) 0.125 mg PO 1400 [facility] Last Admin: 04/09/17 14:21 Dose: 0.125 mg Diltiazem HCl (Cardizem Cd) 180 mg PO DAILY [facility] Last Admin: 04/10/17 10:35 Dose: 180 mg Emollient Ointment (Vaseline Oint) 5 gm TOP DAILY [facility] Last Admin: 04/10/17 10:36 Dose: 5 gm Enoxaparin Sodium (Lovenox) 40 mg SC DAILY [facility] PRN Reason: Protocol Last Admin: 04/10/17 10:36 Dose: 40 mg Home Med (Home Med) 25 unit PO BID PRN PRN Reason: Constipation Potassium Chloride/Dextrose/Sod Cl (Potassium Chl 10 Meq In D5-1/2ns) 1,000 mls @ 50 mls/hr IV .Q20H [facility] Last Admin: 04/10/17 06:40 Dose: Not Given Levalbuterol HCl (Xopenex) 0.63 mg IH TIDRESP PRN PRN Reason: Shortness of Breath Last Admin: 04/06/17 19:40 Dose: 0.63 mg Metoclopramide HCl (Reglan) 10 mg IVP ACHS [facility] Last Admin: 04/10/17 12:08 Dose: 10 mg Metoprolol Tartrate (Lopressor) 12.5 mg PO BRKDIN [facility] Last Admin: 04/10/17 08:16 Dose: 12.5 mg Ondansetron HCl (Zofran Inj) 4 mg IVP Q6H PRN PRN Reason: Nausea/Vomiting Last Admin: 04/10/17 10:35 Dose: 4 mg Pantoprazole Sodium (Protonix Susp) 40 mg PO 0600 [facility] Stop: 04/16/17 06:01 Last Admin: 04/10/17 06:32 Dose: 40 mg Zolpidem Tartrate (Ambien) 5 mg PO HS PRN; Protocol PRN Reason: Insomnia Last Admin: 04/09/17 22:32 Dose: 5 mg - Labs Labs: 04/10/17 11:25 04/10/17 11:25 PT 12.2 Seconds (9.9-11.8) H 04/04/17 10:39 INR 1.13 (0.93-1.08) H 04/04/17 10:39 APTT 29.6 Seconds (23.7-30.8) 04/04/17 10:39 - Constitutional Appears: No Acute Distress - Head Exam Head Exam: ATRAUMATIC, NORMAL INSPECTION, NORMOCEPHALIC - Eye Exam Eye Exam: EOMI, Normal appearance, PERRL Pupil Exam: NORMAL ACCOMODATION, PERRL - ENT Exam ENT Exam: Mucous Membranes Moist - Respiratory Exam Respiratory Exam: Clear to Ausculation Bilateral, NORMAL BREATHING PATTERN. absent: Rales, Rhonchi, Wheezes - Cardiovascular Exam Cardiovascular Exam: REGULAR RHYTHM, +S1, +S2. absent: Gallop, Rubs, Murmur - GI/Abdominal Exam GI & Abdominal Exam: Soft, Tenderness (tender at peg site- clean and dry ), Normal Bowel Sounds - Extremities Exam Extremities Exam: Normal Inspection. absent: Calf Tenderness, Pedal Edema - Neurological Exam Neurological Exam: Alert, Awake, CN II-XII Intact, Oriented x3 Neuro motor strength exam: Left Upper Extremity: 5, Right Upper Extremity: 5, Left Lower Extremity: 5, Right Lower Extremity: 5 - Psychiatric Exam Psychiatric exam: Normal Affect, Normal Mood - Skin Skin Exam: Dry, Intact, Normal Color, Warm Assessment and Plan - Assessment and Plan (Free Text) Assessment: This is an 81Y M with PMH of Colon cancer s/p resection and chemo, peptic ulcers , COPD, GERD, chronic caldwell catheter, thrombophlebitis who was admitted for sepsis secondary to HCAP/aspiration pneumonia and a.fib who was also found to have dysphagia. Patient is at risk for aspiration pneumonia. Peg tube was placed for surgery. Neurology was reconsulted for prognosis of dysphagia. Dysphagia is most likely secondary to gastroparesis rather than a neurological source. Plan: - No focal neurological deficits at this time - Will obtain Brain MRI and CT cervical spine - Continue with PT/OT - Continue PPI and reglan Prognosis for dysphagia is guarded. Recommend RASHMI for patient. Case seen, discussed and reviewed with Dr. Capo Shane PGY2 <Chad Scanlon - Last Filed: 04/11/17 13:49> Objective - Vital Signs/Intake and Output Vital Signs (last 24 hours): Temp Pulse Resp BP Pulse Ox 97.6 F 84 18 136/75 99 04/11/17 06:00 04/11/17 06:00 04/11/17 06:00 04/11/17 06:00 04/11/17 06:00 Intake and Output: 04/11/17 04/11/17 06:59 18:59 Intake Total 120 Output Total 1700 Balance -1580 - Medications Medications: Current Medications Digoxin (Lanoxin) 0.125 mg PO 1400 [facility] Last Admin: 04/10/17 14:42 Dose: 0.125 mg Diltiazem HCl (Cardizem Cd) 180 mg PO DAILY [facility] Last Admin: 04/11/17 09:38 Dose: 180 mg Emollient Ointment (Vaseline Oint) 5 gm TOP DAILY [facility] Last Admin: 04/11/17 12:59 Dose: 5 gm Enoxaparin Sodium (Lovenox) 40 mg SC DAILY [facility] PRN Reason: Protocol Last Admin: 04/11/17 09:38 Dose: 40 mg Home Med (Home Med) 25 unit PO BID PRN PRN Reason: Constipation Potassium Chloride/Dextrose/Sod Cl (Potassium Chl 10 Meq In D5-1/2ns) 1,000 mls @ 50 mls/hr IV .Q20H [facility] Last Admin: 04/11/17 01:15 Dose: 50 mls/hr Levalbuterol HCl (Xopenex) 0.63 mg IH TIDRESP PRN PRN Reason: Shortness of Breath Last Admin: 04/06/17 19:40 Dose: 0.63 mg Metoclopramide HCl (Reglan) 10 mg IVP ACHS [facility] Last Admin: 04/11/17 12:58 Dose: 10 mg Metoprolol Tartrate (Lopressor) 12.5 mg PO BRKDIN [facility] Last Admin: 04/11/17 09:38 Dose: 12.5 mg Ondansetron HCl (Zofran Inj) 4 mg IVP Q6H PRN PRN Reason: Nausea/Vomiting Last Admin: 04/10/17 10:35 Dose: 4 mg Pantoprazole Sodium (Protonix Susp) 40 mg PO 0600 [facility] Stop: 04/16/17 06:01 Last Admin: 04/11/17 06:33 Dose: 40 mg Polyethylene Glycol (Miralax) 17 gm PO BID [facility] Last Admin: 04/11/17 09:38 Dose: 17 gm Zolpidem Tartrate (Ambien) 5 mg PO HS PRN; Protocol PRN Reason: Insomnia Last Admin: 04/10/17 21:20 Dose: 5 mg - Labs Labs: 04/11/17 06:00 04/11/17 06:00 PT 12.2 Seconds (9.9-11.8) H 04/04/17 10:39 INR 1.13 (0.93-1.08) H 04/04/17 10:39 APTT 29.6 Seconds (23.7-30.8) 04/04/17 10:39 Attending/Attestation - Attestation I have personally seen and examined this patient.: Yes I have fully participated in the care of the patient.: Yes I have reviewed all pertinent clinical information, including history, physical exam and plan: Yes
[2017-04-10] MEDS: Digoxin 125 mcg (0.125 mg) Tab PO SCH (14:42)
--- NOTE | 2017-04-10 16:34 | PN ---
DATE: 04/10/2017 REFERRING PHYSICIAN: Dr. Grider. SUBJECTIVE: He is lying in the bed at 45 degree. Lunch is on the bedside which is a modified diet. This morning, he did not do well with the therapy, able to get him up in the chair, but could not sit there too long; able to stand, but could not take much step, wants to go back in bed, looking forward to go to rehab facility. There is no cough, no sputum production. No abdominal pain, tolerating J-tube feeding well. Had some nausea early this morning, Reglan was given. No leg pain or leg swelling. OBJECTIVE: GENERAL: In no acute distress. VITAL SIGNS: Temperature is 98, heart rate is 66, respiratory rate is 20, blood pressure is 143/77, and pulse ox is 97% on 2 L nasal cannula. HEENT: Small oral cavity. NECK: Supple. No JVD. LUNGS: Has fair airflow with some crackles at the bases. HEART: S1 and S2. ABDOMEN: Positive bowel sounds. J-tube area looks okay. EXTREMITIES: There is no edema. NEUROLOGIC: Awake and alert. Follows simple commands. MEDICATIONS: He is on Ambien 5 mg at bedtime p.r.n., Cardizem 180 mg daily, digoxin 0.125 mg daily, metoprolol tartrate 12.5 mg twice a day, Lovenox 40 mg daily, MiraLax 17 g twice a day, potassium with D5 half-normal saline 50 mL/hour, Protonix 40 mg daily, Reglan 10 mg IV a.c. and at bedtime, Tylenol p.r.n., Vaseline at affected area, Xopenex inhale q. 8 hours p.r.n., and Zofran 4 mg q. 6 hours p.r.n. LABORATORY DATA: Shows hemoglobin 11.5, hematocrit 34.5, WBC 8.9, and platelet count is 362. Sodium 138, potassium 4.7, chloride 101, bicarbonate 30, BUN 19, creatinine 0.9, glucose 139, calcium is 8.3, AST is 31, ALT 35, alkaline phosphatase is 99, albumin is 2.9. IMPRESSION AND PLAN: Severe oropharyngeal dysphagia, history of partial gastrectomy, malnourished, requiring J-tube, recurrent aspiration with multiple pneumonia and chronic lung disease, atrial fibrillation, has a history of positive AFB culture at [facility] from bronchoscopy, which identity of the organism is still pending. Spoke to nursing staff and warned them of high risk of aspiration and respiratory failure, need to be very careful with his oral intake. I will let him only do eating under direct supervision. Continue bronchodilator, keep head at 45 degree, gastric prophylaxis, need extensive physical and occupational therapy. Thank you and we will follow with you. Andrea Page MD
--- NOTE | 2017-04-10 16:45 | PN ---
SUBJECTIVE: The patient in bed in no acute distress, nontoxic, was seen in room 364. He is chronically ill and debilitated. PHYSICAL EXAMINATION: VITAL SIGNS: Temperature is 97, blood pressure is 120/70, respiratory rate of 16. HEENT: Unremarkable. NECK: Supple. LUNGS: Have decreased breath sounds. HEART: Normal S1 and S2. ABDOMEN: Soft and nontender. LABORATORY DATA: Laboratory examination reveals a white count of 8.9, hemoglobin 11, and platelets of 362. BUN of 19, creatinine of 0.9. Urinalysis is noted. The TB QuantiFERON test is indeterminate. Dr. Tavarez's note is reviewed. Dr. Fercho Lopez's note was reviewed. ASSESSMENT AND PLAN: An 81-year-old white male, seen earlier this morning at 364, status post sepsis with multifocal healthcare-associated pneumonia and with dysphagia, status post ventilator-dependent respiratory failure, and a positive bronchoalveolar lavage and acid-fast bacilli, had positive acid-fast bacilli and bronchoscopy at [facility], still awaiting for identification and sensitivity. Currently, the patient is off of antibiotics. Overall prognosis is quite poor in patients with cachectic end-stage appearing wasting syndrome. Tonny Edmond MD
[2017-04-10] MEDS: POLYETHYLENE GLYCOL 3350 17 GM/Dose PACKET PO SCH (17:15)
[2017-04-10] MEDS ORDERED: Iohexol 350 MG/100 ML VIAL ONE (18:18)
--- NOTE | 2017-04-10 20:11 | CT ---
EXAM: CT Cervical Spine With Intravenous Contrast EXAM DATE/TIME: 04/10/2017 2:10 PM CLINICAL HISTORY: The patient age is 81 years old and is male; Signs and symptoms; Other: Dysphagia Facility exam id and description: [facility] cervical spine w/contrast TECHNIQUE: Axial computed tomography images of the cervical spine with intravenous contrast. All CT scans at this facility use one or more dose reduction techniques, viz.: automated exposure control; ma/kV adjustment per patient size (including targeted exams where dose is matched to indication; i.e. head); or iterative reconstruction technique. Coronal and sagittal reformatted images were created and reviewed. CONTRAST: 63.5 mL of omni 350 administered intravenously. COMPARISON: No relevant prior studies available. FINDINGS: Vertebrae: No acute cervical spine fracture or subluxation. The cervical lordosis is preserved. The facet alignment is preserved bilaterally. The occipital condyles and C1-C2 articulations appear intact. Osteopenia. Discs/spinal canal/neural foramina: Spondylosis is visualized at multiple cervical levels, as well as DISH. Mild narrowing of the thecal sac is identified from C3-4 through C5-6. Left neural foraminal narrowing is identified at C3-4, C5-6, and C6-7, with right neural foraminal narrowing from C3-4 through C6-7. Soft tissues: The prevertebral soft tissues appear within normal limits. Vasculature: Atherosclerotic changes are visualized. Pharynx: There is normal aeration of the nasopharynx, oropharynx, larynx, hypopharynx, and visualized trachea, without a well-defined mass. Thyroid: There is a subcentimeter suspected nodule within the right thyroid lobe. Lung apices: Calcified pleural plaques are identified at the bilateral pulmonary apices. This can be associated with asbestos exposure. Nodular consolidations are identified within the right upper lobe of the lung. One of these nodules measures 8-9 mm. There is opacification/obstruction of a left upper lobe peripheral bronchus. There is a 3 mm calcified nodule within the left pulmonary apex. No pneumothorax. Other findings: Atrophic changes are identified of the brain. Facet arthropathy is identified at multiple cervical levels. IMPRESSION: 1. There is normal aeration of the nasopharynx, oropharynx, larynx, hypopharynx, and visualized trachea, without a well-defined mass. 2. No acute cervical spine fracture or subluxation. 3. Spondylosis is visualized at multiple cervical levels, as well as DISH. 4. Mild narrowing of the thecal sac is identified from C3-4 through C5-6. 5. Left neural foraminal narrowing is identified at C3-4, C5-6, and C6-7, with right neural foraminal narrowing from C3-4 through C6-7. This can be further evaluated with MRI. 6. Calcified pleural plaques are identified at the bilateral pulmonary apices. This can be associated with asbestos exposure. 7. Nodular consolidations are identified within the right upper lobe of the lung. One of these nodules measures 8-9 mm. There is opacification/obstruction of a left upper lobe peripheral bronchus. For further evaluation, chest CT is recommended. 8. There is a subcentimeter suspected nodule within the right thyroid lobe.
--- NOTE | 2017-04-10 20:20 | CON ---
DATE: 04/10/2017 REASON FOR CONSULTATION: Fluid management, malnutrition, and dehydration. HISTORY OF PRESENTING ILLNESS: An 81-year-old male with history of gastric ulcer disease, history of partial gastrectomy, GI bleed, dysphagia, weight loss, recent PEG placement, recent admission to the ICU, is now on the medical floor. He is being fed by his PEG tube. At present, he is awake, he is alert. He denies any pain. He denies any shortness of breath. He reports he had abdominal pain earlier. He denies any fever or chills. He denies any urinary complaints. PAST MEDICAL AND SURGICAL HISTORY: As mentioned in the history of presenting illness. FAMILY HISTORY: Noncontributory. SOCIAL HISTORY: No smoking, no alcohol use, no IV drug abuse. ALLERGIES: NO KNOWN DRUG ALLERGIES. MEDICATIONS: Ambien, Cardizem CD 180, digoxin 0.125, Lopressor 12.5 b.i.d., Lovenox, MiraLax, D5 normal saline, Protonix, Reglan, Tylenol, Vaseline, Xopenex, and Zofran. REVIEW OF SYSTEMS: All systems are reviewed, pertinent positives as mentioned in history of presenting illness, rest unremarkable. PHYSICAL EXAMINATION: GENERAL: Cachectic, elderly male lying in bed. VITAL SIGNS: Blood pressure 120/70, heart rate 76, respiratory rate 18, temperature 98.9. HEENT: Normocephalic, atraumatic. NECK: Supple, no JVD. LUNGS: Bilateral equal entry, no rales. CARDIAC: S1 and S2, regular rate and rhythm, no murmur, no rub. ABDOMEN: Soft, scaphoid, nondistended, positive PEG, bowel sounds present. EXTREMITIES: No lower extremity edema. LABORATORY DATA: WBC 8.9, hemoglobin 11.5, hematocrit 35, platelets 362. Sodium 138, potassium 4.7, chloride 101, CO2 of 30, BUN 19, creatinine 0.9, glucose 139, calcium 8.3, AST 31, ALT 35, albumin 2.9. ASSESSMENT AND PLAN. 1. Chronic malnutrition. 2. Cachexia. 3. Dysphagia. 4. History of gastric ulcer, partial gastrectomy. 5. Hypoalbuminemia. PLAN: 1. Continue tube feeds. 2. Continue current management. 3. No indication for IV fluids or hyperalimentation at this time. Sherie Gallagher MD [facility] # [id number]
[2017-04-11] MEDS: Potassium Chl 10 mEq in D5-1/2 1,000 ML IV SCH (01:15)
[2017-04-11 06:23] LABS: BASO # 0.02 K/mm3 (0.0-2.0); BASO % 0.3 % (0.0-3.0); EOS # 0.1 (0.0-0.7); GRAN # 5.53 (1.4-6.5); LYMPH # 0.9 (1.2-3.4); LYMPH % 12.3 % (22.0-35.0); MEAN CELL VOLUME 91.7 fl (80.0-105.0); MEAN CORPUSCULAR HEMOGLOBIN 30.2 pg (25.0-35.0); MEAN CORPUSCULAR HGB CONC 32.9 g/dl (31.0-37.0); MEAN PLATELET VOLUME 11.8 fl (7.0-11.0); MONO # 0.5 (0.1-0.6); MONO % 6.4 % (1.0-6.0); RED CELL DISTRIBUTION WIDTH 15.3 % (11.5-14.5)
[2017-04-11] MEDS: Pantoprazole 40 mg Susp UD PO SCH (06:33)
[2017-04-11 06:57] LABS: ALB/GLOB RATIO 0.8 (1.1-1.8); ALKALINE PHOSPHATASE 88 U/L (38-126); ALT/SGPT 33 U/L (7-56); AST/SGOT 39 U/L (17-59); BILIRUBIN,TOTAL 0.5 mg/dL (0.2-1.3); BLOOD UREA NITROGEN 19 mg/dL (7-21); CALCIUM 8.2 mg/dL (8.4-10.5); CARBON DIOXIDE 32 mmol/L (21-33); CHLORIDE 101 mmol/L (98-107); GFR AFRICAN-AMERICAN > 60; GLUCOSE,RANDOM 123 mg/dL (70-110); POTASSIUM 3.9 mmol/L (3.6-5.0); SODIUM 139 mmol/L (132-148); TOTAL PROTEIN 5.6 g/dL (5.8-8.3)
--- NOTE | 2017-04-11 09:06 | RAD ---
PROCEDURE: Abdomen single view HISTORY: R/O constipation COMPARISON: TECHNIQUE: Supine FINDINGS: There is a small amount of stool in the rectum. The bowel gas pattern is otherwise unremarkable. There is a large caliber drainage catheter on the left side of the abdomen and upper pelvis IMPRESSION: Mild constipation
[2017-04-11] MEDS: diltiaZEM 180 mg/24 Hours CD Cap PO SCH (09:38)
[2017-04-11] MEDS: Enoxaparin 40 mg Syringe SC SCH (09:38)
[2017-04-11] MEDS: POLYETHYLENE GLYCOL 3350 17 GM/Dose PACKET PO SCH ×2 (09:38→18:47)
--- NOTE | 2017-04-11 10:02 | CP.PCM.PN ---
Subjective - Date & Time of Evaluation Date of Evaluation: 04/11/17 Time of Evaluation: 10:02 - Subjective Subjective: Neurology Progress Note for Cale Cooper PGY2 Patient seen and examined at bedside. There were no acute overnight events. Patient reports feeling well today. He denies having any pain, CP, SOB, n/v/d, numbness/tingling, vision changes or weakness. Objective - Vital Signs/Intake and Output Vital Signs (last 24 hours): Temp Pulse Resp BP Pulse Ox 97.6 F 84 18 136/75 99 04/11/17 06:00 04/11/17 06:00 04/11/17 06:00 04/11/17 06:00 04/11/17 06:00 Intake and Output: 04/11/17 04/11/17 06:59 18:59 Intake Total 120 Output Total 1700 Balance -1580 - Medications Medications: Current Medications Digoxin (Lanoxin) 0.125 mg PO 1400 [facility] Last Admin: 04/10/17 14:42 Dose: 0.125 mg Diltiazem HCl (Cardizem Cd) 180 mg PO DAILY [facility] Last Admin: 04/11/17 09:38 Dose: 180 mg Emollient Ointment (Vaseline Oint) 5 gm TOP DAILY [facility] Last Admin: 04/10/17 10:36 Dose: 5 gm Enoxaparin Sodium (Lovenox) 40 mg SC DAILY [facility] PRN Reason: Protocol Last Admin: 04/11/17 09:38 Dose: 40 mg Home Med (Home Med) 25 unit PO BID PRN PRN Reason: Constipation Potassium Chloride/Dextrose/Sod Cl (Potassium Chl 10 Meq In D5-1/2ns) 1,000 mls @ 50 mls/hr IV .Q20H [facility] Last Admin: 04/11/17 01:15 Dose: 50 mls/hr Levalbuterol HCl (Xopenex) 0.63 mg IH TIDRESP PRN PRN Reason: Shortness of Breath Last Admin: 04/06/17 19:40 Dose: 0.63 mg Metoclopramide HCl (Reglan) 10 mg IVP ACHS [facility] Last Admin: 04/11/17 09:38 Dose: 10 mg Metoprolol Tartrate (Lopressor) 12.5 mg PO BRKDIN [facility] Last Admin: 04/11/17 09:38 Dose: 12.5 mg Ondansetron HCl (Zofran Inj) 4 mg IVP Q6H PRN PRN Reason: Nausea/Vomiting Last Admin: 04/10/17 10:35 Dose: 4 mg Pantoprazole Sodium (Protonix Susp) 40 mg PO 0600 [facility] Stop: 04/16/17 06:01 Last Admin: 04/11/17 06:33 Dose: 40 mg Polyethylene Glycol (Miralax) 17 gm PO BID [facility] Last Admin: 04/11/17 09:38 Dose: 17 gm Zolpidem Tartrate (Ambien) 5 mg PO HS PRN; Protocol PRN Reason: Insomnia Last Admin: 04/10/17 21:20 Dose: 5 mg - Labs Labs: 04/11/17 06:00 04/11/17 06:00 PT 12.2 Seconds (9.9-11.8) H 04/04/17 10:39 INR 1.13 (0.93-1.08) H 04/04/17 10:39 APTT 29.6 Seconds (23.7-30.8) 04/04/17 10:39 - Constitutional Appears: No Acute Distress, Chronically Ill - Head Exam Head Exam: ATRAUMATIC, NORMAL INSPECTION, NORMOCEPHALIC - Eye Exam Eye Exam: Normal appearance, PERRL Pupil Exam: NORMAL ACCOMODATION, PERRL - ENT Exam ENT Exam: Mucous Membranes Dry - Respiratory Exam Respiratory Exam: Clear to Ausculation Bilateral, NORMAL BREATHING PATTERN. absent: Rales, Rhonchi, Wheezes - Cardiovascular Exam Cardiovascular Exam: REGULAR RHYTHM, +S1, +S2. absent: Gallop, Rubs, Murmur - GI/Abdominal Exam GI & Abdominal Exam: Soft, Normal Bowel Sounds. absent: Rigid, Tenderness, Mass , Rebound Additional comments: peg tube in place- clean and dry - Extremities Exam Extremities Exam: Normal Inspection. absent: Calf Tenderness, Pedal Edema - Neurological Exam Neurological Exam: Alert, Awake, CN II-XII Intact, Oriented x3 Neuro motor strength exam: Left Upper Extremity: 5, Right Upper Extremity: 5, Left Lower Extremity: 5, Right Lower Extremity: 5 - Psychiatric Exam Psychiatric exam: Normal Affect, Normal Mood - Skin Skin Exam: Dry, Normal Color, Warm Assessment and Plan - Assessment and Plan (Free Text) Assessment: This is an 81Y M with PMH of Colon cancer s/p resection and chemo, peptic ulcers , COPD, GERD, chronic caldwell catheter, thrombophlebitis who was admitted for sepsis secondary to HCAP/aspiration pneumonia and a.fib who was also found to have dysphagia. Patient is at risk for aspiration pneumonia. Peg tube was placed for surgery. Neurology was reconsulted for prognosis of dysphagia. Dysphagia is most likely secondary to gastroparesis rather than a neurological source. CT cervical spine showed no mass or fracture, mild thecal narrowing of C3-C6, L neuronal narrowing of C3-7. This should not affect pt's dysphagia. Previous MRI did not show any acute pathology. Plan: - No focal neurological deficits at this time - Continue with PT/OT - Continue PPI and reglan - Recommend outpatient neuromuscular evaluation for vagal nerve neuropathy Prognosis for dysphagia is guarded. Recommend RASHMI for patient. No further neurological work up is indicated at this time. Thank you for this consultation. Please re-consult if needed. Case seen, discussed and reviewed with Dr. Capo Shane PGY2
--- NOTE | 2017-04-11 10:38 | PN ---
DATE: 04/11/2017 SUBJECTIVE: The patient is lying in bed comfortable. He complained of constipation with not having any bowel movements for four days. Yesterday he was given enemas per rectum as well as started on MiraLax, had numerous bowel movements last night. He denies any further nausea or vomiting. He denies any abdominal pain. PHYSICAL EXAMINATION: VITAL SIGNS: Reveal temperature of 97.6, blood pressure of 136/75, and heart rate of 84. GASTROINTESTINAL: Abdomen is soft and nontender. He has a surgically placed jejunal feeding tube without any drainage or discharge. LABORATORY DATA: Revealed hemoglobin of 10.2 and white blood cell count of 7. Electrolytes are normal with a blood sugar of 123. IMPRESSION: He is a 81-year-old male with oropharyngeal dysphagia status post surgically placed jejunal feeding tube with nausea and constipation. RECOMMENDATIONS: 1, Continue IV Protonix. 2. Continue IV Reglan 10 mg q. 6 hours. 3. Continue MiraLax 17 g b.i.d. The patient did have a colonoscopy within the last 6 months which revealed a benign right-sided adenoma. Ej Tavarez MD
[2017-04-11] MEDS: Petrolatum Oint Foilpak (5 gm) TOP SCH (12:59)
[2017-04-11] MEDS: Digoxin 125 mcg (0.125 mg) Tab PO SCH (14:00)
--- NOTE | 2017-04-11 16:31 | PN ---
DATE: 04/11/2017 SUBJECTIVE: The patient is seen lying in bed. He is awake, he is alert, he is weak. He complains of abdominal pain. He denies any nausea, vomiting. PHYSICAL EXAMINATION: GENERAL EXAMINATION: Cachectic, thinly built, elderly male lying in bed. VITAL SIGNS: Blood pressure 136/75, heart rate 84, respiratory rate 18, temperature 97.6. HEENT: Normocephalic, atraumatic, positive pallor. NECK: Supple, no JVD. LUNGS: Bilateral equal air entry, equal expansion, poor inspiratory effort. CARDIAC: S1 and S2, regular rate and rhythm, no murmur, no rub. ABDOMEN: Soft, nondistended, nontender, positive PEG, bowel sounds present. EXTREMITIES: No lower extremity edema. INTAKE AND OUTPUT: 120/3900?? LABORATORY DATA: WBC 7.0, hemoglobin 10, hematocrit 31, and platelets 283. Sodium 139, potassium 3.9, chloride 101, CO2 of 32, BUN 19, creatinine 1.0, glucose 123. Calcium 8.2. AST 39, ALT 33. Albumin 2.5. Corrected calcium is 9.2. Cultures negative. CURRENT MEDICATIONS: Ambien, Cardizem CD 180, digoxin 0.125, Lopressor 12.5 b.i.d., Lovenox, MiraLax, D5 normal saline with 10 mEq of KCl at 50, Reglan, Xopenex, Zofran. ASSESSMENT: 1. Severe malnutrition. 2. Cachexia. 3. Dysphagia. 4. Remote history of partial gastrectomy for bleeding ulcer. 5. Mild hypokalemia. PLAN: 1. Advance tube feeds. 2. Continue maintenance IV fluids for the time being. 3. Monitor electrolytes. Sherie Gallagher MD
--- NOTE | 2017-04-11 16:31 | PN ---
SUBJECTIVE: The patient is in bed, in no acute distress, chronically ill. PHYSICAL EXAMINATION: VITAL SIGNS: Temperature is 98, blood pressure is 130/70, respiratory rate of 18. HEENT: Unremarkable. NECK: Supple. LUNGS: Decreased breath sounds. HEART: Normal S1 and S2. ABDOMEN: Soft. LABORATORY EXAMINATION: Reveals the white count of 7.2, hemoglobin of 10. BUN of 19, creatinine of 1.0 and procalcitonin is 0.12. Urinalysis is noted. Serology is noted. Microbiology is noted. Cervical CAT scan of the spine is noted. ASSESSMENT AND PLAN: This is an 81-year-old status post sepsis, multifocal healthcare-associated pneumonia with dysphagia, status post ventilator-dependent respiratory failure, and a positive bronchoalveolar lavage and acid-fast, identification is still pending. Currently off of antibiotics. Overall prognosis quite poor. Tonny Edmond MD
[2017-04-11] MEDS: guaiFENesin DM 200 mg-20 mg/10 ml UD PO PRN (18:46)
[2017-04-11 18:47] VITALS: PULSE 74
--- NOTE | 2017-04-11 19:52 | CP.PCM.PN ---
Subjective - Date & Time of Evaluation Date of Evaluation: 04/11/17 Time of Evaluation: 09:25 - Subjective Subjective: Medicine progress note for Dr. Grider's service Patient seen and examined at bedside this morning. No acute overnight events or new complaints reported. He has been approved for [facility] re[facility] in [place], [place]. Denies chest pain, palpitations, SOB. Tolerating tube feeds well. Objective - Vital Signs/Intake and Output Vital Signs (last 24 hours): Temp Pulse Resp BP Pulse Ox 97.7 F 84 19 129/71 97 04/11/17 17:46 04/11/17 17:46 04/11/17 17:46 04/11/17 17:46 04/11/17 17:46 Intake and Output: 04/11/17 04/12/17 18:59 06:59 Intake Total 240 Output Total 700 Balance -460 - Medications Medications: Current Medications Digoxin (Lanoxin) 0.125 mg PO 1400 [facility] Last Admin: 04/11/17 14:00 Dose: 0.125 mg Diltiazem HCl (Cardizem Cd) 180 mg PO DAILY [facility] Last Admin: 04/11/17 09:38 Dose: 180 mg Emollient Ointment (Vaseline Oint) 5 gm TOP DAILY [facility] Last Admin: 04/11/17 12:59 Dose: 5 gm Enoxaparin Sodium (Lovenox) 40 mg SC DAILY [facility] PRN Reason: Protocol Last Admin: 04/11/17 09:38 Dose: 40 mg Guaifenesin/Dextromethorphan (Robitussin Dm) 10 ml PO Q6H PRN PRN Reason: Cough Last Admin: 04/11/17 18:46 Dose: 10 ml Home Med (Home Med) 25 unit PO BID PRN PRN Reason: Constipation Levalbuterol HCl (Xopenex) 0.63 mg IH TIDRESP PRN PRN Reason: Shortness of Breath Last Admin: 04/06/17 19:40 Dose: 0.63 mg Metoclopramide HCl (Reglan) 10 mg IVP ACHS [facility] Last Admin: 04/11/17 17:00 Dose: 10 mg Metoprolol Tartrate (Lopressor) 12.5 mg PO BRKDIN [facility] Last Admin: 04/11/17 17:40 Dose: 12.5 mg Ondansetron HCl (Zofran Inj) 4 mg IVP Q6H PRN PRN Reason: Nausea/Vomiting Last Admin: 04/10/17 10:35 Dose: 4 mg Pantoprazole Sodium (Protonix Susp) 40 mg PO 0600 [facility] Stop: 04/16/17 06:01 Last Admin: 04/11/17 06:33 Dose: 40 mg Polyethylene Glycol (Miralax) 17 gm PO BID [facility] Last Admin: 04/11/17 18:47 Dose: Not Given Zolpidem Tartrate (Ambien) 5 mg PO HS PRN; Protocol PRN Reason: Insomnia Last Admin: 04/10/17 21:20 Dose: 5 mg - Labs Labs: 04/11/17 06:00 04/11/17 06:00 PT 12.2 Seconds (9.9-11.8) H 04/04/17 10:39 INR 1.13 (0.93-1.08) H 04/04/17 10:39 APTT 29.6 Seconds (23.7-30.8) 04/04/17 10:39 - Constitutional Appears: Cachectic, Chronically Ill - Head Exam Head Exam: ATRAUMATIC, NORMAL INSPECTION, NORMOCEPHALIC - Eye Exam Eye Exam: EOMI, PERRL - ENT Exam ENT Exam: Mucous Membranes Moist - Neck Exam Neck Exam: Normal Inspection - Respiratory Exam Respiratory Exam: Decreased Breath Sounds. absent: Rales, Rhonchi, Wheezes - Cardiovascular Exam Cardiovascular Exam: +S1, +S2. absent: Gallop, Rubs, Murmur - GI/Abdominal Exam GI & Abdominal Exam: Soft. absent: Distended, Firm, Guarding, Rigid, Tenderness , Rebound Additional comments: jejunostomy tube; site clean dry and intact - Extremities Exam Extremities Exam: Normal Inspection. absent: Pedal Edema - Neurological Exam Neurological Exam: Alert, Awake, Oriented x3 - Psychiatric Exam Psychiatric exam: Normal Affect, Normal Mood - Skin Skin Exam: Dry, Intact, Normal Color, Warm Assessment and Plan - Assessment and Plan (Free Text) Plan: 81yo male with history of stage 3 colon ca currently in remission s/p chemotherapy and hemicolectomy admitted for sepsis secondary to healthcare associated pneumonia/aspiration PNA as well as atrial fibrillation with RVR. 1. Dysphagia -Patient is s/p jejunostomy placement (POD#7) -Continue with tube feeds with Jevity 1.2 @ 50cc/hr and free water flushes 100cc q4h -Bedside swallow evaluation repeated; recommended clear liquid diet -Patient started on reglan per GI recommendations -GI (Dr. Tavarez) and Surgery (Dr. Loving) following 2. Atrial fibrillation -Patient started on cardizem and digoxin per cardiology recommendations -Currently rate well controlled, will continue to monitor -Cardiology consulted - Dr. Condon/Dr. Wheeler 3. HCAP/Aspiration PNA -afebrile, no leukocytosis -lactate within normal limits -Blood cultures negative -Patient is s/p treatment with meropenem and doxycycline per ID recommendations ; currently being monitored off antibiotics and is at high risk of nosocomial infections -ID consulted - Dr. Edmond/Dr. Shah 4. Stage 3 Colon Ca, in remission -Patient previously treated with chemotherapy and hemicolectomy -Currently his colon cancer is in remission 5. Rule out TB -Patient had + AFB cultures s/p BAL at [facility] -AFB smears here have been negative x3, airborne isolation discontinued -ID consulted - Dr. Edmond/Dr. Shah 6. COPD -Continue xopenex -Continue tessalon perls -Pulmonary consulted - Dr. Page 7. GERD -Continue protonix 8. BPH -Continue flomax 9. GI/DVT Prophylaxis -Protonix/lovenox 10. Disposition -Patient accepted to [facility] in [place], [place]. Discharge date scheduled for SaturdayApril 12 at 10am. Patient seen and case discussed with attending, Dr. Grider
[2017-04-11] MEDS: Levalbuterol 0.63 MG/3 ML Inhal Soln UD IH PRN (23:38)
--- NOTE | 2017-04-11 23:49 | CP.PCM.PN ---
Subjective - Date & Time of Evaluation Date of Evaluation: 04/11/17 Time of Evaluation: 23:17 - Subjective Subjective: Pt seen at the request of his RN for chest congestion and cough noted by her. She stated pt was on iv fluids which were stopped as he was thought to be fluid overloaded. Pt is afebrile ,offers no complaints. VS BP 128/74 P 85 RR 19 T 97.7 O2 sat on O2 at 2l/min is 90% Chart reviewed. Objective - Vital Signs/Intake and Output Vital Signs (last 24 hours): Temp Pulse Resp BP Pulse Ox 97.7 F 85 19 128/74 90 L 04/11/17 17:46 04/11/17 22:10 04/11/17 22:10 04/11/17 22:10 04/11/17 22:10 Intake and Output: 04/11/17 04/12/17 18:59 06:59 Intake Total 240 Output Total 700 Balance -460 - Medications Medications: Current Medications Digoxin (Lanoxin) 0.125 mg PO 1400 [facility] Last Admin: 04/11/17 14:00 Dose: 0.125 mg Diltiazem HCl (Cardizem Cd) 180 mg PO DAILY [facility] Last Admin: 04/11/17 09:38 Dose: 180 mg Emollient Ointment (Vaseline Oint) 5 gm TOP DAILY [facility] Last Admin: 04/11/17 12:59 Dose: 5 gm Enoxaparin Sodium (Lovenox) 40 mg SC DAILY [facility] PRN Reason: Protocol Last Admin: 04/11/17 09:38 Dose: 40 mg Guaifenesin/Dextromethorphan (Robitussin Dm) 10 ml PO Q6H PRN PRN Reason: Cough Last Admin: 04/11/17 18:46 Dose: 10 ml Home Med (Home Med) 25 unit PO BID PRN PRN Reason: Constipation Levalbuterol HCl (Xopenex) 0.63 mg IH TIDRESP PRN PRN Reason: Shortness of Breath Last Admin: 04/06/17 19:40 Dose: 0.63 mg Metoclopramide HCl (Reglan) 10 mg IVP ACHS [facility] Last Admin: 04/11/17 21:26 Dose: 10 mg Metoprolol Tartrate (Lopressor) 12.5 mg PO BRKDIN [facility] Last Admin: 04/11/17 17:40 Dose: 12.5 mg Ondansetron HCl (Zofran Inj) 4 mg IVP Q6H PRN PRN Reason: Nausea/Vomiting Last Admin: 04/10/17 10:35 Dose: 4 mg Pantoprazole Sodium (Protonix Susp) 40 mg PO 0600 [facility] Stop: 04/16/17 06:01 Last Admin: 04/11/17 06:33 Dose: 40 mg Polyethylene Glycol (Miralax) 17 gm PO BID [facility] Last Admin: 04/11/17 18:47 Dose: Not Given Zolpidem Tartrate (Ambien) 5 mg PO HS PRN; Protocol PRN Reason: Insomnia Last Admin: 04/11/17 21:27 Dose: 5 mg - Labs Labs: 04/11/17 06:00 04/11/17 06:00 PT 12.2 Seconds (9.9-11.8) H 04/04/17 10:39 INR 1.13 (0.93-1.08) H 04/04/17 10:39 APTT 29.6 Seconds (23.7-30.8) 04/04/17 10:39 - Constitutional Appears: No Acute Distress - Head Exam Head Exam: ATRAUMATIC, NORMAL INSPECTION, NORMOCEPHALIC - Eye Exam Eye Exam: Normal appearance - ENT Exam ENT Exam: Mucous Membranes Moist - Neck Exam Neck Exam: Normal Inspection - Respiratory Exam Respiratory Exam: Rhonchi (scattered rhonchi). absent: Respiratory Distress - Cardiovascular Exam Cardiovascular Exam: REGULAR RHYTHM - GI/Abdominal Exam GI & Abdominal Exam: Soft, Normal Bowel Sounds Additional comments: Gastric feeding tube is in place. - Extremities Exam Extremities Exam: Normal Inspection. absent: Pedal Edema - Neurological Exam Neurological Exam: Alert, Oriented x3 Additional comments: Confused at times. - Psychiatric Exam Psychiatric exam: Normal Affect - Skin Skin Exam: Dry, Warm Assessment and Plan - Assessment and Plan (Free Text) Assessment: Shortness of breath Plan: Chest Xray done now does not show congestion. Xopenex Rx as already ordered.
--- NOTE | 2017-04-12 00:40 | PN ---
PULMONARY PROGRESS NOTE DATE: 04/11/2017 REFERRING PHYSICIAN: Dr. Herrera. SUBJECTIVE: He is lying in the bed, head at 45 degrees, has more cough and sputum production today. No nausea and no vomiting, tolerating J-tube feeding well. No leg pain or leg swelling. OBJECTIVE: GENERAL: In no acute distress. VITAL SIGNS: Temperature is 98, heart rate is 84, respiratory rate is 20, blood pressure 129/71, pulse ox 97% on 2 L nasal cannula. HEENT: Moist mucous membranes. Has increased pharyngeal secretion. NECK: Supple. No JVD. LUNGS: Has scattered rhonchi, few crackles at the bases. HEART: S1 and S2. ABDOMEN: Soft and nontender. No organomegaly. EXTREMITIES: There is no edema. NEUROLOGIC: Awake and alert. Follows simple commands. MEDICATIONS: He is on Ambien 5 mg at bedtime p.r.n., Cardizem CD 180 mg daily, digoxin 0.125 mg daily, Lopressor 12.5 mg twice a day, Lovenox 40 mg daily, MiraLax 17 g p.o. twice a day, Protonix 40 mg daily, Reglan 10 mg IV a.c. and at bedtime, Robitussin 10 mL q. 6 hours p.r.n., Xopenex inhaled q. 8 hours p.r.n., and Zofran on p.r.n, basis. LABORATORY DATA: Shows Hemoglobin 12.2, hematocrit 31.0. WBC 7.0, and platelet count is 283. Sodium 139, potassium 3.9, chloride 101, bicarbonate 32, BUN 19, creatinine 1.0, glucose 123, and calcium 8.2. AST 39, ALT 33, alkaline phosphatase is 88 and albumin 2.5. IMPRESSION AND PLAN: Severe oropharyngeal dysphagia with recurrent aspiration, history of partial gastrectomy, malnutrition requiring J-tube, chronic lung disease, atrial fibrillation, has bronchoscopy lavage positive for acid-fast bacillus culture, identity of the organism is still pending, sputum has been negative. Apparently, the patient was started on a diet, which make him increase secretion, unable to clear. Spoke to nursing staff. We will recommend n.p.o., use J-tube for the feedings, high-risk for recurrent aspiration respiratory failure, gastric prophylaxis, cough suppressor bronchodilators, and physical therapy. Thank you and we will follow with you. Andrea Page MD
[2017-04-12] MEDS ORDERED: Levalbuterol 0.63 MG/3 ML Inhal Soln UD IH STA (01:57)
[2017-04-12] MEDS ORDERED: Acetaminophen 650mg/20.3ml solution UD PO ONE (02:01)
[2017-04-12 02:09] VITALS: BP 122/56; PULSE 54; RESP 23; TEMP 98.1
[2017-04-12 02:13] VITALS: O2SAT 95
[2017-04-12] MEDS: guaiFENesin DM 200 mg-20 mg/10 ml UD PO PRN (03:11)
[2017-04-12] MEDS: Pantoprazole 40 mg Susp UD PO SCH (05:16)
[2017-04-12] MEDS: Levalbuterol 0.63 MG/3 ML Inhal Soln UD IH PRN (07:49)
--- NOTE | 2017-04-12 08:56 | RAD ---
HISTORY: resp congestion COMPARISON: 04/09/2017 FINDINGS: LUNGS: Linear scar/ atelectasis at both lung bases unchanged from prior examination.Probable interstitial opacities at both lung bases. PLEURA: No significant pleural effusion identified, no pneumothorax apparent. CARDIOVASCULAR: Unremarkable OSSEOUS STRUCTURES: No significant abnormalities. VISUALIZED UPPER ABDOMEN: Normal. OTHER FINDINGS: None. IMPRESSION: Bibasilar linear scar/ atelectasis. Bibasilar interstitial opacities.
--- NOTE | 2017-04-12 09:41 | RAD ---
Modified barium video swallow History of dysphagia Comments. Fluoroscopy was provided in the Radiology department. Lateral video fluoroscopy was performed of the neck as the patient swallows various consistencies of liquid and solid food combined with barium. Images were recorded and sent to the PACs system. There is no official radiologic interpretation of these exams only this documentation of providing fluoroscopy. The studies are administered and interpreted by the speech therapist Nury Arevalo [phone]. Impression: Fluoroscopy provided for evaluation of swallowing function
[2017-04-12] MEDS ORDERED: Prostat 15 g packet GT SCH (10:00)
[2017-04-12] MEDS: Enoxaparin 40 mg Syringe SC SCH (10:28)
[2017-04-12] MEDS: diltiaZEM 180 mg/24 Hours CD Cap PO SCH (10:32)
[2017-04-12] MEDS: POLYETHYLENE GLYCOL 3350 17 GM/Dose PACKET PO SCH (10:32)
[2017-04-12] MEDS: Petrolatum Oint Foilpak (5 gm) TOP SCH (10:33)
--- NOTE | 2017-04-12 10:52 | PN ---
DATE: 04/12/2017 SUBJECTIVE: The patient is seen lying in bed. He is mildly short of breath. He is coughing. He denies any pain at present. PHYSICAL EXAMINATION: GENERAL: Cachectic elderly male, sitting in bed. VITAL SIGNS: Blood pressure 122/56, heart rate 54, respiratory rate 22, and temperature 98. HEENT: Normocephalic, atraumatic. Neck: Supple, no JVD. LUNGS: Bilateral equal air entry, rales. CARDIAC: S1 and S2, regular rate and rhythm, no murmur, no rub. ABDOMEN: Soft, nondistended, nontender, bowel sounds present, positive PEG. EXTREMITIES: No lower extremity edema. INTAKE AND OUTPUT: 240???/1225. LABORATORY DATA: WBC 7, hemoglobin 10, hematocrit 31, platelets 283. Sodium 139, potassium 3.9, chloride 101, CO2 of 32, BUN 19, creatinine 1.0, glucose 123, calcium 8.2, AST 39, ALT 33, total protein 5.6, and albumin 2.5. CURRENT MEDICATIONS: Ambien, Cardizem, Lanoxin, Lopressor 12.5 b.i.d., Lovenox, MiraLax, Protonix, Reglan, guaifenesin, Vaseline, Xopenex, and Zofran. ASSESSMENT AND PLAN: 1. Malnutrition. 2. Cachexia. 3. Dysphagia. 4. Remote history of partial gastrectomy for bleeding ulcer. 5. Dementia. 6. Mild hypokalemia. PLAN: 1. Discontinue IV fluids. 2. Continue PEG feeds. 3. Pro-Stat 15 g b.i.d. 4. Monitor electrolytes. Sherie Gallagher MD
--- NOTE | 2017-04-12 11:05 | PN ---
DATE: 04/12/2017 SUBJECTIVE: The patient is lying in bed comfortable. He denies any abdominal pain, nausea, or vomiting. He is tolerating jejunal tube feedings. The patient had an episode of cough productive of mucus and shortness of breath last night. This has resolved. PHYSICAL EXAMINATION: VITAL SIGNS: Reveal temperature of 98.1, blood pressure 122/56, heart rate of 54. ABDOMEN: Soft, nontender. He has a jejunal feeding tube in his abdomen: There is no discharge or drainage around the feeding tube. LABORATORY DATA: No new laboratory data are available. IMPRESSION: An 81-year-old male with oropharyngeal dysphagia, aspiration pneumonia, history of subtotal gastrectomy with Billroth II anastomosis, history of colon cancer; status post surgical jejunal tube placement. The patient is tolerating feedings well. RECOMMENDATIONS: Continue PPI and continue MiraLax for constipation. The patient is to be discharged to a subacute rehab facility later today. Ej Tavarez MD
== END 2017-04-12 13:34 | disposition home or self-care (01) | DRG 871 ==
LOC: ED 12:33 → ERH 16:41 → 3RNO 18:37 → CCU 03-23 21:31 → 3RNO 04-06 22:34
PROVIDERS: ADMIT Family Medicine; ATTEND Family Medicine
PROC: 3E0F7GC Introduction of Other Therapeutic Substance into Respiratory Tract, Via Natural or Artificial Opening (ICD-10-PCS; 2017-03-20)
PROC: 3E0H76Z Introduction of Nutritional Substance into Lower GI, Via Natural or Artificial Opening (ICD-10-PCS; 2017-03-23)
PROC: 5A09457 Assistance with Respiratory Ventilation, 24-96 Consecutive Hours, Continuous Positive Airway Pressure (ICD-10-PCS; 2017-03-23)
PROC: 0DH67UZ Insertion of Feeding Device into Stomach, Via Natural or Artificial Opening (ICD-10-PCS; 2017-03-23)
PROC: 0DHA0UZ Insertion of Feeding Device into Jejunum, Open Approach (ICD-10-PCS; principal; 2017-04-04 16:30)
DX: A41.9 Sepsis, unspecified organism (principal); J69.0 Pneumonitis due to inhalation of food and vomit; J96.91 Respiratory failure, unspecified with hypoxia; E43 Unspecified severe protein-calorie malnutrition; J84.9 Interstitial pulmonary disease, unspecified; B37.81 Candidal esophagitis; R64 Cachexia; I42.9 Cardiomyopathy, unspecified; J44.1 Chronic obstructive pulmonary disease with (acute) exacerbation; F03.90 Unspecified dementia, unspecified severity, without behavioral disturbance, psychotic disturbance, mood disturbance, and anxiety; Z68.1 Body mass index [BMI] 19.9 or less, adult; A15.9 Respiratory tuberculosis unspecified; I48.91 Unspecified atrial fibrillation; D64.9 Anemia, unspecified; K31.84 Gastroparesis; R13.12 Dysphagia, oropharyngeal phase; K21.9 Gastro-esophageal reflux disease without esophagitis; E53.8 Deficiency of other specified B group vitamins; R62.7 Adult failure to thrive; F41.9 Anxiety disorder, unspecified; H40.9 Unspecified glaucoma; Z66 Do not resuscitate; N40.1 Benign prostatic hyperplasia with lower urinary tract symptoms; R33.8 Other retention of urine; F51.02 Adjustment insomnia; K59.00 Constipation, unspecified; E86.0 Dehydration; R27.0 Ataxia, unspecified; E87.6 Hypokalemia; Y95 Nosocomial condition; K27.9 Peptic ulcer, site unspecified, unspecified as acute or chronic, without hemorrhage or perforation; Z86.72 Personal history of thrombophlebitis; Z90.3 Acquired absence of stomach [part of]; Z85.038 Personal history of other malignant neoplasm of large intestine; Z92.21 Personal history of antineoplastic chemotherapy; Z92.3 Personal history of irradiation; Z87.891 Personal history of nicotine dependence